=== PATIENT | male | born 1940 | race Hispanic/Latino ===

== ENCOUNTER 2017-09-07 18:03 | Emergency (ER) | payer OTHER ==
[2017-09-07 18:59] LABS: Urine Blood NEGATIVE (NEG); Urine Glucose 1+ (NEG); Urine Protein TRACE (NEG)
[2017-09-07 19:50] LABS: Absolute Lymphocytes (CBC) 0.1 K/uL (0.7-4.9); Absolute Monocytes 0.4 K/uL (0.1-1.3); Absolute Neutrophil 6.6 K/uL (1.8-8.0); Basophils % 0.3 % (0-1.3); Hematocrit 41.7 % (39.6-49.0); Lymphocytes % 1.8 % (15.3-44.8); MCH 30.8 pg (27.0-35.0); MCV 90.5 fL (80-100); MPV 7.1 fL (7.6-11.3); Monocytes % 5.4 % (3.3-12.3); RBC Red Blood Cell Count 4.61 M/uL (4.33-5.43)
[2017-09-07 20:01] LABS: Bicarbonate 26 mEq/L (21-31); Glucose Level 189 mg/dL (65-120); Potassium 3.9 mEq/L (3.6-5.0); Sodium Level 136 mEq/L (135-145)
[2017-09-07 20:04] LABS: ALT/SGPT 14 IU/L (10-60); AST/SGOT 22 IU/L (10-42); Albumin 3.4 g/dL (3.2-5.5); Alkaline Phosphatase 55 IU/L (42-121); BUN Blood Urea Nitrogen 13 mg/dL (6-20); Bilirubin Total 0.6 mg/dL (0.3-1.2); Protein, Total 5.8 g/dL (6.0-8.3)
[2017-09-07 20:09] LABS: Blood Morphology Comment NOT SEEN (NOT SEEN); Platelet Estimate ADEQ; Platelets, Giant PRESENT; Urine White Blood Cell Casts OK
--- NOTE | 2017-09-07 20:36 | RAD REPORT ---
EXAM DESCRIPTION: CTAbdomen Pelvis W Contrast - 09/07/2017 8:20 pm CLINICAL HISTORY: Abdominal pain. COMPARISON: None. TECHNIQUE: Biphasic CT imaging of the abdomen and pelvis was performed with 100 ml non-ionic IV cont rast. All CT scans are performed using dose optimization technique as appropriate and may include automated exposure control or mA/KV adjustment according to patient size. FINDINGS: The lung bases are clear. The liver, spleen, pancreas, adrenal glands and kidneys are within normal limits. Small benign hepati c cysts noted. No bowel obstruction, free air, free fluid or abscess. Small fat containing umbilical hernia. The candida endix is normal. No evidence of significant lymphadenopathy. Advanced lumbar degenerative changes with degenerative levoscoliosis. Moderate prostatomegaly seen. IMPRESSION: No acute intra-abdominal or pelvic finding. 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
--- NOTE | 2017-09-07 20:58 | ER ---
Nurse's Notes [facility] Name: Tj Harrington Age: 76 yrs Sex: Male : 1940 Arrival Date: 09/07/2017 Time: 18:06 Bed 18 Private MD: Prabhakar Mcneal Diagnosis: Low back pain Presentation: 09/07 18:21 Presenting complaint: Child states: lower back pain in the muscles by the belt loop, ch just in the back, worse with movement and lifting his legs. no urinary symptoms. Transition of care: patient was not received from another setting of care. 18:21 Method Of Arrival: Wheelchair 18:22 Onset of symptoms was September 05, 2017. Initial Sepsis Screen: Does the patient meet any 2 criteria? No. Patient's initial sepsis screen is negative. Does the patient have a suspected source of infection? No. Patient's initial sepsis screen is negative. Care prior to arrival: None. 18:22 Acuity: ABBEY 3 ch Triage Assessment: 18:25 General: Appears in no apparent distress. comfortable, Behavior is calm, cooperative, ch appropriate for age. Pain: Complains of pain in low back area and mid back area Pain currently is 5 out of 10 on a pain scale. at worst was 10 out of 10 on a pain scale. Historical: - Allergies: 18:25 No Known Allergies; ch - Home Meds: 18:25 azathioprine 50 mg Oral tab 1 tab 2 times per day [Active]; prednisone 20 mg Oral tab ch [Active]; pyridostigmine bromide 60 mg Oral tab [Active]; - PMHx: 18:25 Myasthenia Gravis; fall and tbi in 1982, has been on disability since; pt normal is aaox4; - PSHx: 18:25 Hernia repair; ch - Immunization history:: Adult Immunizations not up to date. - Social history:: Smoking status: Patient/guardian denies using tobacco. Screenin:12 Abuse screen: Denies threats or abuse. Denies injuries from another. Nutritional ao screening: No deficits noted. Tuberculosis screening: No symptoms or risk factors identified. Fall Risk None identified. Assessment: 19:10 General: Appears in no apparent distress. comfortable, Behavior is calm, cooperative, ao appropriate for age. Pain: Complains of pain in back Pain currently is 8 out of 10 on a pain scale. Neuro: Level of Consciousness is awake, alert, obeys commands, Oriented to person, place, time, situation, Appropriate for age Moves all extremities. Cardiovascular: Capillary refill < 3 seconds Patient's skin is warm and dry. Respiratory: Airway is patent Respiratory effort is even, unlabored, Respiratory pattern is regular, symmetrical. GI: Abdomen is non-distended. : No signs and/or symptoms were reported regarding the genitourinary system. EENT: No signs and/or symptoms were reported regarding the EENT system. Derm: Skin is pink, warm \T\ dry. Musculoskeletal: Range of motion: intact in all extremities. 20:45 Reassessment: Patient appears in no apparent distress at this time. No changes from ao previously documented assessment. Patient and/or family updated on plan of care and expected duration. Pain level reassessed. 21:31 Reassessment: Received a verbal order to medicate patient with norco 5. ao Vital Signs: 18:25 BP 113 / 63; Pulse 64; Resp 18; Temp 98.3; Pulse Ox 99% on R/A; Weight 74.84 kg; Height ch 5 ft. 9 in. (175.26 cm); Pain 5/10; 21:20 BP 105 / 68; Pulse 62; Resp 18; Pulse Ox 100% ; Pain 2/10; ao 18:25 Body Mass Index 24.37 (74.84 kg, 175.26 cm) ED Course: 18:06 Patient arrived in ED. mr 18:06 Prabhakar Mcneal MD is Private Physician. mr 18:23 Triage completed. ch 18:25 Arm band placed on left wrist. Patient placed in an exam room. ch 18:34 Mark Mcneal, ALEISHA is Primary Nurse. jl7 18:48 Patient has correct armband on for positive identification. Placed in gown. Bed in low mh5 position. Call light in reach. Side rails up X 1. Adult w/ patient. Pulse ox on. NIBP on. 18:48 Urine collected: clean catch specimen, cloudy. mh5 18:55 Nathan Hardy MD is Attending Physician. ps1 19:00 No provider procedures requiring assistance completed. Patient did not have IV access ao during this emergency room visit. 19:10 Mauricio Felix, ALEISHA is Primary Nurse. ao 19:29 Radiology exam delayed due to lab results not completed at this time. (BUN/Creatinine). vm2 19:51 Radiology exam delayed due to lab results not completed at this time. (BUN/Creatinine). jg1 20:[address] via wheelchair. nj 20:20 CT Abd/Pelvis - W/Contrast In Process Unspecified. EDMS 20:21 CT completed. Patient tolerated procedure well. Patient moved back from CT. nj 20:56 Prabhakar Mcneal MD is Referral Physician. ps1 Administered Medications: 21:45 Drug: [place] 5 mg-325 mg 1 tabs Route: PO; ao 21:45 Follow up: Response: No adverse reaction ao Outcome: 20:57 Discharge ordered by MD. ps1 21:46 Patient left the ED. ao 22:00 Discharge instructions given to patient, Instructed on discharge instructions, follow ao up and referral plans. Demonstrated understanding of instructions, follow-up care, medications. 0502 00:45 Discharged to home ambulatory. ao Condition: stable Signatures: Dispatcher [employer] EDMS Parisa Huff, RN RN Becky Medeiros, Harriett j Mauricio Felix, RN RN Chucho [facility] Mark Mcneal, ALEISHA RN [facility] Nathan Hardy MD MD ps1
--- NOTE | 2017-09-07 20:58 | EDPHYS ---
Physician Documentation [facility] Name: Tj Harrington Age: 76 yrs Sex: Male : 1940 Arrival Date: 09/07/2017 Time: 18:06 Bed 18 Private MD: Prabhakar Mcneal ED Physician Nathan Hardy HPI: 09/07 19:27 This 76 yrs old Male presents to ER via Wheelchair with complaints of Low Back ps1 Pain, Trouble Walking. 19:27 The patient presents with pain that is acute, with no known mechanism of injury. The ps1 symptoms are located in the low back. The pain does not radiate. The problem was sustained from unknown cause, family member states that he has been exerting himself lately despite their recommendations to take it easy. . Onset: The symptoms/episode began/occurred 2 day(s) ago. Modifying factors: The patient symptoms are alleviated by remaining still, the patient symptoms are aggravated by movement, standing. Associated signs and symptoms: Pertinent negatives: abdominal pain, incontinence, nausea, numbness, tingling, urinary retention, weakness. hx of myasthenia gravis. Does not have trouble breathing or other complaints of muscle fatigue. . Historical: - Allergies: 18:25 No Known Allergies; ch - Home Meds: 18:25 azathioprine 50 mg Oral tab 1 tab 2 times per day [Active]; prednisone 20 mg Oral tab ch [Active]; pyridostigmine bromide 60 mg Oral tab [Active]; - PMHx: 18:25 Myasthenia Gravis; fall and tbi in 1982, has been on disability since; pt normal is ch aaox4; - PSHx: 18:25 Hernia repair; ch - Immunization history:: Adult Immunizations not up to date. - Social history:: Smoking status: Patient/guardian denies using tobacco. ROS: 19:27 Constitutional: Negative for fever, chills, and weight loss, Eyes: Negative for injury, ps1 pain, redness, and discharge, Neck: Negative for injury, pain, and swelling, Cardiovascular: Negative for chest pain, palpitations, and edema, Respiratory: Negative for shortness of breath, cough, wheezing, and pleuritic chest pain, Abdomen/GI: Negative for abdominal pain, nausea, vomiting, diarrhea, and constipation. 19:27 MS/Extremity: Negative for injury and deformity, Skin: Negative for injury, rash, and discoloration, Neuro: Negative for headache, weakness, numbness, tingling, and seizure. 19:27 Back: Positive for decreased range of motion, pain with movement, Negative for injury or acute deformity, radiated pain. Exam: 19:27 Constitutional: This is a well developed, well nourished patient who is awake, alert, ps1 and in no acute distress. Head/Face: Normocephalic, atraumatic. Eyes: Pupils equal round and reactive to light, extra-ocular motions intact. Lids and lashes normal. Conjunctiva and sclera are non-icteric and not injected. Chest/axilla: Normal chest wall appearance and motion. Nontender with no deformity. No lesions are appreciated. Cardiovascular: Regular rate and rhythm. No gallops, murmurs, or rubs. Normal PMI, no JVD. No pulse deficits. Respiratory: Lungs have equal breath sounds bilaterally, clear to auscultation and percussion. No rales, rhonchi or wheezes noted. No increased work of breathing, no retractions or nasal flaring. Abdomen/GI: Soft, non-tender, with normal bowel sounds. No distension or tympany. No guarding or rebound. No evidence of tenderness throughout. 19:27 Back: pain, that is very mild, only going from supine to high fowlers., normal spinal alignment noted, vertebral tenderness, is not appreciated, muscle spasm, is appreciated in the left low back, left mid back, right mid back and right low back. Vital Signs: 18:25 BP 113 / 63; Pulse 64; Resp 18; Temp 98.3; Pulse Ox 99% on R/A; Weight 74.84 kg; Height ch 5 ft. 9 in. (175.26 cm); Pain 5/10; 21:20 BP 105 / 68; Pulse 62; Resp 18; Pulse Ox 100% ; Pain 2/10; ao 18:25 Body Mass Index 24.37 (74.84 kg, 175.26 cm) ch MDM: 19:31 Patient medically screened. ps1 09/07 18:50 Order name: Urine Dipstick--Ancillary (enter results); Complete Time: 19:31 ag 09/07 19:16 Order name: CBC with Diff; Complete Time: 20:32 ps1 09/07 19:16 Order name: CMP; Complete Time: 20:09 ps1 09/07 19:16 Order name: CT Abd/Pelvis - W/Contrast; Complete Time: 20:55 ps1 09/07 19:51 Order name: CBC Smear Scan; Complete Time: 20:32 EDMS Administered Medications: 21:45 Drug: [place] 5 mg-325 mg 1 tabs Route: PO; ao 21:45 Follow up: Response: No adverse reaction ao Disposition: 09/07/17 20:57 Discharged to Home. Impression: Low back pain. - Condition is Stable. - Discharge Instructions: Back Pain, Adult. - Prescriptions for Anaprox DS 550 mg Oral Tablet - take 1 tablet by ORAL route every 12 hours As needed; 20 tablet. Robaxin 500 mg Oral Tablet - take 2 tablet by ORAL route every 6 hours As needed; 40 tablet. Medrol (Stevie) 4 mg Oral Tablets, Dose Pack - take 1 tablet by ORAL route as directed - follow package instructions; 1 packet. - Medication Reconciliation Form, Thank You Letter, Antibiotic Education, Prescription Opioid Use form. - Follow up: Prabhakar Mcneal MD; When: As needed; Reason: Recheck today's complaints, Continuance of care, Re-evaluation by your physician. Follow up: Emergency Department; When: As needed; Reason: Worsening of condition. - Problem is new. - Symptoms are unchanged. Signatures: Dispatcher [employer] Parisa Arcos, Mauricio Brooks RN, ch, RN RN ao Singer, Phillip, MD MD ps1
[2017-09-07] MEDS ORDERED: HYDROCODONE/APAP 5/325 MG TAB ONE (21:36)
[2017-09-07 21:50] VITALS: TEMP 98.3
[2017-09-07 21:51] VITALS: BP 105/68; O2SAT 100
== END 2017-09-07 21:46 | disposition home or self-care (01) ==
LOC: ER 18:03
DX: M54.5 Low back pain (principal); G70.00 Myasthenia gravis without (acute) exacerbation
CPT/HCPCS: 36415; 74177; 80053; 81003; 85025; Q9967; 99284

== ENCOUNTER 2018-02-03 19:58 | Observation (INO) | payer OTHER ==
--- OUTSIDE RECORDS SUMMARY | 2018-02-03 20:02 | XMS REPORT | Continuity of Care Document ---
:1940 Author Organization Interface Problems Problem Status Onset Classification Date Comments Source Date Reported MYASTHENIA CRISIS Active 06/12/[address] DYSPHAGIA DYSPNEA Active 06/02/[address] STROKE Active 06/02/[address] Back pain Resolved Problem 06/23/2014 [facility] HTN (<span Active Problem 06/23/2014 [facility] ID="[id number]"> Medical Confirmed</span>) Center Hyperlipidemia Active Problem 06/23/2014 [facility] Lumbar back pain Active Problem 06/23/2014 [facility] Vertigo Resolved Problem 06/23/2014 [facility] DYSPHAGIA NOS Active [facility] MYASTHENIA IN OTH Active [facility] Medications Medication Details Route Status Patient Ordering Order Source Instructions Provider Date pyridostigmine 60 mg=1 tab, Active 06/21[facility] 60 mg oral DHT, 5X Day, # 2015 Medical tablet 150 tab, 0 Center Refill(s) predniSONE 5 mg 15 mg=3 tab, PO, Active 06/21[facility] oral tablet Daily, # 90 tab, 2014 Medical 0 Refill(s) Center azaTHIOprine 50 50 mg=1 tab, PO, Active 06/21[facility] mg oral tablet Daily, # 60 tab, 2014 Medical 0 Refill(s) Center Azathioprine 50 mg, 1 tab, Inactive 06/21[facility] Route: PO, Drug 2014 Medical form: TAB, Center Daily, Dosing Weight 84.3, kg, Start date: 06/21/14 14:00:00, Duration: 30 day, Stop date: 07/21/14 9:00:00Notes: (Same As: Imuran) Prednisone 15 mg, 3 tab, Inactive 06/21[facility] Route: PO, Drug 2014 Medical form: TAB, Center Daily, Dosing Weight 84.3, kg, Start date: 06/21/14 9:00:00, Duration: 30 day, Stop date: 07/20/14 9:00:00Notes: Take with food. Immunoglobulins, 35,000 mg, 350 Inactive [place] Intravenous 100 mL, Route: IV, 2015 Medical MG/ML Injectable Drug form: SOLN, Center Solution ONCE, Dosing Weight 84.3, kg, Start date: 06/21/14 6:00:00, Stop date: 06/21/14 6:00:00 Tylenol 650 mg, 2 tab, No Longer [place] Route: PO, Drug Active 2014 Medical form: TAB, Q4H, Center Dosing Weight 84.3, kg, PRN Pain, Start date: 06/20/14 17:48:00, Duration: 30 day, Stop date: 07/20/14 17:47:00Notes: Do not exceed 4 gm/day. (Same as: Tylenol) Pyridostigmine 60 mg, 1 tab, Inactive [place] Route: PEG, Drug 2014 Medical form: TAB, ONCE, Center Dosing Weight 84.3, kg, Priority: NOW, Start date: 06/20/14 11:57:00, Stop date: 06/20/14 11:57:00Notes: (Same as: Mestinon) Ondansetron 4 mg, 2 mL, Inactive [facility] Route: IVP, Drug 2014 Medical form: INJ, ONCE, Center Dosing Weight 84.3, kg, PRN Nausea & Vomiting, Start date: 06/20/14 11:57:00Notes: (Same as: Zofran) Naloxone 0.04 mg, 0.1 mL, Inactive [facility] Route: IVP, Drug 2014 Medical form: INJ, Center Q2MIN, Dosing Weight 84.3, kg, PRN Narcotic Reversal, Start date: 06/20/14 11:57:00, Duration: 8 doses or times, Stop date: 06/21/14 0:00:00Notes: (Same as: Narcan) Meperidine 12.5 mg, 0.5 mL, Inactive [facility] Route: IVP, Drug 2014 Medical form: INJ, Center Q30Min, Dosing Weight 84.3, kg, PRN Other -See Comment, For shivering, Start date: 06/20/14 11:57:00, Duration: 2 doses or times, Stop date: 06/21/14 0:00:00Notes: (Same as: Demerol) "Use Precaution in Elderly, Seizure disorders, and Renal impairment" Flumazenil 0.2 mg, 2 mL, Inactive [facility] Route: IVP, Drug 2014 Medical form: INJ, PRN, Center Dosing Weight 84.3, kg, PRN Benzodiazepine Reversal, Initial dose, Start date: 06/20/14 11:57:00, Duration: 5 doses or times, Stop date: 06/21/14 0:00:00Notes: (Same as: Romazicon) Oxycodone 5 mg, 5 mL, Inactive [facility] Hydrochloride 1 Route: NG, Drug 2014 Medical MG/ML Oral form: LIQ, Q4H, Center Solution Dosing Weight 84.3, kg, PRN Pain Score 4-6, Start date: 06/20/14 11:57:00, Duration: 30 day, Stop date: 07/20/14 11:56:00Notes: (Same as: 'Roxicodone) Labetalol 10 mg, 2 mL, Inactive [facility] Route: IVP, Drug 2014 Medical form: INJ, Center Q5Min, Dosing Weight 84.3, kg, PRN Elevated BP, Start date: 06/20/14 11:57:00, Duration: 5 doses or times, Stop date: 06/21/14 0:00:00 Hydralazine 10 mg, 0.5 mL, Inactive [facility] Route: IVP, Drug 2014 Medical form: INJ, Center Q20Min, Dosing Weight 84.3, kg, PRN Elevated BP, Start date: 06/20/14 11:57:00, Duration: 2 doses or times, Stop date: 06/21/14 0:00:00Notes: (Same as: Apresoline) Push over 5 minutes Sodium Chloride 1,000 mL, Rate: No Longer [facility] 0.154 MEQ/ML 50 ml/hr, Infuse Active 2014 Medical Injectable over: 20 hr, Center Solution Route: IV, Dosing Weight 84.3 kg, Total Volume: 1,000, Start date: 06/19/14 22:27:00, Duration: 30 day, Stop date: 07/19/14 22:26:00 Calcium 2,000 mg, 20 mL, Inactive [facility] Gluconate Route: IVPB, 2014 Medical ONCE, Dosing Center Weight 84.3, kg, Start date: 06/19/14 5:14:00, Stop date: 06/19/14 5:14:00 Magnesium 2 gm, 50 mL, Inactive [facility] Sulfate Route: IVPB, 2014 Medical Drug form: INJ, Center ONCE, Dosing Weight 84.3, kg, Total dose=2 gm, Start date: 06/19/14 5:13:00, Duration: 1 doses or times, Stop date: 06/19/14 5:13:00 D5NS 1,000 mL 1,000 mL, Rate: No Longer [place] 75 ml/hr, Infuse Active 2014 Medical over: 13.3 hr, Center Route: IV, Dosing Weight 84.3 kg, Total Volume: 1,000, Start date: 06/17/14 9:52:31, Stop date: 07/17/14 7:30:00 Prednisone 10 mg, 1 tab, No Longer [facility] Route: PO, Drug Active 2014 Medical form: TAB, Center Daily, Dosing Weight 83.636, kg, Start date: 06/17/14 9:00:00, Duration: 30 day, Stop date: 07/16/14 9:00:00Notes: (Same as: PredniSONE) Take with food. D5NS 1,000 mL 1,000 mL, Rate: Inactive [facility] 75 ml/hr, Infuse 2014 Medical over: 13.3 hr, Center Route: IV, Dosing Weight 84.3 kg, Total Volume: 1,000, Start date: 06/17/14 7:31:00, Duration: 30 day, Stop date: 07/17/14 7:30:00 Mestinon 30 mg, Route: Inactive [facility] PO, BID, Dosing 2014 Medical Weight 84.3, kg, Center Start date: 06/15/14 18:30:00, Stop date: 07/15/14 17:00:00 Mestinon 60 mg, 1 tab, Inactive [facility] Route: PO, Drug 2014 Medical form: TAB, Q6H, Center Start date: 06/15/14 18:00:00, Duration: 30 day, Stop date: 07/15/14 12:00:00Notes: (Same as: Mestinon) Mestinon 60 mg, 1 tab, No Longer [facility] Route: DHT, Drug Active 2014 Medical form: TAB, 5X Center Day, Dosing Weight 84.3, kg, Priority: NOW, Start date: 06/15/14 15:52:00, Stop date: 07/15/14 12:00:00Notes: (Same as: Mestinon) Mestinon 60 mg, Route: Inactive [facility] PO, BID, Dosing 2014 Medical Weight 84.3, kg, Center Start date: 06/15/14 12:30:00, Duration: 30 day, Stop date: 07/15/14 9:00:00 acetylcysteine 300 mg, 3 mL, No Longer [place] Route: NEB, Drug Active 2014 Medical Form: SOLN, Q4H, Center PRN Respiratory Protocol, Start date: 06/15/14 12:06:00, Duration: 30 day, Stop date: 07/15/14 12:05:00 Acetylcysteine 300 mg, Route: Inactive [facility] 200 MG/ML NEB, Q4H, Dosing 2014 Medical Inhalant Weight 84.3, kg, Center Solution PRN Respiratory Protocol, Start date: 06/15/14 11:58:00, Duration: 30 day, Stop date: 07/15/14 11:57:00 Mestinon 60 mg, 1 tab, Inactive [facility] Route: PO, Drug 2014 Medical form: TAB, ONCE, Center Dosing Weight 84.3, kg, Priority: STAT, Start date: 06/15/14 11:54:00, Stop date: 06/15/14 11:54:00Notes: (Same as: Mestinon) acetylcysteine 400 mg, 4 mL, No Longer [facility] Route: Active 2014 Medical INHALATION, Drug Center Form: SOLN, ONCE, Start date: 06/15/14 9:58:00, Stop date: 06/15/14 9:58:00 Acetylcysteine 4 mL, Route: Inactive [place] 200 MG/ML NEB, Drug form: 2014 Medical Inhalant SOLN, ONCE, Center Solution Dosing Weight 84.3, kg, Start date: 06/15/14 9:36:00, Stop date: 06/15/14 9:36:00 iodixanol 75 mL, Route: Inactive [facility] IVP, Drug Form: 2014 Medical SOLN, Dosing Center Weight 84.3, kg, ONCALL, STAT, Start date: 06/15/14 8:48:00, Duration: 1 doses or times, Dose=2.2ml/kg, Max [id number] -- "To be infused by Radiology Staff ONLY"Special Instructions: Dose=2.2ml/kg, Max [id number] -- "To be infused by Radiology Staff ONLY"Notes: (Same as: Visipaque). Albuterol 0.833 3 ml, Route: No Longer [facility] MG/ML / NEB, Drug Form: Active 2014 Medical Ipratropium SOLN, Dosing Center [place] 0.167 Weight 84.3, kg, MG/ML Inhalant PRN, PRN Solution Respiratory Protocol, Start date: 06/15/14 8:26:00, Duration: 30 day, Stop date: 07/15/14 9:25:00Notes: (Same as: Duoneb) pyridostigmine 60 mg=1 tab, PO, No Longer [facility] 60 mg oral Q4H, 0 Refill(s) Active 2014 Medical tablet [place] predniSONE 20 mg 100 mg=5 tab, No Longer [facility] oral tablet PO, Daily, 0 Active 2014 Medical Refill(s) Center lisinopril 20 mg 20 mg=1 tab, PO, Active [facility] oral tablet BID, 0 Refill(s) 2014 [facility] Pyridostigmine 30 mg, 0.5 tab, Inactive [facility] Route: PO, Drug 2014 Medical form: TAB, QID, Center Dosing Weight 84.3, kg, Start date: 06/14/14 14:00:00, Stop date: 06/14/14 14:00:00Notes: (Same as: Mestinon) Immunoglobulins, 67.2 mg, Route: No Longer [facility] Intravenous 100 IV, Daily, Active 2014 Medical MG/ML Injectable Dosing Weight Center Solution 84.3, kg, Start date: 06/14/14 9:00:00, Duration: 2 day, Stop date: 06/15/14 9:00:00 Mestinon 60 mg, Route: No Longer [facility] PO, Daily, Active 2014 Medical Dosing Weight Center 84.3, kg, Start date: 06/14/14 9:00:00, Duration: 30 day, Stop date: 07/13/14 9:00:00 aspirin 81 mg, 1 tab, No Longer [facility] Route: DHT, Drug Active 2014 Medical form: CHEWTAB, Center Daily, Dosing Weight 84.3, kg, Start date: 06/14/14 9:00:00, Duration: 30 day, Stop date: 07/13/14 9:00:00, for pts >10 kg dosingSpecial Instructions: for pts >10 kg dosing Privigen 70 gm, 700 mL, No Longer [facility] Route: IVPB, Active 2014 Medical Drug form: SOLN, Center Daily, Start date: 06/14/14 9:00:00, Stop date: 06/15/14 9:00:00Notes: Lot # __Mfg: "blood product derivative" Mestinon 30 mg, 0.5 tab, Inactive [facility] Route: PO, Drug 2014 Medical form: TAB, Q12H, Center Dosing Weight 84.3, kg, Start date: 06/14/14 8:00:00, Duration: 30 day, Stop date: 07/13/14 20:00:00Notes: (Same as: Mestinon) Ativan 1 mg, 1 tab, Inactive [facility] Route: PO, Drug 2014 Medical form: TAB, TID, Center Dosing Weight 84.3, kg, PRN Anxiety, Start date: 06/14/14 0:51:00, Duration: 30 day, Stop date: 07/14/14 0:50:00Notes: (Same as: Ativan) Simvastatin 10 mg, 1 tab, No Longer [facility] Route: PO, Drug Active 2014 Medical form: TAB, Center Bedtime, Dosing Weight 84.3, kg, Start date: 06/13/14 21:00:00, Duration: 30 day, Stop date: 07/12/14 21:00:00Notes: (Same as: Zocor) Glycopyrrolate 0.2 mg, 1 mL, No Longer [facility] Route: IV, Drug Active 2014 Medical form: INJ, QID, Center Dosing Weight 84.3, kg, PRN Secretions, Start date: 06/13/14 16:50:00, Duration: 30 day, Stop date: 07/13/14 16:49:00Notes: (Same as: Robinul) Mestinon 60 mg, 1 tab, No Longer [facility] Route: PO, Drug Active 2014 Medical form: TAB, Q12H, Center Dosing Weight 84.3, kg, Start date: 06/13/14 14:00:00, Duration: 30 day, Stop date: 07/13/14 2:00:00Notes: (Same as: Mestinon) Lisinopril 20 mg, 1 tab, No Longer [facility] Route: PO, Drug Active 2014 Medical form: TAB, Center Daily, Dosing Weight 84.3, kg, Start date: 06/13/14 9:00:00, Duration: 30 day, Stop date: 07/12/14 9:00:00Notes: (Same as: Prinivil, Zestril) Aspirin 81 MG 81 mg, 1 tab, Inactive [place] [facility] Route: PO, Drug 2014 Medical Tablet form: ECTAB, Center Daily, Dosing Weight 84.3, kg, Start date: 06/13/14 9:00:00, Duration: 30 day, Stop date: 07/12/14 9:00:00Notes: Do not crush or chew. (Same As: Ecotrin) Prednisone 5 mg, 1 tab, No Longer [facility] Route: PO, Drug Active 2014 Medical form: TAB, Center Daily, Dosing Weight 83.636, kg, Start date: 06/13/14 9:00:00, Duration: 30 day, Stop date: 07/12/14 9:00:00Notes: Take with food. heparin, porcine 5,000 unit, 1 No Longer [facility] mL, Route: Active 2014 Medical SUB-Q, Drug Center form: INJ, Q8H, Dosing Weight 84.3, kg, Start date: 06/13/14 8:00:00, Duration: 30 day, Stop date: 07/13/14 0:00:00Notes: porcine heparin lansoprazole 30 mg, 10 mL, No Longer [facility] Route: PO, Drug Active 2014 Medical form: SUSP, Center BID-Before Meals, Dosing Weight 84.3, kg, Start date: 06/13/14 7:30:00, Stop date: 07/12/14 16:30:00Notes: (Same as:Prevacid) Compounded Product - formulation not commercially available Mestinon 60 mg, 1 tab, Inactive [place] Route: PO, Drug 2014 Medical form: TAB, Center Q4H-WA, Dosing Weight 83.636, kg, q4h, qid (to be given while awake), Start date: 06/13/14 0:00:00, Duration: 30 day, Stop date: 07/12/14 22:00:00Notes: (Same as: Mestinon) Immunoglobulins, 35 gm, 350 mL, No Longer [facility] Intravenous 100 Route: IV, Drug Active 2014 Medical MG/ML Injectable form: SOLN, Center Solution Q24H, Dosing Weight 83.636, kg, Start date: 06/12/14 22:00:00, Stop date: 06/16/14 22:00:00Notes: Begin at 0.5 mg/kg/min (0.03 grams/kg/hr). gradually increase as tolerated . Not to exceed 4 mg/kg/min (0.24 grams/kg/hr). Lot# [id number]: "blood product derivative" simvastatin 10 10 mg=1 tab, PO, Active [facility] mg oral tablet Bedtime, # 30 2014 Medical tab, 0 Refill(s) Center lisinopril 20 mg 20 mg=1 tab, PO, Active [facility] oral tablet Daily, # 30 tab, 2014 Medical 0 Refill(s) Center Simvastatin 10 mg, 1 tab, No Longer [facility] Route: PO, Drug Active 2014 Medical form: TAB, Center Bedtime, Dosing Weight 96.364, kg, Start date: 06/03/14 21:00:00, Duration: 30 day, Stop date: 07/02/14 21:00:00Notes: (Same as: Zocor) Enoxaparin 40 mg, 0.4 mL, No Longer [facility] Route: SUB-Q, Active 2014 Medical Drug form: INJ, Center [id number], Dosing Weight 96.364, kg, Start date: 06/03/14 16:00:00, Duration: 30 day, Stop date: 07/02/14 16:00:00Notes: (Same as: Lovenox) Lisinopril 20 mg, 1 tab, No Longer [facility] Route: PO, Drug Active 2014 Medical form: TAB, Center Daily, Dosing Weight 96.364, kg, Start date: 06/03/14 9:00:00, Duration: 30 day, Stop date: 07/02/14 9:00:00Notes: (Same as: Prinivil, Zestril) Saline Flush 10 ml, Route: No Longer [facility] 0.9% IVP, Drug Form: Active 2014 Medical INJ, Dosing Center Weight 96.364, kg, Q12H, Start date: 06/03/14 9:00:00, Duration: 30 day, Stop date: 07/02/14 21:00:00Notes: (Same as: BD Posiflush) Prednisone 10 mg, 1 tab, Inactive [facility] Route: PO, Drug 2014 Medical form: TAB, Center Daily, Dosing Weight 96.364, kg, Start date: 06/03/14 9:00:00, Duration: 30 day, Stop date: 07/02/14 9:00:00Notes: (Same as: PredniSONE) Take with food. aspirin 162 mg, 2 tab, Inactive [facility] Route: PO, Drug 2014 Medical form: ECTAB, Center Daily, Dosing Weight 96.364, kg, Start date: 06/03/14 9:00:00, Duration: 30 day, Stop date: 07/02/14 9:00:00Notes: Do not crush or chew. (Same As: Ecotrin) Fluticasone 1 puff, Route: Inactive [facility] propionate 0.1 INHALATION, Drug 2014 Medical MG/ACTUAT / Form: PWDR, [place] salmeterol 0.05 Dosing Weight MG/ACTUAT Dry 83.636, kg, BID, Powder Inhaler Start date: 06/03/14 9:00:00, Duration: 30 day, Stop date: 07/02/14 17:00:00 Celexa 10 mg, 1 tab, Inactive [facility] Route: PO, Drug 2014 Medical form: TAB, Center Daily, Dosing Weight 83.636, kg, Start date: 06/03/14 9:00:00, Duration: 30 day, Stop date: 07/02/14 9:00:00 Aspirin 81 MG 81 mg, 1 tab, No Longer [facility] Route: PO, Drug Active 2014 Medical Tablet form: ECTAB, Center Daily, Dosing Weight 83.636, kg, Start date: 06/03/14 9:00:00, Duration: 30 day, Stop date: 07/02/14 9:00:00Notes: Do not crush or chew. (Same As: Ecotrin) budesonide-formo 2 inhalation, Inactive [facility] terol 80 mcg-4.5 Route: 2014 Medical mcg/inh INHALATION, Drug [place] inhalation Form: AERO/A, aerosol with RBID, Start adapter date: 06/03/14 8:00:00, Duration: 30 day, Stop date: 07/02/14 20:00:00Notes: (Same as: Symbicort) Fluticasone 1 puff, Inactive [facility] propionate 0.1 INHALATION, BID, 2015 Medical MG/ACTUAT / # 60 puff, 0 Center salmeterol 0.05 Refill(s) MG/ACTUAT Dry Powder Inhaler predniSONE 10 mg 10 mg=1 tab, PO, Inactive [facility] oral tablet BID, 0 Refill(s) 2014 [facility] lisinopril 20 mg 20 mg=1 tab, PO, No Longer [facility] oral tablet BID, 0 Refill(s) Active 2014 [facility] Aspirin 81 MG 81 mg=1 tab, PO, Active [facility] Co[facility] Daily, # 0 tab, 2014 Medical Tablet 0 Refill(s) Center 05/11 NS 1,500 mL 1,500 mL, Rate: Inactive [facility] 75 ml/hr, Infuse 2014 Medical over: 20 hr, Center Route: IV, Dosing Weight 96.364 kg, Total Volume: 1,500, Start date: 06/03/14 1:56:00, Duration: 1 doses or times, Stop date: 06/03/14 21:55:00 Albuterol 0.83 2.49 mg, 3 mL, No Longer [place] MG/ML Inhalant Route: NEB, Drug Active 2014 Medical Solution form: SOLN, PRN, Center Dosing Weight 96.364, kg, PRN Respiratory Protocol, Start date: 06/03/14 1:49:00, Duration: 30 day, Stop date: 07/03/14 1:48:00Notes: SEE RT DOCUMENTATION (Same as: Proventil) Temazepam 7.5 mg, 1 cap, No Longer [facility] Route: PO, Drug Active 2014 Medical form: CAP, Center Bedtime, Dosing Weight 96.364, kg, PRN Sleep, Start date: 06/03/14 1:37:00, Duration: 30 day, Stop date: 07/03/14 1:36:00Notes: (Same As: Restoril) Saline Flush 10 ml, Route: No Longer [facility] 0.9% IVP, Drug Form: Active 2014 Medical INJ, Dosing Center Weight 96.364, kg, PRN, PRN Line Flush, Start date: 06/03/14 1:36:00, Duration: 30 day, Stop date: 07/03/14 1:35:00Notes: (Same as: BD Posiflush) Acetaminophen 500 mg, 1 tab, No Longer [facility] Route: PO, Drug Active 2014 Medical form: TAB, Q4H, Center Dosing Weight 96.364, kg, PRN Other -See Comment, Start date: 06/03/14 1:36:00, Stop date: 07/03/14 1:35:00, pain or T > 100.4Notes: Max acetaminophen 4000 mg/day (4 gm/day). (Same as: Tylenol Extra Strength) Iohexol 150 mL, Route: Inactive [facility] IVP, Drug Form: 2014 Medical SOLN, Dosing Center Weight 96.364, kg, ONCALL, STAT, Start date: 06/02/14 21:15:00, Duration: 1 doses or times, Dose=2.2ml/kg, Max udjd=019pi -- "To be infused by Radiology Staff ONLY"Special Instructions: Dose=2.2ml/kg, Max hutd=546mo -- "To be infused by Radiology Staff ONLY"Notes: (Same as:Omnipaque 350). cefepime 1 gm, Route: Inactive [facility] IVPB, Drug form: 2014 Medical INJ, ONCE, Center Dosing Weight 96.364, kg, Priority: STAT, Start date: 06/02/14 19:28:00, Stop date: 06/02/14 19:28:00Notes: (Same As: Maxipime) Vancomycin 1.5 gm, Route: Inactive [facility] IVPB, ONCE, 2015 Medical Dosing Weight Center 96.364, kg, Priority: STAT, Start date: 06/02/14 19:28:00, Stop date: 06/02/14 19:28:00Notes: (Same As: Vancocin) Infusion rate 2001 mg: infuse over 2.5 hours Vancomycin FOR IV SET ONLY Allergies, Adverse Reactions, Alerts Substance Category Reaction Severity Reaction Status Date Comments Source type Reported NKDA Assertion Drug Active [facility] Immunizations Immunization Date Given Site Status Last Updated Comments Source Results Order Name Results Value Reference Date Interpretation Comments Source Range HEMATOLOGY Segs 84.2 % 45.0 - 75.0 06/21 [facility] [address] [place] [address] HEMATOLOGY Basophils 0.1 % 0.0 - 1.0 06/[address] HEMATOLOGY Monocytes 7.1 % 2.0 - 12.0 06/[address] HEMATOLOGY Segs-Bands # 9.7 K/CMM 1.5 - 8.1 06/[address] HEMATOLOGY Lymphocytes 1.0 K/CMM 1.0 - 5.5 06/21 [facility] /[address] [place] [address] HEMATOLOGY Monocytes # 0.8 K/CMM 0.0 - 0.8 06/[address] HEMATOLOGY Lymphocytes 8.6 % 20.0 - 40.0 06/[address] HEMATOLOGY Hgb 12.8 g/dL 14.0 - 18.0 06/[address] HEMATOLOGY MCHC 34.4 g/dL 32.0 - 36.0 06/[address] HEMATOLOGY RDW 13.6 % 11.5 - 14.5 06/[address] HEMATOLOGY MCH 30.3 pg 27.0 - 31.0 06/[address] HEMATOLOGY Hct 37.0 % 42.0 - 54.0 06/[address] HEMATOLOGY MCV 87.9 fL 80.0 - 94.0 06/[address] HEMATOLOGY MPV 8.3 fL 7.4 - 10.4 06/[address] HEMATOLOGY Platelet 194 K/CMM 133 - 450 06/[address] HEMATOLOGY RBC 4.21 M/CMM 4.70 - 6.10 06/[address] HEMATOLOGY WBC 11.5 K/CMM 3.7 - 10.4 06/[address] CHEM PANEL Bili Total 0.3 mg/dL 0.2 - 1.3 06/[address] CHEM PANEL Bili 0.2 mg/dL 0.0 - 1.0 06/[address] CHEM PANEL Bili Direct 0.1 mg/dL 0.0 - 0.3 06/[address] CHEM PANEL Alk Phos 64 unit/L 39 - 136 06/[address] CHEM PANEL AST 51 unit/L 0 - 37 06/[address] CHEM PANEL ALT 62 unit/L 0 - 65 06/[address] CHEM PANEL A/G Ratio 0.6 0.7 - 1.6 06/[address] CHEM PANEL Globulin 4.4 g/dL 2.0 - 4.0 06/[address] CHEM PANEL Albumin Lvl 2.7 g/dL 3.5 - 5.0 06/[address] CHEM PANEL Total 7.1 g/dL 6.4 - 8.4 06/21 [facility] [address] [place] [address] CHEM PANEL Magnesium 2.0 mg/dL 1.8 - 2.4 06/21 [facility] CHEM PANEL Phosphorus 2.1 mg/dL 2.5 - 4.5 06/21 [facility]2014 [facility] ELECTROLYTE AGAP 11.2 meq/L 10.0 - 20.0 06/21 [facility]2014 [facility] ELECTROLYTE eGFR 88 06/21 1Result Comment: The eGFR is calculated using the CKD-EPI formula. In most young, healthy individuals the eGFR will be > 90 mL/min/1.73m2. The eGFR declines with age. An eGFR of 60-89 may be normal in [facility] [place] mL/min/1.7 some populations, particularly the elderly, for whom the CKD-EPI formula has not been extensively validated. Use of the eGFR is not recommended in the following populations: [address] Individuals with unstable creatinine concentrations, including patients and those with serious co-morbid conditions. Patients with extremes in muscle mass or diet. The data above are obtained from the National Kidney Disease Education Program (NKDEP) which additionally recommends that when the eGFR is used in patients with extremes of body mass index for purposes of drug dosing, the eGFR should be multiplied by the estimated BMI. ELECTROLYTE Calcium Lvl 8.8 mg/dL 8.5 - 10.5 06/21 [facility] ELECTROLYTE CO2 26 meq/L 24 - 32 06/21 [facility]2014 [facility] ELECTROLYTE Chloride Lvl 105 meq/L 95 - 109 06/21 [facility]2014 [facility] ELECTROLYTE Potassium 4.2 meq/L 3.5 - 5.1 06/21 [facility]2014 [facility] ELECTROLYTE Sodium Lvl 138 meq/L 135 - 145 06/21 [facility]2014 [facility] ELECTROLYTE Creatinine 0.8 mg/dL 0.5 - 1.4 06/21 [facility] ELECTROLYTE Glucose Lvl 115 mg/dL 70 - 99 06/21 4Interpretive Data: Adult reference range values reflect the clinical guidelines [facility] of the [place] [employer]. [facility] ELECTROLYTE BUN 13 mg/dL 7 - 22 06/21 [facility]2014 [facility] HEMATOLOGY Lymphocytes 0.8 K/CMM 1.0 - 5.5 06/21 [facility]2014 [facility] HEMATOLOGY Monocytes # 0.7 K/CMM 0.0 - 0.8 06/[address] HEMATOLOGY Segs 88.6 % 45.0 - 75.0 06/[address] HEMATOLOGY Lymphocytes 5.8 % 20.0 - 40.0 06/[address] HEMATOLOGY Basophils 0.2 % 0.0 - 1.0 06/[address] HEMATOLOGY Monocytes 5.4 % 2.0 - 12.0 06/[address] HEMATOLOGY Segs-Bands # 11.7 K/CMM 1.5 - 8.1 06/[address] HEMATOLOGY PT 15.3 s 12.0 - 14.7 06/[address] HEMATOLOGY INR 1.20 0.85 - 1.17 06/21 11Interpretive Data: RECOMMENDED RANGES FOR PROTIME INR: 2.0-3.0 for most medical and surgical thromboembolic states. Medical 2.5-3.5 for artificial heart valves and recurrent embolism. Center INR SHOULD BE USED ONLY FOR PATIENTS ON STABLE ANTICOAGULANT THERAPY. HEMATOLOGY PTT 31.9 s 22.9 - 35.8 06/21 14Interpretiv e Data: [facility] Therapeutic Range: 57 - 92 Seconds HEMATOLOGY MPV 8.6 fL 7.4 - 10.4 06/[address] HEMATOLOGY RDW 13.5 % 11.5 - 14.5 06/[address] HEMATOLOGY Platelet 196 K/CMM 133 - 450 06/[address] HEMATOLOGY MCV 88.4 fL 80.0 - 94.0 06/[address] HEMATOLOGY MCHC 34.4 g/dL 32.0 - 36.0 06/[address] HEMATOLOGY MCH 30.4 pg 27.0 - 31.0 06/[address] HEMATOLOGY WBC 13.2 K/CMM 3.7 - 10.4 06/[address] HEMATOLOGY Hct 34.1 % 42.0 - 54.0 06/[address] HEMATOLOGY Hgb 11.7 g/dL 14.0 - 18.0 06/[address] HEMATOLOGY RBC 3.85 M/CMM 4.70 - 6.10 06/[address] CHEM PANEL Phosphorus 2.4 mg/dL 2.5 - 4.5 06/20 [facility] CHEM PANEL eGFR 88 06/20 2Result Comment: The eGFR is calculated using the CKD-EPI formula. In most young, healthy individuals the eGFR will be >90 mL/ min/1.73m2. The eGFR declines with age. An eGFR of 60-89 may be normal in [facility] mL/min/1.7 some populations, particularly the elderly, for whom the CKD-EPI formula has not been extensively validated. Use of the eGFR is not recommended in the following populations: [address] Individuals with unstable creatinine concentrations, including patients and those with serious co-morbid conditions. Patients with extremes in muscle mass or diet. The data above are obtained from the National Kidney Disease Education Program (NKDEP) which additionally recommends that when the eGFR is used in patients with extremes of body mass index for purposes of drug dosing, the eGFR should be multiplied by the estimated BMI. CHEM PANEL BUN 10 mg/dL 7 - 22 06/20 [facility]2014 [facility] CHEM PANEL Potassium 3.5 meq/L 3.5 - 5.1 06/20 [facility] CHEM PANEL Calcium Lvl 8.5 mg/dL 8.5 - 10.5 06/20 [facility]2014 [facility] CHEM PANEL Chloride Lvl 108 meq/L 95 - 109 06/[address] CHEM PANEL Sodium Lvl 141 meq/L 135 - 145 06/[address] CHEM PANEL Creatinine 0.8 mg/dL 0.5 - 1.4 06/[address] CHEM PANEL Glucose Lvl 88 mg/dL 70 - 99 06/20 5Interpretive Data: Adult reference range values reflect the clinical guidelines of the [place] [employer]. [facility] CHEM PANEL CO2 27 meq/L 24 - 32 06/20 [facility]2014 [facility] CHEM PANEL AGAP 9.5 meq/L 10.0 - 20.0 06/20 [facility]2014 [facility] CHEM PANEL Magnesium 2.0 mg/dL 1.8 - 2.4 06/[address] HEMATOLOGY INR 1.15 0.85 - 1.17 06/20 12Interpretive Data: RECOMMENDED RANGES FOR PROTIME INR: [facility] 2.0-3.0 for most medical and surgical thromboembolic states. Medical 2.5-3.5 for artificial heart valves and recurrent embolism. Center INR SHOULD BE USED ONLY FOR PATIENTS ON STABLE ANTICOAGULANT THERAPY. HEMATOLOGY PT 14.8 s 12.0 - 14.7 06/[address] HEMATOLOGY PTT 56.4 s 22.9 - 35.8 06/20 15Interpretiv [facility] e Data: [facility] Therapeutic Range: 57 - 92 Seconds HEMATOLOGY Platelet 214 K/CMM 133 - 450 06/[address] HEMATOLOGY MPV 8.0 fL 7.4 - 10.4 06/[address] HEMATOLOGY MCHC 34.0 g/dL 32.0 - 36.0 06/[address] HEMATOLOGY MCV 88.9 fL 80.0 - 94.0 06/[address] HEMATOLOGY MCH 30.2 pg 27.0 - 31.0 06/[address] HEMATOLOGY RDW 13.9 % 11.5 - 14.5 06/[address] HEMATOLOGY Hct 36.8 % 42.0 - 54.0 06/[address] HEMATOLOGY RBC 4.14 M/CMM 4.70 - 6.10 06/[address] HEMATOLOGY WBC 5.5 K/CMM 3.7 - 10.4 06/[address] HEMATOLOGY Hgb 12.5 g/dL 14.0 - 18.0 06/[address] HEMATOLOGY Basophils 0.6 % 0.0 - 1.0 06/[address] HEMATOLOGY Lymphocytes 1.3 K/CMM 1.0 - 5.5 06/20 [facility] HEMATOLOGY Segs-Bands # 3.6 K/CMM 1.5 - 8.1 06/[address] HEMATOLOGY Segs 65.5 % 45.0 - 75.0 06/[address] HEMATOLOGY Lymphocytes 23.0 % 20.0 - 40.0 06/[address] HEMATOLOGY Monocytes 10.4 % 2.0 - 12.0 06/[address] HEMATOLOGY Monocytes # 0.6 K/CMM 0.0 - 0.8 06/[address] HEMATOLOGY Eosinophils 0.5 % 0.0 - 4.0 06/[address] CHEM PANEL Phosphorus 1.9 mg/dL 2.5 - 4.5 06/19 [facility]2014 [facility] CHEM PANEL Magnesium 1.7 mg/dL 1.8 - 2.4 06/19 [facility] ELECTROLYTE AGAP 7.5 meq/L 10.0 - 20.0 06/19 [facility]2014 [facility] ELECTROLYTE CO2 27 meq/L 24 - 32 06/19 [facility]2014 [facility] ELECTROLYTE Calcium Lvl 8.2 mg/dL 8.5 - 10.5 06/[address] ELECTROLYTE eGFR 99 06/19 3Result Comment: The eGFR is calculated using the CKD-EPI formula. In most young, healthy individuals the eGFR will be > 90 mL/min/1.73m2. The eGFR declines with age. An eGFR of 60-89 may be normal in [facility] [place] mL/min/1.7 some populations, particularly the elderly, for whom the CKD-EPI formula has not been extensively validated. Use of the eGFR is not recommended in the following populations: [address] Individuals with unstable creatinine concentrations, including patients and those with serious co-morbid conditions. Patients with extremes in muscle mass or diet. The data above are obtained from the National Kidney Disease Education Program (NKDEP) which additionally recommends that when the eGFR is used in patients with extremes of body mass index for purposes of drug dosing, the eGFR should be multiplied by the estimated BMI. ELECTROLYTE Glucose Lvl 110 mg/dL 70 - 99 06/19 6Interpretive Data: Adult reference range values reflect the clinical guidelines [facility] of the [place] [employer]. [facility] ELECTROLYTE Sodium Lvl 141 meq/L 135 - 145 06/19 [facility] ELECTROLYTE Chloride Lvl 110 meq/L 95 - 109 06/19 [facility]2014 [facility] ELECTROLYTE Creatinine 0.6 mg/dL 0.5 - 1.4 06/19 [facility] ELECTROLYTE Potassium 3.5 meq/L 3.5 - 5.1 06/[address] ELECTROLYTE BUN 12 mg/dL 7 - 22 06/[address] HEMATOLOGY INR 1.21 0.85 - 1.17 06/19 13Interpretive Data: RECOMMENDED RANGES FOR PROTIME INR: 2.0-3.0 for most medical and surgical thromboembolic states. Medical 2.5-3.5 for artificial heart valves and recurrent embolism. Center INR SHOULD BE USED ONLY FOR PATIENTS ON STABLE ANTICOAGULANT THERAPY. HEMATOLOGY PTT 50.5 s 22.9 - 35.8 06/19 16Interpretiv e Data: [facility] Therapeutic Range: 57 - 92 Seconds HEMATOLOGY PT 15.4 s 12.0 - 14.7 06/19 [facility] HEMATOLOGY Eosinophils 0.5 % 0.0 - 4.0 06/19 [facility] HEMATOLOGY Eosinophils 0.1 K/CMM 0.0 - 0.5 06/18 [facility] HEMATOLOGY Eosinophils 1.1 % 0.0 - 4.0 06/18 [facility] MOLECULAR C difficile Negative 17 Negative 06/18 17Interpretive Data: [employer] Clostridium difficile assay utilizes loop-mediated isothermal DNA amplification (LAMP) technology to detect a 204 bp region of the tcdA gene within the PaLoc gene [facility] segment present in all known toxigenic C. difficile strains. [facility] (06/17/14 8:28 PM) Center The assay utilizes FDA cleared IVD reagents. Performance characteristics have been verified by the Molecular Diagnostic Laboratory within the [facility]. The Molecular Diagnostic Laboratory is authorized under the Clinical Laboratory Improvement Amendment of 1988 (CLIA-88) to perform high complexity testing. Thyroid US Thyroid US EXAM: US THYROID 06/17 - - [facility] This report was dictated by a [employer]/Fellow. I have personally reviewed the images as Center well as the Resident's interpretation and agree with the findings. DATE: 06/15/2014. Read by: Meghann (fellow), Mick Oshea MD Resident: Meghann (fellow), Mick Oshea MD Dictated Date/time: 06/18/14 10:07 Electronically Signed by: Kali Gaffney MD 06/18/14 10:43 FINAL REPORT INDICATION: Thyroid mass. ADDITIONAL INFORMATION: None. COMPARISON: None. TECHNIQUE: Multiplanar grayscale and color Doppler ultrasound images of the neck were obtained in the area of the thyroid. FINDINGS: Right lobe is 2.5 x 1.0 x 1.0 cm. Left lobe is 2.2 x 0.9 x 1.1 cm. Isthmus is 0.27 cm. Parenchymal echotexture is normal. No definite discrete nodule is identified; however, an inhomogeneous hypoecho ic area is identified within the posterior aspect of the right right lobe ( images 15, 16). No lymphadenopathy. IMPRESSION: 1. No definite discrete thyroid nodule is identified; however, parenchymal inhomogeneity is identified within the posterior right thyroid lobe, which may correlate with the abnormality seen on prior com parison CT chest. Recommend follow up thyroid ultrasound in 6-12 months. HEMATOLOGY Eosinophils 0.1 K/CMM 0.0 - 0.5 06/17 [facility] /2014 [facility] THYROID T3 Uptake 39 % 31 - 39 06/16 [facility] /2014 [facility] THYROID TSH 0.453 0.360 - 06/16 [facility] uIU/mL 3.74 [facility] THYROID T4 9.5 ug/dl 4.7 - 13.3 06/16 [facility] /2014 [facility] THYROID FTI 3.7 06/16 [facility] /2014 [facility] THYROID TSH 0.537 0.360 - 06/16 [facility] uIU/mL 3.74 [facility] THYROID Thyroid null <140 % 06/16 7Result Comment: [facility] Stimulating Thyroid stimulating immunoglobulins ( TSI) can Medical Immunoglobul engage the TSH receptors resulting in Center ins hyperthyroidism in Graves' disease patients. TSI levels can be useful in monitoring the clinical outcome of Graves' disease as well as assessing the potential for hyperthyroidism from maternal- transfer. TSI results greater than or equal to (>=) 140% of the Reference Control are considered positive. NOTE: A serum TSH level greater than 350 micro-International Units/mL can interfere with the TSI bioassay and potentially give false positive results. Patients who are and are suspected of having hyperthyroidism should have both a TSI and human Chorionic Gonadotropin (hCG) tests measured. A serum hCG level greater than 40,625 mIU/mL can interfere with the TSI bioassay and may give false negative results. In these patients it is recommended that a second TSI is obtained when the hCG concentration falls below 40,625 mIU/mL (usually after approximately 20-weeks gestation). Test Performed at: [facility] [address] [id number] Ran Nice MD, PhD THYROID TPO Ab 474 <=60 IU/mL 06/16 [facility] [place] PANEL [iU]/mL /2014 [facility] THYROID TPO Ab 464 <=60 IU/mL 06/16 [facility] PANEL [iU]/mL /2014 [facility] Chest w Chest w CT CHEST WITH CONTRAST 2014-06-15 18:21:00 06/15 - [facility] contrast CT contrast CT /2014 - [facility] COMPARISON: 06/02/2014 Read by: Angel Pedersen MD Dictated Date/time: 06/16/14 06:35 Electronically Signed by: Angel Pedersen 06/16/14 06:52 FINAL REPORT CLINICAL INDICATION: Respiratory distress TECHNIQUE: Following intravenous administration of 75 ml of contrast, the chest was scanned from apices to the bases. Multiplanar reformatted images in the sagittal and coronal planes as well as maximal intensity projection (MIP) images were reviewed. FINDINGS: MEDIASTINUM/JULIUS/VESSELS: There is a 6 mm right thyroid lobe nodule on axial image 17. Thoracic aortic calcifications are present. The heart is borderline enlarged and there is no pericardial effusion. Mild aortic root and coronary atherosclerotic calcifications (distal LAD). There is mild prominence of the mediastinal fat pad. Few subcentimeter mediastinal lymph nodes are present, however not pathologically enlarged. LUNGS/PLEURA: Abundant lingular and bilateral left greater than right lower lobe subsegmental atelectasis with mild left lower lobe distal peribronchial wall thickening. There is no pleural effusion or pneumothorax. BONES/SOFT TISSUES: Focal sclerosis within the right scapula for example on axial image 35, could represent a bone island. Multilevel degenerative changes of the thoracic spine. No aggressive lytic or blastic lesions are present. UPPER ABDOMEN: Feeding tube is seen coursing into the stomach and terminating outside the [id number] Stable subcentimeter hypodensity in the left hepatic lobe on axial image 155, which is too small t o further carotid right common may represent a cyst. Tiny granuloma in the right hepatic lobe. CONCLUSION: 1. Abundant lingular and bilateral left greater than right lower lobe subsegmental atelectasis. There is mild left lower lobe distal peribronchial wall thickening which could be sequela of prior aspiration or infection. 2. There is no pleural effusion. 3. Borderline cardiomegaly with mild distal LAD coronary atherosclerotic calcifications. 4. There is a 6 mm right thyroid lobe nodule, which should be further evaluated with nonemergent ultrasound if have not been performed recently. CHEM PANEL Lactic Acid 0.5 mMol/L 0.5 - 2.2 06/15 [facility] Lvl /2014 [facility] HEMATOLOGY Eosinophils 0.1 K/CMM 0.0 - 0.5 06/15 [facility] # /2015 [facility] Ext Lower Ext Lower EXAM: US BILATERAL LOWER EXTREMITY VENOUS DOPPLER - [facility] Venous Venous /2014 - Medical Doppler Doppler This report was dictated by a [employer]/ Fellow. I have personally reviewed the images as Center Bilat US Bilat US well as the Resident's interpretation and agree with the findings. DATE: 06/15/2014 at 1103 hours. Read by: Shaheed Salvador MD Resident: Shaheed Salvador MD Dictated Date/time: 06/15/14 13:53 Electronically Signed by: Елена Helms MD 06/15/14 16:29 FINAL REPORT INDICATION: Pain and swelling the lower extremities bilaterally. COMPARISON: None. TECHNIQUE: Grayscale, color Doppler and spectral Doppler ultrasound images of the bilateral lower extremity veins were obtained. DISCUSSION: RIGHT LOWER EXTREMITY: Deep veins- Femoral vein: Patent and compressible, normal respiratory phasicity and response to augmentation. Popliteal vein: Patent and compressible, normal respiratory phasicity and response to augmentation. Superficial veins- Greater saphenous: Patent at insertion into common femoral vein; not otherwise assessed. LEFT LOWER EXTREMITY: Deep veins- Femoral vein: Patent and compressible, normal respiratory phasicity and response to augmentation. Popliteal vein: Patent and compressible, normal respiratory phasicity and response to augmentation. Superficial veins- Greater saphenous: Patent at insertion into common femoral vein; not otherwise assessed. IMPRESSION: No DVT in the deep venous system of the lower extremities on either side. PARATHYROID Ca Ion WB 1.15 1.05 - 1.25 06/15 [facility] PROFILE mMol/L /2014 [facility] PARATHYROID Ca Norm WB 1.11 1.05 - 1.25 06/15 [facility] PROFILE mMol/L /2014 [facility] Chest 1view Chest 1view PORTABLE CHEST 2014-06-15 09:03:00 06/15 - [facility] /2014 - [facility] COMPARISON: 06/13/2014 Read by: Angel Pedersen MD Dictated Date/time: 06/15/14 09:56 Electronically Signed by: Angel Pedersen 06/15/14 09:57 FINAL REPORT CLINICAL INDICATION: Shortness of Breath DISCUSSION: Feeding tube is again seen. There is a left pleural effusion with bilateral basilar and retrocardiac atelectasis vs consolidation. Stable cardiac silhouette with calcified arch. Stable skeletal structures. CONCLUSION: There has been no significant interval change in the radiographic appearance of the chest when compared to prior radiograph. Abdomen AP Abdomen AP EXAM: XR ABDOMEN 1 VIEW 06/14 - [facility] view view /2014 - [facility] Center DATE: 06/14/2014 at 2022 hours. Read by: Oscar Celaya MD Dictated Date/time: 06/15/14 10:29 Electronically Signed by: Oscar Celaya MD 06/15/14 10:31 FINAL REPORT INDICATION: Tube placement/removal/reposition. ADDITIONAL INFORMATION: None. COMPARISON: 06/13/2014 at 1620 hours. TECHNIQUE: Limited radiography of the abdomen performed. One frontal radiograph provided for interpretation. FINDINGS: Transesophageal feeding tube has its tip in the third portion of the duodenum. The bowel gas pattern is nonobstructive. Left-sided pleural effusion is as characterized on followup chest radiograph of 06/15/2014 at 0839 hours. No other significant changes. IMPRESSION: 1. Tube positions as above. 2. Left-sided pleural effusion. Interpreted by Oscar Celaya MD. IMMUNOLOGY ACHr Mod Ab 86 % 06/13 10Result Comment: Reference Range: < 32% Medical BINDING INHIBITION Center This test was developed and its performance characteristics have been determined by [facility]. Performance characteristics refer to the analytical performance of the test. Test Performed at: [facility] [address] [id number] Ran Nice MD, PhD IMMUNOLOGY ACHr Block 43 % of <15 % of 06/13 9Result Comment: Test Performed at: [facility] Ab inhibition inhibition /[address] [address] Ran Nice MD, PhD IMMUNOLOGY ACHr Binding 288.71 06/13 8Result Comment: [place] Ab nMol/L /2014 Reference Ranges for Acetylcholine Receptor Medical Binding Antibody: Center Negative: < or=0.30 nmol/L Equivocal: 0.31-0.49 nmol/L Positive: > or=0.50 nmol/L Test Performed at: [facility] [address] [place] [address] Ran Nice MD, PhD Chest 2 Chest 2 EXAM: XR CHEST 2 VIEWS 06/13 - [place] views views /2014 - [facility] INDICATION: Coughing Read by: Darshan Herron MD Dictated Date/time: 06/14/14 09:16 Electronically Signed by: Darshan Herron MD 06/14/14 09:20 FINAL REPORT COMPARISON: 06/13/2014 at 0400 TECHNIQUE: PA and lateral views of the chest DISCUSSION: There is blunting of the left posterior costophrenic angle, which may represent left-sided pleural effusion as well as atelectasis in the left lung base. Right lung is clear. Left lung upper lung is clear. Heart size is within normal limits. Vascular calcifications are seen in the aortic arch. Dobbhoff feeding tube is seen with tip projecting over the region of the distal stomach/proximal duodenum. No evidence for pneumothorax or effusion. IMPRESSION: Airspace opacities in the left lung base and possible left-sided pleural effusion. Abdomen AP Abdomen AP INDICATION: Tube placement. 06/13 - [place] view view /2014 - [facility] PROCEDURE: Abdomen, one view. Read by: Ruy Vanessa MD Dictated Date/time: 06/14/14 14:42 Electronically Signed by: Ruy Vanessa MD 06/14/14 14:44 FINAL REPORT FINDINGS: A feeding tube is present. The tube follows the course the greater curvature the stomach with tip directed inferiorly in the right upper quadrant. The tip is likely in the second portion of the duodenum. There are extensive degenerative changes in the lower lumbar spine with mild levoscoliosis related to displaced loss along the right side of spine. The bowel gas pattern is unremarkable with no dilated loops of large or small bowel. There are scattered densities in in the right side of the abdomen in the left lower quadrant possibly related to prior barium study with a small amount of retained barium in GI tract. IMPRESSION: 1. Been tube tip is likely in the second portion the duodenum. Recommend advancing the tube 5 to 10 cm. This will allow for definite localization of the tube tip. URINE AND UA Hyal Cast 1 /LPF 0 - 2 06/13 [facility] URINE AND UA WBC 1 /HPF 0 - 5 06/13 [facility] URINE AND UA RBC null 0 - 2 06/13 [facility] URINE AND UA Sq Epi Occasional Few /LPF 06/13 [facility] /LPF [facility] URINE AND UA Mucus Few /LPF None Seen 06/13 [facility] STOOL /LPF [facility] URINE AND UA Turbidity Clear Clear 06/13 [facility] (06/13/14 1:51 AM) [place] URINE AND UA Spec Grav 1.025 <=1.030 06/13 [facility] URINE AND UA Color Yellow Yellow 06/13 [facility] *NA* [place] (06/13/14 1:51 AM) URINE AND UA Blood Negative Negative 06/13 [facility] (06/13/14 1:51 AM) [place] URINE AND UA 2.0 mg/dL 0.1 - 1.0 06/13 [facility] Urobilinogen /2014 [facility] URINE AND UA Bili Negative Negative 06/13 [facility] *NA* [place] (06/13/14 1:51 AM) URINE AND UA Nitrite Negative Negative 06/13 [facility] (06/13/14 1:51 AM) [place] URINE AND UA Leuk Est Negative Negative 06/13 [facility] (06/13/14 1:51 AM) [place] URINE AND UA pH 6.0 5.0 - 8.0 06/13 [facility] URINE AND UA Protein 10 mg/dL Negative 06/13 [facility] STOOL mg/dL /2014 [facility] URINE AND UA Ketones Negative Negative 06/13 [facility] mg/dL mg/dL [facility] URINE AND UA Glucose Negative Negative 06/13 [facility] mg/dL mg/dL [facility] BLOOD BANK Antibody Negative 06/13 [facility] RESULTS Scrn [facility] (06/13/14 12:01 AM) [place] BLOOD BANK ABO/Rh O POS 06/13 [facility] RESULTS [facility] CHEM PANEL Bili Total 0.6 mg/dL 0.2 - 1.3 06/[address] CHEM PANEL A/G Ratio 1.3 0.7 - 1.6 06/[address] CHEM PANEL Globulin 2.7 g/dL 2.0 - 4.0 06/[address] CHEM PANEL B/C Ratio 19 6 - 25 06/[address] CHEM PANEL Alk Phos 79 unit/L 39 - 136 06/[address] CHEM PANEL Bili Total 0.6 mg/dL 0.2 - 1.3 06/[address] CHEM PANEL AST 20 unit/L 0 - 37 06/[address] CHEM PANEL ALT 61 unit/L 0 - 65 06/[address] CHEM PANEL Albumin Lvl 3.4 g/dL 3.5 - 5.0 06/[address] CHEM PANEL Total 6.1 g/dL 6.4 - 8.4 06/13 [facility] Protein [address] IMMUNOLOGY IgA Lvl 161.0 68.0 - 06/13 [facility] mg/dL 378.[address] [place] [address] PARATHYROID Ca Norm WB 1.12 1.05 - 1.25 06/13 [facility] PROFILE mMol/L /[address] [place] [address] PARATHYROID Ca Ion WB 1.13 1.05 - 1.25 06/13 [facility] PROFILE mMol/L /[address] [place] [address] Chest 1view Chest 1view Chest one view, June 13, 2014 at 4:00 a.m. - [address] HISTORY: 73-year-old man with shortness of breath. Read by: Silvana Cross MD Dictated Date/time: 06/13/14 09:48 Electronically Signed by: Silvana Cross MD 06/13/14 10:27 FINAL REPORT FINDINGS: Comparison is made to an outside radiograph from June 12. The cardiomediastinal silhouette is stable. There is platelike atelectasis in the left lung base. Blunting of the left lateral costophrenic sulcus may represent a small left pleural effusion. Left upper lobe and right lung are clear. IMPRESSION: No significant change since yesterday. Barium Barium EXAM: FLUOROSCOPY MODIFIED BARIUM SWALLOW 06/04 - [facility] swallow DX swallow [facility] This report was dictated by a [employer]/Fellow. I have personally reviewed the images as Center well as the Resident's interpretation and agree with the findings. DATE: 2014-06-04 10:26:00. Read by: [id number] Man RES [id number] Resident: [id number] Man RES [id number] Dictated Date/time: 06/04/14 14:16 Electronically Signed by: Ruy Vanessa MD 06/04/14 16:30 FINAL REPORT INDICATION: Suspected CVA. Incidental meningioma. Failed bedside swallow study. ADDITIONAL INFORMATION: None COMPARISON: None. TECHNIQUE: Oral barium contrast of differing consistencies was given to the patient to assess swallowing mechanism. The study was performed in conjunction with speech pathology. FLUOROSCOPY TIME: 2 minutes 16 seconds. FINDINGS: The patient was given barium contrast of different consistencies. Oral motor function is normal with adequate bolus size. Swallow reflex is triggered promptly with effective bolus propulsion. Thin barium: Aspiration was observed with administration of thin barium consistency. There is minimal pooling in the vallecula. [place] and pudding barium: Flash penetration was observed within the ministration of nectar and pudding barium consistencies. There is moderate to severe pooling there in the vallecula. Barium coated cracker: No penetration or aspiration seen. However, pooling of barium in the vallecula is again observed. Vallecular pooling is observed with nectar, pudding, and barium coated cracker consistencies. Esophageal motility and emptying appeared normal.. IMPRESSION: 1. Aspiration with thin barium consistency. 2. Flash penetration with nectar and pudding barium consistencies. 3. Pooling in the vallecula is observed with nectar, pudding, and barium coated cracker. CARDIAC Troponin-I 0.08 ng/mL 0.00 - 0.40 06/03 [facility] ENZYMES /2014 [facility] CARDIAC Troponin-T 0.044 0.000 - 06/03 [facility] ENZYMES ng/mL 0.100 /2014 [facility] Brain w Brain w EXAM: MRI BRAIN WITHOUT AND WITH CONTRAST 06/03 - [facility] contrast contrast MRI /[address] [facility] This report was dictated by a [employer]/ Fellow. I have personally reviewed the images as Center well as the Resident's interpretation and agree with the findings. EXAM: MRI BRAIN WITH CONTRAST, [facility] PR[facility] Read by: Becky Aldrich MD Resident: Becky Aldrich MD Dictated Date/time: 06/04/14 08:57 Electronically Signed by: Osvaldo Ley MD 06/04/14 13:39 FINAL REPORT DATE: 06/03/2014 at 1730 hours INDICATION: Mass COMPARISON: MRI brain without contrast 06/02/1919 and CTA head 06/02/2014 TECHNIQUE: Multiplanar, multisequence MRI of the brain was performed prior to and following intravenous administration of 20 cc Multihance. High resolution three-dimensional gradient echo acquisition im ages of the brain are acquired for the purposes of treatment planning DISCUSSION: There is a lobulated, well circumscribed extra-axial avidly enhancing mass along the left sphenoid wing. A dural tail is seen. Minimal remodeling of the adjacent sphenoid wing is seen. No significant si gnal change or mass effect on the adjacent temporal lobe is seen. The mass measures 1.3 x 1.4 x 1.4 cm ( AP x CC x TV). Bifrontal encephalomalacia and gliosis represent sequelae OF traumatic insults. There is parenchymal volume loss with prominence of extra axial places and ventricles. Punctate foci of T2 in the periven tricular subcortical white matter is nonspecific. No restricted diffusion to suggest acute or subacute infarction. The larger intracranial vascular flow voids are preserved. No abnormality of the skull base or calvarium is present. The visualized paranasal sinuses, mastoid air cells, and orbits are within normal limits. IMPRESSION: 1. A 1.4 cm avidly enhancing, extra-axial mass along the left sphenoid wing , compatible with a meningioma 2. 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 I have personally reviewed the images as Center well as the Resident's interpretation and agree with the findings. EXAM: MRI BRAIN WITH CONTRAST, [facility] Read by: Becky Aldrich MD Resident: Becky Aldrich MD Dictated Date/time: 06/04/14 08:57 Electronically Signed by: Osvaldo Ley MD 06/04/14 13:39 FINAL REPORT DATE: 06/03/2014 at 1730 hours INDICATION: Mass COMPARISON: MRI brain without contrast 06/02/1919 and CTA head 06/02/2014 TECHNIQUE: Multiplanar, multisequence MRI of the brain was performed prior to and following intravenous administration of 20 cc Multihance. High resolution three-dimensional gradient echo acquisition im ages of the brain are acquired for the purposes of treatment planning DISCUSSION: There is a lobulated, well circumscribed extra-axial avidly enhancing mass along the left sphenoid wing. A dural tail is seen. Minimal remodeling of the adjacent sphenoid wing is seen. No significant si gnal change or mass effect on the adjacent temporal lobe is seen. The mass measures 1.3 x 1.4 x 1.4 cm ( AP x CC x TV). Bifrontal encephalomalacia and gliosis represent sequelae OF traumatic insults. There is parenchymal volume loss with prominence of extra axial places and ventricles. Punctate foci of T2 in the periven tricular subcortical white matter is nonspecific. No restricted diffusion to suggest acute or subacute infarction. The larger intracranial vascular flow voids are preserved. No abnormality of the skull base or calvarium is present. The visualized paranasal sinuses, mastoid air cells, and orbits are within normal limits. IMPRESSION: 1. A 1.4 cm avidly enhancing, extra-axial mass along the left sphenoid wing , compatible with a meningioma 2. Sequelae of traumatic brain injury, with gliosis/encephalomalacia in the bilateral frontal poles CARDIAC BNP 38 pg/mL <=100 pg/mL 06/03 4Interpretive Data: Elevated results are in line with increasing severity of [facility] ENZYMES /2014 congestive heart failure. Minor elevations between 100 and 300 Medical may be seen with Myocardial Ischemia, Sodium retaining drugs, Center and compensated/treated heart failure. CARDIAC Troponin-I 0.07 ng/mL 0.00 - 0.40 06/03 [place] ENZYMES /2014 [facility] CHEM PANEL eGFR 84 06/03 1Result Comment: The eGFR is calculated using the CKD-EPI formula. In most young, healthy individuals the eGFR will be >90 mL/ min/1.73m2. The eGFR declines with age. An eGFR of 60-89 may be normal in mL/min/1. some populations, particularly the elderly, for whom the CKD-EPI formula has not been extensively validated. Use of the eGFR is not recommended in the following populations: Medical 3m2 Center Individuals with unstable creatinine concentrations, including patients and those with serious co-morbid conditions. Patients with extremes in muscle mass or diet. The data above are obtained from the National Kidney Disease Education Program (NKDEP) which additionally recommends that when the eGFR is used in patients with extremes of body mass index for purposes of drug dosing, the eGFR should be multiplied by the estimated BMI. CHEM PANEL Creatinine 0.9 mg/dL 0.5 - 1.4 06/03 [facility] Lvl [facility] HEMATOLOGY Platelet 292 K/CMM 133 - 450 06/03 [facility]2014 [facility] HEMATOLOGY PTT 25.0 s 22.9 - 35.8 06/03 5Interpretive [facility] Data: Heparin [facility] Range: 57 - 92 Seconds LIPIDS VLDL 24 06/03 [facility]2014 [facility] LIPIDS LDL 79 mg/dL <=99 mg/dL 06/03 [facility] ([facility]) [facility] LIPIDS Trig 118 mg/dL <=149 mg/dL 06/03 [facility]2014 [facility] LIPIDS Chol 168 mg/dL <=199 mg/dL 06/03 [facility] LIPIDS HDL 65 mg/dL >=61 mg/dL 06/03 [facility] LIPIDS CHD Risk 2.58 4.00 - 7.30 06/03 [facility] URINE AND UA Sq Epi None Seen 06/03 [facility] URINE AND UA Color Yellow Yellow 06/03 [facility] *NA* [place] (06/03/14 4:02 AM) URINE AND UA pH 6.5 5.0 - 8.0 06/03 [facility] URINE AND UA Turbidity Clear Clear 06/03 [facility] (06/03/14 4:02 AM) [place] URINE AND UA Glucose Negative Negative 06/03 [facility] mg/dL mg/dL [facility] URINE AND UA Protein 20 mg/dL Negative 06/03 [facility] mg/dL [facility] URINE AND UA Bili Negative Negative 06/03 [facility] *NA* [place] (06/03/14 4:02 AM) URINE AND UA Ketones Negative Negative 06/03 [facility] mg/dL mg/dL [facility] URINE AND UA Nitrite Negative Negative 06/03 [facility] (06/03/14 4:02 AM) [place] URINE AND UA Blood Negative Negative 06/03 [facility] (06/03/14 4:02 AM) [place] URINE AND UA Leuk Est Negative Negative 06/03 [facility] (06/03/14 4:02 AM) Center URINE AND UA WBC null 0 - 5 06/03 [facility]2014 [facility] URINE AND UA <=1.0 0.1 - 1.0 06/03 [facility] Urobilinogen mg/dL [facility] URINE AND UA Spec Grav >=1.050 <=1.030 06/03 [facility] *ABN* [place] (06/03/14 4:02 AM) URINE AND UA pH 6.5 5.0 - 8.0 06/03 [facility]2014 [facility] URINE AND UA Glucose Negative Negative 06/03 [facility] mg/dL mg/dL [facility] URINE AND UA Protein Negative Negative 06/03 [facility] mg/dL mg/dL /[address] [place] [address] URINE AND UA Ketones Negative Negative 06/03 [facility] mg/dL mg/dL [facility] URINE AND UA Color Yellow Yellow 06/03 [facility] *NA* [place] (06/03/14 12:50 AM) URINE AND UA Spec Grav 1.010 <=1.030 06/03 [facility] [address] [place] [address] URINE AND UA Turbidity Clear Clear 06/03 [facility] (06/03/14 12:50 AM) [place] URINE AND UA Leuk Est Negative Negative 06/03 [facility] (06/03/14 12:50 AM) [place] URINE AND UA Blood Negative Negative 06/03 [facility] (06/03/14 12:50 AM) [place] URINE AND UA Bili Negative Negative 06/03 [facility] *NA* [place] (06/03/14 12:50 AM) URINE AND UA Nitrite Negative Negative 06/03 [facility] (06/03/14 12:50 AM) [place] URINE AND UA 0.2 EU/dL 0.1 - 1.0 06/03 [facility] Urobilinogen [facility] URINE AND UA RBC 0-1 06/03 [facility]2014 [facility] URINE AND UA WBC 0-1 06/03 [facility] URINE AND UA Sq Epi None Seen Few 06/03 [facility] (06/03/14 12:50 AM) [place] URINE AND UA Bacteria None Seen None Seen 06/03 [facility] STOOL [facility] (06/03/14 12:50 AM) [place] URINE AND UA Mucus None Seen None Seen 06/03 [facility] (06/03/14 12:50 AM) [place] URINE AND Micro? Performed 06/03 [facility] (06/03/14 12:50 AM) [place] CARDIAC Total CK 152 unit/L 12 - 191 06/03 [facility] ENZYMES [facility] CARDIAC Troponin-I 0.08 ng/mL 0.00 - 0.40 06/03 [facility] ENZYMES /2014 [facility] CARDIAC CK MB 1.9 ng/mL 0.5 - 3.6 06/03 [facility] ENZYMES [facility] CARDIAC CK MB Index 1.2 0.0 - 2.5 06/03 [facility] ENZYMES [facility] ELECTROLYTE AGAP 13.0 meq/L 10.0 - 20.0 06/03 [facility] S [facility] ELECTROLYTE eGFR 74 06/03 2Result Comment: The eGFR is calculated using the CKD-EPI formula. In most young, healthy individuals the eGFR will be > 90 mL/min/1.73m2. The eGFR declines with age. An eGFR of 60-89 may be normal in [facility] [place] mL/min/1.7 some populations, particularly the elderly, for whom the CKD-EPI formula has not been extensively validated. Use of the eGFR is not recommended in the following populations: [place] [address] Center Individuals with unstable creatinine concentrations, including patients and those with serious co-morbid conditions. Patients with extremes in muscle mass or diet. The data above are obtained from the National Kidney Disease Education Program (NKDEP) which additionally recommends that when the eGFR is used in patients with extremes of body mass index for purposes of drug dosing, the eGFR should be multiplied by the estimated BMI. ELECTROLYTE Glucose Lvl 114 mg/dL 70 - 99 06/03 3Interpretive Data: Adult reference range values reflect the clinical guidelines [facility] of the [place] [employer]. [facility] ELECTROLYTE BUN 23 mg/dL 7 - 22 06/03 [facility] S [facility] ELECTROLYTE Creatinine 1.0 mg/dL 0.5 - 1.4 06/03 [facility] [place] Lvl /[address] [place] [address] ELECTROLYTE Calcium Lvl 8.9 mg/dL 8.5 - 10.5 06/[address] ELECTROLYTE Potassium 4.0 meq/L 3.5 - 5.1 06/03 [facility] ELECTROLYTE Chloride Lvl 104 meq/L 95 - 109 06/[address] ELECTROLYTE Sodium Lvl 139 meq/L 135 - 145 06/[address] ELECTROLYTE CO2 26 meq/L 24 - 32 06/[address] HEMATOLOGY Platelet 297 K/CMM 133 - 450 06/[address] HEMATOLOGY MCH 29.1 pg 27.0 - 31.0 06/[address] HEMATOLOGY MCHC 32.2 g/dL 32.0 - 36.0 06/[address] HEMATOLOGY MPV 7.9 fL 7.4 - 10.4 06/[address] HEMATOLOGY RDW 12.8 % 11.5 - 14.5 06/[address] HEMATOLOGY RBC 4.57 M/CMM 4.70 - 6.10 06/[address] HEMATOLOGY Hgb 13.3 g/dL 14.0 - 18.0 06/[address] HEMATOLOGY WBC 9.9 K/CMM 3.7 - 10.4 06/[address] HEMATOLOGY Hct 41.3 % 42.0 - 54.0 06/[address] HEMATOLOGY MCV 90.4 fL 80.0 - 94.0 06/[address] HEMATOLOGY Segs-Bands # 7.4 K/CMM 1.5 - 8.1 06/[address] HEMATOLOGY RBC Morph Normal 06/[address] [place] [address] (06/02/14 8:46 PM) [place] HEMATOLOGY Large Plt slight 06/[address] HEMATOLOGY Bands 0.0 % 0.0 - 11.0 06/[address] HEMATOLOGY Lymphocytes 17.0 % 20.0 - 40.0 06/[address] HEMATOLOGY Atypical 0.0 % <=0.0 % 06/03 [facility] HEMATOLOGY Monocytes 8.0 % 2.0 - 12.0 06/[address] HEMATOLOGY Lymphocytes 1.7 K/CMM 1.0 - 5.5 06/03 [facility] # 2014 [facility] HEMATOLOGY Monocytes # 0.8 K/CMM 0.0 - 0.8 06/03 [facility]2014 [facility] HEMATOLOGY Segs 75.0 % 45.0 - 75.0 06/[address] Brain/Neck Brain/Neck EXAM: CT ANGIOGRAM NECK 06/02 - [facility] CTA - Medical EXAM: CT ANGIOGRAM BRAIN This report was dictated by a [employer]/Fellow. I have personally reviewed the images as Center well as the Resident's interpretation and agree with the findings. Read by: Becky Aldrich MD Resident: Becky Aldrich MD Dictated Date/time: 06/03/14 09:39 DATE: Jun 02, 2014 11:10:00 PM Electronically Signed by: Omi Johns 06/03/14 14:00 FINAL REPORT INDICATION: Weakness TECHNIQUE: Contiguous thin section images of the neck and brain were obtained utilizing a multidetector scanner after uneventful administration of nonionic iodinated contrast medium. Computer reformatte d maximal intensity projection (MIP) sagittal and coronal images are provided. 150 ml of Omnipaque 350 FINDINGS: NECK CTA: Aortic arch: The great vessels originate from the aortic arch in the standard configuration. No origin stenosis is identified. Densely calcified atherosclerotic plaque narrows the origin of the left vertebral artery resulting in severe stenosis. Carotid arteries: Medialized, retropharyngeal course of the left internal carotid artery is noted. There are areas of calcified and noncalcified atheromatous plaque at the carotid bifurcations. ]No hemo dynamically significant, (less than 10%) stenosis of the carotid bifurcations or internal carotid arteries is present by NASCET criteria. Vertebral arteries: The vertebral arteries are relatively codominant. They have a normal course, caliber and contour. BRAIN CTA: Atherosclerotic calcification of the carotid siphons is seen without hemodynamic significant stenosis. No branch occlusion, arteritis, vascular malformation or aneurysm is identified. Venous opacification in the head and neck is normal. Anterior to the left temporal lobe there is a lobulated, likely extra- axial enhancing lesion measuring 1.4 x 1.7 x 1.3 cm. This could represents a meningioma. Advanced spondylosis and spondyloarthropathy with bony narrowing of the neural foramina are seen in the cervical spine IMPRESSION: 1. Calcified and noncalcified plaque of the carotid bulbs without hemodynamically significant stenosis. 2. Dense atherosclerotic calcified plaque results in stenosis at the origin of left vertebral artery. 3. No evidence of branch vessel occlusion 4. Lobulated, likely extra-axial enhancing lesion along the left sphenoid, anterior to the temporal lobe may represent a meningioma. (All qualitative and quantitative assessments of carotid bifurcation and proximal internal carotid artery stenosis are made referencing the distal internal carotid artery.) Chest CTA Chest CTA ADDENDUM: 06/[address] The thymus is not clearly identified in this study. Read by: Licha Martínez MD Dictated Date/time: 06/13/14 13:57 EXAM: CTA CHEST WITH CONTRAST Electronically Signed by: Licha Martínez MD 06/13/14 14:00 FINAL REPORT - - DATE: June 02, 2014 Read by: Licha Martínez MD Dictated Date/time: 06/03/14 14:40 INDICATION: Dyspnea ion exertion Electronically Signed by: Licha Martínez MD 06/03/14 14:56 FINAL REPORT COMPARISON: No prior studies are available for comparison. TECHNIQUE: Following intravenous administration of contrast, without adverse reaction, the chest was scanned from bases to the apices in the arterial and venous phases. Multiplanar reformatted images (M WA) in the sagittal, coronal and oblique images, as well as MIP images, are created at the scanner workstation. FINDINGS: Subcentimeter hypodensity is noted in the left lobe of the thyroid gland. Atherosclerotic calcifications affect the aorta and its branches. The ascending aorta at the level of the right pulmonary artery measures 2.8 cm. The main pulmonary artery measures 2.6 cm. No evidence of pericardial effusion. A subcentimeter subcarinal lymph node is noted. No evidence of mediastinal or hilar lymphadenopathy. No evidence of axillary lymphadenopathy. The midesophagus is mildly tortuous. Mild atelectasis is noted in both lung bases. Groundglass opacities in the posterior right upper lobe and left upper lobe may represent edema or atelectasis. A calcified adenoma is noted in the right lung base. A subcentimeter hypodensity in the left lobe of the liver is too small to accurately characterize. A calcified granuloma is noted in the right lobe of the liver. The gallbladder shows no evidence of gallbladder wall thickening or pericholecystic fluid. Mild fatty replacement of the pancreas is seen. Both adrenal glands are unremarkable. The partially visualized kidneys are unremarkable. The visualized bowel loops are unremarkable. A 8 mm sclerotic lesion is seen in the right glenoid. Moderate degenerative changes affect the spine. IMPRESSION: 1. No evidence of aortic aneurysm or dissection. 2. Mild atelectasis is noted in both lung bases. Groundglass opacities in both upper lobes may represent edema or atelectasis. 3. Subcentimeter hypodensity left lobe liver is too small to accurately. 4. Sclerotic lesion in the right glenoid is nonspecific. A bone scan is recommended if clinically indicated. Brain wo Brain wo ADDENDUM: A focal area of T2 hyperintensity at the anterior aspect of the left cranial fossa, measures 11 mm transverse x12 millimeters AP which appears cortical on the MRI, however correlates with a lo 06/02 [facility] contrast contrast MRI bular extra-axial enhancing lesion on the subsequently obtained CTA. /2014 - [facility] Center EXAM: MRI BRAIN WITHOUT CONTRAST Read by: Marcin Trinidad MD Dictated Date/time: 06/03/14 11:19 Electronically Signed by: Marcin Trinidad MD 06/03/14 11:26 DATE: 06/02/2014 FINAL REPORT - - INDICATION: Dysarthria Read by: Marcin Trinidad MD Dictated Date/time: 06/02/14 23:21 Electronically Signed by: Marcin Trinidad MD 06/02/14 23:30 TECHNIQUE: Limited sequences were obtained including DWI, axial T2 FLAIR, and GRE. FINAL REPORT COMPARISON: OSH CT brain from 06/02/2013. FINDINGS: No restricted diffusion or hemorrhage. Bifrontal encephalomalacia and left greater than right anterior temporal encephalomalacia. Mild chronic microangiopathic changes. No hydrocephalus, midline shift, or extra-axial collection. IMPRESSION: No recent infarction. Frontotemporal encephalomalacia which may reflect sequela of traumatic brain injury. Chest 2 Chest 2 EXAM : CHEST 2 VIEWS 06/02 [facility] views views /2014 [facility] DATE:Jun 02, 2014 08:20:00 PM Read by: Dora Farrell MD Dictated Date/time: 06/03/14 15:16 Electronically Signed by: Dora Farrell MD 06/03/14 15:17 FINAL REPORT INDICATION: Chest pain . TECHNIQUE: PA and lateral chest radiographs . COMPARISON: Same day 1840 hours. FINDINGS: After consolidation seen in both bases. Atelectatic changes are also seen bilaterally part small bilateral pleural effusions are present.. The cardiomediastinal silhouette, remaining soft tissues and osseous structures are normal. . IMPRESSION: Patchy consolidative changes in both bases with bibasal atelectatic changes and small bilateral pleural effusions.. . Chest 1view Chest 1view EXAM: CHEST 1 VIEW 06/02 - [facility] /2014 - [facility] This report was dictated by a [employer]/Fellow. I have personally reviewed the images as Center well as the Resident's interpretation and agree with the findings. DATE: Jun 02, 2014 06:41:00 PM Read by: Miriam Ann MD Resident: Miriam Ann MD Dictated Date/time: 06/02/14 18:50 Electronically Signed by: Naheed Bear MD 06/02/14 23:24 FINAL REPORT INDICATION: Dyspnea COMPARISON: None. TECHNIQUE: A single portable view of the chest FINDINGS: The trachea is displaced to the right and bowed anteriorly at the level of the aortic arch. Mediastinal contours are otherwise normal. There are low lung volumes with vascular crowding. Heart is normal in size. Linear opacities are seen in the left midlung. Hazy left basilar opacity seen adjacent to the costophrenic recess, which is blunted. Right costophrenic recess is sharp. Right lung is clear. No acute bony abnormality. A sclerotic focus along the inferior margin of the glenoid. IMPRESSION: 1. Hazy left basilar opacity in the left costophrenic recess may represent a small pleural effusion with adjacent atelectasis or early pneumonia. 2. Trachea displaced to the right and bowed anteriorly at the level of the aortic arch may represent a tortuous, ectatic great vessel, less likely lymph node or mediastinal mass. Two view of the chest is recommended when clinically feasible to better evaluate the superior mediastinum. Further evaluation may be needed with a CT chest pending chest 2 view results. 3. Left midlung linear subsegmental atelectasis. 4. Low lung volumes with vascular crowding. 5. Sclerotic focus along the inferior margin of the glenoid likely a bone island. Vital Signs Vital Sign Value Date Comments Source Respitory Rate 20 06/21/2014 [facility] Diastolic (mm Hg) 67 06/21/2014 [facility] Systolic (mm Hg) 114 06/21/2014 [facility] Diastolic (mm Hg) 64 06/21/2014 [facility] Systolic (mm Hg) 116 06/21/2014 [facility] Respitory Rate 32 06/21/2014 [facility] Diastolic (mm Hg) 61 06/21/2014 [facility] Systolic (mm Hg) 123 06/21/2014 [facility] Respitory Rate 20 06/21/2014 [facility] Temperature Oral (F) 98.5 F 06/21/2014 [facility] Temperature Oral (F) 96.3 F 06/21/2014 [facility] Temperature Oral (F) 96.4 F 06/21/2014 [facility] Weight 84.3 06/13/2014 [facility] Height 182.88 cm 06/13/2014 [facility] Weight 84.3 06/13/2014 [facility] BMI Calculated 25.21 06/13/2014 [facility] Heart Rate 77 06/04/2014 [facility] Temperature Oral (F) 98.2 F 06/04/2014 [facility] Respitory Rate 18 06/04/2014 [facility] Systolic (mm Hg) 137 06/04/2014 [facility] Diastolic (mm Hg) 86 06/04/2014 [facility] Systolic (mm Hg) 124 06/04/2014 [facility] Temperature Oral (F) 97.5 F 06/04/2014 [facility] Heart Rate 60 06/04/2014 [facility] Respitory Rate 18 06/04/2014 [facility] Diastolic (mm Hg) 72 06/04/2014 [facility] Systolic (mm Hg) 143 06/04/2014 [facility] Temperature Oral (F) 97.4 F 06/04/2014 [facility] Heart Rate 65 06/04/2014 [facility] Diastolic (mm Hg) 74 06/04/2014 [facility] Respitory Rate 20 06/04/2014 [facility] Height 177.8 cm 06/03/2014 [facility] BMI Calculated 26.46 06/03/2014 [facility] Weight 83.636 06/03/2014 [facility] Height 180.34 cm 06/02/2014 [facility] BMI Calculated 29.63 06/02/2014 [facility] Weight 96.364 06/02/2014 [facility] Encounters Location Location Encounter Encounter Reason Attending ADM DC Status Source Details Type Number For Provider Date Date [facility] [id number] [facility]02 [facility] [id number] Suur 06/13 06/21 [facility] Lopez /2014 [facility] Procedures Procedure Code Date Perfomer Comments Source Cataract surgery [id number] [facility] Hernia repair [id number] [facility]
[2018-02-03] MEDS ORDERED: ONDANSETRON 4 MG/2 ML VIAL ONE ×2 (20:37→22:54)
[2018-02-03] MEDS ORDERED: FAMOTIDINE 20 MG/2 ML VIAL IV ONE (21:21)
[2018-02-03] MEDS ORDERED: NA CHLORIDE 0.9% 1,000 ML ONE (21:21)
[2018-02-03 21:29] LABS: Protime INR 1.07
[2018-02-03 21:34] LABS: Absolute Lymphocytes (CBC) 0.2 K/uL (0.7-4.9); Absolute Monocytes 0.2 K/uL (0.1-1.3); Absolute Neutrophil 6.9 K/uL (1.8-8.0); Basophils % 0.5 % (0-1.3); Eosinophils % 0.1 % (0-4.4); Hematocrit 45.8 % (39.6-49.0); Lymphocytes % 3.1 % (15.3-44.8); MCH 32.1 pg (27.0-35.0); MCV 93.3 fL (80-100); MPV 7.7 fL (7.6-11.3); Monocytes % 2.4 % (3.3-12.3); RBC Red Blood Cell Count 4.91 M/uL (4.33-5.43)
[2018-02-03 21:44] LABS: ALT/SGPT 20 U/L (12-78); AST/SGOT 22 U/L (15-37); Albumin 3.5 g/dL (3.4-5.0); Alkaline Phosphatase 110 U/L (45-117); BUN Blood Urea Nitrogen 16 mg/dL (7-18); Bicarbonate 30 mmol/L (21-32); Bilirubin Direct 0.1 mg/dL (0-0.2); Bilirubin Total 0.4 mg/dL (0.2-1.0); Glucose Level 142 mg/dL (74-106); Lipase 130 U/L (73-393); Magnesium 2.4 mg/dL (1.8-2.4); NT PRO-BNP 262 pg/mL (<450); Potassium 4.1 mmol/L (3.5-5.1); Protein, Total 6.9 g/dL (6.4-8.2); Sodium Level 142 mmol/L (136-145); Troponin (Emerg Dept Use Only) 0.03 ng/mL (0.0-0.045)
[2018-02-03 22:40] LABS: Blood Morphology Comment NOT SEEN (NOT SEEN); Platelet Estimate ADEQ; Urine White Blood Cell Casts OK
--- NOTE | 2018-02-03 23:20 | ER ---
Nurse's Notes [facility] Name: Tj Harrington Age: 77 yrs Sex: Male : 1940 Arrival Date: 02/03/2018 Time: 20:03 Bed 16 Private MD: Prabhakar Mcneal Diagnosis: Abdominal tenderness;Vomiting;Myasthenia gravis Presentation: 02/03 20:08 Presenting complaint: Child states: Diffuse abdominal pain and vomiting that started aj1 about an hour ago. Denies fever. Transition of care: patient was not received from another setting of care. Onset of symptoms was February 03, 2018 at 19:00. Risk Assessment: Do you want to hurt yourself or someone else? Patient reports no desire to harm self or others. Initial Sepsis Screen: Does the patient meet any 2 criteria? No. Patient's initial sepsis screen is negative. Does the patient have a suspected source of infection? Yes: Acute abdominal pain. Care prior to arrival: None. 20:08 Method Of Arrival: Wheelchair aj1 20:08 Acuity: ABBEY 3 aj1 Triage Assessment: 20:11 General: Appears in no apparent distress. comfortable, Behavior is calm, cooperative, aj1 appropriate for age. Pain: Complains of pain in abdomen diffusely. Neuro: Level of Consciousness is awake, alert, obeys commands. Cardiovascular: Patient's skin is warm and dry. Respiratory: Airway is patent Respiratory effort is even, unlabored, Respiratory pattern is regular, symmetrical. GI: Reports nausea, vomiting. Historical: - Allergies: 20:11 No Known Allergies; aj1 - Home Meds: 20:11 azathioprine 50 mg Oral tab 1 tab 2 times per day [Active]; prednisone 20 mg Oral tab aj1 [Active]; pyridostigmine bromide 60 mg Oral tab for Myasthenia Gravis [Active]; - PMHx: 20:11 fall and tbi in 1982, has been on disability since; pt normal is aaox4; Hypertension; aj1 Myasthenia Gravis; - Immunization history:: Flu vaccine is not up to date. - Social history:: Smoking status: Patient/guardian denies using tobacco. - Ebola Screening: : Patient denies travel to an Ebola-affected area in the 21 days before illness onset. - Family history:: not pertinent. Screenin:30 Abuse screen: Denies threats or abuse. Denies injuries from another. Nutritional kr2 screening: No deficits noted. Tuberculosis screening: No symptoms or risk factors identified. Fall Risk Ambulatory Aid- Crutches/Cane/Walker (15 pts). Assessment: 20:13 General: Appears in no apparent distress. uncomfortable, slender, well groomed, kr2 Behavior is calm, cooperative. Pain: Denies pain. Neuro: Level of Consciousness is awake, alert, obeys commands, Oriented to person, place, time, situation, Appropriate for age. Cardiovascular: Patient's skin is warm and dry. Rhythm is regular. Cardiovascular: Reports fatigue, lightheadedness. Respiratory: Airway is patent. Respiratory: Breath sounds are clear bilaterally. GI: Bowel sounds present X 4 quads. Abd is soft and non tender X 4 quads. Reports nausea, vomiting, since 1 hour ago. : Denies pain. EENT: Oral mucosa is moist. Derm: Skin is intact, with poor turgor Skin is pink, warm \T\ dry. Musculoskeletal: Circulation, motion, and sensation intact. 20:40 Reassessment: Patient vomited small amount, food substance. Provider notified. kr2 Medicated as ordered, see MAR. 21:40 Reassessment: Patient appears in no apparent distress at this time. Patient and/or kr2 family updated on plan of care and expected duration. Pain level reassessed. Patient is alert, oriented x 3, equal unlabored respirations, skin warm/dry/pink. Patient denies pain at this time. 22:54 Reassessment: Patient appears in no apparent distress at this time. Patient and/or kr2 family updated on plan of care and expected duration. Pain level reassessed. Patient is alert, oriented x 3, equal unlabored respirations, skin warm/dry/pink. Patient vomited while in CT dept. Provider notified, given Mariefrzhou, see MAR. 23:30 Reassessment: Patient appears in no apparent distress at this time. Patient and/or kr2 family updated on plan of care and expected duration. Pain level reassessed. Patient is alert, oriented x 3, equal unlabored respirations, skin warm/dry/pink. No further vomiting Patient denies pain at this time. 02/04 00:30 Reassessment: Patient appears in no apparent distress at this time. Patient and/or kr2 family updated on plan of care and expected duration. Pain level reassessed. Patient is alert, oriented x 3, equal unlabored respirations, skin warm/dry/pink. No vomiting Patient denies pain at this time. Vital Signs: 02/03 20:11 BP 129 / 74; Pulse 50; Resp 20; Temp 98.8; Pulse Ox 96% on R/A; Weight 63.5 kg (R); aj1 Height 5 ft. 8 in. (172.72 cm) (R); Pain 2/10; 21:21 BP 134 / 62; Pulse 49; Resp 19; Pulse Ox 100% on R/A; kr2 22:00 BP 151 / 72; Pulse 50; Resp 14; Pulse Ox 99% on R/A; kr2 23:01 BP 142 / 77; Pulse 52; Resp 12; Pulse Ox 99% ; kr2 02/04 01:03 BP 116 / 71; Pulse 50; Resp 18; Pulse Ox 97% on R/A; kr2 02/03 20:11 Body Mass Index 21.29 (63.50 kg, 172.72 cm) aj ED Course: 02/03 20:03 Patient arrived in ED. es 20:03 Prabhakar Mcneal MD is Private Physician. es 20:11 Triage completed. aj1 20:11 Arm band placed on Patient placed in an exam room. aj1 20:24 Cristine Masterson, RN is Primary Nurse. kr2 20:25 Inserted saline lock: 20 gauge in left antecubital area, using aseptic technique. Blood tl2 collected. 20:30 Patient has correct armband on for positive identification. Bed in low position. Call kr2 light in reach. Side rails up X 1. Adult w/ patient. cardiac monitor technician on. Pulse ox on. NIBP on. Door closed. Warm blanket given. Head of bed elevated. 20:33 Bismark Dominguez MD is Attending Physician. rosemarie 21:01 EKG done, by ED staff, reviewed by Bismark Dominguez MD. jp3 21:37 XRAY Chest (1 view) In Process Unspecified. EDMS 22:35 CT completed. Patient tolerated procedure well. Patient moved to CT. Patient moved back nj from CT. 22:35 CT Abd/Pelvis - W/Contrast: iv only In Process Unspecified. EDMS 22:57 Urine collected: clean catch specimen, clear. kr2 23:19 Cristina Sherman MD is Hospitalizing Provider. [facility] 02/04 01:02 No provider procedures requiring assistance completed. Patient admitted, IV remains in kr2 place. Administered Medications: 02/03 20:40 Drug: Zofran 4 mg Route: IVP; Site: left antecubital; kr2 21:21 Follow up: Response: No adverse reaction; Nausea is decreased; Vomiting decreased kr2 21:21 Drug: NS 0.9% 1000 ml Route: IV; Rate: 1 bolus; Site: left antecubital; kr2 22:30 Follow up: Response: No adverse reaction; IV Status: Completed infusion kr2 21:21 Drug: Pepcid 20 mg Route: IVP; Site: left antecubital; kr2 22:00 Follow up: Response: No adverse reaction; Nausea is decreased kr2 22:53 Drug: Zofran 4 mg Route: IVP; Site: left antecubital; kr2 23:30 Follow up: Response: No adverse reaction; Nausea is decreased kr2 Outcome: 23:20 Decision to Hospitalize by Provider. [facility] 02/04 01:02 Admitted to Med/surg accompanied by tech, family with patient, via wheelchair, room kr2 232, with chart, Report called to ALEISHA Campos Condition: stable Instructed on the need for admit, Demonstrated understanding of instructions. 01:05 Patient left the ED. kr2 Signatures: Dispatcher [employer] Chikis Cruz RN RN aj1 Bismark Dominguez MD MD cha Salyer, Edna es Knox, Taylor, RN RN gail2 Chucho Bolden Karey, RN RN kr2 Jesus Yi jp3 Corrections: (The following items were deleted from the chart) 02/03 23:01 22:58 Reassessment: Patient appears in no apparent distress at this time. Patient kr2 and/or family updated on plan of care and expected duration. Pain level reassessed. Patient is alert, oriented x 3, equal unlabored respirations, skin warm/dry/pink. Patient vomited while in CT dept. Provider notified, given Zofran, see MAR kr2
--- NOTE | 2018-02-03 23:20 | EDPHYS ---
Physician Documentation [facility] Name: Tj Harrington Age: 77 yrs Sex: Male : 1940 Arrival Date: 02/03/2018 Time: 20:03 Bed 16 Private MD: Prabhakar Mcneal ED Physician Bismark Dominguez HPI: 02/03 21:08 This 77 yrs old Male presents to ER via Wheelchair with complaints of rosemarie Abdominal Pain, Dizziness, Nausea/Vomiting. 21:08 The patient presents with dizziness, generalized weakness. Onset: The symptoms/episode rosemarie began/occurred just prior to arrival. Context: occurred at home. Modifying factors: The symptoms are alleviated by nothing. Associated signs and symptoms: The patient has no apparent associated signs or symptoms. Severity of symptoms: At their worst the symptoms were mild in the emergency department the symptoms have improved moderately. Patient's baseline: Neuro: alert and fully oriented. The patient has not experienced similar symptoms in the past. Historical: - Allergies: 20:11 No Known Allergies; aj1 - Home Meds: 20:11 azathioprine 50 mg Oral tab 1 tab 2 times per day [Active]; prednisone 20 mg Oral tab aj1 [Active]; pyridostigmine bromide 60 mg Oral tab for Myasthenia Gravis [Active]; - PMHx: 20:11 fall and tbi in 1982, has been on disability since; pt normal is aaox4; Hypertension; aj1 Myasthenia Gravis; - Immunization history:: Flu vaccine is not up to date. - Social history:: Smoking status: Patient/guardian denies using tobacco. - Ebola Screening: : Patient denies travel to an Ebola-affected area in the 21 days before illness onset. - Family history:: not pertinent. ROS: 21:08 Constitutional: Negative for fever, chills, and weight loss, Eyes: Negative for injury, rosemarie pain, redness, and discharge, ENT: Negative for injury, pain, and discharge, Neck: Negative for injury, pain, and swelling, Cardiovascular: Negative for chest pain, palpitations, and edema, Respiratory: Negative for shortness of breath, cough, wheezing, and pleuritic chest pain, Back: Negative for injury and pain, : Negative for injury, bleeding, discharge, and swelling, MS/Extremity: Negative for injury and deformity, Skin: Negative for injury, rash, and discoloration, Neuro: Negative for headache, weakness, numbness, tingling, and seizure, Psych: Negative for depression, anxiety, suicide ideation, homicidal ideation, and hallucinations, Allergy/Immunology: Negative for hives, rash, and allergies, Endocrine: Negative for neck swelling, polydipsia, polyuria, polyphagia, and marked weight changes, Hematologic/Lymphatic: Negative for swollen nodes, abnormal bleeding, and unusual bruising. 21:08 Abdomen/GI: Positive for nausea and vomiting. 21:08 Neuro: Positive for dizziness. Exam: 21:08 Constitutional: This is a well developed, well nourished patient who is awake, alert, rosemarie and in no acute distress. Head/Face: Normocephalic, atraumatic. Eyes: Pupils equal round and reactive to light, extra-ocular motions intact. Lids and lashes normal. Conjunctiva and sclera are non-icteric and not injected. Cornea within normal limits. Periorbital areas with no swelling, redness, or edema. ENT: Nares patent. No nasal discharge, no septal abnormalities noted. Tympanic membranes are normal and external auditory canals are clear. Oropharynx with no redness, swelling, or masses, exudates, or evidence of obstruction, uvula midline. Mucous membranes moist. Neck: Trachea midline, no thyromegaly or masses palpated, and no cervical lymphadenopathy. Supple, full range of motion without nuchal rigidity, or vertebral point tenderness. No Meningismus. Chest/axilla: Normal chest wall appearance and motion. Nontender with no deformity. No lesions are appreciated. Cardiovascular: Regular rate and rhythm with a normal S1 and S2. No gallops, murmurs, or rubs. Normal PMI, no JVD. No pulse deficits. Respiratory: Lungs have equal breath sounds bilaterally, clear to auscultation and percussion. No rales, rhonchi or wheezes noted. No increased work of breathing, no retractions or nasal flaring. Abdomen/GI: Soft, non-tender, with normal bowel sounds. No distension or tympany. No guarding or rebound. No evidence of tenderness throughout. Back: No spinal tenderness. No costovertebral tenderness. Full range of motion. Male : Normal genitalia with no discharge or lesions. Skin: Warm, dry with normal turgor. Normal color with no rashes, no lesions, and no evidence of cellulitis. MS/ Extremity: Pulses equal, no cyanosis. Neurovascular intact. Full, normal range of motion. Neuro: Awake and alert, GCS 15, oriented to person, place, time, and situation. Cranial nerves II-XII grossly intact. Motor strength 5/5 in all extremities. Sensory grossly intact. Cerebellar exam normal. Normal gait. Psych: Awake, alert, with orientation to person, place and time. Behavior, mood, and affect are within normal limits. Vital Signs: 20:11 BP 129 / 74; Pulse 50; Resp 20; Temp 98.8; Pulse Ox 96% on R/A; Weight 63.5 kg (R); aj1 Height 5 ft. 8 in. (172.72 cm) (R); Pain 2/10; 21:21 BP 134 / 62; Pulse 49; Resp 19; Pulse Ox 100% on R/A; kr2 22:00 BP 151 / 72; Pulse 50; Resp 14; Pulse Ox 99% on R/A; kr2 23:01 BP 142 / 77; Pulse 52; Resp 12; Pulse Ox 99% ; kr2 02/04 01:03 BP 116 / 71; Pulse 50; Resp 18; Pulse Ox 97% on R/A; kr2 02/03 20:11 Body Mass Index 21.29 (63.50 kg, 172.72 cm) [facility] MDM: 02/03 20:33 Patient medically screened. [facility] 21:10 Data reviewed: vital signs, nurses notes, lab test result(s), EKG, radiologic studies. [facility] 02/03 21:08 Order name: Basic Metabolic Panel; Complete Time: 22:09 [facility] 02/03 21:08 Order name: CBC with Diff; Complete Time: 23:18 [facility] 02/03 21:08 Order name: LFT's; Complete Time: 22:09 [facility] 02/03 21:08 Order name: Magnesium; Complete Time: 22:09 [facility] 02/03 21:08 Order name: NT PRO-BNP; Complete Time: 22:09 [facility] 02/03 21:08 Order name: PT-INR; Complete Time: 22:09 [facility] 02/03 21:08 Order name: Troponin (emerg Dept Use Only); Complete Time: 22:09 [facility] 02/03 21:08 Order name: XRAY Chest (1 view) [facility] 02/03 21:08 Order name: Lipase; Complete Time: 22:09 [facility] 02/03 21:08 Order name: Urine Culture [facility] 02/03 21:38 Order name: CBC Smear Scan; Complete Time: 23:18 EDMO 02/03 22:11 Order name: CT Abd/Pelvis - W/Contrast: iv only [facility] 02/03 21:08 Order name: EKG; Complete Time: 21:08 [facility] 02/03 21:08 Order name: Cardiac monitoring; Complete Time: 21:09 [facility] 02/03 21:08 Order name: EKG - Nurse/Tech; Complete Time: 21:09 [facility] 02/03 21:08 Order name: IV Saline Lock; Complete Time: 21:09 [facility] 02/03 21:08 Order name: Labs collected and sent; Complete Time: 21:08 [facility] 02/03 21:08 Order name: O2 Per Protocol; Complete Time: 21:08 [facility] 02/03 21:08 Order name: O2 Sat Monitoring; Complete Time: 21:08 [facility] 02/03 21:08 Order name: Urine Dipstick-Ancillary (obtain specimen); Complete Time: 23:11 [facility] Administered Medications: 20:40 Drug: Zofran 4 mg Route: IVP; Site: left antecubital; kr2 21:21 Follow up: Response: No adverse reaction; Nausea is decreased; Vomiting decreased kr2 21:21 Drug: NS 0.9% 1000 ml Route: IV; Rate: 1 bolus; Site: left antecubital; kr2 22:30 Follow up: Response: No adverse reaction; IV Status: Completed infusion kr2 21:21 Drug: Pepcid 20 mg Route: IVP; Site: left antecubital; kr2 22:00 Follow up: Response: No adverse reaction; Nausea is decreased kr2 22:53 Drug: Zofran 4 mg Route: IVP; Site: left antecubital; kr2 23:30 Follow up: Response: No adverse reaction; Nausea is decreased kr2 Disposition: 02/03/18 23:20 Hospitalization ordered by Cristina Sherman for Observation. Preliminary diagnosis are Abdominal tenderness, Vomiting, Myasthenia gravis. - Bed requested for Telemetry/MedSurg (observation). - Status is Observation. kr2 - Condition is Fair. - Problem is new. - Symptoms have improved. UTI on Admission? No Signatures: Dispatcher [employer] EDChikis Caban RN RN aj1 Linette Smith RN Bismark Teague MD MD cha Reaves, Karey RN RN kr2 Corrections: (The following items were deleted from the chart) 23:32 23:20 Hospitalization Ordered by Cristina Sherman MD for Observation. Preliminary mw diagnosis is Abdominal tenderness; Vomiting; Myasthenia gravis. Bed requested for Telemetry/MedSurg (observation). Status is Observation. Condition is Fair. Problem is new. Symptoms have improved. UTI on Admission? No. [facility] 02/04 01:05 02/03 23:32 02/03/2018 23:20 Hospitalization Ordered by Cristina Sherman MD for kr2 Observation. Preliminary diagnosis is Abdominal tenderness; Vomiting; Myasthenia gravis. Bed requested for Telemetry/MedSurg (observation). Status is Observation. Condition is Fair. Problem is new. Symptoms have improved. UTI on Admission? No. mw
[2018-02-03] MEDS ORDERED: ALPRAZOLAM 0.25 MG TABLET PO PRN (23:52)
[2018-02-03] MEDS ORDERED: ACETAMINOPHEN 500 MG TAB PO PRN (23:52)
[2018-02-03] MEDS ORDERED: ONDANSETRON 4 MG/2 ML VIAL IV PRN (23:52)
[2018-02-03] MEDS ORDERED: MAGNESIUM HYDROXIDE 8% 30 ML PO PRN (23:52)
[2018-02-04 01:22] VITALS: BMI 21.3
[2018-02-04 01:27] LABS: Urine Appearance CLEAR; Urine Bilirubin NEGATIVE (NEG); Urine Blood NEGATIVE (NEG); Urine Color YELLOW; Urine Glucose NEGATIVE (NEG); Urine Protein NEGATIVE (NEG); Urine Specific Gravity >=1.030 (1.005-1.030); Urine pH 7.5 (5.0-7.0)
[2018-02-04 01:34] LABS: Urine Microscopic Reflex NO UMIC
[2018-02-04] MEDS: NA CHLORIDE 0.9% 1,000 ML IV SCH ×4 (01:38→19:45)
[2018-02-04] MEDS: METHYLPREDNISOLONE 125 MG INJ IV SCH ×2 (01:39→06:11)
[2018-02-04 05:50] LABS: Absolute Lymphocytes (CBC) 0.2 K/uL (0.7-4.9); Absolute Monocytes 0.1 K/uL (0.1-1.3); Absolute Neutrophil 6.7 K/uL (1.8-8.0); Basophils % 0.3 % (0-1.3); Hematocrit 42.7 % (39.6-49.0); Lymphocytes % 2.8 % (15.3-44.8); MPV 7.5 fL (7.6-11.3); Monocytes % 1.5 % (3.3-12.3); RBC Red Blood Cell Count 4.54 M/uL (4.33-5.43)
[2018-02-04 05:54] LABS: ALT/SGPT 16 U/L (12-78); AST/SGOT 15 U/L (15-37); Albumin 2.9 g/dL (3.4-5.0); Alkaline Phosphatase 96 U/L (45-117); BUN Blood Urea Nitrogen 11 mg/dL (7-18); Bicarbonate 28 mmol/L (21-32); Bilirubin Total 0.6 mg/dL (0.2-1.0); Glucose Level 133 mg/dL (74-106); Magnesium 2.2 mg/dL (1.8-2.4); Potassium 4.1 mmol/L (3.5-5.1); Sodium Level 139 mmol/L (136-145)
--- NOTE | 2018-02-04 06:00 | P.HP ---
Certification for Inpatient Patient admitted to: Observation With expected LOS: <2 Midnights Patient will require the following post-hospital care: None Practitioner: I am a practitioner with admitting privileges, knowledge of patient current condition, hospital course, and medical plan of care. Services: Services provided to patient in accordance with Admission requirements found in Title 42 Section 412.3 of the Code of Federal Regulations Patient History Date of Service: 02/03/18 Reason for admission: Abdominal pain along with intractable nausea and vomiting History of Present Illness: Patient is a 77-year-old gentleman who came into the hospital with abdominal discomfort. Pain was mainly in the epigastric region and patient had intractable nausea and vomiting. Patient has a history of myasthenia gravis and he has been on immunosuppressants to keep this stable. He came out of the hospital with a flareup of his myasthenia gravis. Patient was started on pyrostigmine and patient was started on treatment. Patient denies any source of fever. Patient denies coughing congestion. Patient be admitted for further evaluation. Allergies No Known Allergies Allergy (Uncoded 02/04/18 01:04) Unknown Home Medications: Pyridostigmine [place] [Mestinon] 60 mg PO BID 02/04/18 azaTHIOprine [Azathioprine] 50 mg PO BID 02/04/18 predniSONE [Deltasone] 20 mg PO DAILY 02/04/18 - Past Medical/Surgical History Has patient received pneumonia vaccine in the past: No Diabetic: No -: hypertension -: vertigo -: back pain -: disc problems in back -: Myasthenia Gravis Past Surgical History: Reviewed- Non-Contributory - Social History Smoking Status: Never smoker Alcohol use: No CD- Drugs: No Caffeine use: No Place of Residence: Home Review of Systems 10-point ROS is otherwise unremarkable Physical Examination - Vital Signs Temperature: 97 F Blood Pressure: 142/68 Pulse: 52 Respirations: 16 Pulse Ox (%): 98 - Physical Exam General: Alert, In no apparent distress, Oriented x3, Oriented x2 HEENT: Atraumatic, PERRLA, Mucous membr. moist/pink, EOMI, Sclerae nonicteric Neck: Supple, 2+ carotid pulse no bruit, No LAD, Without JVD or thyroid abnormality Respiratory: Clear to auscultation bilaterally, Normal air movement Cardiovascular: Regular rate/rhythm, Normal S1 S2, No murmurs Gastrointestinal: Normal bowel sounds, Soft and benign, Non-distended, No tenderness Musculoskeletal: No clubbing, No swelling, No tenderness Integumentary: No rashes Neurological: Normal gait, Normal speech, Normal strength at 5/5 x4 extr, Normal tone, Sensation intact, Cranial nerves 3-12 intact, Normal affect Lymphatics: No axilla or inguinal lymphadenopathy - Studies Laboratory Data (last 24 hrs) 02/03/18 20:24: PT 12.6 H, INR 1.07 02/03/18 20:24: WBC 7.3, Hgb 15.7, Hct 45.8, Plt Count 274 02/03/18 20:24: Sodium 142, Potassium 4.1, BUN 16, Creatinine 0.70, Glucose 142 H, Magnesium 2.4, Total Bilirubin 0.4, AST 22, ALT 20, Alkaline Phosphatase 110 , Lipase 130 Assessment & Plan - Problems (Diagnosis) (1) Dyspnea Current Visit: Yes Status: Acute (2) Abdominal pain Current Visit: Yes Status: Acute (3) Dyspnea Onset Date: 05/31/14 Current Visit: No Status: Acute (4) Hyperventilation Onset Date: 05/31/14 Current Visit: No Status: Acute (5) Shortness of breath Current Visit: No Status: Acute - Plan Plan: 1. Continue with IV hydration 2. Continue with IV antibiotics 3. Monitor electrolytes 4. Continue with treatment for her cirrhosis. Check an acute hepatitis panel along with Tylenol level. Monitor for further abnormalities. 5. GI and DVT prophylaxis Discharge Plan: Home Plan to discharge in: Greater than 2 days - Advance Directives Does patient have a Living Will: No Does patient have a Durable POA for Healthcare: No - Code Status/Comfort Care Code Status Assessed: Yes Code Status: Full Code Critical Care: No
--- NOTE | 2018-02-04 07:44 | RAD REPORT ---
EXAM DESCRIPTION: CT - Abdomen Pelvis W Contrast - 02/04/2018 1:58 am CLINICAL HISTORY: Diffuse abdominal pain, vomiting A preliminary report was provided at the time of the study and reviewed prior to final report. COMPARISON: CT study September 07, 2017, MRI lumbar spine September 23, 2017 TECHNIQUE: Biphasic, helical CT imaging of the abdomen and pelvis was performed following 100 ml non -ionic IV contrast. Oral contrast was given. All CT scans are performed using dose optimization technique as appropriate and may include automated exposure control or mA/KV adjustment according to patient size. FINDINGS: No suspicious findings in the lung bases. No pericardial thickening or effusion. The liver, spleen, and pancreas show no suspicious findings. Gallbladder and biliary tree are also wi thout suspicious finding. Gallstones can be occult. Active gallbladder process is unlikely. Symmetric renal function is seen with no hydronephrosis or suspicious renal mass. No pyelonephritis o r acute renal parenchymal process. No acute urinary bladder finding. Prostate gland is enlarged witho ut evidence for invasion of adjacent structures. There is heterogeneous attenuation of the prostate g land. Correlation can be made with PSA values. Distended fluid-filled stomach is identified. No gastric wall thickening or mass. No dilated large or small bowel. Appendix is normal. Patient has prominent diverticulosis throughout much of the colon. No acute diverticulitis, mass or other acute colon process. No abnormal mesenteric lymph node pattern . No free air, free fluid or inflammatory stranding. No omental thickening, mass or bulky lymphadeno kian. Fatty changes around each inguinal canal noted. Indirect inguinal hernia on the left suspected . This is a stable finding. No adrenal abnormality. Patient has dense calcification of the arterial tree. Osteopenic and degenerative changes are present throughout the spine. Since the September 23 MRI study the patient has undergone vertebroplasty of L1. The re is no 40% wedge compression fracture deformity of the T12 body. This has occurred since September 23. Ag e is otherwise unknown. Advanced degenerative disc disease present from L2-3 through the L5-S1 level. Degenerative gas in the disc spaces of the lower thoracic spine as well. No pathologic bone process suspected. IMPRESSION: Gastroenteritis pattern is evident with no obstruction, free air or surgically emergent finding. Approximately 40% wedge compression fracture deformity of the T12 body new from September 23. Patient has u ndergone L1 vertebroplasty since September 23. If patient has pain to the thoracolumbar junction, MR imagi ng could be performed to assess for any active T12 marrow edema. Heterogeneous enlarged prostate gland without invasion of local structures. Correlation can be made w ith PSA value as warranted.
--- NOTE | 2018-02-04 08:24 | RAD REPORT ---
EXAM DESCRIPTION: RAD - Chest Single View - 02/03/2018 9:37 pm CLINICAL HISTORY: Cough, abdominal pain, abdominal distention COMPARISON: September 2016 TECHNIQUE: AP portable chest image was obtained 2132 hours . FINDINGS: Chronic interstitial lung disease is evident without superimposed failure, infiltrate or m ass. No significant failure or volume overload finding. Heart and vasculature are normal. No measurable pleural effusion and no pneumothorax. No gross bony abnormality seen. No acute aortic findings suspected. IMPRESSION: No acute cardiopulmonary process. Chronic interstitial lung disease is present similar to comparison.
--- NOTE | 2018-02-04 09:08 | EKG ---
Test Date: 2018-02-03 Test Time: 20:55:50 Office Analyst: CHRIS MEASUREMENT RESULTS: Intervals: Rate: 44 AR: 188 QRSD: 162 QT: 502 QTc: 429 [place]: P: 25 AR: 188 QRS: -54 T: -16 INTERPRETIVE STATEMENTS: Marked sinus bradycardia Right bundle branch block Left axis Abnormal ECG Compared to ECG 07/12/2014 12:46:00 Right bundle-branch block now present Sinus rhythm no longer present Electronically Signed On 02-04-18 09:07:53 CDT by Cachorro Dalton
[2018-02-04] MEDS: AZATHIOPRINE 50 MG TABLET PO SCH ×2 (09:11→21:56)
[2018-02-04] MEDS: PYRIDOSTIGMINE 60 MG TABLET PO SCH ×4 (09:12→21:57)
--- NOTE | 2018-02-04 17:36 | RAD REPORT ---
EXAM DESCRIPTION: MRI - Thoracic Spine Wo Contr - 02/04/2018 5:03 pm CLINICAL HISTORY: T12 compression fracture, thoracic pain COMPARISON: CT imaging February 03 TECHNIQUE: Sagittal T1 weighted, T2 weighted and T2 STIR weighted sequences were obtained. Axial T2 weighted images were obtained through each disc level. FINDINGS: The T1-T11 bodies are normal in height. No suspicious marrow edema or marrow replacing pro cess. Fatty marrow degenerative changes are present in the superior aspect T8 and T10 bodies. T12 bod y shows 40% wedge compression deformity. Posterior wall height is preserved. Marrow pattern indicates a stable fracture. No active T12 process seen. No perispinal mass. No cord compression or cord signal abnormality seen in the thoracic spine. Refueler image shows significant cervical spondylosis spanning C3-C7. Canal is stenotic. Exam is limited in assessment. IMPRESSION: T12 compression fracture is old. No significant encroachment into the central canal or e xit foramina. No other thoracic spine acute or active process seen. Sagittal localizing image shows significant cervical spine spondylosis with probable multi site centr al spinal stenosis. This can be followed as clinical findings warrant.
[2018-02-05 00:17] VITALS: O2SAT 96
[2018-02-05] MEDS: NA CHLORIDE 0.9% 1,000 ML IV SCH (05:20)
--- NOTE | 2018-02-05 06:03 | DS ---
Date of Discharge: 02/04/2018 Discharge Diagnoses: 1.Dyspnea, resolved. 2.Generalized abdominal pain, resolved. 3.History of essential hypertension, stable. 4.Compression fracture of T-spine, T12. 5.Myasthenia gravis, on steroids and immunosuppressants. Hospital Course: The patient is a 77-year-old male who comes in to the hospital with abdominal disco mfort in the epigastric region. The patient's workup was essentially negative. White count was norm al. Did not have any bandemia. The electrolytes were stable. Troponin was -0.04. The CT scan of t he abdomen and pelvis was done to further elucidate etiology of his pain. It showed gastroenteritis pattern but no obstruction, free air, or surgically emergent finding. 40% wedge compression fracture deformity of the T12 body. New from September 23, 2017. The patient has undergone L1 vertebroplasty sin e September 23. Heterogeneous enlarged prostate gland without invasion of local structures. The patient is doing well otherwise. He was able to tolerate his diet. His abdominal pain had resolved. He wa s not complaining of any back pain. It should be noted that there is a possibility his lesion may be coming from his prostate. The patient will need further workup by his primary care physician to hav e his PSA level checked and the patient will also need to follow up with his neurosurgeon for repeat vertebroplasty given this finding of compression fracture in the T12. There is no bowel or bladder i ncontinence. The patient does not have any decrease in sensation. Family was contacted, Es dunn who is the daughter; however, was unable to be reached. [facility] He was able to ambulate, tolerating his diet. No further complaints. Medications: As per medication reconciliation list. Followup: Follow up with primary care physician, Dr. Prabhakar Mcneal in 2-3 days to have PSA level obta ined and further workup of his compression fracture of T12 by Neurosurgery. Return to ER for worseni ng condition. Diet: Heart healthy. Activity: As tolerated. Physical Examination: General: Awake, alert, oriented, no acute distress. CV: S1, S2. No murmurs. Respiratory: Moving air well bilaterally. Abdomen: Soft, nontender, nondistended. Positive bowel sounds. Extremities: No clubbing, cyanosis, or edema. Neuro: Nonfocal. Sensation intact to light touch. SA/MODL Voice ID: [id number] Report ID: [id number]
[2018-02-05] MEDS ORDERED: predniSONE 20 MG TAB PO SCH (09:00)
[2018-02-05] MEDS: AZATHIOPRINE 50 MG TABLET PO SCH (09:54)
[2018-02-05] MEDS: PYRIDOSTIGMINE 60 MG TABLET PO SCH (09:55)
[2018-02-05 14:07] VITALS: BP 156/73; TEMP 97.6
--- NOTE | 2018-02-05 15:48 | P.DS ---
Admission Date: 02/03/18 Discharge Date: 02/05/18 Disposition: ROUTINE DISCHARGE Discharge Condition: GOOD Reason for Admission: Abdominal pain along with intractable nausea and vomiting Hospital Course: The patient is a 77-year-old male who comes in to the hospital with abdominal discomfort in the epigastric region. The patient's workup was essentially negative. White count was normal. Did not have any bandemia. The electrolytes were stable. Troponin was -0.04. The CT scan of the abdomen and pelvis was done to further elucidate etiology of his pain. It showed gastroenteritis pattern but no obstruction, free air, or surgically emergent finding. 40% wedge compression fracture deformity of the T12 body. New from September 23, 2017. The patient has undergone L1 vertebroplasty since September 23. Heterogeneous enlarged prostate gland without invasion of local structures. The patient is doing well otherwise. He was able to tolerate his diet. His abdominal pain had resolved. He was not complaining of any back pain. It should be noted that there is a possibility his lesion may be coming from his prostate. The patient will need further workup by his primary care physician to have his PSA level checked and the patient will also need to follow up with his neurosurgeon for repeat vertebroplasty given this finding of compression fracture in the T12. There is no bowel or bladder incontinence. The patient does not have any decrease in sensation. Family was contacted, Es Velasquez who is the daughter; however, was unable to be reached. The patient was then stable for discharge. He was able to ambulate, tolerating his diet. No further complaints. Vital Signs/Physical Exam: Temp Pulse Resp BP Pulse Ox 97.6 F 60 16 156/73 H 99 02/05/18 12:00 02/05/18 12:00 02/05/18 12:00 02/05/18 12:00 02/05/18 12:00 Laboratory Data at Discharge: WBC 7.0 K/uL (4.3-10.9) 02/04/18 04:59 Hgb 14.6 g/dL (13.6-17.9) 02/04/18 04:59 Hct 42.7 % (39.6-49.0) 02/04/18 04:59 Plt Count 246 K/uL (152-406) 02/04/18 04:59 PT 12.6 SECONDS (9.5-12.5) H 02/03/18 20:24 INR 1.07 02/03/18 20:24 Sodium 139 mmol/L (136-145) 02/04/18 04:59 Potassium 4.1 mmol/L (3.5-5.1) 02/04/18 04:59 BUN 11 mg/dL (7-18) 02/04/18 04:59 Creatinine 0.60 mg/dL (0.55-1.3) 02/04/18 04:59 Glucose 133 mg/dL (74-106) H 02/04/18 04:59 Phosphorus 3.0 mg/dL (2.5-4.9) 02/04/18 04:59 Magnesium 2.2 mg/dL (1.8-2.4) 02/04/18 04:59 Total Bilirubin 0.6 mg/dL (0.2-1.0) 02/04/18 04:59 AST 15 U/L (15-37) 02/04/18 04:59 ALT 16 U/L (12-78) 02/04/18 04:59 Alkaline Phosphatase 96 U/L (45-117) 02/04/18 04:59 Troponin I 0.04 ng/mL (0.0-0.045) 02/05/18 06:06 Lipase 130 U/L (73-393) 02/03/18 20:24 Home Medications: Pyridostigmine [place] [Mestinon*] 60 mg PO BID 02/04/18 azaTHIOprine [Azathioprine] 50 mg PO BID 02/04/18 predniSONE [Prednisone*] 20 mg PO DAILY 02/04/18 Patient Discharge Instructions: f/up w PCP in 2-3 days. f/up w neurosurgeon in 2 weeks. Return to ER for worsening condition Diet: AHA Activity: Ad florencio
--- NOTE | 2018-02-05 15:51 | P.DS ---
Admission Date: 02/03/18 Discharge Date: 02/05/18 Disposition: ROUTINE DISCHARGE Discharge Condition: GOOD Reason for Admission: Abdominal pain along with intractable nausea and vomiting - Problems (1) Abdominal pain Onset Date: 02/04/18 Status: Acute (2) Dyspnea Onset Date: 02/04/18 Status: Acute Brief History of Present Illness: Patient is a 77-year-old gentleman who came into the hospital with abdominal discomfort. Pain was mainly in the epigastric region and patient had intractable nausea and vomiting. Patient has a history of myasthenia gravis and he has been on immunosuppressants to keep this stable. He came out of the hospital with a flareup of his myasthenia gravis. Patient was started on pyrostigmine and patient was started on treatment. Patient denies any source of fever. Patient denies coughing congestion. Patient be admitted for further evaluation. Hospital Course: The patient is a 77-year-old male who comes in to the hospital with abdominal discomfort in the epigastric region. The patient's workup was essentially negative. White count was normal. Did not have any bandemia. The electrolytes were stable. Troponin was -0.04. The CT scan of the abdomen and pelvis was done to further elucidate etiology of his pain. It showed gastroenteritis pattern but no obstruction, free air, or surgically emergent finding. 40% wedge compression fracture deformity of the T12 body. New from September 23, 2017. The patient has undergone L1 vertebroplasty since September 23. Heterogeneous enlarged prostate gland without invasion of local structures. The patient is doing well otherwise. He was able to tolerate his diet. His abdominal pain had resolved. He was not complaining of any back pain. It should be noted that there is a possibility his lesion may be coming from his prostate. The patient will need further workup by his primary care physician to have his PSA level checked and the patient will also need to follow up with his neurosurgeon for repeat vertebroplasty given this finding of compression fracture in the T12. There is no bowel or bladder incontinence. The patient does not have any decrease in sensation. Family was contacted, Es Velasquez who is the daughter; however, was unable to be reached. The patient was then stable for discharge. He was able to ambulate, tolerating his diet. No further complaints. Vital Signs/Physical Exam: Temp Pulse Resp BP Pulse Ox 97.6 F 60 16 156/73 H 99 02/05/18 12:00 02/05/18 12:00 02/05/18 12:00 02/05/18 12:00 02/05/18 12:00 General: Alert, In no apparent distress HEENT: Atraumatic, PERRLA, EOMI Neck: Supple, JVD not distended Respiratory: Clear to auscultation bilaterally, Normal air movement Cardiovascular: Regular rate/rhythm, Normal S1 S2 Gastrointestinal: Normal bowel sounds, No tenderness Musculoskeletal: No tenderness Integumentary: No rashes Neurological: Normal speech, Normal tone, Normal affect Lymphatics: No axilla or inguinal lymphadenopathy Laboratory Data at Discharge: WBC 7.0 K/uL (4.3-10.9) 02/04/18 04:59 Hgb 14.6 g/dL (13.6-17.9) 02/04/18 04:59 Hct 42.7 % (39.6-49.0) 02/04/18 04:59 Plt Count 246 K/uL (152-406) 02/04/18 04:59 PT 12.6 SECONDS (9.5-12.5) H 02/03/18 20:24 INR 1.07 02/03/18 20:24 Sodium 139 mmol/L (136-145) 02/04/18 04:59 Potassium 4.1 mmol/L (3.5-5.1) 02/04/18 04:59 BUN 11 mg/dL (7-18) 02/04/18 04:59 Creatinine 0.60 mg/dL (0.55-1.3) 02/04/18 04:59 Glucose 133 mg/dL (74-106) H 02/04/18 04:59 Phosphorus 3.0 mg/dL (2.5-4.9) 02/04/18 04:59 Magnesium 2.2 mg/dL (1.8-2.4) 02/04/18 04:59 Total Bilirubin 0.6 mg/dL (0.2-1.0) 02/04/18 04:59 AST 15 U/L (15-37) 02/04/18 04:59 ALT 16 U/L (12-78) 02/04/18 04:59 Alkaline Phosphatase 96 U/L (45-117) 02/04/18 04:59 Troponin I 0.04 ng/mL (0.0-0.045) 02/05/18 06:06 Lipase 130 U/L (73-393) 02/03/18 20:24 Home Medications: Pyridostigmine [place] [Mestinon*] 60 mg PO BID 02/04/18 azaTHIOprine [Azathioprine] 50 mg PO BID 02/04/18 predniSONE [Prednisone*] 20 mg PO DAILY 02/04/18 Patient Discharge Instructions: f/up w PCP in 2-3 days. f/up w neurosurgeon in 2 weeks. Return to ER for worsening condition Diet: AHA Activity: Ad florencio Time spent managing pt's care (in minutes): 35
== END 2018-02-05 12:32 | disposition home or self-care (01) ==
LOC: ER 19:58 → ERHOLD 23:21 → 2ND 02-04 00:27
PROVIDERS: ADMIT Hospitalist; ATTEND Hospitalist
DX: G70.01 Myasthenia gravis with (acute) exacerbation (principal); R06.00 Dyspnea, unspecified; R10.13 Epigastric pain; R11.2 Nausea with vomiting, unspecified; M48.54XA Collapsed vertebra, not elsewhere classified, thoracic region, initial encounter for fracture; N40.0 Benign prostatic hyperplasia without lower urinary tract symptoms
CPT/HCPCS: 36415 ×2; 71045; 72146; 74177; 80048; 80053; 80076; 81003; 83690; 83735 ×2; 83880; 84100; 84484 ×3; 85025 ×2; 85610; 87086; 87088; 93005; 96361; 96374; 96375; 99285; G0103; G0378 ×2; J2405 ×2; J2930 ×2; J7030 ×3; Q9967; J7500; J7512

== ENCOUNTER 2020-12-02 10:57 | Day surgery (SDC) | payer OTHER ==
--- NOTE | 2020-11-28 16:01 | RAD REPORT ---
EXAM DESCRIPTION: Clari Good (2 Views)11/28/2020 3:55 pm CLINICAL HISTORY: Preop for cardiac catheterization. COMPARISON: 2018 FINDINGS: The lungs appear clear of acute infiltrate. The heart is normal size IMPRESSION: No acute abnormalities displayed
[2020-11-28 16:02] LABS: Absolute Lymphocytes (CBC) 0.3 K/uL (0.7-4.9); Basophils % 0.4 % (0-1.3); Hematocrit 46.4 % (39.6-49.0); Lymphocytes % 4.1 % (15.3-44.8); MPV 6.5 fL (7.6-11.3); RBC Red Blood Cell Count 5.21 M/uL (4.33-5.43)
[2020-11-28 16:04] LABS: Protime INR 1.03
[2020-11-28 16:22] LABS: Platelet Estimate ADEQ; White Blood Cell Scan OK (OK)
[2020-11-28 16:23] LABS: Blood Morphology Comment NOT SEEN (NOT SEEN)
[2020-11-28 19:19] LABS: Potassium 3.9 mmol/L (3.5-5.1)
[2020-12-02] MEDS ORDERED: NA CHLORIDE 0.9% 500 ML ONE (11:26)
[2020-12-02] MEDS ORDERED: HEPA 1000U/500MLS 2,000 UNIT/1,000 ML BAG IV ONE (11:40)
[2020-12-02] MEDS ORDERED: LIDOCAINE 1% 20 ML MDV ONE (11:40)
[2020-12-02] MEDS ORDERED: HEPARIN 5000 UNIT/ML 1 ML VIAL ONE (12:13)
[2020-12-02] MEDS ORDERED: VERAPAMIL HCL 10 MG/4 ML VIAL IV ONE (12:14)
[2020-12-02] MEDS ORDERED: MIDAZOLAM HCL 2 MG/2 ML INJ ONE (12:14)
[2020-12-02] MEDS ORDERED: FENTANYL CITR 100 MCG/2 ML ONE (12:14)
[2020-12-02] MEDS ORDERED: ATROPINE SULF 1 MG/10 ML SYR IV ONE (12:15)
[2020-12-02] MEDS ORDERED: NITROGLYCERIN/D5W 25 MG/250 ML BTL IV ONE (12:15)
[2020-12-02] MEDS ORDERED: NITROGLYCERIN 100 MCG/ML SYR (for cath lab use only) IV ONE (12:15)
--- NOTE | 2020-12-02 13:18 | OP ---
Date of Procedure: 12/02/2020 Surgeon: SEVERO SIDDIQUI Procedure Performed: Selective coronary angiogram. Indication: Chest pain with abnormal stress test. Access: Right radial artery 6-Indonesian closed with TR band. Complications: None. Bleeding: Less than 10 mL. Description Of Procedure: After risks, benefits, and alternatives were explained, the patient agreed to the procedure and signed informed consent. The patient was brought in the cardiac catheterizatio n laboratory, prepped and draped in usual sterile fashion. Then, I accessed right radial artery usin g pediatric micropuncture kit and placed a 6-Indonesian Slender sheath and then took a 5-Indonesian Benezett 4.0 catheter in the aortic root, engaged the left main and right coronary artery, took standard views an d then removed the catheter and sheath, placed TR band with good hemostasis. Findings: 1.Left main; large, short, and normal. 2.LAD; large vessel with mid 30% stenosis at the takeoff of diagonal 1 branch. Diagonal 1 branch santana s 70% ostial stenosis with LEIGH-3 flow. The rest of the LAD is normal. 3.Left circumflex; aavmzbwx-da-zbnii size in its normal. There is a high OM branch, very small vess el with a 70% ostial stenosis. Rest of the left circumflex is normal. 4.RCA; large, dominant and is normal. Conclusion: Moderate coronary artery disease of the diagonal 1 branch and OM1 branch; however, the O M1 branch is small and the diagonal branch comes off on the LAD and its ostial lesion. Has LEIGH-3 fl ow. Plan for medically treating this lesion as putting a stent could jeopardize the LAD flow. Unles s the patient's symptoms becomes refractory, then a PCI will be indicated. Plan: Aggressive medical management with aspirin, high-dose statin. SR/MODL Voice ID: [id number] Report ID: [id number]
[2020-12-02 14:11] VITALS: TEMP 96.8
[2020-12-02 15:54] VITALS: BP 123/58; O2SAT 97
== END 2020-12-02 14:55 | disposition home or self-care (01) ==
LOC: CCL 10:57
PROVIDERS: ATTEND Internal Medicine
DX: I25.10 Atherosclerotic heart disease of native coronary artery without angina pectoris (principal); I34.0 Nonrheumatic mitral (valve) insufficiency; I35.1 Nonrheumatic aortic (valve) insufficiency; I10 Essential (primary) hypertension; E78.2 Mixed hyperlipidemia
CPT/HCPCS: 93005; 85025; 80048; 36415; 85610; 85730; 71046; 93454; C1893; J1644 ×2; J7040; J2250; J3010

== ENCOUNTER 2021-04-10 10:05 | Observation (INO) | payer OTHER ==
[2021-04-10 11:17] LABS: Absolute Lymphocytes (CBC) 0.7 K/uL (0.7-4.9); Basophils % 0.6 % (0-1.3); Hematocrit 41.8 % (39.6-49.0); Lymphocytes % 6.5 % (15.3-44.8); MPV 6.5 fL (7.6-11.3); RBC Red Blood Cell Count 4.63 M/uL (4.33-5.43)
[2021-04-10 11:30] LABS: Protime INR 1.04
[2021-04-10 11:48] LABS: Albumin 2.9 g/dL (3.4-5.0); Bilirubin Direct 0.2 mg/dL (0-0.2); Bilirubin Total 0.8 mg/dL (0.2-1.0); Magnesium 2.3 mg/dL (1.8-2.4); Protein, Total 6.5 g/dL (6.4-8.2); Troponin (Emerg Dept Use Only) 0.04 ng/mL (0.0-0.045)
[2021-04-10 12:17] LABS: Blood Morphology Comment NOT SEEN (NOT SEEN); Platelet Estimate ADEQ
--- NOTE | 2021-04-10 12:43 | RAD REPORT ---
EXAM DESCRIPTION: RAD - Chest Single View - 04/10/2021 12:27 pm CLINICAL HISTORY: SWELLING COMPARISON: Chest Pa And Lat (2 Views) dated 11/28/2020; Chest Single View dated 02/03/2018; Chest Pa And Lat (2 Views) dated 09/16/2016; Chest Single View dated 08/15/2015; Extrem Venous W Compress Connor kaci ed 04/10/2021 FINDINGS: Lines: None. Lungs: There are a few ill-defined new right mid lung and right basilar opacities. Pleural: No significant pleural effusions or pneumothorax. Cardiac: The heart size is within normal limits. Bones: No acute fractures. Other: Atherosclerosis. IMPRESSION: A few focal opacities are present in the right lung base that are new from prior and cou ld reflect a mild infectious or inflammatory process.
--- NOTE | 2021-04-10 12:46 | RAD REPORT ---
EXAM DESCRIPTION: US - Extrem Venous W Compress Connor - 04/10/2021 12:23 pm CLINICAL HISTORY: Pain COMPARISON: None. TECHNIQUE: Real-time sonographic evaluation of the bilateral lower extremity deep venous systems was performed. FINDINGS: Noncompressible and/or partially compressible left common femoral vein, left greater saphe nous vein, proximal left femoral vein, posterior tibial vein, and portions of the popliteal vein. The right lower extremity vessels are compressible, demonstrate normal waveforms, and color Doppler f low. IMPRESSION: Positive for deep venous thrombosis in the left lower extremity.
--- NOTE | 2021-04-10 13:46 | RAD REPORT ---
EXAM DESCRIPTION: CT - Chest For Pe Angio - 04/10/2021 1:20 pm CLINICAL HISTORY: dvt COMPARISON: Thorax Wo Con dated 08/14/2015; CTANGIO CHEST FOR PE dated 05/31/2014; CTANGIO CHEST FOR PE dated 04/16/2012 FINDINGS: Chest Wall: No suspicious thyroid nodules or pathologic lymphadenopathy. Lungs: No acute abnormality. Pleura: No significant effusions or pneumothorax. Mediastinum/karthik: No pathologic lymphadenopathy. Pulmonary arteries/Aorta: Segmental right lower lobe pulmonary embolus. No aortic aneurysm. Heart: No significant pericardial effusion. Normal heart size. Coronary artery calcifications Upper abdomen: No acute abnormality. Cirrhotic liver morphology. Low density liver lesion in the left hepatic lobe is likely benign. Bones: No acute abnormality. All CT scans are performed using dose optimization technique as appropriate and may include automated exposure control or mA/KV adjustment according to patient size. IMPRESSION: Positive for pulmonary embolism. Segmental right lower lobe pulmonary embolus consisten t with a small clot burden.
[2021-04-10 13:54] LABS: Urine Blood Negative (Negative); Urine Glucose Negative (Negative); Urine Protein Negative (Negative); Urine Specific Gravity 1.025 (1.005-1.030); Urine pH 6.5 (5.0-7.0)
--- NOTE | 2021-04-10 15:59 | ER ---
Nurse's Notes [facility] Name: Tj Harrington Age: 80 yrs Sex: Male : 1940 Arrival Date: 04/10/2021 Time: 10:09 Bed 20 Private MD: Prabhakar Mcneal Diagnosis: Pulmonary embolism without acute cor pulmonale;Acute embolism and thrombosis of deep veins of lower extremity Presentation: 04/10 10:24 Chief complaint: Caregiver: His legs are swelling x 10 days, denies shortness of jl7 breath, reports right foot pain. Coronavirus screen: At this time, the client does not indicate any symptoms associated with coronavirus-19. Ebola Screen: No symptoms or risks identified at this time. Initial Sepsis Screen: Does the patient meet any 2 criteria? No. Patient's initial sepsis screen is negative. Does the patient have a suspected source of infection? No. Patient's initial sepsis screen is negative. Risk Assessment: Do you want to hurt yourself or someone else? Patient reports no desire to harm self or others. Onset of symptoms is unknown. 10:24 Method Of Arrival: Wheelchair jl7 10:24 Acuity: ABBEY 3 jl7 Triage Assessment: 10:32 General: Appears in no apparent distress. uncomfortable, Behavior is calm, cooperative, jl7 appropriate for age. Pain: Complains of pain in right foot. Historical: - Allergies: 10:28 No Known Allergies; jl7 - Home Meds: 10:28 pyridostigmine bromide 60 mg Oral tab 3 times per day for Myasthenia Gravis [Active]; jl7 prednisone 20 mg Oral tab once daily [Active]; atorvastatin 10 mg oral tab 1 tab once daily [Active]; quetiapine 25 mg oral tab 1 tab [Active]; donepezil 10 mg oral tab 1 tab once daily [Active]; furosemide 20 mg Oral tab 1 tab once daily [Active]; memantine 10 mg oral tab 1 tab 2 times per day [Active]; amlodipine 5 mg tab 1 tab once daily [Active]; aspirin 81 mg Oral TbEC [Active]; - PMHx: 10:28 fall and tbi in 1982, has been on disability since; pt normal is aaox4; Hypertension; jl7 Myasthenia Gravis; Alzheimer's disease; CHF; Hypercholesterolemia; 10:32 melanoma; jl7 - Immunization history:: Client reports receiving the 2nd dose of the Covid vaccine, Moderna. - Social history:: Smoking status: Patient denies any tobacco usage or history of. Screenin:22 Abuse screen: Denies threats or abuse. Denies injuries from another. sl2 10:22 Nutritional screening: No deficits noted. Tuberculosis screening: No symptoms or risk sl2 factors identified. Fall Risk None identified. No secondary diagnosis (0 pts). No IV (0 pts). Ambulatory Aid- None/Bed Rest/Nurse Assist (0 pts). Gait- Weak (10 pts.). Mental Status- Oriented to own ability (0 pts). 10:22 Fall Risk Total Goins Fall Scale indicates Low Risk Score (25-44 pts). Fall prevention sl2 measures have been instituted. Side Rails Up X 2 Placed close to Nursing Station Frequent Obs/Assesments occuring Family Present and informed to notify staff if they need to leave bedside As available Patient and Family Educated on Fall Prevention Program and strategies. Assessment: 14:42 Reassessment: Dr Artis present at bedside for patient interview and assessment. sl2 16:36 Reassessment: Nursing report given to Aura for inpatient admission to room 231. sl2 Vital Signs: 10:24 BP 120 / 63; Pulse 67; Resp 15; Temp 97.9; Pulse Ox 100% ; Weight 65.77 kg; jl7 11:00 BP 123 / 69; Pulse 68; Resp 16; Pulse Ox 100% on R/A; kj1 12:00 BP 123 / 65; Pulse 61; Resp 18; Temp 98; Pulse Ox 96% on R/A; sl2 13:00 BP 122 / 64; Pulse 62; Resp 18; Pulse Ox 97% 2 lpm ; sl2 14:30 BP 156 / 69; Pulse 62; Resp 18; Temp 97.9; Pulse Ox 99% ; sl2 15:00 BP 124 / 111; Pulse 66; Resp 18; Pulse Ox 95% on R/A; sl2 15:30 BP 116 / 65; Pulse 58; Resp 18; Pulse Ox 97% ; sl2 16:00 BP 118 / 76; Pulse 62; Resp 18; Temp 97.8; Pulse Ox 96% on R/A; sl2 ED Course: 10:09 Patient arrived in ED. as 10:09 Prabhakar Mcneal MD is Private Physician. as 10:22 Patient has correct armband on for positive identification. Placed in gown. Bed in low sl2 position. Call light in reach. Side rails up X2. 10:22 No provider procedures requiring assistance completed. sl2 10:27 Triage completed. jl7 10:32 Arm band placed on right wrist. jl7 10:37 James Shea [facility] 10:37 Kwadwo Arellano MD is Attending Physician. [facility] 11:10 EKG done, by ED staff, reviewed by James AVERY. Inserted saline lock: 22 gauge in kj1 left antecubital area, using aseptic technique. Blood collected. 11:12 Initial lab(s) drawn, by mi, sent to lab. [facility] 11:13 SARS-COV-2 RT PCR (Document "Date of Onset" if Symptomatic) Sent. [facility] 11:56 Renee Munroe, ALEISHA is Primary Nurse. sl2 12:22 US Extremity Venous W Compression Connor In Process Unspecified. EDMS 12:27 XRAY Chest (1 view) In Process Unspecified. EDMS 13:19 CT Chest For PE Angio In Process Unspecified. EDMS 15:58 Ziyad Artis is Hospitalizing Provider. m 16:46 Patient admitted, IV remains in place. sl2 Administered Medications: No medications were administered Outcome: 15:59 Decision to Hospitalize by Provider. [facility] 16:45 Admitted to Tele accompanied by tech, room 231, Report called to Aura 2 16:45 Condition: stable 16:45 Discharge instructions given to patient, family, Instructed on the need for admit, Demonstrated understanding of instructions. 16:47 Patient left the ED. sl2 Signatures: Dispatcher [employer] EDMS James Shea PA PA Kristie Chao as Mark Mcneal RN RN jl7 Martita Greer [facility] Renee Munroe, ALEISHA RN sl2 Corrections: (The following items were deleted from the chart) 14:12 13:00 BP 123 / 65; Pulse 61bpm; Resp 18bpm; Pulse Ox 96% RA; Temp 98F; sl2 sl2 14:30 14:19 Patient admitted, IV remains in place. sl2 sl2 14:30 14:18 Admitted to Tele accompanied by tech, via stretcher, room 225, 2 2 14:18 Condition: stable [place] [id number] 14:18 Discharge instructions given to patient, Instructed on the need for admit, 2 Demonstrated understanding of instructions, [facility] 14:12 Reassessment: Nursing report given to ALEISHA Gutierres for inpatient admission to room 2 225 [facility]
--- NOTE | 2021-04-10 15:59 | EDPHYS ---
Physician Documentation [facility] Name: Tj Harrington Age: 80 yrs Sex: Male : 1940 Arrival Date: 04/10/2021 Time: 10:09 Bed 20 Private MD: Prabhakar Mcneal ED Physician Kwadwo Arellano HPI: 04/10 10:58 This 80 yrs old Male presents to ER via Wheelchair with complaints of Feet jmm Swelling. 10:58 The patient presents with pain, swelling. Onset: The symptoms/episode began/occurred jmm gradually, 2 week(s) ago. Modifying factors: The symptoms are alleviated by nothing. the symptoms are aggravated by weight bearing. Associated signs and symptoms: Pertinent positives: calf tenderness, Pertinent negatives fever. This is a 80-year-old male with history of TBI in 1982, hypertension, coronary artery disease, the presents ED with complaints of progressively worsening lower extremity swelling and pain. He got to the point where the patient was having too much difficulty walking due to the pain, in particular in his left leg. Patient denies chest pain or shortness of breath. Denies fever or chills.. Historical: - Allergies: 10:28 No Known Allergies; jl7 - Home Meds: 10:28 pyridostigmine bromide 60 mg Oral tab 3 times per day for Myasthenia Gravis [Active]; jl7 prednisone 20 mg Oral tab once daily [Active]; atorvastatin 10 mg oral tab 1 tab once daily [Active]; quetiapine 25 mg oral tab 1 tab [Active]; donepezil 10 mg oral tab 1 tab once daily [Active]; furosemide 20 mg Oral tab 1 tab once daily [Active]; memantine 10 mg oral tab 1 tab 2 times per day [Active]; amlodipine 5 mg tab 1 tab once daily [Active]; aspirin 81 mg Oral TbEC [Active]; - PMHx: 10:28 fall and tbi in 1982, has been on disability since; pt normal is aaox4; Hypertension; jl7 Myasthenia Gravis; Alzheimer's disease; CHF; Hypercholesterolemia; 10:32 melanoma; jl7 - Immunization history:: Client reports receiving the 2nd dose of the Covid vaccine, Moderna. - Social history:: Smoking status: Patient denies any tobacco usage or history of. ROS: 10:58 Constitutional: Negative for fever, chills, and weight loss, Cardiovascular: Negative [facility] for chest pain, palpitations, and edema, Respiratory: Negative for shortness of breath, cough, wheezing, and pleuritic chest pain. 10:58 MS/extremity: Positive for pain, swelling. 10:58 All other systems are negative. Exam: 10:58 Constitutional: This is a well developed, well nourished patient who is awake, alert, jmm and in no acute distress. Head/Face: atraumatic. Eyes: EOMI, no conjunctival erythema appreciated ENT: Moist Mucus Membranes Neck: Trachea midline, Supple Chest/axilla: Normal chest wall appearance and motion. Cardiovascular: Regular rate and rhythm. No edema appreciated Respiratory: Normal respirations, no respiratory distress appreciated Abdomen/GI: Non distended, soft Back: Normal ROM 10:58 Musculoskeletal/extremity: Swelling noted to both the left and right lower extremity, compartments are soft, there is mild tenderness to palpation bilaterally, full dorsalis pulse, neurovascular intact. 10:58 Skin: Mild erythema noted to the left lower extremity. 10:58 Neuro: Orientation: is normal, Mentation: is normal, Memory: is normal. 10:58 Psych: Behavior/mood is pleasant, cooperative. Vital Signs: 10:24 BP 120 / 63; Pulse 67; Resp 15; Temp 97.9; Pulse Ox 100% ; Weight 65.77 kg; jl7 11:00 BP 123 / 69; Pulse 68; Resp 16; Pulse Ox 100% on R/A; kj1 12:00 BP 123 / 65; Pulse 61; Resp 18; Temp 98; Pulse Ox 96% on R/A; sl2 13:00 BP 122 / 64; Pulse 62; Resp 18; Pulse Ox 97% 2 lpm ; sl2 14:30 BP 156 / 69; Pulse 62; Resp 18; Temp 97.9; Pulse Ox 99% ; sl2 15:00 BP 124 / 111; Pulse 66; Resp 18; Pulse Ox 95% on R/A; sl2 15:30 BP 116 / 65; Pulse 58; Resp 18; Pulse Ox 97% ; sl2 16:00 BP 118 / 76; Pulse 62; Resp 18; Temp 97.8; Pulse Ox 96% on R/A; sl2 MDM: 10:59 Patient medically screened. [facility] 15:57 Data reviewed: vital signs, nurses notes. Counseling: I had a detailed discussion with [facility] the patient and/or guardian regarding: the historical points, exam findings, and any diagnostic results supporting the discharge/admit diagnosis, lab results, radiology results, the need for further work-up and treatment in the hospital. ED course: I discussed the patient with Dr. Artis whom accepted the patient for admission. CT revealed pulmonary embolism, ultrasound did reveal a large DVT. 04/10 10:58 Order name: Basic Metabolic Panel; Complete Time: 11:51 iw 04/10 10:58 Order name: CBC with Diff; Complete Time: 12:20 04/10 10:58 Order name: LFT's; Complete Time: 11:51 iw 04/10 10:58 Order name: Magnesium; Complete Time: 11:51 04/10 10:58 Order name: NT PRO-BNP; Complete Time: 11:51 04/10 10:58 Order name: PT-INR; Complete Time: 11:30 04/10 10:58 Order name: Troponin (emerg Dept Use Only); Complete Time: 11:51 04/10 10:58 Order name: XRAY Chest (1 view); Complete Time: 12:51 04/10 10:58 Order name: EKG; Complete Time: 10:59 04/10 11:00 Order name: SARS-COV-2 RT PCR (Document "Date of Onset" if Symptomatic); Complete Time: [facility] 12:35 04/10 11:16 Order name: US Extremity Venous W Compression Connor; Complete Time: 12:51 [facility] 04/10 12:17 Order name: Manual Differential; Complete Time: 12:20 EDAZ 04/10 12:55 Order name: CT Chest For PE Angio; Complete Time: 13:47 [facility] 04/10 13:54 Order name: Urine Dipstick-Ancillary; Complete Time: 13:55 EDAZ 04/10 10:58 Order name: Cardiac monitoring; Complete Time: 11:11 04/10 10:58 Order name: EKG - Nurse/Tech; Complete Time: 11:12 04/10 10:58 Order name: IV Saline Lock; Complete Time: 11:12 04/10 10:58 Order name: Labs collected and sent; Complete Time: 11:12 04/10 10:58 Order name: O2 Per Protocol; Complete Time: 11:56 iw 04/10 10:58 Order name: O2 Sat Monitoring; Complete Time: 11:56 iw 04/10 15:09 Order name: Misc. Order; Complete Time: 15:51 jmm Administered Medications: No medications were administered Disposition: 17:33 Co-signature as Attending Physician, Kwadwo Arellano MD I agree with the assessment and kdr plan of care. Disposition Summary: 04/10/21 15:59 Hospitalization Ordered Hospitalization Status: Observation [facility] Provider: Ziyad Artis Location: Telemetry/MedSurg (observation) jm Condition: Stable jm Problem: new jmm Symptoms: are unchanged [facility] Bed/Room Type: Standard [facility] Room Assignment: 231(04/10/21 16:07) em1 Diagnosis - Pulmonary embolism without acute cor pulmonale jmm - Acute embolism and thrombosis of deep veins of lower extremity jmm Forms: - Medication Reconciliation Form jmm - SBAR form [facility] Signatures: Dispatcher [employer] EDMS Kwadwo Arellano MD MD kdr James Shea PA PA [facility] Tamia Washington, RN ALEISHA iw Keenan [place] em1 Mark Mcneal RN RN jl7 Corrections: (The following items were deleted from the chart) 16:07 15:59 [facility] em1
[2021-04-10] MEDS ORDERED: ALBUTEROL 2.5 MG/3 ML NEB SOL NEB PRN (16:06)
[2021-04-10] MEDS ORDERED: ONDANSETRON 4 MG/2 ML VIAL IV PRN (16:06)
[2021-04-10] MEDS ORDERED: ACETAMINOPHEN 500 MG TAB PO PRN (16:06)
[2021-04-10 17:14] VITALS: BMI 20.2
[2021-04-10] MEDS: levoFLOXacin 750 MG TAB PO SCH (18:08)
[2021-04-10] MEDS ORDERED: ENOXAPARIN 60 MG/0.6 ML SQ SCH (18:12)
--- NOTE | 2021-04-10 18:20 | P.HP ---
Certification for Inpatient Patient admitted to: Observation With expected LOS: <2 Midnights Practitioner: I am a practitioner with admitting privileges, knowledge of patient current condition, hospital course, and medical plan of care. Services: Services provided to patient in accordance with Admission requirements found in Title 42 Section 412.3 of the Code of Federal Regulations Patient History Date of Service: 04/10/21 Reason for admission: Leg swelling History of Present Illness: 80-year-old gentleman with a history of myasthenia gravis, and hypertension was brought to the emergency department due to left lower extremity swelling which has been present for about 10 days. Venous Doppler done in the emergency department revealed left lower extremity DVT. CTA thorax also demonstrated pulmonary embolism with low clot burden. ED provider wishes to hospitalize patient for further management. Patient denies any shortness of breath or chest pain. Family report history of dementia with aberrant behavior. Allergies No Known Allergies Allergy (Uncoded 11/28/20 15:12) Unknown Home Medications: Pyridostigmine [place] [Mestinon*] 60 mg PO TID 02/04/18 predniSONE [Prednisone*] 10 mg PO DAILY 02/04/18 Aspirin 81 mg PO DAILY 04/10/21 Atorvastatin Calcium [Lipitor] 10 mg PO BEDTIME 04/10/21 Cholecalciferol (Vitamin D3) [Vitamin D3] 125 mcg PO BEDTIME 04/10/21 Donepezil HCl 10 mg PO BEDTIME 04/10/21 Furosemide [Lasix] 20 mg PO DAILY 04/10/21 Memantine HCl [Namenda] 10 mg PO BID 04/10/21 - Past Medical/Surgical History Diabetic: No -: hypertension -: vertigo -: back pain -: disc problems in back -: Myasthenia Gravis -: back surgery - Social History Smoking Status: Never smoker Alcohol use: No CD- Drugs: No Caffeine use: No Place of Residence: Home Review of Systems Other: Except as documented, all other systems reviewed and negative. Physical Examination - Vital Signs Temperature: 97.9 F Blood Pressure: 134/63 Pulse: 62 Respirations: 18 Pulse Ox (%): 93 - Physical Exam General: Alert, In no apparent distress, Oriented x2 HEENT: Atraumatic, Mucous membr. moist/pink, Sclerae nonicteric Neck: Supple, JVD not distended Respiratory: Clear to auscultation bilaterally, Normal air movement Cardiovascular: Regular rate/rhythm, Normal S1 S2, Edema Gastrointestinal: Normal bowel sounds, Soft and benign, Non-distended, No tenderness Musculoskeletal: No tenderness, Swelling (Left leg) Integumentary: Erythema (Left leg) Neurological: Normal speech, Normal strength at 5/5 x4 extr, Cranial nerves 3-12 intact Lymphatics: No axilla or inguinal lymphadenopathy - Studies Laboratory Data (last 24 hrs) 04/10/21 11:10: PT 12.0, INR 1.04 04/10/21 11:10: WBC 10.40, Hgb 13.9, Hct 41.8, Plt Count 195 04/10/21 11:10: Sodium 144, Potassium 4.0, BUN 18, Creatinine 0.99, Glucose 90, Magnesium 2.3, Total Bilirubin 0.8, AST 13 L, ALT 13, Alkaline Phosphatase 90 Assessment and Plan - Problems (Diagnosis) (1) Lower extremity deep venous thrombosis Current Visit: Yes Status: Acute (2) Pulmonary embolus Current Visit: Yes Status: Acute (3) Myasthenia gravis Current Visit: Yes Status: Acute (4) Dementia with behavioral disturbance Current Visit: Yes Status: Acute - Plan Place patient under observation. Start full dose Lovenox. We will transition to DOAC if he tolerated the Lovenox. Monitor CBC on Lovenox. Oxygen as needed. Continue Seroquel for dementia behavioral disturbance. Reconcile and continue other home medications. - Advance Directives Does patient have a Living Will: No Does patient have a Durable POA for Healthcare: No
[2021-04-10] MEDS: PYRIDOSTIGMINE 60 MG TABLET PO SCH (20:35)
[2021-04-10] MEDS: MEMANTINE HCL 10 MG TABLET PO SCH (20:36)
[2021-04-10] MEDS: ENOXAPARIN 80 MG/0.8 ML SQ SCH (20:37)
[2021-04-10] MEDS ORDERED: VITAMIN D 5,000 UNIT CAP PO SCH (21:00)
[2021-04-10] MEDS ORDERED: QUETIAPINE 25 MG TAB PO SCH (21:00)
[2021-04-10] MEDS ORDERED: DONEPEZIL HCL 5 MG TAB PO SCH (21:00)
[2021-04-10] MEDS ORDERED: ATORVASTATIN 10 MG TAB PO SCH (21:00)
[2021-04-10] MEDS ORDERED: TRAMADOL 37.5mg/APAP 325mg PER TAB PO ONE (21:11)
[2021-04-10 22:52] VITALS: O2SAT 97
[2021-04-11 06:31] LABS: Absolute Lymphocytes (CBC) 0.7 K/uL (0.7-4.9); Basophils % 0.6 % (0-1.3); Hematocrit 38.7 % (39.6-49.0); Lymphocytes % 8.6 % (15.3-44.8); MPV 6.9 fL (7.6-11.3); RBC Red Blood Cell Count 4.31 M/uL (4.33-5.43)
[2021-04-11 06:43] LABS: Magnesium 2.1 mg/dL (1.8-2.4); Phosphorus 2.7 mg/dL (2.5-4.9); Potassium 3.8 mmol/L (3.5-5.1)
[2021-04-11] MEDS: PYRIDOSTIGMINE 60 MG TABLET PO SCH ×2 (08:06→14:29)
[2021-04-11] MEDS: MEMANTINE HCL 10 MG TABLET PO SCH (08:07)
[2021-04-11] MEDS: levoFLOXacin 750 MG TAB PO SCH (08:07)
[2021-04-11] MEDS: ENOXAPARIN 80 MG/0.8 ML SQ SCH (08:08)
[2021-04-11] MEDS ORDERED: predniSONE 20 MG TAB PO SCH (09:00)
[2021-04-11] MEDS ORDERED: ASPIRIN 81 MG CHEWABLE TABLET PO SCH (09:00)
[2021-04-11] MEDS ORDERED: POTASSIUM 25 MEQ EFFERV TAB PO ONE (09:00)
[2021-04-11] MEDS ORDERED: FUROSEMIDE 20 MG TABLET PO SCH (09:00)
[2021-04-11] MEDS ORDERED: predniSONE 10 MG TAB PO SCH (09:00)
[2021-04-11] MEDS ORDERED: TRAMADOL HCL 50 MG TAB PO PRN (12:09)
[2021-04-11 14:11] VITALS: BP 143/65; TEMP 98.6
--- NOTE | 2021-04-12 12:41 | EKG ---
Test Date: 2021-04-10 Test Time: 11:03:53 General Helper: ROSA MEASUREMENT RESULTS: Intervals: Rate: 59 OR: 174 QRSD: 146 QT: 444 QTc: 439 [place]: P: 56 OR: 174 QRS: -55 T: 11 INTERPRETIVE STATEMENTS: Sinus bradycardia Right bundle branch block Left anterior fascicular block Bifascicular block Voltage criteria for left ventricular hypertrophy Abnormal ECG Compared to ECG 11/28/2020 14:29:58 Sinus rhythm no longer present Bifascicular block still present Electronically Signed On 04-12-21 12:36:04 [employer]PERATIONS RESEARCH SCIENTIST by Arden Montes
== END 2021-04-11 15:47 | disposition home or self-care (01) ==
LOC: ER 10:05 → ERHOLD 14:52 → 2ND 16:38
PROVIDERS: ADMIT Internal Medicine; ATTEND Internal Medicine
DX: I82.402 Acute embolism and thrombosis of unspecified deep veins of left lower extremity (principal); I26.99 Other pulmonary embolism without acute cor pulmonale; F03.91 Unspecified dementia, unspecified severity, with behavioral disturbance; I10 Essential (primary) hypertension; G70.00 Myasthenia gravis without (acute) exacerbation; Z20.822 Contact with and (suspected) exposure to COVID-19
CPT/HCPCS: 93005; 85025 ×2; 80048 ×2; 36415; 83735 ×2; 84100; 85610; 80076; 81003; 84484; 83880; 71275; 71045; 93970; 97116; 97161; 94760 ×3; 99285; U0003; Q9967; J2405; G0378 ×3; J7512

== ENCOUNTER 2021-04-21 18:46 | Observation (INO) | payer OTHER ==
[2021-04-21 21:02] LABS: Absolute Lymphocytes (CBC) 0.4 K/uL (0.7-4.9); Basophils % 0.4 % (0-1.3); Lymphocytes % 4.6 % (15.3-44.8); MPV 6.8 fL (7.6-11.3); Protime INR 1.96; RBC Red Blood Cell Count 4.31 M/uL (4.33-5.43)
--- NOTE | 2021-04-21 21:10 | RAD REPORT ---
EXAM DESCRIPTION: RAD - Chest Single View - 04/21/2021 8:42 pm CLINICAL HISTORY: COUGH Chest pain. COMPARISON: Chest Single View dated 04/10/2021; Chest Pa And Lat (2 Views) dated 11/28/2020; Chest Sin gle View dated 02/03/2018; Chest Pa And Lat (2 Views) dated 09/16/2016 FINDINGS: Portable technique limits examination quality. The lungs are emphysematous but grossly clear. The heart is normal in size. No displaced fractures. IMPRESSION: No acute intrathoracic process suspected.
--- NOTE | 2021-04-21 21:11 | RAD REPORT ---
EXAM DESCRIPTION: RAD - Ankle Right 3 View - 04/21/2021 8:42 pm CLINICAL HISTORY: Pain;Swelling COMPARISON: No comparisons FINDINGS: Small plantar calcaneal spur. Heavy atherosclerosis is noted. Significant soft tissue swel ling is seen along the dorsum of the foot. No acute fracture or subluxation.
[2021-04-21 21:18] LABS: Albumin 2.9 g/dL (3.4-5.0); Bilirubin Direct 0.3 mg/dL (0-0.2); Bilirubin Total 0.7 mg/dL (0.2-1.0); Magnesium 2.3 mg/dL (1.8-2.4); Potassium 4.4 mmol/L (3.5-5.1); Protein, Total 6.3 g/dL (6.4-8.2); Troponin (Emerg Dept Use Only) 0.04 ng/mL (0.0-0.045)
--- NOTE | 2021-04-21 21:24 | RAD REPORT ---
EXAM DESCRIPTION: US - Extrem Venous W Compress Connor - 04/21/2021 9:12 pm CLINICAL HISTORY: Pain;Swelling Bilateral leg edema and swelling. COMPARISON: Extrem Venous W Compress Connor dated 04/10/2021 TECHNIQUE: Real-time sonographic interrogation of the left and right lower extremity deep venous sys tems was performed. FINDINGS: No evidence of right-sided DVT. Extensive left-sided left lower extremity deep venous thro mbosis is present. This appears similar comparative exam from 04/10/2021. IMPRESSION: Extensive left lower extremity DVT again noted without real change.
[2021-04-21] MEDS ORDERED: ACETAMINOPHEN 500 MG TAB ONE (21:45)
[2021-04-21 21:54] LABS: Urine Blood Negative (Negative); Urine Glucose Negative (Negative); Urine Protein Negative (Negative); Urine Specific Gravity 1.025 (1.005-1.030); Urine pH 5.5 (5.0-7.0)
[2021-04-21 22:11] LABS: Blood Morphology Comment NOT SEEN (NOT SEEN); Platelet Estimate ADEQ
--- NOTE | 2021-04-21 22:48 | EDPHYS ---
Physician Documentation [facility] Name: Tj Harrington Age: 80 yrs Sex: Male : 1940 Arrival Date: 04/21/2021 Time: 18:48 Bed 4 Private MD: ED Physician Bismark Dominguez HPI: 04/21 20:05 This 80 yrs old Male presents to ER via Ambulatory with complaints of Feet rosemarie Swelling. 20:05 The patient presents with decreased range of motion, pain, swelling, tenderness. The rosemarie complaints affect the right leg and left leg. Context: The problem was sustained at an unknown site, resulted from an unknown cause, the patient can partially bear weight. Onset: The symptoms/episode began/occurred 3 day(s) ago. Modifying factors: The symptoms are alleviated by nothing. elevating leg, remaining still, the symptoms are aggravated by movement, weight bearing. Associated signs and symptoms: The patient has no apparent associated signs or symptoms. Severity of symptoms: At their worst the symptoms were moderate, in the emergency department the symptoms are unchanged. The patient has experienced similar episodes in the past, several times. Historical: - Allergies: 23:36 No Known Allergies; lp1 - Home Meds: 23:51 donepezil 10 mg Oral tab 1 tab once daily [Active]; pyridostigmine bromide 60 mg Oral lp1 tab 3 times per day for Myasthenia Gravis [Active]; furosemide 20 mg Oral tab 1 tab once daily [Active]; Norvasc 5 mg Oral tab 1 tab once daily [Active]; prednisone 10 mg oral tab [Active]; amlodipine 5 mg tab 1 tab once daily [Active]; memantine 10 mg Oral tab 1 tab 2 times per day [Active]; Eliquis 5 mg oral tab [Active]; quetiapine 25 mg oral tab [Active]; - PMHx: 19:26 pulmonary embolis; da3 - Immunization history:: Client reports receiving the 2nd dose of the Covid vaccine. - Social history:: Smoking status: Patient denies any tobacco usage or history of. - Family history:: not pertinent. ROS: 20:05 Constitutional: Negative for fever, chills, and weight loss, Eyes: Negative for injury, rosemarie pain, redness, and discharge, ENT: Negative for injury, pain, and discharge, Neck: Negative for injury, pain, and swelling, Cardiovascular: Negative for chest pain, palpitations, and edema, Respiratory: Negative for shortness of breath, cough, wheezing, and pleuritic chest pain, Abdomen/GI: Negative for abdominal pain, nausea, vomiting, diarrhea, and constipation, Back: Negative for injury and pain, : Negative for injury, bleeding, discharge, and swelling, Neuro: Negative for headache, weakness, numbness, tingling, and seizure, Psych: Negative for depression, anxiety, suicide ideation, homicidal ideation, and hallucinations, Allergy/Immunology: Negative for hives, rash, and allergies, Endocrine: Negative for neck swelling, polydipsia, polyuria, polyphagia, and marked weight changes, Hematologic/Lymphatic: Negative for swollen nodes, abnormal bleeding, and unusual bruising. 20:05 MS/extremity: Positive for pain, swelling, tenderness, of the right leg and left leg. Exam: 20:05 Constitutional: This is a well developed, well nourished patient who is awake, alert, rosemarie and in no acute distress. Head/Face: Normocephalic, atraumatic. Eyes: Pupils equal round and reactive to light, extra-ocular motions intact. Lids and lashes normal. Conjunctiva and sclera are non-icteric and not injected. Cornea within normal limits. Periorbital areas with no swelling, redness, or edema. ENT: Nares patent. No nasal discharge, no septal abnormalities noted. Tympanic membranes are normal and external auditory canals are clear. Oropharynx with no redness, swelling, or masses, exudates, or evidence of obstruction, uvula midline. Mucous membranes moist. Neck: Trachea midline, no thyromegaly or masses palpated, and no cervical lymphadenopathy. Supple, full range of motion without nuchal rigidity, or vertebral point tenderness. No Meningismus. Chest/axilla: Normal chest wall appearance and motion. Nontender with no deformity. No lesions are appreciated. Cardiovascular: Regular rate and rhythm with a normal S1 and S2. No gallops, murmurs, or rubs. Normal PMI, no JVD. No pulse deficits. Respiratory: Lungs have equal breath sounds bilaterally, clear to auscultation and percussion. No rales, rhonchi or wheezes noted. No increased work of breathing, no retractions or nasal flaring. Abdomen/GI: Soft, non-tender, with normal bowel sounds. No distension or tympany. No guarding or rebound. No evidence of tenderness throughout. Back: No spinal tenderness. No costovertebral tenderness. Full range of motion. Male : Normal genitalia with no discharge or lesions. Neuro: Awake and alert, GCS 15, oriented to person, place, time, and situation. Cranial nerves II-XII grossly intact. Motor strength 5/5 in all extremities. Sensory grossly intact. Cerebellar exam normal. Normal gait. Psych: Awake, alert, with orientation to person, place and time. Behavior, mood, and affect are within normal limits. 20:05 Musculoskeletal/extremity: ROM: limited active range of motion due to pain, limited passive range of motion due to pain, Circulation is intact in all extremities. Sensation intact. Compartment Syndrome exam of affected extremity: is normal. DVT Exam: no appreciated bluish discoloration, no erythema, no increased warmth, pain, swelling, tenderness. 20:19 ECG was reviewed by the Attending Physician. [facility] Vital Signs: 19:23 BP 132 / 65; Pulse 60; Resp 18; Temp 98.9; Pulse Ox 98% on R/A; Height 5 ft. 8 in. da3 (172.72 cm); 20:34 BP 121 / 63; Pulse 67; Resp 18; Pulse Ox 100% on R/A; tw5 21:55 BP 108 / 84; Pulse 64; Resp 19; Pulse Ox 100% on R/A; Pain 4/10; tw5 23:00 BP 147 / 66; Pulse 52; Resp 18; Pulse Ox 100% on R/A; lp1 04/22 00:30 BP 136 / 67; Pulse 57; Resp 22; Pulse Ox 98% on R/A; lp1 MDM: 04/21 19:57 Patient medically screened. [facility] 20:08 Differential diagnosis: closed fracture, contusion. Data reviewed: vital signs, nurses [facility] notes, lab test result(s), EKG, radiologic studies, doppler, plain films. Data interpreted: cook manager: rate is 60 beats/min, rhythm is regular, Pulse oximetry: on room air is 98 %. Test interpretation: by ED physician or midlevel provider: ECG, plain radiologic studies. Counseling: I had a detailed discussion with the patient and/or guardian regarding: the historical points, exam findings, and any diagnostic results supporting the discharge/admit diagnosis, lab results, radiology results. 04/21 20:03 Order name: Basic Metabolic Panel; Complete Time: 22:08 [facility] 04/21 20:03 Order name: CBC with Diff; Complete Time: 22:43 [facility] 04/21 20:03 Order name: LFT's; Complete Time: 22:08 [facility] 04/21 20:03 Order name: Magnesium; Complete Time: 22:08 [facility] 04/21 20:03 Order name: NT PRO-BNP; Complete Time: 22:08 [facility] 04/21 20:03 Order name: PT-INR; Complete Time: 22:08 [facility] 04/21 20:03 Order name: Troponin (emerg Dept Use Only); Complete Time: 22:08 [facility] 04/21 20:03 Order name: XRAY Chest (1 view); Complete Time: 22:08 [facility] 04/21 20:03 Order name: SARS-COV-2 RT PCR (Document "Date of Onset" if Symptomatic); Complete Time: [facility] 22:08 04/21 20:03 Order name: Lipase; Complete Time: 22:08 [facility] 04/21 21:04 Order name: Manual Differential; Complete Time: 22:43 EDMS 04/21 21:54 Order name: Urine Dipstick-Ancillary EDSD 04/21 22:44 Order name: Blood Culture Adult (2) [facility] 04/21 22:44 Order name: Lactate [facility] 04/21 20:03 Order name: EKG; Complete Time: 20:04 [facility] 04/21 20:03 Order name: Cardiac monitoring; Complete Time: 20:54 [facility] 04/21 20:03 Order name: EKG - Nurse/Tech; Complete Time: 21:34 [facility] 04/21 20:03 Order name: IV Saline Lock; Complete Time: 20:54 [facility] 04/21 20:03 Order name: Labs collected and sent; Complete Time: 20:54 [facility] 04/21 20:03 Order name: O2 Per Protocol; Complete Time: 20:30 [facility] 04/21 20:03 Order name: O2 Sat Monitoring; Complete Time: 20:31 [facility] 04/21 20:03 Order name: US Extremity Venous W Compression Connor; Complete Time: 22:08 [facility] 04/21 20:03 Order name: Urine Dipstick-Ancillary (obtain specimen); Complete Time: 21:56 [facility] 12/13 20:09 Order name: Ankle Right 3 View XRAY; Complete Time: 22:08 rosemarie 04/21 22:10 Order name: CT Chest For PE Angio rosemarie 04/21 22:10 Order name: CT Abd/Pelvis - IV Contrast Only rosemarie EC:19 Rate is 58 beats/min. Rhythm is regular. QRS [place] is Normal. VA interval is normal. QRS rosemarie interval is normal. QT interval is normal. No Q waves. T waves are Normal. No ST changes noted. Clinical impression: Sinus bradycardia and No evidence of ischemia. Interpreted by me. Reviewed by me. Administered Medications: 21:55 Drug: Tylenol 1000 mg Route: PO; tw5 04/22 00:32 Follow up: Response: No adverse reaction lp1 04/21 23:48 Drug: Zosyn (piperacillin-tazobactam) 3.375 grams Route: IVPB; Infused Over: 60 mins; lp1 Site: left antecubital; 04/22 00:31 Follow up: IV Status: Completed infusion; IV Intake: 100ml lp1 Disposition Summary: 04/21/21 22:47 Hospitalization Ordered Hospitalization Status: Inpatient Admission rosemarie Provider: Cristina Sherman cha Location: Telemetry/MedSurg (Inpatient) rosemarie Condition: Stable rosemarie Problem: new rosemarie Symptoms: have improved rosemarie Bed/Room Type: Standard [facility] Room Assignment: 204(04/22/21 00:17) Diagnosis - Venous insufficiency (chronic) (peripheral) rosemarie - Acute embolism and thrombosis of unspecified deep veins of left lower extremity rosemarie - Edema, unspecified rosemarie - Pulmonary embolism without acute cor pulmonale rosemarie - Myasthenia gravis rosemarie - Weakness - non ambulatory rosemarie Forms: - Medication Reconciliation Form rosemarie - SBAR form rosemarie Signatures: Dispatcher [employer] EDBismark James MD MD cha Pena, Laura RN RN lp1 Georgie Velasquez RN RN Сергей Graf RN RN da3 Chacha Boudreaux tw5 Corrections: (The following items were deleted from the chart) 04/21 23:53 23:51 Home Meds: quetiapine 50 mg oral tab; lp1 lp1 23:53 23:51 PMHx: Myasthenia Gravis; lp1 lp1 23:53 23:51 PMHx: Hypertension; lp1 lp1 23:53 23:51 PMHx: fall and tbi in 1982, has been on disability since; pt normal is aaox4; lp1 lp1 23:53 23:51 PMHx: Alzheimer's disease; lp1 lp1 :53 23:51 PMHx: CHF; lp1 lp1 :53 23:51 PMHx: Hypercholesterolemia; lp1 lp1 :53 23:51 PMHx: melanoma; lp1 lp1 04/22 00:17 04/21 22:47 rosemarie cg
--- NOTE | 2021-04-21 22:48 | ER ---
Nurse's Notes [facility] Name: Tj Harrington Age: 80 yrs Sex: Male : 1940 Arrival Date: 04/21/2021 Time: 18:48 Bed 4 Private MD: Diagnosis: Venous insufficiency (chronic) (peripheral);Acute embolism and thrombosis of unspecified deep veins of left lower extremity;Edema, unspecified;Pulmonary embolism without acute cor pulmonale;Myasthenia gravis;Weakness-non ambulatory Presentation: 04/21 19:23 Chief complaint: Patient's son or daughter states: Both feet swollen x 2 days. da3 Coronavirus screen: Vaccine status: Patient reports receiving the 2nd dose of the covid vaccine. Ebola Screen: No symptoms or risks identified at this time. Initial Sepsis Screen: Does the patient meet any 2 criteria? No. Patient's initial sepsis screen is negative. Does the patient have a suspected source of infection? No. Patient's initial sepsis screen is negative. Risk Assessment: Do you want to hurt yourself or someone else? Patient reports no desire to harm self or others. Onset of symptoms was April 18, 2021. 19:23 Method Of Arrival: Ambulatory da3 19:23 Acuity: ABBEY 3 da3 Triage Assessment: 19:26 General: Appears in no apparent distress. comfortable, Behavior is calm, cooperative. da3 Historical: - Allergies: 23:36 No Known Allergies; lp1 - Home Meds: 23:51 donepezil 10 mg Oral tab 1 tab once daily [Active]; pyridostigmine bromide 60 mg Oral lp1 tab 3 times per day for Myasthenia Gravis [Active]; furosemide 20 mg Oral tab 1 tab once daily [Active]; Norvasc 5 mg Oral tab 1 tab once daily [Active]; prednisone 10 mg oral tab [Active]; amlodipine 5 mg tab 1 tab once daily [Active]; memantine 10 mg Oral tab 1 tab 2 times per day [Active]; Eliquis 5 mg oral tab [Active]; quetiapine 25 mg oral tab [Active]; - PMHx: 19:26 pulmonary embolis; da3 - Immunization history:: Client reports receiving the 2nd dose of the Covid vaccine. - Social history:: Smoking status: Patient denies any tobacco usage or history of. - Family history:: not pertinent. Screenin:34 Abuse screen: Denies threats or abuse. Denies injuries from another. Nutritional tw5 screening: No deficits noted. Tuberculosis screening: No symptoms or risk factors identified. Fall Risk Secondary diagnosis (15 points) IV access (20 points). Ambulatory Aid- None/Bed Rest/Nurse Assist (0 pts). Gait- Weak (10 pts.). Assessment: 20:34 General: Reports Daughter reports that his the swelling in his legs have gotten worse tw5 over the last couple of day, the bruising on the right leg is new. Pain: Complains of pain in right leg and left leg Pain currently is 3 out of 10 on a pain scale. Neuro: Level of Consciousness is awake, alert, obeys commands, Oriented to person, place, time, situation. Cardiovascular: Edema is 3+ to left ankle, left foot, left toes, right ankle, right foot and right toes pitting to left ankle, left foot, left toes and right ankle. Derm: Bruising that is dark purple, on medial aspect of right calf and right ankle. 21:43 Pain: Complains of pain in right leg and left leg Pain currently is 3 out of 10 on a tw5 pain scale. 21:58 General: Daughter reports that Tj just sits in his recliner all day and refuses tw5 to get up and walk. Education was given to patient and family about the importance of movement.. 23:50 Reassessment: Patient appears in no apparent distress at this time. GENA Castano at lp1 bedside to discuss plan of care with patient and son-in-law at bedside. Vital Signs: 19:23 BP 132 / 65; Pulse 60; Resp 18; Temp 98.9; Pulse Ox 98% on R/A; Height 5 ft. 8 in. da3 (172.72 cm); 20:34 BP 121 / 63; Pulse 67; Resp 18; Pulse Ox 100% on R/A; tw5 21:55 BP 108 / 84; Pulse 64; Resp 19; Pulse Ox 100% on R/A; Pain 4/10; tw5 23:00 BP 147 / 66; Pulse 52; Resp 18; Pulse Ox 100% on R/A; lp1 04/22 00:30 BP 136 / 67; Pulse 57; Resp 22; Pulse Ox 98% on R/A; lp1 ED Course: 04/21 18:48 Patient arrived in ED. ds1 19:26 Triage completed. da3 19:26 Arm band placed on left wrist. da3 19:57 Bismark Dominguez MD is Attending Physician. rosemarie 19:59 Ellen Gomez, RN is Primary Nurse. lp1 20:11 Patient has correct armband on for positive identification. Placed in gown. Bed in low lp1 position. Call light in reach. shelter monitor on. Pulse ox on. NIBP on. 20:34 Door closed. Noise minimized. Moved to private room. Warm blanket given. Verbal tw5 reassurance given. 20:34 EKG done, by ED staff, reviewed by Bismark Dominguez MD. tw5 20:42 XRAY Chest (1 view) In Process Unspecified. EDMS 20:42 Ankle Right 3 View XRAY In Process Unspecified. EDMS 20:54 COVID swab sent to lab. Inserted saline lock: 22 gauge in left antecubital area, using ds4 aseptic technique. Blood collected. 21:12 US Extremity Venous W Compression Connor In Process Unspecified. EDMS 21:37 SARS-COV-2 RT PCR (Document "Date of Onset" if Symptomatic) Sent. tw5 22:44 Cristina Sherman MD is Hospitalizing Provider. rosemarie 23:08 CT Chest For PE Angio In Process Unspecified. EDMS 23:08 CT Abd/Pelvis - IV Contrast Only In Process Unspecified. EDMS 12 00:30 No provider procedures requiring assistance completed. Patient admitted, IV remains in lp1 place. Administered Medications: 04/21 21:55 Drug: Tylenol 1000 mg Route: PO; tw5 04/22 00:32 Follow up: Response: No adverse reaction lp1 04/21 23:48 Drug: Zosyn (piperacillin-tazobactam) 3.375 grams Route: IVPB; Infused Over: 60 mins; lp1 Site: left antecubital; 04/22 00:31 Follow up: IV Status: Completed infusion; IV Intake: 100ml lp1 Intake: 00:31 IV: 100ml; Total: 100ml. lp1 Outcome: 04/21 22:47 Decision to Hospitalize by Provider. [facility] 04/22 00:30 Condition: stable lp1 Instructed on the need for admit. 00:35 Admitted to [facility]/surg room 204, with chart, Report called to ALEISHA King lp1 01:01 Patient left the ED. lp1 Signatures: Dispatcher [employer] EDBismark James MD MD cha Sanford, Demi ds1 Ellen Gomez, RN RN lp1 Tom Sal ds4 Сергей Graf RN RN da3 Chacha Boudreaux tw5 Corrections: (The following items were deleted from the chart) 04/21 23:53 23:51 Home Meds: quetiapine 50 mg oral tab; lp1 lp1 :53 23:51 PMHx: Myasthenia Gravis; lp1 lp1 23:53 23:51 PMHx: Hypertension; lp1 lp1 :53 23:51 PMHx: fall and tbi in 1982, has been on disability since; pt normal is aaox4; lp1 lp1 :53 23:51 PMHx: Alzheimer's disease; lp1 lp1 :53 23:51 PMHx: CHF; lp1 lp1 53 23:51 PMHx: Hypercholesterolemia; lp1 lp1 :53 23:51 PMHx: melanoma; lp1 lp1
[2021-04-21] MEDS ORDERED: NA CHLORIDE 0.9% 100 ML ONE (23:38)
[2021-04-21] MEDS ORDERED: PIPERACIL/TAZO 3.375 GM VIAL IV ONE (23:38)
--- NOTE | 2021-04-22 00:17 | P.HP ---
Certification for Inpatient Patient admitted to: Observation With expected LOS: <2 Midnights Patient will require the following post-hospital care: None Practitioner: I am a practitioner with admitting privileges, knowledge of patient current condition, hospital course, and medical plan of care. Services: Services provided to patient in accordance with Admission requirements found in Title 42 Section 412.3 of the Code of Federal Regulations Patient History Date of Service: 04/22/21 Primary Care Provider: Fredis Reason for admission: DVT History of Present Illness: Mr. Vahid Harrington is an 80 yo M with chronic venous insufficiency, myasthenia gravis, Alzheimer's disease, and HTN who presents with worsening leg pain and swelling. On 04/10, he was diagnosed with a PE and a DVT and started on Eliquis. Over the past few days, he has had increased edema, ecchymosis and pain in both legs, worse in his right leg. His son reports he has not been walking and will lie in bed and watch TV all day. He reports increased weakness in his legs. R Ankle XRAY FINDINGS: Small plantar calcaneal spur. Heavy atherosclerosis is noted. Significant soft tissue swelling is seen along the dorsum of the foot. No acute fracture or subluxation. Venous Doppler IMPRESSION: Extensive left lower extremity DVT again noted without real change. Allergies No Known Allergies Allergy (Uncoded 11/28/20 15:12) Unknown Home Medications: Pyridostigmine [place] [Mestinon*] 60 mg PO TID 02/04/18 predniSONE [Prednisone*] 10 mg PO DAILY 02/04/18 Aspirin 81 mg PO DAILY 04/10/21 Atorvastatin Calcium [Lipitor*] 10 mg PO BEDTIME 04/10/21 Cholecalciferol (Vitamin D3) [Vitamin D3] 125 mcg PO BEDTIME 04/10/21 Donepezil HCl 10 mg PO BEDTIME 04/10/21 Furosemide [Lasix*] 20 mg PO DAILY 04/10/21 Memantine HCl [Namenda*] 10 mg PO BID 04/10/21 Apixaban [Eliquis] 5 mg PO BID #74 tab.ds.pk 04/11/21 Quetiapine [Seroquel*] 25 mg PO BEDTIME tab 04/11/21 levoFLOXacin [Levaquin*] 750 mg PO DAILY #5 tab 04/11/21 traMADol HCL [Ultram*] 50 mg PO Q6H PRN #30 tab 04/11/21 - Past Medical/Surgical History Diabetic: No -: hypertension -: myasthenia gravis -: chronic venous insufficiency -: Alzheimer's disease -: Myasthenia Gravis -: back surgery - Family History Family History: Reviewed- Non-Contributory - Social History Smoking Status: Never smoker Alcohol use: No CD- Drugs: No Caffeine use: No Place of Residence: Home Review of Systems 10-point ROS is otherwise unremarkable General: Unremarkable Eyes: Unremarkable ENT: Unremarkable Respiratory: Unremarkable Cardiovascular: Unremarkable Gastrointestinal: Unremarkable Genitourinary: Unremarkable Musculoskeletal: Leg Pain, Pedal edema, As per HPI Integumentary: Bruising, As per HPI Neurological: Weakness, As per HPI Lymphatics: Unremarkable Physical Examination - Physical Exam General: Alert, In no apparent distress HEENT: Atraumatic, PERRLA, Mucous membr. moist/pink, EOMI, Sclerae nonicteric Neck: Supple, 2+ carotid pulse no bruit, No LAD, Without JVD or thyroid abnormality Respiratory: Clear to auscultation bilaterally, Normal air movement Cardiovascular: Regular rate/rhythm, Normal S1 S2, Edema Gastrointestinal: Normal bowel sounds, No tenderness Musculoskeletal: No clubbing, No swelling, No contractures, No erythema, No tenderness, No warmth Integumentary: Skin breakdown, Tenderness/swelling, Other (ecchymosis) Neurological: Normal speech, Normal strength at 5/5 x4 extr, Normal tone, Normal affect Lymphatics: No axilla or inguinal lymphadenopathy - Studies Laboratory Data (last 24 hrs) 04/21/21 20:44: PT 22.7 H, INR 1.96 04/21/21 20:44: WBC 8.80, Hgb 13.0 L, Hct 39.0 L, Plt Count 310 D 04/21/21 20:44: Sodium 141, Potassium 4.4, BUN 20 H, Creatinine 1.03, Glucose 105, Magnesium 2.3, Total Bilirubin 0.7, AST 18, ALT 18, Alkaline Phosphatase 87, Lipase 123 Assessment and Plan - Problems (Diagnosis) (1) Dementia with behavioral disturbance Current Visit: No Status: Chronic Qualifiers: Dementia type: Alzheimer's Alzheimer's disease onset: unspecified onset Qualified Code(s): G30.9 - Alzheimer's disease, unspecified; F02.81 - Dementia in other diseases classified elsewhere with behavioral disturbance (2) Lower extremity deep venous thrombosis Current Visit: No Status: Chronic Qualifiers: Affected thrombotic vein of extremity: unspecified vein of extremity Chronicity: chronic Laterality: left Qualified Code(s): I82.502 - Chronic embolism and thrombosis of unspecified deep veins of left lower extremity (3) Myasthenia gravis Current Visit: No Status: Chronic (4) Pulmonary embolus Current Visit: No Status: Chronic Qualifiers: Pulmonary embolism type: unspecified Chronicity: chronic Acute cor pulmonale presence: without acute cor pulmonale Qualified Code(s): I27.82 - Chronic pulmonary embolism - Plan CT Chest/Abdomen/Pelvis pending continue eliquis PT consulted Wound care consulted reconcile and continue home medications pain management as needed Discharge Plan: Home Plan to discharge in: 24 Hours - Advance Directives Does patient have a Living Will: No Does patient have a Durable POA for Healthcare: No - Code Status/Comfort Care Code Status Assessed: Yes (full code ) Critical Care: No Time Spent Managing Pts Care (In Minutes): 70
[2021-04-22] MEDS ORDERED: TRAMADOL HCL 50 MG TAB PO PRN (00:42)
[2021-04-22] MEDS ORDERED: ONDANSETRON 4 MG/2 ML VIAL IV PRN (00:42)
[2021-04-22] MEDS ORDERED: ACETAMINOPHEN 500 MG TAB PO PRN (00:42)
[2021-04-22] MEDS ORDERED: HYDRALAZINE HCL 20 MG/ML VIAL IV PRN (00:42)
[2021-04-22 01:16] VITALS: O2SAT 98
[2021-04-22 01:19] VITALS: BMI 20.8
[2021-04-22] MEDS: PYRIDOSTIGMINE 60 MG TABLET PO SCH ×2 (08:48→13:38)
[2021-04-22] MEDS ORDERED: FUROSEMIDE 20 MG TABLET PO SCH (09:00)
[2021-04-22] MEDS ORDERED: APIXABAN 5 MG TABLET PO SCH (09:00)
[2021-04-22] MEDS ORDERED: MEMANTINE HCL 10 MG TABLET PO SCH (09:00)
[2021-04-22] MEDS ORDERED: predniSONE 20 MG TAB PO SCH (09:00)
[2021-04-22] MEDS ORDERED: ASPIRIN 81 MG CHEWABLE TABLET PO SCH (09:00)
--- NOTE | 2021-04-22 12:28 | EKG ---
Test Date: 2021-04-21 Test Time: 20:19:46 [employer]: TW MEASUREMENT RESULTS: Intervals: Rate: 58 SD: 180 QRSD: 140 QT: 466 QTc: 457 [place]: P: 90 SD: 180 QRS: -67 T: 21 INTERPRETIVE STATEMENTS: Sinus bradycardia Right bundle branch block Left anterior fascicular block Bifascicular block Moderate voltage criteria for LVH, may be normal variant Cannot rule out Septal infarct, age undetermined Abnormal ECG Compared to ECG 04/10/2021 11:03:53 Myocardial infarct finding now present Bifascicular block still present Electronically Signed On 04-22-21 12:25:48 TWISTER IN by Arden Montes
--- NOTE | 2021-04-22 12:47 | P.DS ---
Admission Date: 04/22/21 Discharge Date: 04/22/21 Primary Care Provider: Fredis Disposition: DC HOME/HOME HEALTH CARE Discharge Condition: FAIR Reason for Admission: DVT - Problems (1) Pulmonary embolus Current Visit: No Status: Chronic Qualifiers: Pulmonary embolism type: unspecified Chronicity: chronic Acute cor pulmonale presence: without acute cor pulmonale Qualified Code(s): I27.82 - Chronic pulmonary embolism (2) Lower extremity deep venous thrombosis Current Visit: No Status: Chronic Qualifiers: Affected thrombotic vein of extremity: unspecified vein of extremity Chronicity: chronic Laterality: left Qualified Code(s): I82.502 - Chronic embolism and thrombosis of unspecified deep veins of left lower extremity (3) Peripheral edema Current Visit: Yes Status: Acute (4) Dementia with behavioral disturbance Current Visit: No Status: Chronic Qualifiers: Dementia type: Alzheimer's Alzheimer's disease onset: unspecified onset Qualified Code(s): G30.9 - Alzheimer's disease, unspecified; F02.81 - Dementia in other diseases classified elsewhere with behavioral disturbance Brief History of Present Illness: Mr. Vahid Harrington is an 80 yo M with chronic venous insufficiency, myasthenia gravis, Alzheimer's disease, and HTN who presents with worsening leg pain and swelling. On 04/10, he was diagnosed with a PE and a DVT and started on Eliquis. Family report increasing lower extremity swelling and increasing redness in both legs, worse in his right leg. His son reports he has not been walking and will lie in bed and watch TV all day. He reports increased weakness in his legs. R Ankle XRAY FINDINGS: Small plantar calcaneal spur. Heavy atherosclerosis is noted. Significant soft tissue swelling is seen along the dorsum of the foot. No acute fracture or subluxation. Venous Doppler IMPRESSION: Extensive left lower extremity DVT again noted without real change. Patient hospitalized for further management. Hospital Course: Patient placed in observation on the medical floor, placed on his home dose Lasix and blood lower extremities elevated to improve venous return. Both lower extremity swelling improved significantly with just leg elevation. Venous Doppler lower extremity does not suggest new DVT. Family report patient has been compliant with the Eliquis, has completed the first phase of treatment (10 mg twice a day) and have now started taking the 5 mg twice a day. No leukocytosis. Hemoglobin is stable. Patient is discharged to home with and advised to keep his legs elevated in the seated and lying position. His Lasix dose increased from 20 mg to 40 mg daily. Also increased her Seroquel dose to 50 mg at bedtime for dementia with uncontrolled behavioral issues. Vital Signs/Physical Exam: Temp Pulse Resp BP Pulse Ox 98.7 F 52 16 140/70 96 04/22/21 08:00 04/22/21 08:49 04/22/21 08:00 04/22/21 08:49 04/22/21 08:00 General: Alert, In no apparent distress HEENT: Mucous membr. moist/pink Neck: JVD not distended Respiratory: Clear to auscultation bilaterally, Normal air movement Cardiovascular: Regular rate/rhythm, Normal S1 S2 Gastrointestinal: Soft and benign, Non-distended Musculoskeletal: Swelling (Bilateral lower extremities. Swelling significantly improved.) Integumentary: Erythema (Lower extremities) Neurological: Other (No focal motor deficit.) Laboratory Data at Discharge: WBC 8.80 K/uL (4.3-10.9) 04/21/21 20:44 Hgb 13.0 g/dL (13.6-17.9) L 04/21/21 20:44 Hct 39.0 % (39.6-49.0) L 04/21/21 20:44 Plt Count 310 K/uL (152-406) D 04/21/21 20:44 PT 22.7 SECONDS (9.5-12.5) H 04/21/21 20:44 INR 1.96 04/21/21 20:44 Sodium 141 mmol/L (136-145) 04/21/21 20:44 Potassium 4.4 mmol/L (3.5-5.1) 04/21/21 20:44 BUN 20 mg/dL (7-18) H 04/21/21 20:44 Creatinine 1.03 mg/dL (0.55-1.3) 04/21/21 20:44 Glucose 105 mg/dL (74-106) 04/21/21 20:44 Magnesium 2.3 mg/dL (1.8-2.4) 04/21/21 20:44 Total Bilirubin 0.7 mg/dL (0.2-1.0) 04/21/21 20:44 AST 18 U/L (15-37) 04/21/21 20:44 ALT 18 U/L (12-78) 04/21/21 20:44 Alkaline Phosphatase 87 U/L (45-117) 04/21/21 20:44 Lipase 123 U/L (73-393) 04/21/21 20:44 Home Medications: Pyridostigmine [place] [Mestinon*] 60 mg PO TID 02/04/18 predniSONE [Prednisone*] 10 mg PO DAILY 02/04/18 Aspirin 81 mg PO DAILY 04/10/21 Cholecalciferol (Vitamin D3) [Vitamin D3] 125 mcg PO BEDTIME 04/10/21 Donepezil HCl 10 mg PO BEDTIME 04/10/21 Memantine HCl [Namenda*] 10 mg PO BID 04/10/21 Apixaban [Eliquis] 5 mg PO BID #74 tab.ds.pk 04/11/21 Amlodipine [Norvasc*] 5 mg PO DAILY 04/22/21 Furosemide [Lasix] 40 mg PO DAILY #60 tablet 04/22/21 Quetiapine [Seroquel*] 50 mg PO BEDTIME #60 tab 04/22/21 Sertraline [Zoloft*] 50 mg PO DAILY 04/22/21 New Medications: Furosemide [Lasix] 40 mg PO DAILY #60 tablet Quetiapine [Seroquel*] 50 mg PO BEDTIME #60 tab Physician Discharge Instructions: Keep Legs elevated above hip level in sitting or lying position Diet: AHA Activity: Fall precautions Followup: Prabhakar Mcneal MD [Primary Care Provider] - 1-2 Weeks
--- NOTE | 2021-04-22 12:49 | RAD REPORT ---
EXAM DESCRIPTION: CT - Chest For Pe Angio - 04/22/2021 4:34 am CLINICAL HISTORY: DYSPNEA. Abdominal pain. COMPARISON: None. TECHNIQUE: CTA of the chest, and CT of the abdomen and pelvis was performed following intravenous ad ministration of iodinated contrast. Axial soft tissue and lung window, and coronal and sagittal soft tissue window reconstructions were created and sent to PACS. 3D postprocessing was performed on an independent workstation, with images sent to PACS for subsequen t review. This exam was performed according to our departmental dose-optimization program, which includes autom ated exposure control, adjustment of the mA and/or kV according to patient size and/or use of iterati ve reconstruction technique. FINDINGS: Vascular: The pulmonary arteries are well-opacified to the segmental level. No CT evidence of acute pulmonary thromboembolism. No evidence of aortic aneurysm or dissection. Mild calcific athe rosclerosis. Lungs and pleura: No pulmonary consolidation. No pleural effusion. No pneumothorax. Mild bronchial wa ll thickening. Mediastinum and neck: No mediastinal lymphadenopathy by CT size criteria. Unremarkable appearance of the thyroid gland. Cardiac: No cardiomegaly or pericardial effusion. Hepatobiliary: No concerning hepatic lesion identified. Tiny left hepatic lobe hypodensity, possibly a cyst. The portal veins are patent. The gallbladder is unremarkable. No biliary ductal dilatation. Pancreas: Unremarkable. Spleen: Unremarkable. Gastrointestinal: No evidence of bowel obstruction or perienteric inflammation. The appendix is carlos l. Moderate sigmoid colonic diverticulosis. Adrenals: No abnormality identified in either adrenal gland. Renal: No concerning parenchymal abnormality in either kidney. No hydronephrosis or urolithiasis. Bladder/Reproductive: Unremarkable appearance of the urinary bladder by CT technique. Moderate prosta tomegaly. Vascular/Lymphatics: No lymphadenopathy identified by CT size criteria. Abdominal aorta is normal in caliber. Moderate mixed atherosclerosis. Musculoskeletal: No concerning osseous lesion identified. Osteopenia. Mild spinal scoliosis. Prominen t spinal degenerative changes. Chronic mild anterior wedge compression fracture at T12. Prominent wed ge compression fracture at L1 status post vertebroplasty cement. Fluid / peritoneum: No significant free fluid. No free intraperitoneal air identified. IMPRESSION: 1. No acute pulmonary thromboembolism. 2. No acute abnormality identified in the chest, abdomen, or pelvis. 3. Mild bronchial wall thickening. 4. Moderate sigmoid colonic diverticulosis. 5. Moderate prostatomegaly. Electronically signed by: Sammie Ludwig MD 04/21/2021 11:31 PM [employer] TICKET SELLING Due to temporary technical issues with the PACS/Fluency reporting system, reports are being signed by the in house radiologist without review as a courtesy to ensure prompt reporting. The interpreting r adiologist is fully responsible for the content of the report.
--- NOTE | 2021-04-22 12:50 | RAD REPORT ---
EXAM DESCRIPTION: CT - Abdomen Pelvis W Contrast - 04/22/2021 4:33 am CLINICAL HISTORY: DYSPNEA. Abdominal pain. COMPARISON: None. TECHNIQUE: CTA of the chest, and CT of the abdomen and pelvis was performed following intravenous ad ministration of iodinated contrast. Axial soft tissue and lung window, and coronal and sagittal soft tissue window reconstructions were created and sent to PACS. 3D postprocessing was performed on an independent workstation, with images sent to PACS for subsequen t review. This exam was performed according to our departmental dose-optimization program, which includes autom ated exposure control, adjustment of the mA and/or kV according to patient size and/or use of iterati ve reconstruction technique. FINDINGS: Vascular: The pulmonary arteries are well-opacified to the segmental level. No CT evidence of acute pulmonary thromboembolism. No evidence of aortic aneurysm or dissection. Mild calcific athe rosclerosis. Lungs and pleura: No pulmonary consolidation. No pleural effusion. No pneumothorax. Mild bronchial wa ll thickening. Mediastinum and neck: No mediastinal lymphadenopathy by CT size criteria. Unremarkable appearance of the thyroid gland. Cardiac: No cardiomegaly or pericardial effusion. Hepatobiliary: No concerning hepatic lesion identified. Tiny left hepatic lobe hypodensity, possibly a cyst. The portal veins are patent. The gallbladder is unremarkable. No biliary ductal dilatation. Pancreas: Unremarkable. Spleen: Unremarkable. Gastrointestinal: No evidence of bowel obstruction or perienteric inflammation. The appendix is carlos l. Moderate sigmoid colonic diverticulosis. Adrenals: No abnormality identified in either adrenal gland. Renal: No concerning parenchymal abnormality in either kidney. No hydronephrosis or urolithiasis. Bladder/Reproductive: Unremarkable appearance of the urinary bladder by CT technique. Moderate prosta tomegaly. Vascular/Lymphatics: No lymphadenopathy identified by CT size criteria. Abdominal aorta is normal in caliber. Moderate mixed atherosclerosis. Musculoskeletal: No concerning osseous lesion identified. Osteopenia. Mild spinal scoliosis. Prominen t spinal degenerative changes. Chronic mild anterior wedge compression fracture at T12. Prominent wed ge compression fracture at L1 status post vertebroplasty cement. Fluid / peritoneum: No significant free fluid. No free intraperitoneal air identified. IMPRESSION: 1. No acute pulmonary thromboembolism. 2. No acute abnormality identified in the chest, abdomen, or pelvis. 3. Mild bronchial wall thickening. 4. Moderate sigmoid colonic diverticulosis. 5. Moderate prostatomegaly. Electronically signed by: Sammie Ludwig MD 04/21/2021 11:31 PM BICYCLE MESSENGER Due to temporary technical issues with the PACS/Fluency reporting system, reports are being signed by the in house radiologist without review as a courtesy to ensure prompt reporting. The interpreting r adiologist is fully responsible for the content of the report.
[2021-04-22 13:05] VITALS: BP 159/74; TEMP 98
[2021-04-22] MEDS ORDERED: ATORVASTATIN 10 MG TAB PO SCH (21:00)
[2021-04-22] MEDS ORDERED: DONEPEZIL HCL 5 MG TAB PO SCH (21:00)
[2021-04-22] MEDS ORDERED: QUETIAPINE 25 MG TAB PO SCH (21:00)
[2021-04-22] MEDS ORDERED: VITAMIN D 5,000 UNIT CAP PO SCH (21:00)
== END 2021-04-22 14:15 | disposition home or self-care (01) ==
LOC: ER 18:46 → 2ND 04-22 00:07
PROVIDERS: ADMIT Internal Medicine; ATTEND Internal Medicine
DX: I82.502 Chronic embolism and thrombosis of unspecified deep veins of left lower extremity (principal); I27.82 Chronic pulmonary embolism; R60.9 Edema, unspecified; G30.9 Alzheimer's disease, unspecified; F02.81 Dementia in other diseases classified elsewhere, unspecified severity, with behavioral disturbance; I10 Essential (primary) hypertension; G70.00 Myasthenia gravis without (acute) exacerbation; Z79.01 Long term (current) use of anticoagulants; Z20.822 Contact with and (suspected) exposure to COVID-19
CPT/HCPCS: 93005; 87040 ×2; 85025; 80048; 36415; 83735; 85610; 80076; 83605; 81003; 84484; 83690; 83880; 71275; 74177; 71045; 73610; 93970; 97161; U0003; Q9967; J2543; G0378 ×2; 96365; 99285; J7512

== ENCOUNTER 2021-06-18 13:20 | Inpatient (IN) | payer OTHER ==
[2021-06-18] MEDS ORDERED: ONDANSETRON 4 MG/2 ML VIAL ONE (15:00)
[2021-06-18] MEDS ORDERED: VANCOMYCIN 1 GM/VIAL ONE (15:00)
[2021-06-18] MEDS ORDERED: MORPHINE 2 MG/ML SYR ONE (15:00)
[2021-06-18] MEDS ORDERED: NA CHLORIDE 0.9% 100 ML IV ONE (15:01)
[2021-06-18] MEDS ORDERED: NA CHLORIDE 0.9% 500 ML ONE (15:01)
[2021-06-18] MEDS ORDERED: PIPERACIL/TAZO 3.375 GM VIAL IV ONE (15:01)
[2021-06-18] MEDS ORDERED: NA CHLORIDE 0.9% 1,000 ML ONE (15:02)
[2021-06-18] MEDS ORDERED: ACETAMINOPHEN 325 MG TABLET ONE (15:02)
--- NOTE | 2021-06-18 15:04 | EDPHYS ---
Physician Documentation [facility] Name: Tj Harrington Age: 80 yrs Sex: Male : 1940 Arrival Date: 06/18/2021 Time: 13:22 Bed Ultrasound Private MD: RYAN Physician Bismark Dominguez HPI: 06/18 14:50 This 80 yrs old Male presents to ER via Wheelchair with complaints of Feet rosemarie Swelling - infection. 14:50 The patient presents with decreased range of motion, pain, swelling, tenderness. The rosemarie complaints affect the lateral aspect of right foot and dorsum of right foot. Context: The problem was sustained at an unknown site. Onset: The symptoms/episode began/occurred 1 week(s) ago. Modifying factors: The symptoms are alleviated by nothing. elevating leg, the symptoms are aggravated by nothing. Associated signs and symptoms: The patient has no apparent associated signs or symptoms. The patient presents with decreased range of motion, pain, swelling, tenderness, cold , mid foot. The complaints affect the right foot. Onset: The symptoms/episode began/occurred 1 week(s) ago. Historical: - Allergies: 13:49 No Known Allergies; vg1 - Home Meds: 13:49 amlodipine 5 mg tab 1 tab once daily [Active]; Aspirin Oral [Active]; atorvastatin oral vg1 [Active]; donepezil 10 mg Oral tab 1 tab once daily [Active]; Eliquis 5 mg Oral tab [Active]; furosemide 20 mg Oral tab 1 tab once daily [Active]; memantine 10 mg Oral tab 1 tab 2 times per day [Active]; prednisone 10 mg Oral tab [Active]; Seroquel Oral [Active]; - PMHx: 13:49 pulmonary embolis; DVT; Hypertensive disorder; vg1 - Immunization history:: Client reports receiving the 2nd dose of the Covid vaccine. - Social history:: Smoking status: Patient denies any tobacco usage or history of. - Family history:: not pertinent. ROS: 14:50 Constitutional: Negative for fever, chills, and weight loss, Eyes: Negative for injury, rosemarie pain, redness, and discharge, ENT: Negative for injury, pain, and discharge, Neck: Negative for injury, pain, and swelling, Cardiovascular: Negative for chest pain, palpitations, and edema, Respiratory: Negative for shortness of breath, cough, wheezing, and pleuritic chest pain, Abdomen/GI: Negative for abdominal pain, nausea, vomiting, diarrhea, and constipation, Back: Negative for injury and pain, : Negative for injury, bleeding, discharge, and swelling, Neuro: Negative for headache, weakness, numbness, tingling, and seizure, Psych: Negative for depression, anxiety, suicide ideation, homicidal ideation, and hallucinations, Allergy/Immunology: Negative for hives, rash, and allergies, Endocrine: Negative for neck swelling, polydipsia, polyuria, polyphagia, and marked weight changes, Hematologic/Lymphatic: Negative for swollen nodes, abnormal bleeding, and unusual bruising. 14:50 MS/extremity: Positive for decreased range of motion, pain, swelling, tenderness, of the right first toe, right second toe, Right fifth toenail, Right third toenail and Right fourth toenail. Exam: 14:50 Constitutional: This is a well developed, well nourished patient who is awake, alert, rosemarie and in no acute distress. Head/Face: Normocephalic, atraumatic. Eyes: Pupils equal round and reactive to light, extra-ocular motions intact. Lids and lashes normal. Conjunctiva and sclera are non-icteric and not injected. Cornea within normal limits. Periorbital areas with no swelling, redness, or edema. ENT: Nares patent. No nasal discharge, no septal abnormalities noted. Tympanic membranes are normal and external auditory canals are clear. Oropharynx with no redness, swelling, or masses, exudates, or evidence of obstruction, uvula midline. Mucous membranes moist. Neck: Trachea midline, no thyromegaly or masses palpated, and no cervical lymphadenopathy. Supple, full range of motion without nuchal rigidity, or vertebral point tenderness. No Meningismus. Chest/axilla: Normal chest wall appearance and motion. Nontender with no deformity. No lesions are appreciated. Cardiovascular: Regular rate and rhythm with a normal S1 and S2. No gallops, murmurs, or rubs. Normal PMI, no JVD. No pulse deficits. Respiratory: Lungs have equal breath sounds bilaterally, clear to auscultation and percussion. No rales, rhonchi or wheezes noted. No increased work of breathing, no retractions or nasal flaring. Abdomen/GI: Soft, non-tender, with normal bowel sounds. No distension or tympany. No guarding or rebound. No evidence of tenderness throughout. Back: No spinal tenderness. No costovertebral tenderness. Full range of motion. Male : Normal genitalia with no discharge or lesions. Skin: Warm, dry with normal turgor. Normal color with no rashes, no lesions, and no evidence of cellulitis. Neuro: Awake and alert, GCS 15, oriented to person, place, time, and situation. Cranial nerves II-XII grossly intact. Motor strength 5/5 in all extremities. Sensory grossly intact. Cerebellar exam normal. Normal gait. Psych: Awake, alert, with orientation to person, place and time. Behavior, mood, and affect are within normal limits. 14:50 Musculoskeletal/extremity: Extremities: grossly normal except: noted in the lateral aspect of right toes, medial aspect of right toes, right first toe, right second toe, right third toe, right fourth toe and Right fifth toenail: decreased ROM, pain, ROM: limited active range of motion due to pain, limited passive range of motion due to pain, Pulses: are absent in the right posterior tibial artery and right dorsalis pedis artery, Sensation intact. Severe pain noted. Compartment Syndrome exam of affected extremity: is normal. DVT Exam: pain, swelling, tenderness, that is moderate, of the right leg. 14:50 Skin: cellulitis, that is mild, that is moderate, on the medial aspect of right toes, plantar aspect of right first toe, plantar aspect of right second toe, plantar aspect of right third toe, plantar aspect of right fourth toe, plantar aspect of right fifth toe, right first toe, right second toe, Right first toenail and Right second toenail. 15:04 ECG was reviewed by the Attending Physician. rosemarie Vital Signs: 13:47 BP 146 / 81; Pulse 85; Resp 17; Temp 100.2(TE); Pulse Ox 100% ; Weight 67.13 kg; Height vg1 5 ft. 11 in. (180.34 cm); Pain 5/10; 14:30 BP 137 / 72; Pulse 71; Resp 18; Pulse Ox 100% on R/A; jg9 14:45 BP 141 / 65; Pulse 69; Resp 18 S; Pulse Ox 100% on R/A; jg9 16:00 BP 133 / 88; Pulse 64; Resp 18; Pulse Ox 95% on R/A; jg9 16:30 BP 140 / 69; Pulse 73; Resp 18 S; Pulse Ox 100% on R/A; jg9 16:45 BP 146 / 70; Pulse 68; Resp 20 S; Pulse Ox 100% on R/A; jg9 18:00 BP 129 / 66; Pulse 78; Resp 20; Pulse Ox 98% on R/A; jg9 21:26 BP 128 / 63; Pulse 64; Resp 16; Temp 98.4; Pulse Ox 98% on R/A; st1 13:47 Body Mass Index 20.64 (67.13 kg, 180.34 cm) vg1 MDM: 13:58 Patient medically screened. [facility] 14:53 Differential diagnosis: contusion, arthritis, cellulitis. Data reviewed: vital signs, [facility] nurses notes, lab test result(s), EKG, radiologic studies, doppler, plain films. Data interpreted: air sampling and monitoring: rate is 85 beats/min, rhythm is regular, Pulse oximetry: is not applicable for this patient encounter. Test interpretation: by ED physician or midlevel provider: ECG, plain radiologic studies. Counseling: I had a detailed discussion with the patient and/or guardian regarding: the historical points, exam findings, and any diagnostic results supporting the discharge/admit diagnosis, lab results, radiology results, the need for further work-up and treatment in the hospital. Medical screen evaluation completed. [facility] emergency medical condition absent. 06/18 14:49 Order name: Basic Metabolic Panel [facility] 06/18 14:49 Order name: CBC with Diff [facility] 06/18 14:49 Order name: LFT's rosemarie 06/18 14:49 Order name: Magnesium [facility] 06/18 14:49 Order name: NT PRO-BNP [facility] 06/18 14:49 Order name: PT-INR; Complete Time: 17:04 [facility] 06/18 14:49 Order name: Troponin HS [facility] 06/18 14:49 Order name: Blood Culture Adult (2) [facility] 06/18 14:49 Order name: Lactate; Complete Time: 17:04 [facility] 06/18 14:49 Order name: SARS-COV-2 RT PCR (Document "Date of Onset" if Symptomatic) [facility] 06/18 16:33 Order name: Comprehensive Metabolic Panel EDCT 06/18 16:33 Order name: Comprehensive Metabolic Panel EDCT 06/18 16:33 Order name: Blood Culture EDCT 06/18 16:33 Order name: CBC with Automated Diff EDMS 06/18 14:49 Order name: XRAY Chest (1 view); Complete Time: 16:30 [facility] 06/18 14:49 Order name: US Extremity Venous W Compression Connor; Complete Time: 16:30 rosemarie 06/18 14:49 Order name: US LE Arterial Bilateral; Complete Time: 17:04 [facility] 06/18 16:33 Order name: CBC with Automated Diff EDMS 06/18 16:33 Order name: CBC with Automated Diff EDMS 06/18 16:33 Order name: CBC with Automated Diff EDMS 06/18 16:34 Order name: Comprehensive Metabolic Panel EDCT 06/18 16:34 Order name: Comprehensive Metabolic Panel EDCT 06/18 16:34 Order name: Comprehensive Metabolic Panel EDCT 06/18 20:31 Order name: CBC Smear Scan EDCT 06/18 14:49 Order name: EKG; Complete Time: 14:50 [facility] 06/18 14:49 Order name: Cardiac monitoring; Complete Time: 14:56 [facility] 06/18 14:49 Order name: EKG - Nurse/Tech; Complete Time: 14:56 [facility] 06/18 14:49 Order name: IV Saline Lock; Complete Time: 16:54 [facility] 06/18 14:49 Order name: Labs collected and sent; Complete Time: 16:54 [facility] 06/18 14:49 Order name: O2 Sat Monitoring; Complete Time: 14:56 [facility] 06/18 16:33 Order name: CONS Physician Consult EDCT 06/18 16:33 Order name: Physical Therapy Consult EDCT 06/18 16:33 Order name: Heart Healthy EDCT 06/18 16:35 Order name: Occupational Therapy Consult EDCT 06/18 16:36 Order name: CONS Physician Consult EDCT 06/18 16:36 Order name: CONS [facility] EDCT EC:04 Rate is 69 beats/min. Rhythm is regular. QRS [place] is Normal. GA interval is normal. QRS rosemarie interval is normal. QT interval is normal. No Q waves. T waves are Normal. No ST changes noted. Clinical impression: NSR w/ Non-specific ST/T Changes and No evidence of ischemia. Interpreted by me. Reviewed by me. Administered Medications: 16:20 Drug: NS 0.9% 500 ml Route: IV; Rate: bolus; Site: right antecubital; jg9 17:00 Follow up: IV Status: Completed infusion; IV Intake: 500ml jg9 16:20 Drug: morphine 2 mg {Note: RASS-0.} Route: IVP; Site: right antecubital; jg9 16:45 Follow up: Response: No adverse reaction; Pain is decreased jg9 18:34 Follow up: Response: RASS: Alert and Calm (0) jg9 16:22 Drug: Zofran (Ondansetron) 4 mg Route: IVP; Site: right antecubital; jg9 17:00 Follow up: Response: No adverse reaction; Nausea is decreased jg9 16:25 Drug: Zosyn (piperacillin-tazobactam) 3.375 grams Route: IVPB; Infused Over: 60 mins; jg9 Site: right antecubital; 18:33 Follow up: IV Status: Completed infusion; IV Intake: 100ml jg9 16:35 Drug: Tylenol 650 mg Route: PO; jg9 17:00 Follow up: Response: No adverse reaction; Pain is decreased jg9 17:45 Drug: NS 0.9% 1000 ml Route: IV; Rate: 125 ml/hr; Site: right antecubital; jg9 18:00 Drug: vancoMYCIN 1 grams Route: IVPB; Infused Over: 2 hrs; Site: right antecubital; jg9 Disposition Summary: 06/18/21 15:03 Hospitalization Ordered Hospitalization Status: Inpatient Admission rosemarie Provider: Chata Gamino cha [facility] rosemarie Condition: Fair rosemarie Problem: new rosemarie Symptoms: are unchanged rosemarie Bed/Room Type: Standard rosemarie Room Assignment: 212(06/18/21 21:08) cg Diagnosis - Cellulitis of other parts of limb - right mid foot and toes rosemarie - Essential (primary) hypertension rosemarie - Peripheral vascular disease, unspecified - right foot ischemic, toes rosemraie - Abnormal levels of other serum enzymes - High Sensitivity Troponin rosemarie - Anemia, unspecified rosemarie - Elevated white blood cell count rosemarie - Unspecified kidney failure - renal insufficency rosemarie Forms: - Medication Reconciliation Form rosemarie - SBAR form rosemarie Signatures: Dispatcher [employer] EDBismark James MD MD cha Garcia, Cindy, RN RN cg Ron, Ghada, RN RN vg1 Jennifer Fortune RN RN jg9 Corrections: (The following items were deleted from the chart) 15:00 14:50 Foot Right 3 View+RAD.RAD.BRZ ordered. EDMS EDMS 21:08 15:03 rosemarie wolf
--- NOTE | 2021-06-18 15:04 | ER ---
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 Coronavirus screen: Vaccine status: Patient reports receiving the 2nd dose of the covid vaccine. Client denies travel out of the [place] in the last 14 days. Ebola Screen: Patient negative for fever greater than or equal to 101.5 degrees Fahrenheit, and additional compatible Ebola Virus Disease symptoms. Initial Sepsis Screen: Does the patient meet any 2 criteria? No. Patient's initial sepsis screen is negative. Does the patient have a suspected source of infection? No. Patient's initial sepsis screen is negative. Risk Assessment: Do you want to hurt yourself or someone else? Patient reports no desire to harm self or others. Onset of symptoms was June 11, 2021. 13:47 Method Of Arrival: Wheelchair vg1 13:47 Acuity: ABBEY 3 vg1 Triage Assessment: 13:49 General: Appears uncomfortable, Behavior is agitated. Pain: Complains of pain in right vg1 foot. Derm: Skin is red, Skin temperature is warm Right Foot. Historical: - Allergies: 13:49 No Known Allergies; vg1 - Home Meds: 13:49 amlodipine 5 mg tab 1 tab once daily [Active]; Aspirin Oral [Active]; atorvastatin oral vg1 [Active]; donepezil 10 mg Oral tab 1 tab once daily [Active]; Eliquis 5 mg Oral tab [Active]; furosemide 20 mg Oral tab 1 tab once daily [Active]; memantine 10 mg Oral tab 1 tab 2 times per day [Active]; prednisone 10 mg Oral tab [Active]; Seroquel Oral [Active]; - PMHx: 13:49 pulmonary embolis; DVT; Hypertensive disorder; vg1 - Immunization history:: Client reports receiving the 2nd dose of the Covid vaccine. - Social history:: Smoking status: Patient denies any tobacco usage or history of. - Family history:: not pertinent. Screenin:51 Abuse screen: Denies threats or abuse. Denies injuries from another. Nutritional jg9 screening: No deficits noted. Tuberculosis screening: No symptoms or risk factors identified. Fall Risk None identified. Secondary diagnosis (15 points) dementia, IV access (20 points). Gait- Impaired (20 pts.). Assessment: 16:47 General: Appears in no apparent distress. well groomed, Behavior is calm. Pain: jg9 Complains of pain in right foot. Neuro: Oriented to person, place. Cardiovascular: No deficits noted. Respiratory: No deficits noted. GI: No deficits noted. : No deficits noted. EENT: No deficits noted. Derm: Skin is dark red and purpura great toe-3 rd toe on r foot. Musculoskeletal: No deficits noted. Vital Signs: 13:47 BP 146 / 81; Pulse 85; Resp 17; Temp 100.2(TE); Pulse Ox 100% ; Weight 67.13 kg; Height vg1 5 ft. 11 in. (180.34 cm); Pain 5/10; 14:30 BP 137 / 72; Pulse 71; Resp 18; Pulse Ox 100% on R/A; jg9 14:45 BP 141 / 65; Pulse 69; Resp 18 S; Pulse Ox 100% on R/A; jg9 16:00 BP 133 / 88; Pulse 64; Resp 18; Pulse Ox 95% on R/A; jg9 16:30 BP 140 / 69; Pulse 73; Resp 18 S; Pulse Ox 100% on R/A; jg9 16:45 BP 146 / 70; Pulse 68; Resp 20 S; Pulse Ox 100% on R/A; jg9 18:00 BP 129 / 66; Pulse 78; Resp 20; Pulse Ox 98% on R/A; jg9 21:26 BP 128 / 63; Pulse 64; Resp 16; Temp 98.4; Pulse Ox 98% on R/A; st1 13:47 Body Mass Index 20.64 (67.13 kg, 180.34 cm) vg1 ED Course: 13:22 Patient arrived in ED. as 13:49 Triage completed. vg1 13:49 Arm band placed on. vg1 13:57 Bismark Dominguez MD is Attending Physician. [facility] 14:09 Jennifer Fortune, RN is Primary Nurse. jg9 14:30 Appears agitated. Appears angry. Pt visited by personal lines sales executive. jg9 14:58 Chata Gamino MD is Hospitalizing Provider. rosemarie 15:04 XRAY Chest (1 view) In Process Unspecified. EDMS 16:04 US Extremity Venous W Compression Connor In Process Unspecified. EDMS 16:04 US LE Arterial Bilateral In Process Unspecified. EDMS 16:20 Inserted saline lock: 20 gauge in right antecubital area, using aseptic technique. jg9 Blood collected. 16:57 Patient has correct armband on for positive identification. Bed in low position. Call jg9 light in reach. Side rails up X2. 16:58 Pt visited by son. jg9 16:59 No provider procedures requiring assistance completed. jg9 16:59 Wound care: to cellulitis located on right foot was dressed with cling, gauze. jg9 17:00 Patient admitted, IV remains in place. jg9 18:35 No apparent distress. Resting quietly. Pt visited by son. jg9 19:03 Primary Nurse role handed off by Jennifer Fortune, RN mw2 Administered Medications: 16:20 Drug: NS 0.9% 500 ml Route: IV; Rate: bolus; Site: right antecubital; jg9 17:00 Follow up: IV Status: Completed infusion; IV Intake: 500ml jg9 16:20 Drug: morphine 2 mg {Note: RASS-0.} Route: IVP; Site: right antecubital; jg9 16:45 Follow up: Response: No adverse reaction; Pain is decreased jg9 18:34 Follow up: Response: RASS: Alert and Calm (0) jg9 16:22 Drug: Zofran (Ondansetron) 4 mg Route: IVP; Site: right antecubital; jg9 17:00 Follow up: Response: No adverse reaction; Nausea is decreased jg9 16:25 Drug: Zosyn (piperacillin-tazobactam) 3.375 grams Route: IVPB; Infused Over: 60 mins; jg9 Site: right antecubital; 18:33 Follow up: IV Status: Completed infusion; IV Intake: 100ml jg9 16:35 Drug: Tylenol 650 mg Route: PO; jg9 17:00 Follow up: Response: No adverse reaction; Pain is decreased jg9 17:45 Drug: NS 0.9% 1000 ml Route: IV; Rate: 125 ml/hr; Site: right antecubital; jg9 18:00 Drug: vancoMYCIN 1 grams Route: IVPB; Infused Over: 2 hrs; Site: right antecubital; jg9 Intake: 17:00 IV: 500ml; Total: 500ml. jg9 18:33 IV: 100ml; Total: 600ml. jg9 Outcome: 15:03 Decision to Hospitalize by Provider. rosemarie 16:59 Admitted to ER Hold. Please see [facility] for further documentation. j9 16:59 Condition: stable 21:37 Patient left the ED. st1 Signatures: Dispatcher [employer] EDMO iBsmark Dominguez MD MD cha Martinez, Amelia as [place], MyKena mw2 Ghada Velasquez RN RN vg1 Jennifer Fortune RN RN jg9 Chari Briggs RN RN st1 Corrections: (The following items were deleted from the chart) 13:53 13:49 Derm: Skin is red, Skin temperature is warm Left foot vg1 vg1
--- NOTE | 2021-06-18 15:10 | RAD REPORT ---
EXAM DESCRIPTION: RAD - Chest Single View - 06/18/2021 3:04 pm CLINICAL HISTORY: COUGH COMPARISON: Chest Single View dated 04/21/2021; Chest Single View dated 04/10/2021; Chest Pa And Lat (2 Views) dated 11/28/2020; Chest Single View dated 02/03/2018 FINDINGS: Lines: None. Lungs: No evidence of edema or pneumonia. Pleural: No significant pleural effusions or pneumothorax. Cardiac: Mild cardiomegaly. Bones: No acute fractures. Other: IMPRESSION: No acute cardiopulmonary disease.
--- NOTE | 2021-06-18 16:18 | RAD REPORT ---
EXAM DESCRIPTION: US - Extrem Venous W Compress Connor - 06/18/2021 4:04 pm CLINICAL HISTORY: PAIN COMPARISON: Extrem Venous W Compress Connor dated 04/21/2021 TECHNIQUE: Real-time sonographic evaluation of the lower extremity deep venous systems was performed using color Doppler, grayscale, and compression. FINDINGS: Bilateral lower extremities. Normal compressibility, flow augmentation, phasic flow and spontaneous flow is identified in both the left and right lower extremity deep venous systems. No intraluminal filling defects seen. IMPRESSION: No DVT in either lower extremity. Thrombus in the left lower extremity is no longer iden tified.
--- NOTE | 2021-06-18 16:27 | P.HP ---
Certification for Inpatient With expected LOS: >2 Midnights Patient will require the following post-hospital care: Home Health Services Practitioner: I am a practitioner with admitting privileges, knowledge of patient current condition, hospital course, and medical plan of care. Services: Services provided to patient in accordance with Admission requirements found in Title 42 Section 412.3 of the Code of Federal Regulations Patient History Date of Service: 06/18/21 Reason for admission: Right foot pain History of Present Illness: 80-year-old male with past medical history of hypertension, myasthenia gravis, Alzheimer's dementia with a live-in caregiver currently residing with his son after a recent hospital stay where patient was diagnosed with right lower extremity DVT/PE and started on Eliquis 2 months ago. He has been compliant with his medication. But noted to have worsening pain and new ulcers over the right foods since hospitalization. He was seen by his primary care physician today and sent to the emergency room. Caregiver reports pain has been worsening and limiting patient ambulation to mainly bedrest. New ulcers appears to be increasing in size and number as well as noticed redness over the foot. Patient is a poor historian unable to give more history. Ultrasound of the lower extremity shows no evidence of DVT(resolved previous thrombus noted during hospitalization 2 months ago). He has been admitted for worsening right lower extremity cellulitis Allergies No Known Allergies Allergy (Uncoded 11/28/20 15:12) Unknown Home Medications: Pyridostigmine [place] [Mestinon*] 60 mg PO TID 02/04/18 predniSONE [Prednisone*] 10 mg PO DAILY 02/04/18 Aspirin 81 mg PO DAILY 04/10/21 Cholecalciferol (Vitamin D3) [Vitamin D3] 125 mcg PO BEDTIME 04/10/21 Donepezil HCl 10 mg PO BEDTIME 04/10/21 Memantine HCl [Namenda*] 10 mg PO BID 04/10/21 Apixaban [Eliquis] 5 mg PO BID #74 tab.ds.pk 04/11/21 Amlodipine [Norvasc*] 5 mg PO DAILY 04/22/21 Furosemide [Lasix] 40 mg PO DAILY #60 tablet 04/22/21 Quetiapine [Seroquel*] 50 mg PO BEDTIME #60 tab 04/22/21 Sertraline [Zoloft*] 50 mg PO DAILY 04/22/21 - Past Medical/Surgical History Diabetic: No -: hypertension -: myasthenia gravis -: chronic venous insufficiency -: Alzheimer's disease -: Myasthenia Gravis -: back surgery - Social History Smoking Status: Former smoker Counseled patient to stop smoking for: less than 10 minutes Smoking therapy provided: No Patient receptive to therapy: No Alcohol use: No CD- Drugs: No Caffeine use: Yes Place of Residence: Home Review of Systems is unable to be obtained (Poor historian and confused at baseline but denies all history) Physical Examination - Physical Exam General: In no apparent distress, Oriented x2, Cooperative, Other (Elderly male, not in any distress,) HEENT: Atraumatic, Normocephalic Neck: Supple, 2+ carotid pulse no bruit, JVD not distended Respiratory: Clear to auscultation bilaterally, Normal air movement Cardiovascular: Regular rate/rhythm, Normal S1 S2 Gastrointestinal: Normal bowel sounds, Soft and benign, Non-distended, No ascite s, No tenderness Musculoskeletal: Swelling (right foot erythema with open ulcers of medial 1-3 digits ), Erythema, Tenderness Integumentary: Rash(es) Neurological: Normal speech, Sensation intact, Cranial nerves 3-12 intact Assessment and Plan - Problems (Diagnosis) (1) Cellulitis of right foot Current Visit: Yes Status: Acute (2) Dementia with behavioral disturbance Current Visit: No Status: Chronic Qualifiers: (3) Myasthenia gravis Current Visit: No Status: Chronic - Advance Directives Does patient have a Living Will: No Does patient have a Durable POA for Healthcare: No Physician Review Additional Text: Right lower extremity cellulitismainly affecting the foods with erythema and open ulcers We will obtain arterial flow Doppler to assess flow to the right foot and digits Start empiric antibiotics with vancomycin Wound care for consult Elevate lower extremity to minimize edema As needed pain regimen Hypertensioncontrolled, resume home regimen Recent DVT/PEcontinue anticoagulation with Eliquis History of CADprior cardiac cath with TIMI3 flow, monitor for recurrence chest pain History of myasthenia graviscontinue pyridostigmine as well as prednisone, stable at this time Advance directivediscussed with patient daughter over the phone who is healthcare proxy, will leave as full code Dispositionpossible hospital stay for 1 to 2 days History of dementiacontinue patient regimen, as needed Geodon if agitation Time Spent Managing Pts Care (In Minutes): 70
[2021-06-18] MEDS ORDERED: HYDRALAZINE HCL 20 MG/ML VIAL IV PRN (16:28)
--- NOTE | 2021-06-18 16:39 | RAD REPORT ---
EXAM DESCRIPTION: US - Lower Extremity Arterial Bilat - 06/18/2021 4:04 pm CLINICAL HISTORY: Leg pain COMPARISON: None FINDINGS: The common femoral, superficial femoral arteries bilaterally demonstrate triphasic waveforms. The rig ht popliteal artery is triphasic. The left popliteal artery is biphasic. The posterior tibial and dorsalis pedis arteries demonstrate monophasic waveforms bilaterally. IMPRESSION: Monophasic posterior tibial and dorsalis pedis arteries consistent with the presence of moderate stenoses of the runoff vessels.
[2021-06-18 16:52] LABS: Absolute Lymphocytes (CBC) 0.2 K/uL (0.7-4.9); Hematocrit 36.6 % (39.6-49.0); Lymphocytes % 1.9 % (15.3-44.8); MPV 6.7 fL (7.6-11.3); RBC Red Blood Cell Count 4.14 M/uL (4.33-5.43)
[2021-06-18 16:53] LABS: Protime INR 1.58
[2021-06-18] MEDS ORDERED: Levofloxacin500mg IV 500 MG/100 ML BAG IV SCH (17:00)
[2021-06-18 17:01] LABS: Albumin 3.1 g/dL (3.4-5.0); Bilirubin Direct 0.1 mg/dL (0-0.2); Bilirubin Total 0.4 mg/dL (0.2-1.0); Potassium 3.7 mmol/L (3.5-5.1); Protein, Total 7.2 g/dL (6.4-8.2)
[2021-06-18 17:04] LABS: Troponin High Sensitivity 116.3 pg/mL (<58.9)
[2021-06-18] MEDS ORDERED: VANCOMYCIN 1.25 GM in NA CHLORIDE 0.9% 250 ML IVPB SCH (18:00)
[2021-06-18] MEDS ORDERED: Levofloxacin500mg IV 500 MG/100 ML BAG IV ONE (18:00)
[2021-06-18 20:31] LABS: Blood Morphology Comment NOT SEEN (NOT SEEN); Platelet Estimate ADEQ; White Blood Cell Scan OK (OK)
[2021-06-18] MEDS ORDERED: HOME MED 1 EA UNK (Donepezil Hcl [Donepezil Hcl] 10 MG Tablet) PO SCH (21:00)
[2021-06-18] MEDS ORDERED: HOME MED 1 EA UNK (Apixaban [Eliquis] 5 MG Tab.Ds.Pk) PO SCH (21:00)
[2021-06-18 22:12] VITALS: BMI 21.7
[2021-06-18] MEDS: FUROSEMIDE 40 MG TABLET PO SCH (22:55)
[2021-06-18] MEDS: MEMANTINE HCL 10 MG TABLET PO SCH (22:55)
[2021-06-18] MEDS: PYRIDOSTIGMINE 60 MG TABLET PO SCH (22:55)
[2021-06-18] MEDS: QUETIAPINE 25 MG TAB PO SCH (22:55)
[2021-06-18] MEDS: APIXABAN 5 MG TABLET PO SCH (22:55)
[2021-06-18] MEDS: DONEPEZIL HCL 5 MG TAB PO SCH (22:55)
[2021-06-18] MEDS: FAMOTIDINE 20 MG TAB PO SCH (22:56)
[2021-06-19 06:08] LABS: Absolute Lymphocytes (CBC) 0.6 K/uL (0.7-4.9); Hematocrit 30.2 % (39.6-49.0); Lymphocytes % 6.9 % (15.3-44.8); MPV 6.4 fL (7.6-11.3); RBC Red Blood Cell Count 3.46 M/uL (4.33-5.43)
[2021-06-19 06:25] LABS: Albumin 2.4 g/dL (3.4-5.0); Bilirubin Total 0.4 mg/dL (0.2-1.0); Potassium 3.6 mmol/L (3.5-5.1); Protein, Total 5.8 g/dL (6.4-8.2)
[2021-06-19] MEDS: FAMOTIDINE 20 MG TAB PO SCH (09:00)
[2021-06-19] MEDS: APIXABAN 5 MG TABLET PO SCH ×2 (09:22→22:49)
[2021-06-19] MEDS: FUROSEMIDE 40 MG TABLET PO SCH (09:22)
[2021-06-19] MEDS: PYRIDOSTIGMINE 60 MG TABLET PO SCH ×3 (09:22→22:48)
[2021-06-19] MEDS: MEMANTINE HCL 10 MG TABLET PO SCH ×2 (09:23→22:49)
[2021-06-19] MEDS: ASPIRIN 81 MG CHEWABLE TABLET PO SCH (09:23)
[2021-06-19] MEDS: predniSONE 10 MG TAB PO SCH (09:24)
[2021-06-19] MEDS: SERTRALINE HCL 50 MG TAB PO SCH (09:24)
[2021-06-19] MEDS: AMLODIPINE 5 MG TAB PO SCH (09:24)
[2021-06-19 10:42] LABS: Magnesium 2.1
--- NOTE | 2021-06-19 11:07 | P.CNS ---
Date of Consult: 06/19/21 Chief Complaint: Right foot pain History of Present Illness: The patient is a 80 year old male with a PMH Alzheimer's, hypertension, and myasthenia gravis who presented to the emergency department secondary to right lower extremity pain, swelling, and edema. Patient was recently hospitalized 2 months ago deep venous thrombus formation. Patient has a caregiver who states that yesterday she noticed increased redness and swelling to his right foot and lower extremity. Of note patient has wounds to his right great hallux and second phalanx. Unknown how the wounds arise, caregiver states that patient wears shoes that are too tight. Wounds possibly arterial in nature. Patient empirically placed on vancomycin and Levaquin. Levaquin has been discontinued, continue monotherapy with vancomycin. Patient currently denies nausea/vomiting/diarrhea/shortness of breath/chest pain. Patient reports right lower extremity tenderness to palpation. Allergies No Known Allergies Allergy (Uncoded 11/28/20 15:12) Unknown Home Medications: Pyridostigmine [place] [Mestinon*] 60 mg PO TID 02/04/18 predniSONE [Prednisone*] 10 mg PO DAILY 02/04/18 Aspirin 81 mg PO DAILY 04/10/21 Cholecalciferol (Vitamin D3) [Vitamin D3] 125 mcg PO BEDTIME 04/10/21 Donepezil HCl 10 mg PO BEDTIME 04/10/21 Memantine HCl [Namenda*] 10 mg PO BID 04/10/21 Apixaban [Eliquis] 5 mg PO BID #74 tab.ds.pk 04/11/21 Amlodipine [Norvasc*] 5 mg PO DAILY 04/22/21 Furosemide [Lasix] 40 mg PO DAILY #60 tablet 04/22/21 Quetiapine [Seroquel*] 50 mg PO BEDTIME #60 tab 04/22/21 Sertraline [Zoloft*] 50 mg PO DAILY 04/22/21 - Past Medical/Surgical History Diabetic: No -: hypertension -: myasthenia gravis -: chronic venous insufficiency -: Alzheimer's disease -: Myasthenia Gravis -: back surgery - Social History Smoking Status: Never smoker Alcohol use: No CD- Drugs: No Caffeine use: No Place of Residence: Home Review of Systems 10-point ROS is otherwise unremarkable Physical Examination Temp Pulse Resp BP Pulse Ox 98.9 F 74 19 154/74 H 97 06/19/21 08:00 06/19/21 09:24 06/19/21 08:00 06/19/21 09:24 06/19/21 08:00 General: Confused HEENT: Atraumatic, Normocephalic Neck: Supple, 2+ carotid pulse no bruit Respiratory: Clear to auscultation bilaterally, Normal air movement Cardiovascular: Normal pulses, Regular rate/rhythm Capillary refill: <2 Seconds Gastrointestinal: Normal bowel sounds, Soft and benign Musculoskeletal: No clubbing, No swelling Integumentary: Other (Right lower extremity swelling/erythema. Dry scaling skin noted to right anterior bhakta. Wounds to right great hallux and right second phalanx: Base of wound shows dried blood.'s are clean dry with no clinical signs of infection.) Laboratory Data (last 24 hrs) 06/18/21 16:20: PT 18.2 H, INR 1.58 06/18/21 16:20: WBC 12.50 H, Hgb 11.8 L, Hct 36.6 L, Plt Count 366 06/18/21 16:20: Sodium 135 L, Potassium 3.7, BUN 16, Creatinine 1.33 H, Glucose 113 H, Magnesium 2.1, Total Bilirubin 0.4, AST 23, ALT 21, Alkaline Phosphatase 83 Conclusions/Impression: Antibiotics Vancomycin: 06/19current Levaquin: Assessment/plan Right lower extremity cellulitis IV vancomycin. Can de-escalate to cephalexin based on clinical progression. Vancomycin trough goal of 10-15. Arterial Doppler showed mild to moderate stenosis. Venous Doppler with no evidence of DVT Continue current wound care to right great hallux and right second phalanx: Xeroform and wrapped with Kerlix. Continue to keep leg elevated. -Medical management per primary team Plan of care discussed with Dr. Rosario Thank you for consultation
[2021-06-19 12:32] LABS: Urine Appearance CLEAR (Clear); Urine Bilirubin NEGATIVE (Negative); Urine Blood NEGATIVE (Negative); Urine Color YELLOW (Yellow); Urine Glucose NEGATIVE (Negative); Urine Protein NEGATIVE (Negative); Urine pH 6.5 (5.0-7.0)
[2021-06-19 12:47] LABS: Urine Microscopic Reflex NO UMIC
--- NOTE | 2021-06-19 13:11 | P.PN ---
Subjective Date of Service: 06/19/21 Chief Complaint: Right foot pain Family reports patient's right lower extremity swelling has significantly improved. Patient wants to go home. Physical Examination - Vital Signs Temperature: 98.9 F Blood Pressure: 154/74 Pulse: 74 Respirations: 19 Pulse Ox (%): 97 - Physical Exam General: In no apparent distress, Oriented x2, Other (Awake) HEENT: Mucous membr. moist/pink Neck: JVD not distended Respiratory: Clear to auscultation bilaterally, Normal air movement Cardiovascular: Regular rate/rhythm, Normal S1 S2, Edema (Bilateral lower extremities, worse on the right) Gastrointestinal: Soft and benign, Non-distended, No tenderness Musculoskeletal: Swelling (Right lower extremity swelling significantly improved), Erythema (Right leg-improved.) Integumentary: No cyanosis Neurological: Other (No focal motor deficit.) - Studies Laboratory Data (last 24 hrs) 06/18/21 16:20: PT 18.2 H, INR 1.58 06/18/21 16:20: WBC 12.50 H, Hgb 11.8 L, Hct 36.6 L, Plt Count 366 06/18/21 16:20: Sodium 135 L, Potassium 3.7, BUN 16, Creatinine 1.33 H, Glucose 113 H, Magnesium 2.1, Total Bilirubin 0.4, AST 23, ALT 21, Alkaline Phosphatase 83 Assessment And Plan - Plan Right lower extremity cellulitis Venous stasis dermatitis. Bilateral lower extremity venous Doppler negative for DVT in both legs. Continue vancomycin Wound care input appreciated. Local wound care. General surgery-Dr. Bautista consulted to evaluate Elevate right lower extremity Pain management as needed. Hypertension Continue home regimen Recent DVT/PE Venous Doppler shows no DVT. DVT in the left lower extremity no longer identified. continue anticoagulation with Eliquis History of CAD prior cardiac cath with TIMI3 flow. Stable. History of myasthenia gravis Stable continue pyridostigmine and prednisone. Advance directivefull code.
--- NOTE | 2021-06-19 16:52 | CON ---
Date of Consultation: 06/19/2021 Reason For Consultation: Peripheral vascular disease and preoperative evaluation. History Of Present Illness: An 80-year-old male, very well known to me. He has history of hypertens ion, myasthenia gravis, coronary artery disease that is mild, history of dementia, [facility] extremity swelling, pain, and redness, found to have cellulitis and was star nelly on antibiotics; however, his toes appear to be ischemic and the patient seen by zone supervisor firearms and [facility] was a possible amputation and hence I was asked for preop assessment. I saw the patient at [facility]. He does not have any chest pain. I did heart cath on him in the past 6 months and his major cor onary arteries are normal. He has a diagonal branch that has 70% stenosis, stable to the small vesse l and elected treated medically. No other significant disease. Past Medical History: As outlined above in the HPI. Medications: Refer to reconciliation sheet for detailed list. Allergies: NO KNOWN DRUG ALLERGIES. Family History: No premature coronary artery disease or cancer. Social History: Does not smoke or drink. Does not use any drugs. Review of Systems: All systems reviewed and they were negative except for what mentioned in HPI. Physical Examination: Vital Signs: Reviewed. Head and Neck: Pupils are equal, reactive to light. Intact eye movements. No JVD. No lymphadenopa thy. Neck is supple. Thyroid is not enlarged. Lungs: Clear to auscultation bilaterally. No rhonchi, rales, or crackles. No accessory muscle use. Heart: Regular rate and rhythm. No extra sounds. Abdomen: Soft, nontender. Bowel sounds positive. No organomegaly. No masses or hernia. No rigidi ty or rebound. Extremities: No clubbing or cyanosis. Has cellulitis to the right leg with signs of ischemia of the big toe on the right leg. Neuro: Alert, awake. No acute focal deficits appreciated. Investigations: His hemoglobin is 10, white blood cell count is 9.4. His troponin is 106, highly se nsitive. Creatinine is 1.1. Assessment And Recommendations: 1.Cardiac risk assessment preoperatively for toe amputation. The patient had a coronary angiogram a nd at that time, it was decided to go with medical management. He does not have major coronary arter y disease in the major arteries. I think his cardiac risk is moderate and is safe to proceed, but be fore we do that, please check another troponin, which is slightly elevated, likely due to demand. 2.Peripheral vascular disease with active infection now. Once the infection is under control, we wi ll plan to do a peripheral angiogram. Thank for the consult. /ARMINDA Voice ID: [id number] Report ID: [id number]
[2021-06-19] MEDS: VANCOMYCIN 1.25 GM in NA CHLORIDE 0.9% 250 ML IVPB SCH (17:01)
[2021-06-19] MEDS ORDERED: Levofloxacin 250mg IV 250 MG/50 ML BAG IV SCH (18:00)
[2021-06-19] MEDS: DONEPEZIL HCL 5 MG TAB PO SCH (22:49)
[2021-06-19] MEDS: QUETIAPINE 25 MG TAB PO SCH (22:49)
[2021-06-19] MEDS ORDERED: WATER FOR INJ,STERILE 10 ML IM PRN (23:48)
[2021-06-19] MEDS ORDERED: ZIPRASIDONE MESYLA 20 MG/VIAL IM ONE (23:48)
[2021-06-19] MEDS ORDERED: WATER FOR INJ,STERILE 10 ML ONE (23:53)
[2021-06-20 06:25] LABS: Absolute Lymphocytes (CBC) 0.8 K/uL (0.7-4.9); Hematocrit 29.5 % (39.6-49.0); Lymphocytes % 9.4 % (15.3-44.8); MPV 6.6 fL (7.6-11.3); RBC Red Blood Cell Count 3.35 M/uL (4.33-5.43)
[2021-06-20 06:47] LABS: Albumin 2.4 g/dL (3.4-5.0); Bilirubin Total 0.5 mg/dL (0.2-1.0); Potassium 3.6 mmol/L (3.5-5.1); Protein, Total 5.9 g/dL (6.4-8.2)
[2021-06-20] MEDS: predniSONE 10 MG TAB PO SCH (08:28)
[2021-06-20] MEDS: ASPIRIN 81 MG CHEWABLE TABLET PO SCH (08:28)
[2021-06-20] MEDS: APIXABAN 5 MG TABLET PO SCH ×2 (08:28→20:25)
[2021-06-20] MEDS: MEMANTINE HCL 10 MG TABLET PO SCH ×2 (08:29→20:24)
[2021-06-20] MEDS: AMLODIPINE 5 MG TAB PO SCH (08:29)
[2021-06-20] MEDS: SERTRALINE HCL 50 MG TAB PO SCH (08:29)
[2021-06-20] MEDS: FAMOTIDINE 20 MG TAB PO SCH (08:29)
[2021-06-20] MEDS: FUROSEMIDE 40 MG TABLET PO SCH (08:29)
[2021-06-20] MEDS: PYRIDOSTIGMINE 60 MG TABLET PO SCH ×4 (08:29→20:23)
[2021-06-20] MEDS: MORPHINE 2 MG/ML SYR IV PRN ×2 (10:40→14:39)
[2021-06-20] MEDS ORDERED: Ringers Lactate 1,000 ML IV ONE (11:26)
[2021-06-20] MEDS ORDERED: ONDANSETRON 4 MG/2 ML VIAL ONE (11:56)
[2021-06-20] MEDS ORDERED: propofoL 200 MG/20 ML VIAL IV ONE ×2 (11:56→12:50)
[2021-06-20] MEDS ORDERED: FENTANYL CITR 100 MCG/2 ML ONE (11:56)
[2021-06-20] MEDS ORDERED: LIDOCAINE 1% MPF 30 ML VIAL ONE (11:56)
--- NOTE | 2021-06-20 12:12 | P.PN ---
Subjective Date of Service: 06/20/21 Chief Complaint: Right foot pain Patient seen and examined at bedside, having pain to right great hallux and second toe wounds Physical Examination - Vital Signs Temperature: 98.1 F Blood Pressure: 146/66 Pulse: 57 Respirations: 16 Pulse Ox (%): 96 Assessment And Plan - Plan Physical Exam: General: no acute distress HEENT: Atraumatic, Normocephalic Neck: Supple, 2+ carotid pulse no bruit Respiratory: Clear to auscultation bilaterally, Normal air movement Cardiovascular: Normal pulses, Regular rate/rhythm Capillary refill: <2 Seconds Gastrointestinal: Normal bowel sounds, Soft and benign Musculoskeletal: No clubbing, No swelling Integumentary: Other (Right lower extremity swelling/erythema. Dry scaling skin noted to right anterior bhakta. Wounds to right great hallux and right second phalanx: traumatic vs arterial. Conclusions/Impression: Antibiotics Vancomycin: 06/19current Levaquin: Assessment/plan Right lower extremity cellulitis Continue IV vancomycin. Can de-escalate to cephalexin based on clinical progression. Vancomycin trough goal of 10-15. Arterial Doppler showed mild to moderate stenosis. Venous Doppler with no evidence of DVT Continue current wound care to right great hallux and right second phalanx: Xeroform and wrapped with Kerlix. Continue to keep leg elevated. -Medical management per primary team Plan of care discussed with Dr. Gardner Thank you for consultation Physician Review Additional Text: Right lower extremity cellulitismainly affecting the foods with erythema and open ulcers We will obtain arterial flow Doppler to assess flow to the right foot and digits Start empiric antibiotics with vancomycin Wound care for consult Elevate lower extremity to minimize edema As needed pain regimen Hypertensioncontrolled, resume home regimen Recent DVT/PEcontinue anticoagulation with Eliquis History of CADprior cardiac cath with TIMI3 flow, monitor for recurrence chest pain History of myasthenia graviscontinue pyridostigmine as well as prednisone, stable at this time Advance directivediscussed with patient daughter over the phone who is healthcare proxy, will leave as full code Dispositionpossible hospital stay for 1 to 2 days History of dementiacontinue patient regimen, as needed Geodon if agitation
[2021-06-20] MEDS ORDERED: LIDOCAINE 1% W/EPI 1:100,000 MDV 50 ML VIAL ONE (12:33)
--- NOTE | 2021-06-20 13:56 | P.OP ---
Preoperative diagnosis: RIGHT foot severe peripheral arterial disease / Ischemia Postoperative diagnosis: RIGHT foot severe peripheral arterial disease / Ischemia Primary procedure: amputation of RIGHT Hallux, 2nd Toe Anesthesia: MAC + Local Estimated blood loss: <5cc Specimen: Great toe, 2nd toe of RIGHT foot, cultures Findings: Ischemia with minimal bleeding from amputation site Complications: None Transferred to: Recovery Room Condition: Good
--- NOTE | 2021-06-20 15:29 | P.PN ---
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 Physical Examination - Vital Signs Temperature: 98 F Blood Pressure: 133/54 Pulse: 55 Respirations: 16 Pulse Ox (%): 96 - Physical Exam General: Alert, In no apparent distress, Confused HEENT: Mucous membr. moist/pink Neck: JVD not distended Respiratory: Clear to auscultation bilaterally, Normal air movement Cardiovascular: Regular rate/rhythm, Normal S1 S2, Edema (Bilateral leg) Gastrointestinal: Soft and benign, Non-distended Musculoskeletal: Other (Right foot in dressing.) Integumentary: No rashes, No cyanosis Neurological: Other (No focal motor deficit) Assessment And Plan - Plan Right lower extremity cellulitis Venous stasis dermatitis. Bilateral lower extremity venous Doppler negative for DVT in both legs. Continue vancomycin Wound care input appreciated. Local wound care. 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 General surgery-Dr. Bautista to follow. Hypertension Continue home regimen Recent DVT/PE Venous Doppler shows no DVT. DVT in the left lower extremity no longer identified. continue anticoagulation with Eliquis History of CAD prior cardiac cath with TIMI3 flow. Stable. History of myasthenia gravis Stable continue pyridostigmine and prednisone. Advance directivefull code.
[2021-06-20] MEDS: MORPHINE 4 MG/ML SYR IV PRN ×2 (16:52→22:14)
[2021-06-20] MEDS: VANCOMYCIN 1.25 GM in NA CHLORIDE 0.9% 250 ML IVPB SCH (17:00)
[2021-06-20] MEDS: VANCOMYCIN 1.5 GM in NA CHLORIDE 0.9% 500 ML IVPB SCH (17:31)
[2021-06-20] MEDS ORDERED: FENTANYL CITR 100 MCG/2 ML IV ONE (19:31)
--- NOTE | 2021-06-20 19:57 | CON ---
Date of Consultation: 06/19/2021 Brief Hpi: The patient is an 80-year-old male with past medical history of hypertension, my asthenia gravis, Alzheimer's dementia, who was brought to the hospital with right lower extremity DVT /PE, started on Eliquis 2 months ago, who had been compliant with medication, but noticed worsening p ain particularly over the right lower extremity. He notes the pain got significantly worse and was g etting rapidly more painful, particularly located on the right dorsal foot, all the way down to the r ight great toe, second toe, as well and they appeared to change in color and were pale in color. He had some ulceration to the medial aspect of the great toe and the lateral aspect of the second toe as well. Past Medical History: Significant for hypertension, myasthenia gravis, chronic venous insufficiency, Alzheimer's disease, myasthenia gravis. Past Surgical History: Includes only back surgery. Social History: Smoking History: He has a positive smoking history. Denies alcohol, recreational dr ug. Review of Systems: 10 point review of systems unable to obtain because the patient is confused. Information obtained fr om family members present at the bedside. Allergies: NO KNOWN DRUG ALLERGIES. Home Medications: Include pyridostigmine, prednisone, aspirin, vitamin D, donepezil, Namenda, Eliqui s, Norvasc, Lasix, Seroquel, Zoloft. Physical Examination: Vital Signs: BMI was 21.7. His heart rate was 67, respiratory rate 19, temperature 98.8, blood press ure 127/65, SpO2 92% on room air. General: He is awake and alert, but confused. HEENT: Otherwise, normocephalic. Sclerae were anicteric. Mucous membranes moist. Oropharynx clear. Neck: Supple without JVD. Chest: Normal expansion and excursion. Cardiovascular: Regular rate and rhythm. Pulmonary: Clear to auscultation bilaterally. Abdomen: Soft. Extremities: Focused examination of lower extremities, he has a right lower extremity area of discolo ration and pale ischemic changes to the right great toe, consistent with an embolic/thrombotic proces s. Additionally, his second toe is similarly pale, cold with a very well demarcated area of paleness with warmth to the foot with the exception of these 2 toes. The remainder of the exam is unremarkab le, other than some ulceration on the medial aspect of the great toe and along the lateral aspect of the second toe of the right foot. Laboratory Data: His white blood cell count was 9.4, hemoglobin 10.0, hematocrit 30.2, platelet coun t was 317. His neutrophils 82%. His sodium 139, potassium 3.6, chloride 108, carbon dioxide 26, BUN 17, creatinine 1.1, glucose is 86. His lactic acid on admission was 1.7. Troponin is 116, recheck on 06/20/2021, was 88.3. His UA showed only trace ketones. He had some imaging performed which incl uded a Doppler ultrasound performed on 06/18/2021 which was officially read as monophasic posterior t ibial and dorsalis pedis arteries consistent with the presence of moderate stenosis of the runoff ves sels, common femoral, superficial femoral arteries bilaterally demonstrated triphasic waveforms. The right popliteal artery is triphasic. Left popliteal artery is biphasic. The extremity venous study on 06/18/2021, it was officially read as no DVT in either lower extremity. Thrombus in the left low er extremity is no longer identified. Assessment And Plan: This is an 80-year-old male who comes in with signs and symptoms of ischemic ch libra, possibly embolic/thrombotic ischemia, should say, of the right great toe and second toe. 1.Continue medical management. 2.I have explained risks, benefits, and alternatives of amputation of the right great toe and second toe and affected tissues including but not limited to bleeding, infection, damage to the surrounding tissue, need for further operations and procedures. I have explained the patient will likely requir e revascularization if possible of this area to salvage the foot and ensure a good healing process af ter the surgical repair. 3.Continue antibiotics. 4.Serial exams. 5.The patient agrees to proceed as indicated with family. Thank you for this consult. TREY/ARMINDA Voice ID: [id number] Report ID: [id number]
[2021-06-20] MEDS: DONEPEZIL HCL 5 MG TAB PO SCH (20:24)
[2021-06-20] MEDS: QUETIAPINE 25 MG TAB PO SCH (20:25)
--- NOTE | 2021-06-21 00:48 | OP ---
Date of Procedure: 06/20/2021 Surgeon: Clark Bautista MD, Preoperative Diagnosis: Right foot severe peripheral arterial disease/ischemia. Postoperative Diagnosis: Right foot severe peripheral arterial disease/ischemia. Procedure Performed: Amputation of the right hallux and second toe of the right foot. Anesthesia: MAC plus local with 1% lidocaine with epinephrine. Specimen: Great toe and second toe of the right foot as well as culture sent both aerobic and anaero bic speciation. Findings: Ischemia with minimal bleeding from the amputation site. Complications: None. Disposition: The patient transferred to recovery room in good condition. Procedure In Detail: After informed consent was obtained, patient was brought to the operating room, prepped and draped in the usual sterile fashion after adequate anesthesia achieved. I felt the area of critical ischemia of the right foot and demarcated a partial plantar flap repair of the right gre at toe and second toe with a marking pen. At this point, I then anesthetized the tissues appropriate ly with 1% lidocaine with epinephrine. After this was completed, I made an incision using a 15 blade circumferentially around the great toe. I dissected circumferentially down to the metatarsophalange al joint and removed the entire right great hallux using electrocautery and periosteal elevator. Aft er the tissue was removed, I sent the toe off for pathologic examination. There was a small amount o f bleeding from the cut surfaces, but the blood supply was not great in this area. I then turned my attention to the second toe and in a similar fashion following the premarked drawings, I cut circumfe rentially around the skin and dissected down using electrocautery down to the metatarsophalangeal armando nt and amputated the second toe at the metatarsophalangeal joint in a similar fashion. Bleeding also here was present but not as robust as I would prefer. However, it appeared adequate at this time. I therefore irrigated the tissues. I used a 3-0 Vicryl suture to close the deep plane tissues over t he exposed metatarsals and after this was completed, I irrigated the area once again. Cultures were taken just prior to closure from an area that appeared slightly murky in fluid. At this point, I irr igated the area once again and closed the skin with interrupted 2-0 nylon suture in a vertical mattre ss type fashion. A sterile dressing was then placed over top. The patient tolerated the procedure w ell without evidence of complication and transferred to PACU in good condition. All counts were monserrat ect at the end of the case. TREY/ARMINDA Voice ID: [id number] Report ID: [id number]
[2021-06-21] MEDS: MORPHINE 4 MG/ML SYR IV PRN ×4 (04:23→21:32)
[2021-06-21 06:00] LABS: Absolute Lymphocytes (CBC) 0.9 K/uL (0.7-4.9); Hematocrit 31.2 % (39.6-49.0); Lymphocytes % 12.8 % (15.3-44.8); MPV 6.4 fL (7.6-11.3); RBC Red Blood Cell Count 3.54 M/uL (4.33-5.43)
[2021-06-21 06:22] LABS: Albumin 2.4 g/dL (3.4-5.0); Bilirubin Total 0.5 mg/dL (0.2-1.0); Potassium 3.8 mmol/L (3.5-5.1); Protein, Total 5.8 g/dL (6.4-8.2)
[2021-06-21] MEDS: SERTRALINE HCL 50 MG TAB PO SCH (09:14)
[2021-06-21] MEDS: FAMOTIDINE 20 MG TAB PO SCH (09:14)
[2021-06-21] MEDS: APIXABAN 5 MG TABLET PO SCH ×2 (09:14→21:32)
[2021-06-21] MEDS: FUROSEMIDE 40 MG TABLET PO SCH (09:14)
[2021-06-21] MEDS: ASPIRIN 81 MG CHEWABLE TABLET PO SCH (09:14)
[2021-06-21] MEDS: AMLODIPINE 5 MG TAB PO SCH (09:14)
[2021-06-21] MEDS: PYRIDOSTIGMINE 60 MG TABLET PO SCH ×3 (09:14→21:32)
[2021-06-21] MEDS: predniSONE 10 MG TAB PO SCH (09:15)
[2021-06-21] MEDS: MEMANTINE HCL 10 MG TABLET PO SCH ×2 (09:15→21:32)
--- NOTE | 2021-06-21 11:24 | P.PN ---
Subjective Date of Service: 06/21/21 Chief Complaint: Right foot pain Status post right first and second toe amputation for dry gangrene-day 2. Patient denies any complaint. He states his pain is better. Physical Examination - Vital Signs Temperature: 97 F Blood Pressure: 146/65 Pulse: 75 Respirations: 18 Pulse Ox (%): 97 - Physical Exam General: In no apparent distress, Oriented x2 Neck: JVD not distended Respiratory: Clear to auscultation bilaterally, Normal air movement Cardiovascular: Regular rate/rhythm, Normal S1 S2, Edema (Bilateral feet) Gastrointestinal: Soft and benign, Non-distended, No tenderness Musculoskeletal: No swelling Integumentary: Other (Bilateral venous stasis dermatitis) Neurological: Normal strength at 5/5 x4 extr Assessment And Plan - Plan Right lower extremity cellulitis Venous stasis dermatitis. Bilateral lower extremity venous Doppler negative for DVT in both legs. Continue vancomycin Wound care input appreciated. Local wound care. 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 General surgery-Dr. Bautista to follow. Cardiology input appreciated. Patient will need an angiogram and peripheral vascular intervention is needed. Hypertension Continue home regimen Recent DVT/PE Venous Doppler shows no DVT. DVT in the left lower extremity no longer identified. continue anticoagulation with Eliquis History of CAD prior cardiac cath with TIMI3 flow. Stable. History of myasthenia gravis Stable continue pyridostigmine and prednisone. Advance directivefull code.
--- NOTE | 2021-06-21 14:56 | P.PN ---
Subjective Date of Service: 06/21/21 Chief Complaint: Right foot pain Subjective: Improving Physical Examination - Vital Signs Temperature: 98.4 F Blood Pressure: 152/72 Pulse: 74 Respirations: 18 Pulse Ox (%): 93 - Physical Exam General: Alert, In no apparent distress, Cooperative Respiratory: Clear to auscultation bilaterally Cardiovascular: Regular rate/rhythm Integumentary: Other (soft, wound is closed, no ischemia) Assessment And Plan - Current Problems (Diagnosis) (1) Peripheral arterial disease Current Visit: Yes Status: Acute (2) Peripheral arterial occlusive disease Current Visit: Yes Status: Acute Plan: - await angiogram to see if patient can have improvement of arterial inflow to foot - continue current medical management Physician Review Additional Text: Right lower extremity cellulitismainly affecting the foods with erythema and open ulcers We will obtain arterial flow Doppler to assess flow to the right foot and digits Start empiric antibiotics with vancomycin Wound care for consult Elevate lower extremity to minimize edema As needed pain regimen Hypertensioncontrolled, resume home regimen Recent DVT/PEcontinue anticoagulation with Eliquis History of CADprior cardiac cath with TIMI3 flow, monitor for recurrence chest pain History of myasthenia graviscontinue pyridostigmine as well as prednisone, stable at this time Advance directivediscussed with patient daughter over the phone who is healthcare proxy, will leave as full code Dispositionpossible hospital stay for 1 to 2 days History of dementiacontinue patient regimen, as needed Geodon if agitation
[2021-06-21] MEDS ORDERED: HALOPERIDOL LACT 5 MG/ML INJ IV PRN (15:56)
[2021-06-21] MEDS: VANCOMYCIN 1.5 GM in NA CHLORIDE 0.9% 500 ML IVPB SCH (17:09)
[2021-06-21] MEDS: DONEPEZIL HCL 5 MG TAB PO SCH (21:32)
[2021-06-21] MEDS: QUETIAPINE 25 MG TAB PO SCH (21:32)
[2021-06-22 06:50] LABS: Albumin 2.3 g/dL (3.4-5.0); Bilirubin Total 0.5 mg/dL (0.2-1.0); Potassium 3.7 mmol/L (3.5-5.1); Protein, Total 5.7 g/dL (6.4-8.2)
[2021-06-22] MEDS: PYRIDOSTIGMINE 60 MG TABLET PO SCH ×3 (09:37→20:48)
[2021-06-22] MEDS: FAMOTIDINE 20 MG TAB PO SCH (09:37)
[2021-06-22] MEDS: MEMANTINE HCL 10 MG TABLET PO SCH ×2 (09:38→20:47)
[2021-06-22] MEDS: APIXABAN 5 MG TABLET PO SCH ×2 (09:38→20:48)
[2021-06-22] MEDS: predniSONE 10 MG TAB PO SCH (09:38)
[2021-06-22] MEDS: FUROSEMIDE 40 MG TABLET PO SCH (09:39)
[2021-06-22] MEDS: MORPHINE 4 MG/ML SYR IV PRN ×2 (09:39→20:48)
[2021-06-22] MEDS: ASPIRIN 81 MG CHEWABLE TABLET PO SCH (09:39)
[2021-06-22] MEDS: SERTRALINE HCL 50 MG TAB PO SCH (09:39)
[2021-06-22] MEDS: AMLODIPINE 5 MG TAB PO SCH (09:41)
--- NOTE | 2021-06-22 12:55 | P.PN ---
Subjective Date of Service: 06/22/21 Chief Complaint: Right foot pain Subjective: Improving (patient pain much improved. no new issues) Physical Examination - Vital Signs Temperature: 99.1 F Blood Pressure: 160/74 Pulse: 81 Respirations: 19 Pulse Ox (%): 92 - Physical Exam General: Alert, In no apparent distress, Cooperative Integumentary: Other (RIGHT foot wound is stable, YANCY negative pressure dressing in place, was non-functional due to leak) Assessment And Plan - Current Problems (Diagnosis) (1) Peripheral arterial disease Current Visit: Yes Status: Acute (2) Peripheral arterial occlusive disease Current Visit: Yes Status: Acute Plan: - await angiogram to see if patient can have improvement of arterial inflow to foot - continue current medical management - re-apply YANCY, leave in place for 6 more days Physician Review Additional Text: Right lower extremity cellulitismainly affecting the foods with erythema and open ulcers We will obtain arterial flow Doppler to assess flow to the right foot and digits Start empiric antibiotics with vancomycin Wound care for consult Elevate lower extremity to minimize edema As needed pain regimen Hypertensioncontrolled, resume home regimen Recent DVT/PEcontinue anticoagulation with Eliquis History of CADprior cardiac cath with TIMI3 flow, monitor for recurrence chest pain History of myasthenia graviscontinue pyridostigmine as well as prednisone, stable at this time Advance directivediscussed with patient daughter over the phone who is healthcare proxy, will leave as full code Dispositionpossible hospital stay for 1 to 2 days History of dementiacontinue patient regimen, as needed Geodon if agitation
--- NOTE | 2021-06-22 13:16 | P.PN ---
Subjective Date of Service: 06/22/21 Chief Complaint: Right foot pain Status post right first and second toe amputation for dry gangrene-day 3. Patient denies any complaint. He denies pain. Physical Examination - Vital Signs Temperature: 99.1 F Blood Pressure: 160/74 Pulse: 81 Respirations: 19 Pulse Ox (%): 92 - Physical Exam General: Alert, In no apparent distress Neck: JVD not distended Respiratory: Clear to auscultation bilaterally, Normal air movement Cardiovascular: No edema, Regular rate/rhythm, Normal S1 S2 Gastrointestinal: Soft and benign, Non-distended, No tenderness Musculoskeletal: Other (Right first and second toe amputation with wound VAC applied) Neurological: Other (No focal motor deficit) Assessment And Plan - Plan Right lower extremity cellulitis/right toes gangrene Venous stasis dermatitis. Bilateral lower extremity venous Doppler negative for DVT in both legs. Continue vancomycin Wound care input appreciated. Local wound care. 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 Wound VAC applied Pain management as needed. General surgery-Dr. Bautista to follow. Cardiology input appreciated. Patient will need an angiogram and peripheral vascular intervention is needed. Hypertension Continue home regimen Recent DVT/PE Venous Doppler shows no DVT. DVT in the left lower extremity no longer identified. continue anticoagulation with Eliquis History of CAD prior cardiac cath with TIMI3 flow. Stable. History of myasthenia gravis Stable continue pyridostigmine and prednisone. Dementia with behavioral disturbance Continue Seroquel at bed. Haldol as needed for agitation.
[2021-06-22] MEDS: VANCOMYCIN 1.5 GM in NA CHLORIDE 0.9% 500 ML IVPB SCH (19:27)
[2021-06-22] MEDS: DONEPEZIL HCL 5 MG TAB PO SCH (20:50)
[2021-06-22] MEDS: QUETIAPINE 25 MG TAB PO SCH (20:53)
[2021-06-23] MEDS: MORPHINE 4 MG/ML SYR IV PRN ×2 (00:58→05:44)
[2021-06-23 06:05] LABS: Absolute Lymphocytes (CBC) 0.8 K/uL (0.7-4.9); Hematocrit 32.1 % (39.6-49.0); Lymphocytes % 10.2 % (15.3-44.8); MPV 6.4 fL (7.6-11.3); RBC Red Blood Cell Count 3.67 M/uL (4.33-5.43)
[2021-06-23 06:23] LABS: BUN Blood Urea Nitrogen 18 mg/dL (7-18); Bicarbonate 27 mmol/L (21-32); Glucose Level 79 mg/dL (74-106); Potassium 3.5 mmol/L (3.5-5.1); Sodium Level 141 mmol/L (136-145)
--- NOTE | 2021-06-23 08:13 | P.PN ---
Subjective Date of Service: 06/23/21 Chief Complaint: Right foot pain Subjective: No new changes Physical Examination - Vital Signs Temperature: 97.8 F Blood Pressure: 145/72 Pulse: 72 Respirations: 18 Pulse Ox (%): 94 - Physical Exam General: Alert, In no apparent distress, Cooperative Integumentary: Other (no changes to RIGHT foot, YANCY in place, functional) Assessment And Plan - Current Problems (Diagnosis) (1) Peripheral arterial disease Current Visit: Yes Status: Acute (2) Peripheral arterial occlusive disease Current Visit: Yes Status: Acute Plan: - await angiogram to see if patient can have improvement of arterial inflow to foot - continue current medical management - YANCY in place leave in place for 5 more days Physician Review Additional Text: Right lower extremity cellulitismainly affecting the foods with erythema and open ulcers We will obtain arterial flow Doppler to assess flow to the right foot and digits Start empiric antibiotics with vancomycin Wound care for consult Elevate lower extremity to minimize edema As needed pain regimen Hypertensioncontrolled, resume home regimen Recent DVT/PEcontinue anticoagulation with Eliquis History of CADprior cardiac cath with TIMI3 flow, monitor for recurrence chest pain History of myasthenia graviscontinue pyridostigmine as well as prednisone, stable at this time Advance directivediscussed with patient daughter over the phone who is [employer] re proxy, will leave as full code Dispositionpossible hospital stay for 1 to 2 days History of dementiacontinue patient regimen, as needed Geodon if agitation
[2021-06-23] MEDS: ASPIRIN 81 MG CHEWABLE TABLET PO SCH ×2 (08:44→13:08)
[2021-06-23] MEDS: APIXABAN 5 MG TABLET PO SCH ×2 (08:48→13:08)
[2021-06-23] MEDS: predniSONE 10 MG TAB PO SCH ×2 (08:48→13:08)
[2021-06-23] MEDS: FAMOTIDINE 20 MG TAB PO SCH ×2 (08:48→13:08)
[2021-06-23] MEDS: MEMANTINE HCL 10 MG TABLET PO SCH ×3 (08:48→20:25)
[2021-06-23] MEDS: PYRIDOSTIGMINE 60 MG TABLET PO SCH ×3 (08:48→20:25)
[2021-06-23] MEDS: SERTRALINE HCL 50 MG TAB PO SCH ×2 (08:48→13:09)
[2021-06-23] MEDS: AMLODIPINE 5 MG TAB PO SCH ×2 (08:48→13:09)
[2021-06-23] MEDS: FUROSEMIDE 40 MG TABLET PO SCH ×2 (08:48→13:09)
--- NOTE | 2021-06-23 12:03 | P.PN ---
Subjective Date of Service: 06/23/21 Chief Complaint: Right foot pain Patient seen and examined at bedside, per nursing staff patient did not eat well over the weekend. Caregiver who was at bedside stated that the nursing staff gave her the same report however the patient was eating fine for her this morning. Review of Systems 10-point ROS is otherwise unremarkable Physical Examination - Vital Signs Temperature: 97.8 F Blood Pressure: 145/72 Pulse: 72 Respirations: 18 Pulse Ox (%): 94 - Studies Laboratory Last Values WBC 12.50 K/uL (4.3-10.9) H 06/18/21 16:20 RBC 4.14 M/uL (4.33-5.43) L 06/18/21 16:20 Hgb 11.8 g/dL (13.6-17.9) L 06/18/21 16:20 Hct 36.6 % (39.6-49.0) L 06/18/21 16:20 MCV 88.3 fL (80-100) 06/18/21 16:20 MCH 28.5 pg (27.0-35.0) 06/18/21 16:20 MCHC 32.3 g/dL (32.0-36.0) 06/18/21 16:20 RDW 15.2 % (12.1-15.2) 06/18/21 16:20 Plt Count 366 K/uL (152-406) 06/18/21 16:20 MPV 6.7 fL (7.6-11.3) L 06/18/21 16:20 Neutrophils % 94.4 % (41.7-73.7) H 06/18/21 16:20 Lymphocytes % 1.9 % (15.3-44.8) L 06/18/21 16:20 Monocytes % 3.5 % (3.3-12.3) 06/18/21 16:20 Eosinophils % 0.0 % (0-4.4) 06/18/21 16:20 Basophils % 0.2 % (0-1.3) 06/18/21 16:20 Absolute Neutrophils 11.8 K/uL (1.8-8.0) H 06/18/21 16:20 Absolute Lymphocytes 0.2 K/uL (0.7-4.9) L 06/18/21 16:20 Absolute Monocytes 0.4 K/uL (0.1-1.3) 06/18/21 16:20 Absolute Eosinophils 0.0 K/uL (0-0.5) 06/18/21 16:20 Absolute Basophils 0.0 K/uL (0-0.5) 06/18/21 16:20 Platelet Estimate Adeq 06/18/21 16:20 Morphology Comment Not seen (NOT SEEN) 06/18/21 16:20 PT 18.2 SECONDS (9.5-12.5) H 06/18/21 16:20 INR 1.58 06/18/21 16:20 Sodium 135 mmol/L (136-145) L 06/18/21 16:20 Potassium 3.7 mmol/L (3.5-5.1) 06/18/21 16:20 Chloride 103 mmol/L (98-107) 06/18/21 16:20 Carbon Dioxide 26 mmol/L (21-32) 06/18/21 16:20 BUN 16 mg/dL (7-18) 06/18/21 16:20 Creatinine 1.33 mg/dL (0.55-1.3) H 06/18/21 16:20 Estimated GFR 52 mL/min (=/>90) L 06/18/21 16:20 Glucose 113 mg/dL (74-106) H 06/18/21 16:20 Lactic Acid 1.7 mmol/L (0.4-2.0) 06/18/21 16:20 Calcium 8.8 mg/dL (8.5-10.1) 06/18/21 16:20 Magnesium 2.1 06/18/21 16:20 Total Bilirubin 0.4 mg/dL (0.2-1.0) 06/18/21 16:20 Direct Bilirubin 0.1 mg/dL (0-0.2) 06/18/21 16:20 AST 23 U/L (15-37) 06/18/21 16:20 ALT 21 U/L (12-78) 06/18/21 16:20 Alkaline Phosphatase 83 U/L (45-117) 06/18/21 16:20 Troponin I High Sens 116.30 pg/mL (<58.9) H* 06/18/21 16:20 NT-Pro-B Natriuret Pep 811 pg/mL (<450) H 06/18/21 16:20 Serum Total Protein 7.2 g/dL (6.4-8.2) 06/18/21 16:20 Albumin 3.1 g/dL (3.4-5.0) L 06/18/21 16:20 Globulin 4.1 g/dL (2.3-3.5) H 06/18/21 16:20 Albumin/Globulin Ratio 0.8 (1.1-1.8) L 06/18/21 16:20 SARS-CoV-2 Rap RNA(RT-PCR) Negative (NEGATIVE) 06/18/21 16:30 Smear Scan Ok (OK) 06/18/21 16:20 Assessment And Plan - Plan Physical Exam: General: no acute distress HEENT: Atraumatic, Normocephalic Neck: Supple, 2+ carotid pulse no bruit Respiratory: Clear to auscultation bilaterally, Normal air movement Cardiovascular: Normal pulses, Regular rate/rhythm Capillary refill: <2 Seconds Gastrointestinal: Normal bowel sounds, Soft and benign Musculoskeletal: No clubbing, No swelling Integumentary: Other (Right lower extremity swelling/erythema. Dry scaling skin noted to right anterior bhakta. Status post amputation/. Wound VAC to incision. Conclusions/Impression: Antibiotics Vancomycin: 06/19current Levaquin: Assessment/plan Right lower extremity cellulitis with wounds to right great hallux and second toe status post amputation performed on 06/20 Status post amputation performed on 06/20. Patient tolerated surgery well, clean margins obtained with viable tissue. Wound culture wound culture obtained during surgery growing staph aureus sensitive to vancomycin. Continue wound care per surgical team, keep leg elevated. Continue IV vancomycin. Can de- escalate to cephalexin based on clinical progression. Vancomycin trough goal of 10-15. Vancomycin trough obtained on 06/22 within therapeutic range at 15.1. Arterial Doppler showed mild to moderate stenosis. Venous Doppler with no evidence of DVT -Medical management per primary team Plan of care discussed with Dr. Gardner Thank you for consultation
[2021-06-23] MEDS: ACETAMINOPHEN 500 MG TAB PO PRN ×2 (13:08→17:14)
--- NOTE | 2021-06-23 15:01 | P.PN ---
Subjective Date of Service: 06/23/21 Chief Complaint: Right foot pain Status post right first and second toe amputation for dry gangrene-day 4. Patient denies any complaint. He denies pain. No agitation last night. Physical Examination - Vital Signs Temperature: 97.8 F Blood Pressure: 145/72 Pulse: 72 Respirations: 18 Pulse Ox (%): 94 - Physical Exam General: In no apparent distress, Oriented x3 HEENT: Mucous membr. moist/pink Neck: JVD not distended Respiratory: Clear to auscultation bilaterally, Normal air movement Cardiovascular: Regular rate/rhythm, Normal S1 S2 Gastrointestinal: Soft and benign, Non-distended, No tenderness Musculoskeletal: No swelling Integumentary: Erythema (Mild erythema on dorsum of right foot.) Neurological: Normal speech, Normal strength at 5/5 x4 extr Assessment And Plan - Plan Right lower extremity cellulitis/right toes gangrene Venous stasis dermatitis. Bilateral lower extremity venous Doppler negative for DVT in both legs. 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 Wound VAC applied Continue vancomycin for the next couple of days and scaled down to oral Keflex. Local wound care. Pain management as needed. General surgery-Dr. Bautista to follow. Cardiology input appreciated. Dr. Verma is planning angiogram for tomorrow Hypertension Continue home regimen Recent DVT/PE Venous Doppler shows no DVT. DVT in the left lower extremity no longer identified. Hold Eliquis for angiogram tomorrow. History of CAD prior cardiac cath with TIMI3 flow. Stable. History of myasthenia gravis Stable continue pyridostigmine and prednisone. Dementia with behavioral disturbance Continue Seroquel at bed. Haldol as needed for agitation.
[2021-06-23] MEDS: VANCOMYCIN 1.5 GM in NA CHLORIDE 0.9% 500 ML IVPB SCH (17:14)
[2021-06-23] MEDS: QUETIAPINE 25 MG TAB PO SCH (20:25)
[2021-06-23] MEDS: DONEPEZIL HCL 5 MG TAB PO SCH (20:25)
[2021-06-24 05:45] LABS: Absolute Lymphocytes (CBC) 0.6 K/uL (0.7-4.9); Hematocrit 29.3 % (39.6-49.0); Lymphocytes % 7.2 % (15.3-44.8); MPV 6.2 fL (7.6-11.3); RBC Red Blood Cell Count 3.38 M/uL (4.33-5.43)
[2021-06-24 05:56] LABS: BUN Blood Urea Nitrogen 16 mg/dL (7-18); Bicarbonate 29 mmol/L (21-32); Glucose Level 99 mg/dL (74-106); Potassium 3.5 mmol/L (3.5-5.1); Sodium Level 140 mmol/L (136-145)
[2021-06-24 07:55] LABS: Blood Morphology Comment NOT SEEN (NOT SEEN); Platelet Estimate ADEQ
[2021-06-24] MEDS: SERTRALINE HCL 50 MG TAB PO SCH (09:00)
[2021-06-24] MEDS: ASPIRIN 81 MG CHEWABLE TABLET PO SCH (09:00)
[2021-06-24] MEDS: FAMOTIDINE 20 MG TAB PO SCH (09:00)
[2021-06-24] MEDS: PYRIDOSTIGMINE 60 MG TABLET PO SCH ×3 (09:00→20:58)
[2021-06-24] MEDS: MEMANTINE HCL 10 MG TABLET PO SCH ×2 (09:00→20:58)
[2021-06-24] MEDS: FUROSEMIDE 40 MG TABLET PO SCH (09:00)
[2021-06-24] MEDS: predniSONE 10 MG TAB PO SCH (09:00)
[2021-06-24] MEDS: AMLODIPINE 5 MG TAB PO SCH (09:00)
--- NOTE | 2021-06-24 11:28 | P.PN ---
Subjective Date of Service: 06/24/21 Chief Complaint: Right foot pain Patient seen and examined at bedside, still having significant pain to right lower extremity. Review of Systems 10-point ROS is otherwise unremarkable Physical Examination - Vital Signs Temperature: 98.7 F Blood Pressure: 133/55 Pulse: 61 Respirations: 18 Pulse Ox (%): 96 - Studies Microbiology Data (last 24 hrs): 06/18/21 16:20 Blood - Blood Aerobic Blood Culture - Final No growth in 5 days. 06/18/21 16:20 Blood - Blood Anaerobic Blood Culture - Final No growth in 5 days. Assessment And Plan - Plan Physical Exam: General: no acute distress HEENT: Atraumatic, Normocephalic Neck: Supple, 2+ carotid pulse no bruit Respiratory: Clear to auscultation bilaterally, Normal air movement Cardiovascular: Normal pulses, Regular rate/rhythm Capillary refill: <2 Seconds Gastrointestinal: Normal bowel sounds, Soft and benign Musculoskeletal: No clubbing, No swelling Integumentary: Other (Right lower extremity swelling/erythema. Dry scaling skin noted to right anterior bhakta. Status post amputation/. Wound VAC to incision. Conclusions/Impression: Antibiotics Vancomycin: 06/19current Levaquin: Assessment/plan Right lower extremity cellulitis with wounds to right great hallux and second toe status post amputation performed on 06/20 Status post amputation performed on 06/20. Patient tolerated surgery well, clean margins obtained with viable tissue. Wound culture wound culture obtained during surgery growing staph aureus sensitive to vancomycin. Continue wound care per surgical team, keep leg elevated. Continue IV vancomycin. Can de- escalate to cephalexin based on clinical progression. Vancomycin trough goal of 10-15. Vancomycin trough obtained on 06/22 within therapeutic range at 15.1. Arterial Doppler showed mild to moderate stenosis. Venous Doppler with no evidence of DVT. Patient still has some erythema/dry scaling to right anterior lower extremity-however has improved. Could be chronic venous stasis skin color changes. -Medical management per primary team Plan of care discussed with Dr. Gardner Thank you for consultation
[2021-06-24 13:16] VITALS: O2SAT 96
--- NOTE | 2021-06-24 15:01 | P.PN ---
Subjective Date of Service: 06/24/21 Chief Complaint: Right foot pain Status post right first and second toe amputation for dry gangrene-day 5. Patient denies any complaint. He denies pain. Been able to bear weight on foot with amputated toes. Wound VAC is in place. Physical Examination - Vital Signs Temperature: 98.1 F Blood Pressure: 120/56 Pulse: 61 Respirations: 18 Pulse Ox (%): 96 - Physical Exam General: In no apparent distress HEENT: Mucous membr. moist/pink Respiratory: Clear to auscultation bilaterally, Normal air movement Cardiovascular: No edema, Normal S1 S2 Gastrointestinal: Normal bowel sounds, Soft and benign, Non-distended Musculoskeletal: Other (Right first and second toe amputation.) Neurological: Other (No focal motor deficit) - Studies Microbiology Data (last 24 hrs): 06/18/21 16:20 Blood - Blood Aerobic Blood Culture - Final No growth in 5 days. 06/18/21 16:20 Blood - Blood Anaerobic Blood Culture - Final No growth in 5 days. Assessment And Plan - Plan Right lower extremity cellulitis/right toes gangrene Bilateral lower extremity venous Doppler negative for DVT in both legs. 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 Wound VAC applied Antibiotics switched to oral Bactrim. Continue local wound care. Pain management as needed. General surgery-Dr. Bautista to follow. Cardiology-Dr. Montes recommending angiogram as an outpatient Hypertension Continue home regimen Recent DVT/PE Venous Doppler shows no DVT. DVT in the left lower extremity no longer identified. Continue Eliquis. History of CAD prior cardiac cath with TIMI3 flow. Stable. History of myasthenia gravis Stable continue pyridostigmine and prednisone. Dementia with behavioral disturbance Continue Seroquel at bed. Haldol as needed for agitation. Patient unable to bear weight on the foot with amputated toes. Family agrees patient at the moment is not a good candidate for rehab. Will order wheelchair for home, home health for therapy and wound care.
[2021-06-24] MEDS: MORPHINE 4 MG/ML SYR IV PRN (18:56)
[2021-06-24] MEDS: APIXABAN 5 MG TABLET PO SCH (20:56)
[2021-06-24] MEDS: SMZ./TMP. 800/160 MG TABLET PO SCH (20:56)
[2021-06-24] MEDS: DONEPEZIL HCL 5 MG TAB PO SCH (20:56)
[2021-06-24] MEDS: QUETIAPINE 25 MG TAB PO SCH (20:58)
--- NOTE | 2021-06-25 08:03 | P.PN ---
Subjective Date of Service: 06/24/21 Chief Complaint: Right foot pain Subjective: Improving (no new issues) Physical Examination - Vital Signs Temperature: 98.7 F Blood Pressure: 154/70 Pulse: 67 Respirations: 16 Pulse Ox (%): 93 - Physical Exam General: Alert, In no apparent distress, Cooperative Respiratory: Clear to auscultation bilaterally Integumentary: Other (RIGHT foot YANCY in place) Assessment And Plan - Current Problems (Diagnosis) (1) Peripheral arterial disease Current Visit: Yes Status: Acute (2) Peripheral arterial occlusive disease Current Visit: Yes Status: Acute Plan: - await angiogram to see if patient can have improvement of arterial inflow to foot - continue current medical management - YANCY in place leave in place for 4 more days
--- NOTE | 2021-06-25 08:03 | P.PN ---
Subjective Date of Service: 06/25/21 Chief Complaint: Right foot pain Subjective: Improving Physical Examination - Vital Signs Temperature: 98.7 F Blood Pressure: 154/70 Pulse: 67 Respirations: 16 Pulse Ox (%): 93 - Physical Exam General: Alert, In no apparent distress, Cooperative Integumentary: Other (YANCY in place on RIGHT foot) Assessment And Plan - Current Problems (Diagnosis) (1) Peripheral arterial disease Current Visit: Yes Status: Acute (2) Peripheral arterial occlusive disease Current Visit: Yes Status: Acute Plan: - await angiogram to see if patient can have improvement of arterial inflow to foot - continue current medical management - YANCY in place leave in place for 3 more days
[2021-06-25] MEDS: predniSONE 10 MG TAB PO SCH (09:00)
[2021-06-25] MEDS: ASPIRIN 81 MG CHEWABLE TABLET PO SCH ×2 (09:00→09:17)
[2021-06-25] MEDS: APIXABAN 5 MG TABLET PO SCH ×2 (09:00→09:18)
[2021-06-25] MEDS: PYRIDOSTIGMINE 60 MG TABLET PO SCH (09:16)
[2021-06-25] MEDS: AMLODIPINE 5 MG TAB PO SCH (09:17)
[2021-06-25] MEDS: FAMOTIDINE 20 MG TAB PO SCH (09:17)
[2021-06-25] MEDS: FUROSEMIDE 40 MG TABLET PO SCH (09:18)
[2021-06-25] MEDS: SMZ./TMP. 800/160 MG TABLET PO SCH (09:18)
[2021-06-25] MEDS: SERTRALINE HCL 50 MG TAB PO SCH (09:18)
[2021-06-25] MEDS: MORPHINE 4 MG/ML SYR IV PRN (09:19)
[2021-06-25] MEDS: MEMANTINE HCL 10 MG TABLET PO SCH (09:25)
--- NOTE | 2021-06-25 10:54 | P.DS ---
Admission Date: 06/18/21 Discharge Date: 06/25/21 Disposition: ROUTINE DISCHARGE Discharge Condition: FAIR Reason for Admission: Right foot pain - Problems (1) Cellulitis of right foot Current Visit: Yes Status: Acute (2) Dementia with behavioral disturbance Current Visit: No Status: Chronic Qualifiers: (3) Myasthenia gravis Current Visit: No Status: Chronic Brief History of Present Illness: 80-year-old male with past medical history of hypertension, myasthenia gravis, Alzheimer's dementia with a live-in caregiver currently residing with his son after a recent hospital stay where patient was diagnosed with right lower extremity DVT/PE and started on Eliquis 2 months ago. He has been compliant with his medication. But noted to have worsening pain and new ulcers over the right foods since hospitalization. He was seen by his primary care physician today and sent to the emergency room. Caregiver reports pain has been worsening and limiting patient ambulation to mainly bedrest. New ulcers appears to be increasing in size and number as well as noticed redness over the foot. Patient is a poor historian unable to give more history. Ultrasound of the lower extremity shows no evidence of DVT(resolved previous thrombus noted during hospitalization 2 months ago). He has been admitted for worsening right lower extremity cellulitis Hospital Course: Brief Hospital course Patient was admitted for foot cellulitis with gangrene of the right first and second toe. He was evaluated by cardiology as well as general surgery. Patient was initially scheduled for angiogram for later decided to follow-up as outpatient. Patient has been started on wound care with wound VAC. Case management help with obtaining wheelchair as well as wound VAC at home has been obtained. Patient will be discharged today to follow-up with Dr. Clark Bautista as outpatient. Right lower extremity cellulitis/right toes gangrene Bilateral lower extremity venous Doppler negative for DVT in both legs. 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 Wound VAC a pplied Antibiotics switched to oral Bactrim. Continue local wound care. Pain management as needed. General surgery-Dr. Bautista to follow. Cardiology-Dr. Montes recommending angiogram as an outpatient Hypertension Continue home regimen Recent DVT/PE Venous Doppler shows no DVT. DVT in the left lower extremity no longer identified. Continue Eliquis. History of CAD prior cardiac cath with TIMI3 flow. Stable. History of myasthenia gravis Stable continue pyridostigmine and prednisone. Dementia with behavioral disturbance Continue Seroquel at bed. Will order wheelchair for home, home health for therapy and wound care. Physical exam General: In no apparent distress HEENT: Mucous membr. moist/pink Respiratory: Clear to auscultation bilaterally, Normal air movement Cardiovascular: No edema, Normal S1 S2 Gastrointestinal: Normal bowel sounds, Soft and benign, Non-distended Musculoskeletal: Other (Right first and second toe amputation.) Neurological: Other (No focal motor deficit) - Studies Microbiology Data (last 24 hrs): 06/18/21 16:20 Blood - Blood Aerobic Blood Culture - Final No growth in 5 days. 06/18/21 16:20 Blood - Blood Anaerobic Blood Culture - Final No growth in 5 days. Vital Signs/Physical Exam: Temp Pulse Resp BP Pulse Ox 98.7 F 69 16 151/65 H 93 06/25/21 08:03 06/25/21 09:18 06/25/21 09:49 06/25/21 09:18 06/25/21 09:49 Laboratory Data at Discharge: WBC 8.10 K/uL (4.3-10.9) 06/24/21 05:22 Hgb 9.8 g/dL (13.6-17.9) L 06/24/21 05:22 Hct 29.3 % (39.6-49.0) L 06/24/21 05:22 Plt Count 329 K/uL (152-406) 06/24/21 05:22 PT 18.2 SECONDS (9.5-12.5) H 06/18/21 16:20 INR 1.58 06/18/21 16:20 Sodium 140 mmol/L (136-145) 06/24/21 05:22 Potassium 3.5 mmol/L (3.5-5.1) 06/24/21 05:22 BUN 16 mg/dL (7-18) 06/24/21 05:22 Creatinine 0.67 mg/dL (0.55-1.3) 06/24/21 05:22 Glucose 99 mg/dL (74-106) 06/24/21 05:22 Magnesium 2.1 06/18/21 16:20 Total Bilirubin 0.5 mg/dL (0.2-1.0) 06/22/21 06:05 AST 19 U/L (15-37) 06/22/21 06:05 ALT 14 U/L (12-78) 06/22/21 06:05 Alkaline Phosphatase 59 U/L (45-117) 06/22/21 06:05 Home Medications: Pyridostigmine [place] [Mestinon*] 60 mg PO TID 02/04/18 predniSONE [Prednisone*] 10 mg PO DAILY 02/04/18 Aspirin 81 mg PO DAILY 04/10/21 Cholecalciferol (Vitamin D3) [Vitamin D3] 125 mcg PO BEDTIME 04/10/21 Donepezil HCl 10 mg PO BEDTIME 04/10/21 Memantine HCl [Namenda*] 10 mg PO BID 04/10/21 Apixaban [Eliquis] 5 mg PO BID #74 tab.ds.pk 04/11/21 Amlodipine [Norvasc*] 5 mg PO DAILY 04/22/21 Furosemide [Lasix] 40 mg PO DAILY #60 tablet 04/22/21 Quetiapine [Seroquel*] 50 mg PO BEDTIME #60 tab 04/22/21 Sertraline [Zoloft*] 50 mg PO DAILY 04/22/21 Followup: Prabhakar Mcneal MD [Primary Care Provider] - Clark Bautista MD [ACTIVE - CAN ADMIT] - 2-3 Days Time spent managing pt's care (in minutes): 35
--- NOTE | 2021-06-25 11:29 | P.PN ---
Subjective Date of Service: 06/25/21 Chief Complaint: Right foot pain Patient seen and examined at bedside, plan for DC today. Review of Systems 10-point ROS is otherwise unremarkable Physical Examination - Vital Signs Temperature: 98.7 F Blood Pressure: 151/65 Pulse: 69 Respirations: 16 Pulse Ox (%): 93 - Studies Laboratory Last Values WBC 12.50 K/uL (4.3-10.9) H 06/18/21 16:20 RBC 4.14 M/uL (4.33-5.43) L 06/18/21 16:20 Hgb 11.8 g/dL (13.6-17.9) L 06/18/21 16:20 Hct 36.6 % (39.6-49.0) L 06/18/21 16:20 MCV 88.3 fL (80-100) 06/18/21 16:20 MCH 28.5 pg (27.0-35.0) 06/18/21 16:20 MCHC 32.3 g/dL (32.0-36.0) 06/18/21 16:20 RDW 15.2 % (12.1-15.2) 06/18/21 16:20 Plt Count 366 K/uL (152-406) 06/18/21 16:20 MPV 6.7 fL (7.6-11.3) L 06/18/21 16:20 Neutrophils % 94.4 % (41.7-73.7) H 06/18/21 16:20 Lymphocytes % 1.9 % (15.3-44.8) L 06/18/21 16:20 Monocytes % 3.5 % (3.3-12.3) 06/18/21 16:20 Eosinophils % 0.0 % (0-4.4) 06/18/21 16:20 Basophils % 0.2 % (0-1.3) 06/18/21 16:20 Absolute Neutrophils 11.8 K/uL (1.8-8.0) H 06/18/21 16:20 Absolute Lymphocytes 0.2 K/uL (0.7-4.9) L 06/18/21 16:20 Absolute Monocytes 0.4 K/uL (0.1-1.3) 06/18/21 16:20 Absolute Eosinophils 0.0 K/uL (0-0.5) 06/18/21 16:20 Absolute Basophils 0.0 K/uL (0-0.5) 06/18/21 16:20 Platelet Estimate Adeq 06/18/21 16:20 Morphology Comment Not seen (NOT SEEN) 06/18/21 16:20 PT 18.2 SECONDS (9.5-12.5) H 06/18/21 16:20 INR 1.58 06/18/21 16:20 Sodium 135 mmol/L (136-145) L 06/18/21 16:20 Potassium 3.7 mmol/L (3.5-5.1) 06/18/21 16:20 Chloride 103 mmol/L (98-107) 06/18/21 16:20 Carbon Dioxide 26 mmol/L (21-32) 06/18/21 16:20 BUN 16 mg/dL (7-18) 06/18/21 16:20 Creatinine 1.33 mg/dL (0.55-1.3) H 06/18/21 16:20 Estimated GFR 52 mL/min (=/>90) L 06/18/21 16:20 Glucose 113 mg/dL (74-106) H 06/18/21 16:20 Lactic Acid 1.7 mmol/L (0.4-2.0) 06/18/21 16:20 Calcium 8.8 mg/dL (8.5-10.1) 06/18/21 16:20 Magnesium 2.1 06/18/21 16:20 Total Bilirubin 0.4 mg/dL (0.2-1.0) 06/18/21 16:20 Direct Bilirubin 0.1 mg/dL (0-0.2) 06/18/21 16:20 AST 23 U/L (15-37) 06/18/21 16:20 ALT 21 U/L (12-78) 06/18/21 16:20 Alkaline Phosphatase 83 U/L (45-117) 06/18/21 16:20 Troponin I High Sens 116.30 pg/mL (<58.9) H* 06/18/21 16:20 NT-Pro-B Natriuret Pep 811 pg/mL (<450) H 06/18/21 16:20 Serum Total Protein 7.2 g/dL (6.4-8.2) 06/18/21 16:20 Albumin 3.1 g/dL (3.4-5.0) L 06/18/21 16:20 Globulin 4.1 g/dL (2.3-3.5) H 06/18/21 16:20 Albumin/Globulin Ratio 0.8 (1.1-1.8) L 06/18/21 16:20 SARS-CoV-2 Rap RNA(RT-PCR) Negative (NEGATIVE) 06/18/21 16:30 Smear Scan Ok (OK) 06/18/21 16:20 Assessment And Plan - Plan Physical Exam: General: no acute distress HEENT: Atraumatic, Normocephalic Neck: Supple, 2+ carotid pulse no bruit Respiratory: Clear to auscultation bilaterally, Normal air movement Cardiovascular: Normal pulses, Regular rate/rhythm Capillary refill: <2 Seconds Gastrointestinal: Normal bowel sounds, Soft and benign Musculoskeletal: No clubbing, No swelling Integumentary: Other (Right lower extremity swelling/erythema. Dry scaling skin noted to right anterior bhakta. Status post amputation/. Wound VAC to incision. Conclusions/Impression: Antibiotics bactrim: 06/24-current Vancomycin: Levaquin: Assessment/plan Right lower extremity cellulitis with wounds to right great hallux and second toe status post amputation performed on 06/20 Status post amputation performed on 06/20. Patient tolerated surgery well, clean margins obtained with viable tissue. Wound culture wound culture obtained during surgery growing staph aureus sensitive to vancomycin. Continue wound care per surgical team, keep leg elevated. IV vancomycin discontinued and oral Bactrim started by IM team. Recommend continuing this for 5 to 7 days. Patient will follow up with surgeon in clinic. Arterial Doppler showed mild to moderate stenosis. Venous Doppler with no evidence of DVT. Patient still has some erythema/dry scaling to right anterior lower extremity-however has improved. Could be chronic venous stasis skin color changes. -Medical management per primary team Plan of care discussed with Dr. Gardner Thank you for consultation
[2021-06-25 12:42] VITALS: BP 147/70; TEMP 97.2
[2021-06-25] MEDS ORDERED: HYDROCODONE/APAP 10/325 TAB PO ONE (14:24)
[2021-06-25] MEDS ORDERED: ENSURE ENLIVE 237 ML CAN PO SCH (21:00)
== END 2021-06-25 15:11 | disposition home health service (06) | DRG 580 ==
LOC: ER 13:20 → ERHOLD 16:31 → 2ND 21:20
PROVIDERS: ADMIT Internal Medicine; ATTEND Internal Medicine
PROC: 0Y6R0Z0 Detachment at Right 2nd Toe, Complete, Open Approach (ICD-10-PCS; 2021-06-20)
PROC: 0Y6P0Z0 Detachment at Right 1st Toe, Complete, Open Approach (ICD-10-PCS; principal; 2021-06-20 12:00)
DX: L03.115 Cellulitis of right lower limb (principal); F03.91 Unspecified dementia, unspecified severity, with behavioral disturbance; I96 Gangrene, not elsewhere classified; L03.031 Cellulitis of right toe; D64.9 Anemia, unspecified; I87.8 Other specified disorders of veins; I77.9 Disorder of arteries and arterioles, unspecified; D72.829 Elevated white blood cell count, unspecified; I25.10 Atherosclerotic heart disease of native coronary artery without angina pectoris; G70.00 Myasthenia gravis without (acute) exacerbation; I10 Essential (primary) hypertension; L97.519 Non-pressure chronic ulcer of other part of right foot with unspecified severity; B95.61 Methicillin susceptible Staphylococcus aureus infection as the cause of diseases classified elsewhere; Z79.82 Long term (current) use of aspirin; Z79.01 Long term (current) use of anticoagulants; Z79.52 Long term (current) use of systemic steroids; Z79.899 Other long term (current) drug therapy; Z87.891 Personal history of nicotine dependence; Z86.718 Personal history of other venous thrombosis and embolism; Z86.711 Personal history of pulmonary embolism; Z20.822 Contact with and (suspected) exposure to COVID-19
CPT/HCPCS: 36415; 71045; 80048; 80053; 80076; 80202; 81003; 83605; 83735; 83880; 84484; 85025; 85610; 87040; 87070; 87075; 87077; 87186; 87205; 88305; 88311; 93925; 93970; 96365; 96366; 96375; 97161; 99251; 99285; J0360; J2270; J2405; J2543; J2704; J3010; J3370; J3486; J7030; J7040; J7050; J7120; J7512; U0003

== ENCOUNTER 2021-07-17 08:00 | Inpatient (IN) | payer OTHER ==
[2021-07-16 16:17] LABS: Absolute Lymphocytes (CBC) 0.2 K/uL (0.7-4.9); Hematocrit 24.5 % (39.6-49.0); Lymphocytes % 2.6 % (15.3-44.8); MPV 6.3 fL (7.6-11.3); RBC Red Blood Cell Count 3.07 M/uL (4.33-5.43)
[2021-07-16 16:23] LABS: Potassium 3.2 mmol/L (3.5-5.1)
[2021-07-16 21:36] LABS: Blood Morphology Comment NOT SEEN (NOT SEEN); Platelet Estimate INCR; White Blood Cell Scan OK (OK)
[2021-07-17] MEDS ORDERED: CEFAZOLIN SODIUM 1 GM/VIAL ONE (08:38)
[2021-07-17] MEDS ORDERED: Ringers Lactate 1,000 ML IV ONE (08:38)
[2021-07-17] MEDS ORDERED: CELECOXIB 100 MG CAPSULE ONE (08:42)
[2021-07-17] MEDS ORDERED: ACETAMINOPHEN 500 MG TAB ONE (08:43)
[2021-07-17] MEDS ORDERED: FENTANYL CITR 100 MCG/2 ML ONE ×2 (08:50→08:53)
[2021-07-17] MEDS ORDERED: ETOMIDATE 20 MG/10 ML VIAL IV ONE (08:50)
[2021-07-17] MEDS ORDERED: MIDAZOLAM HCL 2 MG/2 ML INJ ONE ×2 (08:50→08:53)
[2021-07-17] MEDS ORDERED: LIDOCAINE 1% MPF 5 ML VIAL ONE (08:53)
[2021-07-17] MEDS ORDERED: dexAMETHasone 10 MG/ML VIAL ONE (08:53)
[2021-07-17] MEDS ORDERED: BUPIVACAINE 0.5% PF 10 ML VIAL ONE (08:54)
[2021-07-17] MEDS ORDERED: PYRIDOSTIGMINE 60 MG TABLET PO ONE (09:00)
[2021-07-17] MEDS ORDERED: GLYCOPYRROLATE 0.2 MG/ML SYR ONE (11:17)
[2021-07-17] MEDS ORDERED: EPHEDRINE SULF 50 MG/ML VIAL ONE (11:18)
[2021-07-17] MEDS ORDERED: BUPIVACAINE 0.25% PF 10 ML VIAL ONE (12:04)
--- NOTE | 2021-07-17 13:34 | P.OP ---
Preoperative diagnosis: RIGHT lower extremity peripheral arterial disease with gangrene Postoperative diagnosis: RIGHT lower extremity peripheral arterial disease with gangrene Primary procedure: Open Below the knee amputation Anesthesia: Mac + Local Estimated blood loss: <50cc Specimen: RIGHT lower extremity Findings: peripheral arterial disease - severe Complications: None Transferred to: Recovery Room Condition: Good
[2021-07-17] MEDS: D5.45NS W/KCL 20MEQ 1,000 ML IV SCH (14:47)
[2021-07-17 15:04] VITALS: BMI 20.3
[2021-07-17] MEDS: INSULIN -REGULAR HUMAN 50 UNIT/0.5 ML ML SQ SCH ×2 (16:27→20:21)
[2021-07-17] MEDS: HYDROMORPHONE HCL 1 MG/ML INJ IV PRN (18:09)
[2021-07-17] MEDS: HYDROCODONE/APAP 7.5/325 MG TAB PO PRN (20:20)
[2021-07-18 03:34] LABS: Absolute Lymphocytes (CBC) 0.3 K/uL (0.7-4.9); Lymphocytes % 2.4 % (15.3-44.8); MPV 6.4 fL (7.6-11.3); RBC Red Blood Cell Count 2.35 M/uL (4.33-5.43)
[2021-07-18 03:52] LABS: Hematocrit 19.2 % (39.6-49.0)
[2021-07-18 03:57] LABS: Magnesium 1.9 mg/dL (1.8-2.4); Phosphorus 2.4 mg/dL (2.5-4.9); Potassium 3.9 mmol/L (3.5-5.1)
[2021-07-18] MEDS ORDERED: CALCIUM CARBONATE CHEW 500MG TAB PO PRN (06:11)
[2021-07-18] MEDS: D5.45NS W/KCL 20MEQ 1,000 ML IV SCH ×2 (06:25→20:23)
[2021-07-18] MEDS ORDERED: NA CHLORIDE 0.9% 250 ML ONE ×2 (06:54→16:12)
[2021-07-18] MEDS: INSULIN -REGULAR HUMAN 50 UNIT/0.5 ML ML SQ SCH ×4 (07:30→20:19)
[2021-07-18] MEDS ORDERED: POTASSIUM CL SA 10 MEQ TAB PO ONE (07:53)
[2021-07-18] MEDS ORDERED: POTASSIUM PHOS IN 0.9 % NACL 15 MMOL/250 ML BAG IV ONE (07:56)
[2021-07-18] MEDS: ENOXAPARIN 40 MG/0.4 ML SQ SCH (08:57)
[2021-07-18] MEDS: HYDROMORPHONE HCL 1 MG/ML INJ IV PRN (08:58)
--- NOTE | 2021-07-18 09:57 | P.CNS ---
Date of Consult: 07/17/21 Reason for Consult: Medical management Requesting Physician: Clark Bautista Chief Complaint: Right below-knee amputation History of Present Illness: Patient is an 80-year-old gentleman came to the hospital with right below-knee amputation. Patient has a host of medical problems. We will resume his home medications in the morning. History of Alzheimer's dementia. Patient also with myasthenia gravis. Patient will be admitted to the hospital for further treatment. We will continue with physical therapy as well as monitor patient postoperatively. Patient will benefit from nursing home facility. Allergies No Known Allergies Allergy (Unverified 07/18/21 09:59) Home Medications: Pyridostigmine [place] [Mestinon*] 60 mg PO TID 02/04/18 predniSONE [Prednisone*] 10 mg PO DAILY 02/04/18 Aspirin 81 mg PO DAILY 04/10/21 Cholecalciferol (Vitamin D3) [Vitamin D3] 125 mcg PO BEDTIME 04/10/21 Donepezil HCl 10 mg PO BEDTIME 04/10/21 Memantine HCl [Namenda*] 10 mg PO BID 04/10/21 Apixaban [Eliquis] 5 mg PO BID #74 tab.ds.pk 04/11/21 Amlodipine [Norvasc*] 5 mg PO DAILY 04/22/21 Furosemide [Lasix] 40 mg PO DAILY #60 tablet 04/22/21 Quetiapine [Seroquel*] 50 mg PO BEDTIME #60 tab 04/22/21 Codeine/APAP [Tylenol W/Codeine #3 tab] 1 tab PO Q6HP PRN #20 tab 06/25/21 Atorvastatin Calcium [Lipitor] 10 mg PO BEDTIME 07/16/21 - Past Medical/Surgical History Diabetic: No -: HTN -: Myasthenia gravis -: Dementia -: Chronic venous insufficiency -: Myasthenia Gravis -: back surgery - Family History Father Family History: Reviewed- Non-Contributory - Social History Smoking Status: Never smoker Alcohol use: No CD- Drugs: No Caffeine use: No Review of Systems 10-point ROS is otherwise unremarkable Physical Examination Temp Pulse Resp BP Pulse Ox 97.7 F 73 19 102/50 L 90 L 07/18/21 08:00 07/18/21 08:00 07/18/21 08:58 07/18/21 08:00 07/18/21 08:00 General: Alert, In no apparent distress, Oriented x3 HEENT: Atraumatic, PERRLA, Mucous membr. moist/pink, EOMI, Sclerae nonicteric Neck: Supple, 2+ carotid pulse no bruit, No LAD, Without JVD or thyroid abn ormality Respiratory: Clear to auscultation bilaterally, Normal air movement Cardiovascular: Regular rate/rhythm, Normal S1 S2, No murmurs Gastrointestinal: Normal bowel sounds, Soft and benign, Non-distended, No tenderness Musculoskeletal: No clubbing, Tenderness Neurological: Sensation intact, Cranial nerves 3-12 intact, Abnormal gait, Abnormal speech, Abnormal strength Lymphatics: No axilla or inguinal lymphadenopathy Laboratory Data (last 24 hrs) 07/18/21 03:07: Sodium 136, Potassium 3.9, BUN 17, Creatinine 1.00, Glucose 208 H, Phosphorus 2.4 L, Magnesium 1.9 07/18/21 03:07: WBC 13.60 H D, Hgb 6.2 L*, Hct 19.2 L* D, Plt Count 478 H - Problems (1) Status post below knee amputation of right lower extremity Current Visit: Yes Status: Acute (2) Lower extremity deep venous thrombosis Current Visit: No Status: Chronic Qualifiers: Affected thrombotic vein of extremity: unspecified vein of extremity Chronicity: chronic Laterality: left Qualified Code(s): I82.502 - Chronic embolism and thrombosis of unspecified deep veins of left lower extremity (3) Myasthenia gravis Current Visit: No Status: Chronic (4) Pulmonary embolus Current Visit: No Status: Chronic Qualifiers: Pulmonary embolism type: unspecified Chronicity: chronic Acute cor pulmonale presence: without acute cor pulmonale Qualified Code(s): I27.82 - Chronic pulmonary embolism Conclusions/ Impression: Plan: 1. Continue wound care 2. Postop care 3. Pain control 4. Resume medication for myasthenia 5. Tapering dose steroids 6. Resume anticoagulation 7. Physical therapy and work on placement per family wishes 8. GI and DVT prophylaxis Critical Care: No Time Spent Managing Pts care (In Minutes): 45
--- NOTE | 2021-07-18 10:03 | OP ---
Date of Procedure: 07/17/2021 Surgeon: Clark Bautista MD, Preoperative Diagnosis: Right lower extremity severe peripheral arterial disease with gangrene. Postoperative Diagnosis: Right lower extremity severe peripheral arterial disease with gangrene. Procedure Performed: Open right [id number] amputation. Anesthesia: Regional block plus local. Estimated Blood Loss: Less than 50 cc. Specimen: Right lower extremity. Findings: Severe peripheral arterial disease evident in vasculature. Complications: None. The patient was transferred to recovery room in good condition. Procedure In Detail: After informed consent was obtained, the patient was brought to the operating r oom, prepped and draped in the usual sterile fashion. After adequate anesthesia achieved with a georgina onal block, I additionally anesthetized the skin underlying a posterior gastroc flap of the right low er extremity. I demarcated the area with a marking pen based on the posterior flap. I then cut thro ugh the skin and subcutaneous tissues using a 15 blade following the previous markings. Electrocaute ry was used to dissect circumferentially around the saphenous veins. The small saphenous vein and th e greater saphenous vein and nerve were both suture ligated with 2-0 nylon suture without incident or complication. The dissection continued down through the anterior compartment, through the tibialis anterior, extensor hallucis longus, and extensor digitorum longus to expose the anterior tibial arter y and veins and the deep fibular peroneal nerve. This was circumferentially encircled. It was found to be quite thickened and consistent with a significant severe peripheral vascular disease and heavy calcification was noted. I double suture ligated this with a 0 Prolene suture and then placed a 0 s ilk tie around this as well and ligated the structures. I then went through the lateral compartment and the deep fibularis longus muscle and fibularis brevis muscles to expose the anterior fibula. I t frederick went through the interosseous membrane and dissected the tibialis posterior muscle to expose the fibular/peroneal artery and nerve, and neurovascular bundle. I circumferentially dissected this and skeletonized the structure back as well, and divided this using suture ligature also with 0 Prolene s uture and a 0 silk tie. When this was ligated, I then swept back the posterior tissues of the flexor hallucis longus muscle as well as the tibialis posterior and the flexor digitorum longus muscles to expose the posterior aspect of both the tibia and fibula. At this point, I swept back the periosteum using periosteal elevator and finding a section of the fibula approximately 1 to 2 cm superior and p roximal to the tibia. I swept this periosteum back as well. At this point, a bone saw was used to c ut down through the tibia and fibula, protecting the posterior structures with a laparotomy pad, whic h was passed posteriorly and keeping the blade cool with saline. Once these structures were divided, I then dissected circumferentially down to remove the posterior compartment muscles. I dissected to the posterior tibial artery and veins, and the tibial nerve at this point. I circumferentially diss ected this back and suture ligated this with 0 Prolene suture ligature as well as a 0 silk tie. I th en injected all of the nerves, the tibial nerves and the peroneal nerves with 0.25% Marcaine and allo wed them to retract back up into the tissue and musculature away from the bony prominences. I then b eveled the anterior surface of the tibia and slightly the fibula at this point to allow for a smoothe r, less sharp edge. I then used the Naya knife to dissect posteriorly along the tibia and to ligat e the soleus and the Achilles tendon distally following the tissue flap. At this point, the specimen was passed off and I dissected around the soleus and removed the soleus laterally, but the soleus wa s perfuse relatively well at this point and therefore, I used this to wrap around as an additional pa dding, so the gastrocnemius and the soleus muscles were used and imbricated to the anterior fascia ov erlying the tibialis anterior and fibula after copiously irrigating the area and suctioning out until completely dry. Hemostasis was achieved at this point with minimal hemostatic maneuvers required. Much of the muscle was trimmed using the LigaSure device to achieve hemostasis. When the flaps were reapproximated, I reapproximated them with a 2-0 Vicryl suture and the flaps were pink and viable. A t this point, I then irrigated the area once again and reapproximated the subdermal plane using 3-0 V icryl sutures and brought the skin together using a combination of interrupted 2-0 nylon sutures and interrupted augustus. The patient had a pink viable flap at the end of the procedure and all structur es were well perfused. At this point, I placed a sterile dressing over the top and a knee immobilize r, and elevated the patient's lower extremity. The patient tolerated procedure well without evidence of complication and transferred to PACU in good condition. All counts were correct at the end of e case. TK/MODL Voice ID: [id number] Report ID: [id number]
[2021-07-18] MEDS ORDERED: ONDANSETRON 4 MG/2 ML VIAL IV PRN (11:05)
[2021-07-18] MEDS: PYRIDOSTIGMINE 60 MG TABLET PO SCH ×3 (11:14→21:00)
[2021-07-18] MEDS ORDERED: ONDANSETRON 4 MG/2 ML VIAL ONE (11:15)
[2021-07-18] MEDS: HYDROCODONE/APAP 7.5/325 MG TAB PO PRN ×2 (13:35→20:17)
[2021-07-18] MEDS: ATORVASTATIN 10 MG TAB PO SCH (20:17)
[2021-07-18] MEDS: MEMANTINE HCL 10 MG TABLET PO SCH (20:18)
[2021-07-18] MEDS: DONEPEZIL HCL 5 MG TAB PO SCH (20:18)
[2021-07-18] MEDS: VITAMIN D 5,000 UNIT CAP PO SCH (20:19)
[2021-07-18] MEDS: QUETIAPINE 25 MG TAB PO SCH (20:19)
[2021-07-18 21:27] LABS: Hematocrit 23.6 % (39.6-49.0)
[2021-07-19] MEDS: HYDROCODONE/APAP 7.5/325 MG TAB PO PRN ×4 (02:07→21:37)
[2021-07-19 05:29] LABS: Absolute Lymphocytes (CBC) 0.6 K/uL (0.7-4.9); Hematocrit 25.7 % (39.6-49.0); Lymphocytes % 5.7 % (15.3-44.8); MPV 6.6 fL (7.6-11.3); RBC Red Blood Cell Count 3.22 M/uL (4.33-5.43)
[2021-07-19 05:46] LABS: BUN Blood Urea Nitrogen 18 mg/dL (7-18); Bicarbonate 24 mmol/L (21-32); Glucose Level 95 mg/dL (74-106); Magnesium 1.7 mg/dL (1.8-2.4); Phosphorus 1.7 mg/dL (2.5-4.9); Potassium 4.7 mmol/L (3.5-5.1); Sodium Level 137 mmol/L (136-145)
[2021-07-19] MEDS: D5.45NS W/KCL 20MEQ 1,000 ML IV SCH ×4 (06:00→21:49)
[2021-07-19] MEDS: INSULIN -REGULAR HUMAN 50 UNIT/0.5 ML ML SQ SCH ×4 (07:30→21:00)
[2021-07-19] MEDS: MEMANTINE HCL 10 MG TABLET PO SCH ×2 (09:52→21:39)
[2021-07-19] MEDS: ENOXAPARIN 40 MG/0.4 ML SQ SCH (09:52)
[2021-07-19] MEDS: PYRIDOSTIGMINE 60 MG TABLET PO SCH ×3 (09:52→21:38)
[2021-07-19] MEDS ORDERED: MORPHINE 2 MG/ML SYR IV ONE (11:15)
[2021-07-19] MEDS ORDERED: HYDROCORTISONE SUC 100 MG INJ IV ONE (12:52)
[2021-07-19] MEDS ORDERED: MORPHINE 2 MG/ML SYR IV SCH (13:00)
[2021-07-19] MEDS: VITAMIN D 5,000 UNIT CAP PO SCH (21:00)
[2021-07-19] MEDS: QUETIAPINE 25 MG TAB PO SCH (21:38)
[2021-07-19] MEDS: DONEPEZIL HCL 5 MG TAB PO SCH (21:38)
[2021-07-19] MEDS: ATORVASTATIN 10 MG TAB PO SCH (21:39)
[2021-07-19] MEDS: HYDROCORTISONE SUC 100 MG INJ IV SCH (21:48)
[2021-07-20 06:21] LABS: Absolute Lymphocytes (CBC) 0.3 K/uL (0.7-4.9); Hematocrit 24.9 % (39.6-49.0); Lymphocytes % 2.1 % (15.3-44.8); MPV 6.6 fL (7.6-11.3); RBC Red Blood Cell Count 3.13 M/uL (4.33-5.43)
[2021-07-20 06:31] LABS: BUN Blood Urea Nitrogen 14 mg/dL (7-18); Bicarbonate 23 mmol/L (21-32); Glucose Level 124 mg/dL (74-106); Magnesium 1.8 mg/dL (1.8-2.4); Phosphorus 2.5 mg/dL (2.5-4.9); Sodium Level 136 mmol/L (136-145)
[2021-07-20] MEDS: INSULIN -REGULAR HUMAN 50 UNIT/0.5 ML ML SQ SCH ×4 (07:30→21:00)
[2021-07-20] MEDS: MEMANTINE HCL 10 MG TABLET PO SCH ×2 (08:22→21:02)
[2021-07-20] MEDS: CODEINE 30MG/APAP 300MG TAB PO PRN ×3 (08:22→21:09)
[2021-07-20] MEDS: PYRIDOSTIGMINE 60 MG TABLET PO SCH ×3 (08:22→21:01)
[2021-07-20] MEDS: ENOXAPARIN 40 MG/0.4 ML SQ SCH (08:25)
[2021-07-20] MEDS: HYDROCORTISONE SUC 100 MG INJ IV SCH (08:25)
[2021-07-20] MEDS ORDERED: MAGNESIUM SULFATE 1 gm IVPB 1 GM/100 ML BAG IV ONE (09:00)
[2021-07-20] MEDS ORDERED: POTASS/SODIUM PHOSPHATE 1 PKT POWD.PACK PO ONE (09:00)
[2021-07-20] MEDS: D5.45NS W/KCL 20MEQ 1,000 ML IV SCH (09:01)
[2021-07-20 10:12] LABS: Anisocytosis 1+; Blood Morphology Comment NOTED (NOT SEEN); Platelet Estimate ADEQ; Poikilocytosis 1+; White Blood Cell Scan OK (OK)
[2021-07-20] MEDS: HYDROCODONE/APAP 7.5/325 MG TAB PO PRN ×2 (11:20→17:31)
[2021-07-20] MEDS: VITAMIN D 5,000 UNIT CAP PO SCH (21:01)
[2021-07-20] MEDS: QUETIAPINE 25 MG TAB PO SCH (21:02)
[2021-07-20] MEDS: DONEPEZIL HCL 5 MG TAB PO SCH (21:02)
[2021-07-20] MEDS: ATORVASTATIN 10 MG TAB PO SCH (21:02)
[2021-07-20] MEDS: predniSONE 20 MG TAB PO SCH (21:02)
[2021-07-21] MEDS: D5.45NS W/KCL 20MEQ 1,000 ML IV SCH ×2 (00:10→09:03)
[2021-07-21] MEDS: HYDROCODONE/APAP 7.5/325 MG TAB PO PRN ×3 (00:43→12:23)
--- NOTE | 2021-07-21 02:39 | P.PN ---
Subjective Date of Service: 07/18/21 Patient clinically doing well no new complaints. Patient still with pain in the left leg. Continue with DVT prophylaxis but will resume when okay with general surgery. Continue with monitoring wound care and pain control and recommend getting out of bed and mobilizing. Review of Systems 10-point ROS is otherwise unremarkable Physical Examination - Vital Signs Temperature: 97.2 F Blood Pressure: 145/64 Pulse: 94 Respirations: 20 Pulse Ox (%): 97 - Physical Exam General: Alert, In no apparent distress, Demented Respiratory: Clear to auscultation bilaterally, Normal air movement Cardiovascular: Regular rate/rhythm, Normal S1 S2, No murmurs Gastrointestinal: Normal bowel sounds, Soft and benign, Non-distended, No tenderness Musculoskeletal: No clubbing, Tenderness Integumentary: Tenderness/swelling Neurological: Abnormal gait, Abnormal strength, Abnormal tone, Abnormal cranial nerve function - Studies Laboratory Data (last 24 hrs) 07/20/21 05:20: Sodium 136, Potassium 4.0, BUN 14, Creatinine 0.60, Glucose 124 H, Phosphorus 2.5, Magnesium 1.8 07/20/21 05:20: WBC 15.10 H D, Hgb 8.0 L, Hct 24.9 L, Plt Count 343 Medications List Reviewed: Yes Assessment & Plan - Problems (Diagnosis) (1) Status post below knee amputation of right lower extremity Current Visit: Yes Status: Acute (2) Lower extremity deep venous thrombosis Current Visit: No Status: Chronic Qualifiers: Affected thrombotic vein of extremity: unspecified vein of extremity Chronicity: chronic Laterality: left Qualified Code(s): I82.502 - Chronic embolism and thrombosis of unspecified deep veins of left lower extremity (3) Myasthenia gravis Current Visit: No Status: Chronic (4) Pulmonary embolus Current Visit: No Status: Chronic Qualifiers: Pulmonary embolism type: unspecified Chronicity: chronic Acute cor pulmonale presence: without acute cor pulmonale Qualified Code(s): I27.82 - Chronic pulmonary embolism - Plan Plan: 1. Continue with pain control 2. Start tapering dose steroids 3. Continue with pyridostigmine for myasthenia 4. Continue working with physical therapy and wound care 5. Strict blood pressure control 6. GI/DVT prophylaxis Discharge Plan: Home Plan to discharge in: Greater than 2 days - Advance Directives Does patient have a Living Will: No Does patient have a Durable POA for Healthcare: No - Code Status/Comfort Care Code Status Assessed: Yes Code Status: Full Code Critical Care: No Time Spent Managing PTS Care (In Minutes): 30
--- NOTE | 2021-07-21 02:40 | P.PN ---
Date of Service: 07/19/21 Subjective Patient with no significant changes. Still with a lot of pain diffusely. Tapering dose steroids. Continue with pyridostigmine. Wound care and therapy. Review of Systems 10-point ROS is otherwise unremarkable Physical Examination - Vital Signs Reviewed - Physical Exam General: Alert, In no apparent distress, Demented Respiratory: Clear to auscultation bilaterally, Normal air movement Cardiovascular: Regular rate/rhythm, Normal S1 S2, No murmurs Gastrointestinal: Normal bowel sounds, Soft and benign, Non-distended, No tenderness Musculoskeletal: No clubbing, Tenderness Integumentary: Tenderness/swelling Neurological: Abnormal gait, Abnormal strength, Abnormal tone, Abnormal cranial nerve function Assessment & Plan - Problems (Diagnosis) (1) Status post below knee amputation of right lower extremity Current Visit: Yes Status: Acute (2) Lower extremity deep venous thrombosis Current Visit: No Status: Chronic Qualifiers: Affected thrombotic vein of extremity: unspecified vein of extremity Chronicity: chronic Laterality: left Qualified Code(s): I82.502 - Chronic embolism and thrombosis of unspecified deep veins of left lower extremity (3) Myasthenia gravis Current Visit: No Status: Chronic (4) Pulmonary embolus Current Visit: No Status: Chronic Qualifiers: Pulmonary embolism type: unspecified Chronicity: chronic Acute cor pulmonale presence: without acute cor pulmonale Qualified Code(s): I27.82 - Chronic pulmonary embolism - Plan Continue with plan of care as mentioned below: 1. Continue with pain control 2. Start tapering dose steroids 3. Continue with pyridostigmine for myasthenia 4. Continue working with physical therapy and wound care 5. Strict blood pressure control 6. GI/DVT prophylaxis Discharge Plan: Home Plan to discharge in: Greater than 2 days - Advance Directives Does patient have a Living Will: No Does patient have a Durable POA for Healthcare: No - Code Status/Comfort Care Code Status Assessed: Yes Code Status: Full Code Critical Care: No Time Spent Managing PTS Care (In Minutes): 30
--- NOTE | 2021-07-21 02:43 | P.PN ---
Date of Service: 07/20/21 Subjective Patient continues to do well. Patient's clinical symptoms are improving. Patient is still having a lot of pain. Otherwise, plan of care is to continue healing from his right below-knee amputation. Patient admitted by general surgery but at this time since patient is more medical issues we will take over care. Working on placement. Tapering dose steroids. Continue with pyridostigmine. Wound care and therapy. Review of Systems 10-point ROS is otherwise unremarkable Physical Examination - Vital Signs Reviewed - Physical Exam General: Alert, In no apparent distress, Demented Respiratory: Clear to auscultation bilaterally, Normal air movement Cardiovascular: Regular rate/rhythm, Normal S1 S2, No murmurs Gastrointestinal: Normal bowel sounds, Soft and benign, Non-distended, No tenderness Musculoskeletal: No clubbing, Tenderness Integumentary: Tenderness/swelling Neurological: Abnormal gait, Abnormal strength, Abnormal tone, Abnormal cranial nerve function Assessment & Plan - Problems (Diagnosis) (1) Status post below knee amputation of right lower extremity Current Visit: Yes Status: Acute (2) Lower extremity deep venous thrombosis Current Visit: No Status: Chronic Qualifiers: Affected thrombotic vein of extremity: unspecified vein of extremity Chronicity: chronic Laterality: left Qualified Code(s): I82.502 - Chronic embolism and thrombosis of unspecified deep veins of left lower extremity (3) Myasthenia gravis Current Visit: No Status: Chronic (4) Pulmonary embolus Current Visit: No Status: Chronic Qualifiers: Pulmonary embolism type: unspecified Chronicity: chronic Acute cor pulmonale presence: without acute cor pulmonale Qualified Code(s): I27.82 - Chronic pulmonary embolism - Plan Continue with plan of care as mentioned below: 1. Continue with pain control 2. Start tapering dose steroids 3. Continue with pyridostigmine for myasthenia 4. Continue working with physical therapy and wound care 5. Strict blood pressure control 6. Resume Eliquis 7. GI/DVT prophylaxis Discharge Plan: Home Plan to discharge in: Greater than 2 days - Advance Directives Does patient have a Living Will: No Does patient have a Durable POA for Healthcare: No - Code Status/Comfort Care Code Status Assessed: Yes Code Status: Full Code Critical Care: No Time Spent Managing PTS Care (In Minutes): 30
[2021-07-21 04:51] LABS: BUN Blood Urea Nitrogen 13 mg/dL (7-18); Bicarbonate 22 mmol/L (21-32); Glucose Level 141 mg/dL (74-106); Potassium 4.5 mmol/L (3.5-5.1); Sodium Level 136 mmol/L (136-145)
[2021-07-21] MEDS: INSULIN -REGULAR HUMAN 50 UNIT/0.5 ML ML SQ SCH ×2 (07:30→11:30)
[2021-07-21] MEDS ORDERED: AMLODIPINE 5 MG TAB PO SCH (09:00)
[2021-07-21] MEDS: ENOXAPARIN 40 MG/0.4 ML SQ SCH (09:02)
[2021-07-21] MEDS: MEMANTINE HCL 10 MG TABLET PO SCH (09:02)
[2021-07-21] MEDS: PYRIDOSTIGMINE 60 MG TABLET PO SCH (09:02)
[2021-07-21] MEDS: predniSONE 20 MG TAB PO SCH (09:02)
[2021-07-21 09:22] VITALS: O2SAT 94
[2021-07-21 12:14] LABS: SARS-COV-2 RT PCR NEGATIVE (NEGATIVE)
[2021-07-21 13:03] VITALS: BP 152/65; TEMP 97.9
[2021-07-22] MEDS ORDERED: APIXABAN 5 MG TABLET PO SCH (09:00)
== END 2021-07-21 14:38 | DRG 240 ==
LOC: OR 08:00 → 2ND 13:51
PROVIDERS: ADMIT Surgery; ATTEND Surgery
PROC: 0Y6H0Z1 Detachment at Right Lower Leg, High, Open Approach (ICD-10-PCS; principal; 2021-07-17 10:00)
PROC: 30233N1 Transfusion of Nonautologous Red Blood Cells into Peripheral Vein, Percutaneous Approach (ICD-10-PCS; 2021-07-18)
DX: I70.261 Atherosclerosis of native arteries of extremities with gangrene, right leg (principal); D62 Acute posthemorrhagic anemia; I82.502 Chronic embolism and thrombosis of unspecified deep veins of left lower extremity; I27.82 Chronic pulmonary embolism; G30.9 Alzheimer's disease, unspecified; F02.80 Dementia in other diseases classified elsewhere, unspecified severity, without behavioral disturbance, psychotic disturbance, mood disturbance, and anxiety; G70.00 Myasthenia gravis without (acute) exacerbation; I10 Essential (primary) hypertension; Z79.01 Long term (current) use of anticoagulants; Z20.822 Contact with and (suspected) exposure to COVID-19
CPT/HCPCS: 0240U; 36415; 36430; 80048; 82947; 83735; 84100; 85014; 85018; 85025; 86850; 86900; 86901; 88304; 88307; 88311; 94010; 97161; 97530; J0690; J1100; J1170; J1650; J1720; J2250; J2270; J2405; J3010; J3475; J7050; J7120; J7512; P9016; U0003

== ENCOUNTER 2021-07-30 15:35 | Inpatient (IN) | payer OTHER ==
--- NOTE | 2021-07-30 16:02 | ER ---
Nurse's Notes [facility] Name: Tj Harrington Age: 80 yrs Sex: Male : 1940 Arrival Date: 07/30/2021 Time: 15:49 Bed 4 Private MD: Diagnosis: Dehiscence of amputation stump Presentation: 07/30 15:54 Chief complaint: EMS states: Fell Wednesday onto R stump after recent BKA. Sutures ss ruptured and bone is reportedly exposed. Dr. Bautista sent patient for OR procedure tomorrow. Coronavirus screen: Client denies travel out of the [place] in the last 14 days. Ebola Screen: Patient denies exposure to infectious person. Patient denies travel to an Ebola-affected area in the 21 days before illness onset. Initial Sepsis Screen: Does the patient meet any 2 criteria? No. Patient's initial sepsis screen is negative. Does the patient have a suspected source of infection? No. Patient's initial sepsis screen is negative. Risk Assessment: Do you want to hurt yourself or someone else? Patient reports no desire to harm self or others. Onset of symptoms was July 26, 2021. 15:54 Method Of Arrival: EMS: [facility] 15:54 Acuity: ABBEY 3 ss Historical: - PMHx: 15:56 DVT; Hypertensive disorder; pulmonary embolis; ss - Immunization history:: Adult Immunizations unknown. - Family history:: not pertinent. - Social history:: Smoking status: unknown. - Hospitalizations: : No recent hospitalization is reported. Screenin:54 Abuse screen: Denies threats or abuse. Nutritional screening: No deficits noted. ap3 Tuberculosis screening: No symptoms or risk factors identified. Fall Risk Fall in past 12 months (25 points). Secondary diagnosis (15 points) impaired mobility, Gait- Impaired (20 pts.). Mental Status- Overestimates/Forgets Limitations (15 pts.). Total Goins Fall Scale indicates High Risk Score (45 or more points). Fall prevention measures have been instituted. Side Rails Up X 2 Placed Close to Nursing Station Frequent Obs/Assessments Occuring As available patient and family educated on Fall Prevention Program and Strategies. Assessment: 15:52 General: Appears in no apparent distress. comfortable, Behavior is calm, pt is [place] ap3 speaking. Pain: Denies pain. Neuro: Level of Consciousness is awake, alert, obeys commands, Oriented to person, place. Cardiovascular: Patient's skin is warm and dry. Respiratory: Airway is patent Respiratory effort is even, unlabored, Respiratory pattern is regular, symmetrical. Derm: Wound noted right leg Wound is post BKA sx wound. Wound is open, bone is visible with necrotic tissue present. Musculoskeletal:. Vital Signs: 15:52 BP 129 / 89; Pulse 81; Resp 17 S; Temp 97.8; Pulse Ox 98% ; Weight 66.68 kg (R); Height jg9 5 ft. 6 in. (167.64 cm); Pain 4/10; 15:54 BP 123 / 74; Pulse 86; Resp 16; Pulse Ox 99% on R/A; ss 16:18 BP 129 / 89; ap3 15:52 Body Mass Index 23.73 (66.68 kg, 167.64 cm) 9 ED Course: 15:49 Patient arrived in ED. 15:52 Jennifer Fortune RN is Primary Nurse. [facility] 15:53 Colin Echavarria MD is Attending Physician. rn 15:54 Arm band placed on left wrist. dressing removed for MD and nurses to evaluate. ap3 15:55 Patient has correct armband on for positive identification. Bed in low position. Call ap3 light in reach. Side rails up X2. Pulse ox on. NIBP on. Door closed. Noise minimized. 15:56 Triage completed. ss 16:01 Cristina Sherman MD is Hospitalizing Provider. rn 16:08 Inserted saline lock: 22 gauge in left antecubital area, using aseptic technique. Blood ap3 collected. 17:09 XRAY Tib Fib RIGHT In Process Unspecified. EDMS 18:20 No provider procedures requiring assistance completed. Patient admitted, IV remains in ap3 place. Administered Medications: No medications were administered Outcome: 16:02 Decision to Hospitalize by Provider. rn 18:20 Admitted to Med/surg accompanied by nurse, via wheelchair, with chart. ap3 18:20 Condition: good 18:20 Discharge instructions given to patient, Instructed on the need for admit, Demonstrated understanding of instructions. 18:43 Patient left the ED. ap3 Signatures: Dispatcher [employer] EDMS Colin Echavarria MD MD rn Smirch, Shelby, RN RN Naheed Hernández, RN RN ap3 Jennifer Fortune, RN RN jg9
--- NOTE | 2021-07-30 16:02 | EDPHYS ---
Physician Documentation [facility] Name: Tj Harrington Age: 80 yrs Sex: Male : 1940 Arrival Date: 07/30/2021 Time: 15:49 Bed 4 Private MD: ED Physician Colin Echavarria HPI: 07/30 15:55 This 80 yrs old Male presents to ER via Unassigned with complaints of Wound rn dehiscence. 15:55 The patient presents with an injury, pain, swelling. The complaints affect the right rn BKA stump. Onset: The symptoms/episode began/occurred 5 day(s) ago. Modifying factors: The symptoms are alleviated by nothing. the symptoms are aggravated by nothing. Associated signs and symptoms: Pertinent positives: swelling, warmth. Severity of symptoms: At their worst the symptoms were mild, in the emergency department the symptoms are actually worse. The patient has not experienced similar symptoms in the past. The patient has been recently seen by a physician:. Patient s/p BKA with Dr. Bautista, fell on Wednesday and surgical wound opened up, getting worse with swelling and warmth, plan was to bring him in for OR debridement and correction tomorrow.. Historical: - PMHx: 15:56 DVT; Hypertensive disorder; pulmonary embolis; ss - Immunization history:: Adult Immunizations unknown. - Family history:: not pertinent. - Social history:: Smoking status: unknown. - Hospitalizations: : No recent hospitalization is reported. ROS: 15:55 Constitutional: Negative for fever, chills, and weight loss, Eyes: Negative for injury, rn pain, redness, and discharge, Neck: Negative for injury, pain, and swelling, Cardiovascular: Negative for chest pain, palpitations, and edema, Respiratory: Negative for shortness of breath, cough, wheezing, and pleuritic chest pain, Abdomen/GI: Negative for abdominal pain, nausea, vomiting, diarrhea, and constipation, Back: Negative for injury and pain, MS/Extremity: + wound dehiscence and swelling to RLE stump Skin: + open wound RLE Neuro: Negative for headache, weakness, numbness, tingling, and seizure. Exam: 15:55 Constitutional: This is a well developed, well nourished patient who is awake, alert, rn and in no acute distress. Head/Face: Normocephalic, atraumatic. Eyes: Periorbital areas with no swelling, redness, or edema. Cardiovascular: Regular rate and rhythm. No pulse deficits. Respiratory: No increased work of breathing, no retractions or nasal flaring. Abdomen/GI: Soft, non-tender Skin: Warm, dry MS/ Extremity: No cyanosis. + wound dehiscence of RLE stump with bone exposed and areas on necrosis. + small amount of venous bleeding noted. Neuro: Awake and alert, GCS 15 Vital Signs: 15:52 BP 129 / 89; Pulse 81; Resp 17 S; Temp 97.8; Pulse Ox 98% ; Weight 66.68 kg (R); Height jg9 5 ft. 6 in. (167.64 cm); Pain 4/10; 15:54 BP 123 / 74; Pulse 86; Resp 16; Pulse Ox 99% on R/A; ss 16:18 BP 129 / 89; ap3 15:52 Body Mass Index 23.73 (66.68 kg, 167.64 cm) jg9 MDM: 15:53 Patient medically screened. rn 15:55 Differential diagnosis: wound dehiscence, cellulitis. Data reviewed: vital signs, rn nurses notes, and as a result, I will admit patient. Counseling: I had a detailed discussion with the patient and/or guardian regarding: the historical points, exam findings, and any diagnostic results supporting the discharge/admit diagnosis, the need for further work-up and treatment in the hospital. Special discussion:. ED course: Consulted with cinda Villar patient admitted to [facility] for OR tomorrow.. 07/30 15:55 Order name: CBC with Diff; Complete Time: 17:25 rn 07/30 15:55 Order name: Basic Metabolic Panel; Complete Time: 17: rn 07/30 15:55 Order name: Protime (+inr); Complete Time: 17: rn 07/30 15:55 Order name: Ptt, Activated; Complete Time: 17: rn 07/30 16:05 Order name: COVID-19 SARS RT PCR (Document "Date of Onset" if Symptomatic); Complete bd Time: 07/30 16:56 Order name: CBC with Automated Diff EDMS 07/30 16:56 Order name: CBC with Automated Diff EDMS 07/30 16:56 Order name: Comprehensive Metabolic Panel EDMS 07/30 16:56 Order name: Comprehensive Metabolic Panel EDMS 07/30 16:56 Order name: Magnesium EDMS 07/30 16:56 Order name: Magnesium EDMS 07/30 16:56 Order name: Protime (+INR) EDMS 07/30 16:56 Order name: Protime (+INR) EDMS 07/30 16:56 Order name: PTT, Activated Partial Thromb EDMS 07/30 15:55 Order name: IV Start; Complete Time: 16:10 rn 07/30 15:55 Order name: XRAY Tib Fib RIGHT; Complete Time: 17:25 rn 07/30 16:56 Order name: CONS Physician Consult EDMS 07/30 16:56 Order name: NPO EDMS 07/30 16:56 Order name: PTT, Activated Partial Thromb EDMS 07/30 17:07 Order name: CBC Smear Scan; Complete Time: 17:25 EDMS Administered Medications: No medications were administered Disposition Summary: 07/30/21 16:02 Hospitalization Ordered Hospitalization Status: Inpatient Admission rn Provider: Cirstina Sherman rn Location: Telemetry/MedSurg (Inpatient) rn Condition: Stable rn Problem: new rn Symptoms: are unchanged rn Bed/Room Type: Standard rn Room Assignment: 213(07/30/21 17:54) Diagnosis - Dehiscence of amputation stump rn Forms: - Medication Reconciliation Form rn - SBAR form rn Signatures: Dispatcher [employer] EDEmerald Velez RN Colin Munoz MD MD rn Smirch, Shelby, RN RN ss Prokisch, Amanda, RN RN ap3 Corrections: (The following items were deleted from the chart) 17:54 16:02 rn quin
[2021-07-30 16:16] LABS: Absolute Lymphocytes (CBC) 0.1 K/uL (0.7-4.9); Hematocrit 28.7 % (39.6-49.0); Lymphocytes % 0.7 % (15.3-44.8); MPV 6.1 fL (7.6-11.3); RBC Red Blood Cell Count 3.69 M/uL (4.33-5.43)
[2021-07-30 16:20] LABS: Protime INR 1.45
[2021-07-30 16:31] LABS: BUN Blood Urea Nitrogen 17 mg/dL (7-18); Bicarbonate 29 mmol/L (21-32); Glucose Level 149 mg/dL (74-106); Potassium 3.9 mmol/L (3.5-5.1); Sodium Level 132 mmol/L (136-145)
[2021-07-30] MEDS ORDERED: ACETAMINOPHEN 500 MG TAB PO PRN (16:50)
[2021-07-30] MEDS ORDERED: ONDANSETRON 4 MG/2 ML VIAL IV PRN (16:50)
[2021-07-30] MEDS ORDERED: Levofloxacin 750mg IV 750 MG/150 ML BAG IV SCH (16:50)
[2021-07-30 17:06] LABS: Blood Morphology Comment NOT SEEN (NOT SEEN); Platelet Estimate INCR; White Blood Cell Scan OK (OK)
--- NOTE | 2021-07-30 17:19 | RAD REPORT ---
EXAM DESCRIPTION: RAD - Tib Fib Right - 07/30/2021 5:07 pm CLINICAL HISTORY: fall, wound dehiscence COMPARISON: No comparisons FINDINGS: Below-knee amputation is present. There are no erosive or destructive changes along the os teotomy site. Patient has little identifiable soft tissue covering the osteotomy of the tibia and pro bably fibula as well. No air or foreign body seen in the soft tissues. There is dense arterial tree c alcification. Degenerative changes are present at the knee joint without large joint effusion identifiable. IMPRESSION: Little if any identifiable soft tissue covers the tibia and fibula osteotomy sites. No erosive or destructive bone process.
[2021-07-30] MEDS: VANCOMYCIN 1.25 GM in NA CHLORIDE 0.9% 250 ML IVPB SCH (19:02)
[2021-07-30] MEDS: ENOXAPARIN 40 MG/0.4 ML SQ SCH (19:02)
[2021-07-30] MEDS: NA CHLORIDE 0.9% 1,000 ML IV SCH (19:02)
[2021-07-30] MEDS: HYDROMORPHONE HCL 1 MG/ML INJ IV PRN (20:18)
[2021-07-30 20:36] VITALS: BMI 23.7
[2021-07-31] MEDS: HYDROMORPHONE HCL 1 MG/ML INJ IV PRN ×4 (00:36→20:27)
[2021-07-31 04:19] LABS: Absolute Lymphocytes (CBC) 0.6 K/uL (0.7-4.9); Hematocrit 24.2 % (39.6-49.0); Lymphocytes % 4.7 % (15.3-44.8); MPV 6.1 fL (7.6-11.3); RBC Red Blood Cell Count 3.17 M/uL (4.33-5.43)
[2021-07-31 04:23] LABS: Protime INR 1.49
[2021-07-31 04:31] LABS: ALT/SGPT 17 U/L (12-78); AST/SGOT 12 U/L (15-37); Albumin 1.9 g/dL (3.4-5.0); Alkaline Phosphatase 65 U/L (45-117); BUN Blood Urea Nitrogen 15 mg/dL (7-18); Bicarbonate 29 mmol/L (21-32); Bilirubin Total 0.5 mg/dL (0.2-1.0); Glucose Level 97 mg/dL (74-106); Magnesium 2.1 mg/dL (1.8-2.4); Potassium 3.3 mmol/L (3.5-5.1); Protein, Total 4.4 g/dL (6.4-8.2); Sodium Level 136 mmol/L (136-145)
[2021-07-31] MEDS: KCL 20 MEQ/100 mL IVPB 20 MEQ/100 ML BAG IV SCH ×2 (05:41→08:31)
[2021-07-31] MEDS: NA CHLORIDE 0.9% 1,000 ML IV SCH ×3 (05:56→19:40)
[2021-07-31] MEDS ORDERED: PNEUMOCOCCAL VACCINE 0.5 ML IMVAC ONE (08:00)
[2021-07-31] MEDS ORDERED: INFLUENZA VACCINE (for 6+ mo) 0.5 ML DOSE IMVAC ONE (08:00)
[2021-07-31] MEDS: ENOXAPARIN 40 MG/0.4 ML SQ SCH (08:33)
--- NOTE | 2021-07-31 10:08 | P.HP ---
Certification for Inpatient Patient admitted to: Inpatient With expected LOS: >2 Midnights Patient will require the following post-hospital care: None Practitioner: I am a practitioner with admitting privileges, knowledge of patient current condition, hospital course, and medical plan of care. Services: Services provided to patient in accordance with Admission requirements found in Title 42 Section 412.3 of the Code of Federal Regulations Patient History Date of Service: 07/30/21 Reason for admission: Wound dehiscence History of Present Illness: Patient is an 80-year-old gentleman who had right below-knee amputation. Patient was discharged to a nursing facility. While at the nursing facility patient recently fell. Patient had a wound dehiscence. Patient was brought into the emergency room. I spoke with general surgery and they wanted to admit her for IV antibiotic therapy and a washout of the wound. Allergies No Known Allergies Allergy (Verified 07/30/21 20:22) Home Medications: Amlodipine [Norvasc*] 5 mg PO DAILY 07/31/21 Apixaban [Eliquis *] 2.5 mg PO BID 07/31/21 Ascorbic Acid [Vitamin C] 250 mg PO DAILY 07/31/21 Aspirin [Aspirin EC 81 MG] 81 mg PO DAILY 07/31/21 Smz./Tmp. [Bactrim Ds 800 MG/160 MG*] 1 tab PO BID 07/31/21 Trazodone [Desyrel*] 25 mg PO BEDTIME 07/31/21 Zinc 50 mg PO DAILY 07/31/21 predniSONE [Deltasone*] 10 mg PO DAILY 07/31/21 - Past Medical/Surgical History Has patient received pneumonia vaccine in the past: No Diabetic: No -: HTN -: Myasthenia gravis -: Dementia -: Chronic venous insufficiency -: Myasthenia Gravis -: back surgery -: right bka - Family History Father Family History: Reviewed- Non-Contributory - Social History Smoking Status: Never smoker Alcohol use: No Place of Residence: [facility]irement Review of Systems 10-point ROS is otherwise unremarkable Physical Examination - Vital Signs Temperature: 97.8 F Blood Pressure: 120/64 Pulse: 66 Respirations: 22 Pulse Ox (%): 92 - Physical Exam General: Alert, In no apparent distress, Oriented x2 HEENT: Atraumatic, PERRLA, Mucous membr. moist/pink, EOMI, Sclerae nonicteric Neck: Supple, 2+ carotid pulse no bruit, No LAD, Without JVD or thyroid abnormality Respiratory: Clear to auscultation bilaterally, Normal air movement Cardiovascular: Regular rate/rhythm, Normal S1 S2, Systolic murmur Gastrointestinal: Normal bowel sounds, Soft and benign, Non-distended, No tenderness Musculoskeletal: Swelling, Erythema, Tenderness Integumentary: No rashes Neurological: Normal speech, Normal tone, Sensation intact, Cranial nerves 3-12 intact, Abnormal gait, Abnormal strength Lymphatics: No axilla or inguinal lymphadenopathy - Studies Laboratory Data (last 24 hrs) 07/30/21 16:07: PT 16.1 H, INR 1.45, APTT 40.4 H 07/30/21 16:07: Sodium 132 L, Potassium 3.9, BUN 17, Creatinine 0.74, Glucose 149 H 07/30/21 16:07: WBC 16.60 H D, Hgb 9.1 L, Hct 28.7 L D, Plt Count 610 H D Assessment & Plan - Problems (Diagnosis) (1) Wound dehiscence Current Visit: Yes Status: Acute (2) Status post below knee amputation of right lower extremity Current Visit: No Status: Acute (3) Peripheral arterial disease Current Visit: No Status: Acute (4) Dementia with behavioral disturbance Current Visit: No Status: Chronic Qualifiers: (5) Lower extremity deep venous thrombosis Current Visit: No Status: Chronic Qualifiers: (6) Myasthenia gravis Current Visit: No Status: Chronic (7) Pulmonary embolus Current Visit: No Status: Chronic Qualifiers: - Plan PLAN: 1. Continue with IV antibiotic 2. Continue with local wound care 3. Wound care consultation/surgical consultation 4. Gentle IV hydration 5. Monitor CBC 6. Strict blood sugar monitoring 7. Pain control 8. GI and DVT prophylaxis Discharge Plan: Home Plan to discharge in: Greater than 2 days - Advance Directives Does patient have a Living Will: No Does patient have a Durable POA for Healthcare: No - Code Status/Comfort Care Code Status Assessed: Yes Code Status: Full Code Critical Care: No Time Spent Managing PTS Care (In Minutes): 45
--- NOTE | 2021-07-31 10:12 | P.PN ---
Date of Service: 07/31/21 Subjective Patient doing well with no new complaints. Review of Systems 10-point ROS is otherwise unremarkable Physical Examination - Vital Signs reviewed - Physical Exam General: Alert, In no apparent distress, Oriented x2 Respiratory: Clear to auscultation bilaterally, Normal air movement Cardiovascular: Regular rate/rhythm, Normal S1 S2, Systolic murmur Gastrointestinal: Normal bowel sounds, Soft and benign, Non-distended, No tenderness Musculoskeletal: Swelling, Erythema, Tenderness Integumentary: No rashes Neurological: Normal speech, Normal tone, Sensation intact, Cranial nerves 3-12 intact, Abnormal gait, Abnormal strength Assessment & Plan - Problems (Diagnosis) (1) Wound dehiscence Current Visit: Yes Status: Acute (2) Status post below knee amputation of right lower extremity Current Visit: No Status: Acute (3) Peripheral arterial disease Current Visit: No Status: Acute (4) Dementia with behavioral disturbance Current Visit: No Status: Chronic Qualifiers: (5) Lower extremity deep venous thrombosis Current Visit: No Status: Chronic Qualifiers: (6) Myasthenia gravis Current Visit: No Status: Chronic (7) Pulmonary embolus Current Visit: No Status: Chronic Qualifiers: - Plan Continue with plan of care as mentioned below: 1. Continue with IV antibiotic 2. Continue with local wound care 3. Wound care consultation/surgical consultation 4. Gentle IV hydration 5. Monitor CBC 6. Strict blood sugar monitoring 7. Pain control 8. GI and DVT prophylaxis
[2021-07-31] MEDS: VANCOMYCIN 1.25 GM in NA CHLORIDE 0.9% 250 ML IVPB SCH (11:01)
[2021-07-31] MEDS ORDERED: Levofloxacin 750mg IV 750 MG/150 ML BAG IV ONE (11:51)
[2021-07-31] MEDS ORDERED: Ringers Lactate 1,000 ML IV ONE (13:21)
[2021-07-31] MEDS ORDERED: LIDOCAINE 2% MPF 5 ML VIAL ONE (13:53)
[2021-07-31] MEDS ORDERED: FENTANYL CITR 100 MCG/2 ML ONE (13:53)
[2021-07-31] MEDS ORDERED: propofoL 200 MG/20 ML VIAL IV ONE (13:53)
[2021-07-31] MEDS: BUPIVACAINE 0.25% PF 10 ML VIAL ONE ×3 (14:38→14:59)
[2021-07-31] MEDS ORDERED: SODIUM HYPOCHLORITE 0.25% 473 ML ONE (15:01)
--- NOTE | 2021-07-31 15:29 | P.OP ---
Preoperative diagnosis: Traumatic BKA dehiscence Postoperative diagnosis: Traumatic BKA dehiscence Primary procedure: Debridement of devascularized muscle, fascia, tendon Secondary procedure: pulse lavage of BKA stump, application of WVAC Other procedure(s): drainage of intramuscular hematoma Anesthesia: GETA + Local Estimated blood loss: < 5cc Specimen: Debridement Tissue Findings: Traumatic Dehicence of BKA stump, muscle devascularized, traumatized, hemat Complications: None Drain(s): Other (WVAC @ 120mm Hg continuous) Transferred to: Recovery Room Condition: Good
[2021-07-31] MEDS ORDERED: MORPHINE 4 MG/ML SYR ONE (15:54)
--- NOTE | 2021-07-31 19:14 | CON ---
Date of Consultation: 07/30/2021 History Of Present Illness: The patient is an 80-year-old gentleman known to me from previous right hlodb-rrc-dzib amputation approximately a week and a half ago. He had severe peripheral arterial dis ease. He had a workup attempts to a revascularization were unsuccessful at saving an amputation of h is toes and as such he was deemed appropriate for below-knee amputation. He underwent a olrel-dpa-hb ee amputation approximately a week and half ago. Everything went well after surgery. He was dischar ged to a senior living facility with the knee immobilizer and dressing changes. The flap was pink, vi able, and doing quite well. I saw him earlier this week, as I was informed from the patient's family that his knee immobilizer had been removed by the nursing staff in the senior living facility and he had a fall and his wound had split open consistent with a dehiscence of his BKA stump. I saw him in my clinic. At that point, there was a very small dehiscence at the tip at this point and as such I r ecommended ongoing wound care as only the skin was opened and the residual deeper tissues were remain ed in place and closed and there was no obvious infection. We started Dakin's solution damp to dry d aily at that point and return the knee immobilizer on. The patient then went back to the nursing [facility] and had an additional fall yesterday at which point his stump was split open completely an d the bone was exposed. As such, he was sent to the ER by my staff. When we were informed of this, we recommended that he be transferred to the emergency room, which the [facility] did and I saw him in the emergency room and noted that there was an exposed bone at this point, and his flap had basica lly been opened. I recommend wound care at this point to temporize this condition and opted to discu ss surgical intervention with his family, which included debridement, washout, and then likely delaye d closure. The patient remains confused and I have discussed this with multiple family members who w ere present at the bedside. Past Medical History: Significant for hypertension, myasthenia gravis, dementia, chronic venous insu fficiency, severe peripheral arterial disease. Past Surgical History: Includes back surgery, amputation of multiple toes of the right foot and a ri ght rhutd-vjc-zeru amputation recently as described above. Home Medications: Include amlodipine, Eliquis, vitamin C, aspirin, Bactrim, Desyrel, zinc, prednison e. Allergies: NO KNOWN DRUG ALLERGIES. Social History: The patient's family denies smoking, alcohol, or recreational drug use. Family History: Noncontributory. Review of Systems: 10-point review of systems unable to obtain. Physical Examination: Vital Signs: At the time of my examination, his BMI is 23.7, his blood pressure was 132/88, heart ra te was 83, respiratory rate 16, temperature 97.8, SpO2 97% on room air. General: He is awake, alert, and oriented. HEENT: Normocephalic. Sclerae are anicteric. Mucous membranes are moist. Oropharynx clear. Neck: Supple without JVD. Chest: Normal to expansion and excursion. Cardiovascular: Regular rate and rhythm. Pulmonary: Clear to auscultation bilaterally. Extremities: Focused examination of right lower extremity shows a dehiscence of his right lower extr emity yejek-eub-fevn amputation site consistent with the history of multiple falls to this area. The tibia is exposed at this point. As such, I have opted to place damp to dry dressings on this and ma ke him n.p.o. after midnight for discussion of surgical planning with a washout debridement and likel y wound care and plan delayed secondary closure going forward. The patient's family agrees to procee d as indicated with that plan. Laboratory Data: His laboratory exam revealed a white blood count of 16.6, hemoglobin is 9.9, hemato crit 28.7, platelet count was 610. His neutrophils were 96.6%. His PT 61, INR 1.45, PTT is 40.4. S odium 132, potassium 3.9, chloride 100, carbon dioxide 29, BUN 17, creatinine 0.7, glucose is 149, ca lcium 8.0. He had imaging performed, which included a tibia-fibula x-ray, which confirmed the obviou s findings of little if any identifiable soft tissue covering the tibia and fibula osteotomy sites. No erosive destructive bony process is evident. Assessment/plan: This is an 80-year-old male who had a recent tvlkv-qjz-rlmm amputation of the right lower extremity and had 2 falls leading to dehiscence of the wound with exposed tibia fibula, 1.IV fluid hydration. 2.Antibiotic coverage. 3.Wound care temporarily until we plan for surgical intervention. He is going to be n.p.o. after midnight. We will proceed with surgery in the a.m. likely be washout debridement and ongoing wound care with plan for secondary closure. Continue current medical managem ent. I explained the risks, benefits, and alternatives to the patient's family. They agreed to proc eed as indicated. TREY/ARMINDA Voice ID: [id number] Report ID: [id number]
--- NOTE | 2021-08-01 00:53 | OP ---
Date of Procedure: 07/31/2021 Surgeon: Clark Bautista MD, Preoperative Diagnosis: Traumatic fcwvs-svn-hwux amputation site dehiscence. Postoperative Diagnosis: Traumatic slbkr-crn-ezvz amputation site dehiscence. Procedures Performed: 1.Debridement of devascularized muscle, fascia, and tendon. 2.Pulse lavage of the BKA stump and all affected tissues. 3.Drainage of intramuscular hematoma. 4.Application of negative pressure wound therapy/wound VAC with white foam. Anesthesia: General endotracheal plus local with 0.25% Marcaine. Estimated Blood Loss: Less than 5 cc. Specimen: Debridement tissue. Findings: Traumatic dehiscence of the BKA stump with devascularized, traumatized, crushed muscle and tendon. Complications: None. Drains: Negative pressure wound therapy wound VAC with white foam and black granular foam overlying. Disposition: The patient was transferred to recovery room in good condition. Procedure In Detail: After informed consent was obtained, the patient was brought to the operating r oom, and prepped and draped in the usual sterile fashion. After adequate anesthesia achieved, I proc eeded to debride the devascularized muscle of the right BKA stump, which had been traumatically injur ed after multiple falls, please see my consult for full details regarding the incident leading up to this. I assessed the wound and debrided all nonviable muscle, tendon, and fascia. I drained an intr amuscular hematoma from the gastroc plane. In addition, I pulse lavaged the entire area. I got down to good bleeding vascularized tissue once again and had to oversew a small bleeding perforating vess el within the gastroc muscle using an interrupted 3-0 Vicryl suture in a xvvspy-xo-ywqjy stitch with good hemostasis at this point. The area was pulse lavaged with approximately 2 L of sterile saline. After it was completely cleansed, no additional hemostatic maneuver was required. I found that the area had significant necrosis and some devascularized tissue and as such I opted not to close this at this point. I therefore placed a white foam protecting the bone of the tibia and fibula and then pl aced a black granular foam overlying this and applied the negative pressure wound therapy/wound VAC a t 120 mm continuous protecting the bone with a white foam and all exposed tendons and muscle were all protected with the white foam covering. At this point, the patient tolerated the procedure well wit hout any complication and transferred to PACU in good condition. All counts were correct at the end of the case. TREY/ARMINDA Voice ID: [id number] Report ID: [id number]
[2021-08-01] MEDS: NA CHLORIDE 0.9% 1,000 ML IV SCH ×2 (03:03→09:00)
[2021-08-01] MEDS: VANCOMYCIN 1.25 GM in NA CHLORIDE 0.9% 250 ML IVPB SCH (05:48)
[2021-08-01] MEDS: ENOXAPARIN 40 MG/0.4 ML SQ SCH (09:20)
[2021-08-01] MEDS: HYDROMORPHONE HCL 1 MG/ML INJ IV PRN ×3 (09:20→21:07)
[2021-08-01] MEDS ORDERED: METHYLPREDNISOLONE 125 MG INJ IV ONE (16:00)
[2021-08-01] MEDS ORDERED: DIPHENHYDRAMINE 50 MG/ML VIAL IV ONE (16:00)
[2021-08-01] MEDS: ENSURE CLEAR 200 ML CAN PO SCH (19:57)
[2021-08-01] MEDS: JUVEN PACKET PO SCH (19:58)
[2021-08-01] MEDS: DONEPEZIL HCL 5 MG TAB PO SCH (20:59)
[2021-08-01] MEDS: MEMANTINE HCL 10 MG TABLET PO SCH (21:00)
[2021-08-01] MEDS ORDERED: QUETIAPINE 25 MG TAB PO SCH (21:00)
[2021-08-01] MEDS: PYRIDOSTIGMINE 60 MG TABLET PO SCH (21:00)
[2021-08-01] MEDS: ATORVASTATIN 10 MG TAB PO SCH (21:01)
[2021-08-01] MEDS: TRAZODONE 50 MG TABLET PO SCH (21:01)
[2021-08-02] MEDS: VANCOMYCIN 1.25 GM in NA CHLORIDE 0.9% 250 ML IVPB SCH (00:39)
[2021-08-02] MEDS ORDERED: LORazepam 2 MG/ML VIAL IV PRN (01:27)
[2021-08-02] MEDS ORDERED: ZIPRASIDONE MESYLA 20 MG/VIAL IM PRN (03:02)
[2021-08-02] MEDS ORDERED: WATER FOR INJ,STERILE 10 ML IM PRN (03:02)
[2021-08-02] MEDS ORDERED: VANCOMYCIN 1.5 GM in NA CHLORIDE 0.9% 500 ML IVPB SCH (08:00)
[2021-08-02] MEDS: ENSURE CLEAR 200 ML CAN PO SCH ×2 (09:00→20:14)
[2021-08-02] MEDS: ZINC SULFATE 220 MG CAP PO SCH (09:00)
[2021-08-02] MEDS: JUVEN PACKET PO SCH ×2 (09:00→20:14)
[2021-08-02] MEDS: CYANOCOBALAMIN 1,000 MCG TAB PO SCH (09:00)
[2021-08-02] MEDS: PYRIDOSTIGMINE 60 MG TABLET PO SCH ×3 (09:00→20:10)
[2021-08-02] MEDS: AMLODIPINE 5 MG TAB PO SCH (09:00)
[2021-08-02] MEDS: FUROSEMIDE 20 MG TABLET PO SCH (09:00)
[2021-08-02] MEDS: MEMANTINE HCL 10 MG TABLET PO SCH ×2 (09:00→20:09)
[2021-08-02] MEDS: ASCORBIC ACID 500 MG TABLET PO SCH (09:00)
[2021-08-02] MEDS: predniSONE 10 MG TAB PO SCH (12:00)
[2021-08-02] MEDS ORDERED: HYDROCORTISONE SUC 100 MG INJ IV ONE (12:53)
--- NOTE | 2021-08-02 12:54 | P.PN ---
Date of Service: 08/01/21 Subjective Patient improving. Patient denies any new complaints Review of Systems 10-point ROS is otherwise unremarkable Physical Examination - Vital Signs reviewed - Physical Exam General: Alert, In no apparent distress, Oriented to person Respiratory: Clear to auscultation bilaterally, Normal air movement Cardiovascular: Regular rate/rhythm, Normal S1 S2, Systolic murmur Gastrointestinal: Normal bowel sounds, Soft and benign, Non-distended, No tenderness Musculoskeletal: Swelling, Erythema, Tenderness; right below-knee amputation with wound dehisced Integumentary: Scratches Neurological: No significant abnormality Assessment & Plan - Problems (Diagnosis) (1) Wound dehiscence Current Visit: Yes Status: Acute (2) Status post below knee amputation of right lower extremity Current Visit: No Status: Acute (3) Peripheral arterial disease Current Visit: No Status: Acute (4) Dementia with behavioral disturbance Current Visit: No Status: Chronic Qualifiers: (5) Lower extremity deep venous thrombosis Current Visit: No Status: Chronic Qualifiers: (6) Myasthenia gravis Current Visit: No Status: Chronic (7) Pulmonary embolus Current Visit: No Status: Chronic Qualifiers: - Plan Continue with plan of care as mentioned below: 1. Continue with IV antibiotic 2. Continue with local wound care 3. Wound care consultation/surgical consultation 4. Gentle IV hydration 5. Monitor CBC 6. Strict blood sugar monitoring 7. Pain control 8. GI and DVT prophylaxis
--- NOTE | 2021-08-02 12:55 | P.PN ---
Date of Service: 08/02/21 Subjective Patient very lethargic. [facility] is ready to accept the patient not waking up. Status post Geodon and Ativan. Review of Systems 10-point ROS is otherwise unremarkable Physical Examination - Vital Signs reviewed - Physical Exam General: Alert, In no apparent distress, Oriented to person Respiratory: Clear to auscultation bilaterally, Normal air movement Cardiovascular: Regular rate/rhythm, Normal S1 S2, Systolic murmur Gastrointestinal: Normal bowel sounds, Soft and benign, Non-distended, No tenderness Musculoskeletal: Swelling, Erythema, Tenderness; right below-knee amputation with wound dehisced Integumentary: Scratches Neurological: No significant abnormality Assessment & Plan - Problems (Diagnosis) (1) Wound dehiscence Current Visit: Yes Status: Acute (2) Status post below knee amputation of right lower extremity Current Visit: No Status: Acute (3) Peripheral arterial disease Current Visit: No Status: Acute (4) Dementia with behavioral disturbance Current Visit: No Status: Chronic Qualifiers: (5) Lower extremity deep venous thrombosis Current Visit: No Status: Chronic Qualifiers: (6) Myasthenia gravis Current Visit: No Status: Chronic (7) Pulmonary embolus Current Visit: No Status: Chronic Qualifiers: - Plan Continue with plan of care as mentioned below: 1. Continue with IV antibiotic 2. Continue with local wound care 3. Wound care consultation/surgical consultation 4. Gentle IV hydration 5. Monitor CBC 6. Strict blood sugar monitoring 7. Pain control 8. GI and DVT prophylaxis
[2021-08-02 14:03] LABS: Absolute Lymphocytes (CBC) 0.4 K/uL (0.7-4.9); Hematocrit 24.8 % (39.6-49.0); MPV 6.2 fL (7.6-11.3); RBC Red Blood Cell Count 3.23 M/uL (4.33-5.43)
[2021-08-02 14:27] LABS: ALT/SGPT 15 U/L (12-78); AST/SGOT 15 U/L (15-37); Albumin 1.9 g/dL (3.4-5.0); Alkaline Phosphatase 67 U/L (45-117); BUN Blood Urea Nitrogen 12 mg/dL (7-18); Bicarbonate 25 mmol/L (21-32); Bilirubin Total 0.5 mg/dL (0.2-1.0); Glucose Level 106 mg/dL (74-106); Potassium 3.4 mmol/L (3.5-5.1); Protein, Total 4.5 g/dL (6.4-8.2); Sodium Level 142 mmol/L (136-145)
[2021-08-02] MEDS: HYDROMORPHONE HCL 1 MG/ML INJ IV PRN (16:41)
[2021-08-02] MEDS: ENOXAPARIN 40 MG/0.4 ML SQ SCH (18:09)
[2021-08-02] MEDS: VANCOMYCIN 1.5 GM in NA CHLORIDE 0.9% 500 ML IVPB SCH (18:09)
[2021-08-02] MEDS: QUETIAPINE 25 MG TAB PO SCH (18:27)
[2021-08-02] MEDS: DONEPEZIL HCL 5 MG TAB PO SCH (20:09)
[2021-08-02] MEDS: ATORVASTATIN 10 MG TAB PO SCH (20:09)
[2021-08-02] MEDS: TRAZODONE 50 MG TABLET PO SCH (20:11)
[2021-08-03] MEDS: CYANOCOBALAMIN 1,000 MCG TAB PO SCH (08:52)
[2021-08-03] MEDS: ASCORBIC ACID 500 MG TABLET PO SCH (08:52)
[2021-08-03] MEDS: ZINC SULFATE 220 MG CAP PO SCH (08:52)
[2021-08-03] MEDS: AMLODIPINE 5 MG TAB PO SCH (08:52)
[2021-08-03] MEDS: FUROSEMIDE 20 MG TABLET PO SCH (08:52)
[2021-08-03] MEDS: ENSURE CLEAR 200 ML CAN PO SCH ×2 (08:53→20:58)
[2021-08-03] MEDS: JUVEN PACKET PO SCH ×2 (08:53→20:59)
[2021-08-03] MEDS: MEMANTINE HCL 10 MG TABLET PO SCH ×2 (08:53→20:58)
[2021-08-03] MEDS: POTASSIUM CL SA 10 MEQ TAB PO ONE ×2 (08:53→09:00)
[2021-08-03] MEDS: PYRIDOSTIGMINE 60 MG TABLET PO SCH ×3 (08:53→20:57)
[2021-08-03] MEDS: ENOXAPARIN 40 MG/0.4 ML SQ SCH (08:53)
[2021-08-03] MEDS ORDERED: POTASSIUM 25 MEQ EFFERV TAB ONE (09:00)
[2021-08-03 09:12] VITALS: O2SAT 90
[2021-08-03] MEDS: HYDROCODONE/APAP 7.5/325 MG TAB PO PRN (10:34)
[2021-08-03] MEDS ORDERED: NA CHLORIDE 0.9% 500 ML ONE (11:58)
--- NOTE | 2021-08-03 12:07 | P.PN ---
Subjective Date of Service: 08/02/21 Chief Complaint: Wound dehiscence Subjective: Improving (patient has no complaints) Physical Examination - Vital Signs Temperature: 97.6 F Blood Pressure: 142/59 Pulse: 79 Respirations: 18 Pulse Ox (%): 90 - Physical Exam General: Alert, In no apparent distress, Confused (@ baseline, pleasant, family present in room) Musculoskeletal: Other (BKA site is well covered with WVAC, ) Assessment And Plan - Plan 80 year old man who is s/p BKA then fell 3X according to family, returned with dehiscence of BKA, taken to OR for debridement - will continue WVAC and re-assess for secondary closure on WVAC change days (every other day) - if slow to progress will consider discharge with WVAC and follow up as outpatient for ongoing wound care and planning - continue antibiotics - continue medical management
--- NOTE | 2021-08-03 12:08 | P.PN ---
Subjective Date of Service: 08/03/21 Chief Complaint: Wound dehiscence Subjective: No new changes Physical Examination - Vital Signs Temperature: 97.6 F Blood Pressure: 142/59 Pulse: 79 Respirations: 18 Pulse Ox (%): 90 - Physical Exam General: Alert, In no apparent distress, Confused (@ baseline) Integumentary: Other (WVAC functioning well, minimal clear effluent in canister) Assessment And Plan - Plan 80 year old man who is s/p BKA then fell 3X according to family, returned with dehiscence of BKA, taken to OR for debridement - will continue WVAC and re-assess for secondary closure on WVAC change days (every other day) - if slow to progress will consider discharge with WVAC and follow up as outpatient for ongoing wound care and planning - continue antibiotics - continue medical management
[2021-08-03] MEDS: predniSONE 10 MG TAB PO SCH (12:12)
[2021-08-03] MEDS: VANCOMYCIN 1.5 GM in NA CHLORIDE 0.9% 500 ML IVPB SCH (12:12)
[2021-08-03] MEDS: QUETIAPINE 25 MG TAB PO SCH (16:58)
[2021-08-03] MEDS ORDERED: POTASSIUM CL SA 10 MEQ TAB PO ONE (20:00)
[2021-08-03] MEDS: TRAZODONE 50 MG TABLET PO SCH (20:57)
[2021-08-03] MEDS: ATORVASTATIN 10 MG TAB PO SCH (20:58)
[2021-08-03] MEDS: DONEPEZIL HCL 5 MG TAB PO SCH (20:58)
--- NOTE | 2021-08-04 02:10 | P.PN ---
Date of Service: 08/03/21 Subjective Was very lethargic yesterday. Patient presented to the emergency room after his wound had dehisced. He had fallen at the shelter and had to be taken to the emergency room and from there patient went to surgery to repair the wound. Patient's blood sugars and blood pressure are stable. Patient's wound was cleansed in the operating room. Patient has a wound VAC in place. Patient has been accepted to [facility]. Review of Systems 10-point ROS is otherwise unremarkable Physical Examination - Vital Signs reviewed - Physical Exam General: Alert, In no apparent distress, Oriented to person Respiratory: Clear to auscultation bilaterally, Normal air movement Cardiovascular: Regular rate/rhythm, Normal S1 S2, Systolic murmur Gastrointestinal: Normal bowel sounds, Soft and benign, Non-distended, No tenderness Musculoskeletal: Swelling, Erythema, Tenderness; right below-knee amputation with wound dehisced Integumentary: Scratches Neurological: No significant abnormality Assessment & Plan - Problems (Diagnosis) (1) Wound dehiscence Current Visit: Yes Status: Acute (2) Status post below knee amputation of right lower extremity Current Visit: No Status: Acute (3) Peripheral arterial disease Current Visit: No Status: Acute (4) Dementia with behavioral disturbance Current Visit: No Status: Chronic Qualifiers: (5) Lower extremity deep venous thrombosis Current Visit: No Status: Chronic Qualifiers: (6) Myasthenia gravis Current Visit: No Status: Chronic (7) Pulmonary embolus Current Visit: No Status: Chronic Qualifiers: - Plan Continue with plan of care as mentioned below: 1. Continue with IV antibiotic 2. Continue with local wound care 3. Wound care consultation/surgical consultation appreciated; going to [facility] 4. Hep-Lock IV 5. Monitor labs 6. Strict blood sugar monitoring 7. Pain control 8. GI and DVT prophylaxis
[2021-08-04] MEDS: HYDROCODONE/APAP 7.5/325 MG TAB PO PRN ×2 (02:38→10:54)
[2021-08-04] MEDS ORDERED: VANCOMYCIN 1 GM/VIAL ONE (06:10)
[2021-08-04] MEDS: VANCOMYCIN 1.5 GM in NA CHLORIDE 0.9% 500 ML IVPB SCH (06:22)
[2021-08-04] MEDS: ENOXAPARIN 40 MG/0.4 ML SQ SCH (08:24)
[2021-08-04] MEDS: ASCORBIC ACID 500 MG TABLET PO SCH (08:25)
[2021-08-04] MEDS: CYANOCOBALAMIN 1,000 MCG TAB PO SCH (08:25)
[2021-08-04] MEDS: AMLODIPINE 5 MG TAB PO SCH (08:26)
[2021-08-04] MEDS: MEMANTINE HCL 10 MG TABLET PO SCH (08:26)
[2021-08-04] MEDS: ZINC SULFATE 220 MG CAP PO SCH (08:26)
[2021-08-04] MEDS: FUROSEMIDE 20 MG TABLET PO SCH (08:27)
[2021-08-04] MEDS: PYRIDOSTIGMINE 60 MG TABLET PO SCH ×2 (08:28→14:19)
[2021-08-04] MEDS: JUVEN PACKET PO SCH (08:29)
[2021-08-04] MEDS: ENSURE CLEAR 200 ML CAN PO SCH (08:29)
[2021-08-04] MEDS ORDERED: POTASSIUM CL SA 10 MEQ TAB PO ONE (09:00)
[2021-08-04] MEDS ORDERED: ASPIRIN EC 81 MG TAB PO SCH (09:00)
[2021-08-04] MEDS ORDERED: APIXABAN 2.5 MG TABLET PO SCH (09:00)
--- NOTE | 2021-08-04 10:14 | P.DS ---
Admission Date: 07/30/21 Discharge Date: 08/04/21 Disposition: TRANSFER TO SNF - REHAB Discharge Condition: FAIR Reason for Admission: Wound dehiscence Brief History of Present Illness: 80-year-old male patient was evaluated in the ER after he fell at rehab facility and had a left below-knee amputation wound dehiscence. He was asked to be evaluated by a surgeon because of 1 day since. Hospital Course: Upon admission, he had empiric antibiotic continued for management of possible sepsis and he had revision of stump from BKA by his surgeon. He had appropriate debridement of bone and reduction procedure and subsequently was put in wound VAC. After review by the surgeon there was concern for suspicion for prolonged need of wound care prior to closure of the flap so he was sent to inpatient rehab at [facility] for this purpose. He will be followed by surgeon as scheduled. Vital Signs/Physical Exam: Temp Pulse Resp BP Pulse Ox 97.7 F 70 19 132/63 98 08/04/21 08:00 08/04/21 08:26 08/04/21 08:00 08/04/21 08:08/04/21 08:00 Laboratory Data at Discharge: WBC 13.5 K/uL (4.3-10.9) H 08/02/21 13:39 Hgb 8.1 g/dL (13.6-17.9) L 08/02/21 13:39 Hct 24.8 % (39.6-49.0) L 08/02/21 13:39 Plt Count 504 K/uL (152-406) H 08/02/21 13:39 PT 16.5 SECONDS (9.5-12.5) H 07/31/21 03:54 INR 1.49 07/31/21 03:54 APTT 41.3 SECONDS (24.3-36.9) H 07/31/21 03:54 Sodium 142 mmol/L (136-145) 08/02/21 13:39 Potassium Cancelled 08/04/21 Unknown BUN 12 mg/dL (7-18) 08/02/21 13:39 Creatinine 0.49 mg/dL (0.55-1.3) L 08/02/21 13:39 Glucose 106 mg/dL (74-106) 08/02/21 13:39 Magnesium 2.1 mg/dL (1.8-2.4) 07/31/21 03:54 Total Bilirubin 0.5 mg/dL (0.2-1.0) 08/02/21 13:39 AST 15 U/L (15-37) 08/02/21 13:39 ALT 15 U/L (12-78) 08/02/21 13:39 Alkaline Phosphatase 67 U/L (45-117) 08/02/21 13:39 Home Medications: Amlodipine [Norvasc*] 5 mg PO DAILY 07/31/21 Apixaban [Eliquis *] 2.5 mg PO BID 07/31/21 Ascorbic Acid [Vitamin C] 250 mg PO DAILY 07/31/21 Aspirin [Aspirin EC 81 MG] 81 mg PO DAILY 07/31/21 Atorvastatin Calcium 10 mg PO BEDTIME 07/31/21 Cyanocobalamin (Vitamin B-12) [Vitamin B-12] 1 tab PO DAILY 07/31/21 Donepezil HCl 10 mg PO BEDTIME 07/31/21 Furosemide 20 mg PO DAILY 07/31/21 Hydrocodone Bit/Acetaminophen [[place] 7.5-325 Tablet] 1 each PO Q4H PRN 07/31/21 Memantine HCl 10 mg PO BID 07/31/21 Pyridostigmine [place] 60 mg PO TID 07/31/21 Quetiapine Fumarate [Seroquel] 50 mg PO BEDTIME 07/31/21 Trazodone [Desyrel*] 25 mg PO BEDTIME 07/31/21 Zinc 50 mg PO DAILY 07/31/21 predniSONE [Deltasone*] 10 mg PO NOON 07/31/21 Jorge Alberto [Jorge Alberto*] 1 pkt PO BID #60 powd.pack 08/04/21 New Medications: Jorge Alberto [Jorge Alberto*] 1 pkt PO BID #60 powd.pack Physician Discharge Instructions: -DC IV and DC to [facility] -Follow-up with PCP in 1 to 2 weeks -Follow-up with Surgery, Dr. Bautista, in 1 to 2 weeks -Please call Dr. Sherman at [phone] if any questions regarding hospital stay -Please call nursing station at [phone] if any nursing or medication questions -Return to the emergency room if symptoms worsen Diet: Renal Activity: Fall precautions Followup: NONE,NONE [Primary Care Provider] -
[2021-08-04 13:06] LABS: Absolute Lymphocytes (CBC) 0.9 K/uL (0.7-4.9); Hematocrit 26.7 % (39.6-49.0); Lymphocytes % 7.9 % (15.3-44.8); RBC Red Blood Cell Count 3.41 M/uL (4.33-5.43)
[2021-08-04 13:09] LABS: BUN Blood Urea Nitrogen 13 mg/dL (7-18); Bicarbonate 27 mmol/L (21-32); Glucose Level 106 mg/dL (74-106); Sodium Level 139 mmol/L (136-145)
[2021-08-04] MEDS: predniSONE 10 MG TAB PO SCH (14:19)
[2021-08-04 16:35] VITALS: BP 113/55; TEMP 98.1
--- NOTE | 2021-08-04 19:20 | P.PN ---
Subjective Date of Service: 08/04/21 Chief Complaint: Wound dehiscence Subjective: Improving (no new issues) Physical Examination - Vital Signs Temperature: 98.1 F Blood Pressure: 113/55 Pulse: 79 Respirations: 18 Pulse Ox (%): 96 - Physical Exam General: Alert, In no apparent distress, Confused Musculoskeletal: Other (BKA stump clean and dry, no further necrosis, bone remains visible, clean, no infection, WVAC with white foam placed) Assessment And Plan - Plan 80 year old man who is s/p BKA then fell 3X according to family, returned with dehiscence of BKA, taken to OR for debridement - will continue WVAC and plan exams after discharged from LTAC - if slow to progress will consider discharge with WVAC and follow up as outpatient for ongoing wound care and planning - continue antibiotics - continue medical management
== END 2021-08-04 16:50 | DRG 853 ==
LOC: ER 15:35 → ERHOLD 16:51 → 2ND 18:11
PROVIDERS: ADMIT Hospitalist; ATTEND Hospitalist
PROC: 0J9N3ZZ Drainage of Right Lower Leg Subcutaneous Tissue and Fascia, Percutaneous Approach (ICD-10-PCS; 2021-07-31)
PROC: 0LDQ0ZZ Extraction of Right Knee Tendon, Open Approach (ICD-10-PCS; principal; 2021-07-31 14:15)
DX: A41.9 Sepsis, unspecified organism (principal); L89.623 Pressure ulcer of left heel, stage 3; N17.0 Acute kidney failure with tubular necrosis; G92.9 Unspecified toxic encephalopathy; E44.1 Mild protein-calorie malnutrition; F03.91 Unspecified dementia, unspecified severity, with behavioral disturbance; R65.20 Severe sepsis without septic shock; Z68.23 Body mass index [BMI] 23.0-23.9, adult; L89.152 Pressure ulcer of sacral region, stage 2; I10 Essential (primary) hypertension; I73.9 Peripheral vascular disease, unspecified; T87.81 Dehiscence of amputation stump; G70.00 Myasthenia gravis without (acute) exacerbation; Z89.511 Acquired absence of right leg below knee; Z86.718 Personal history of other venous thrombosis and embolism; Z86.711 Personal history of pulmonary embolism; T87.89 Other complications of amputation stump; Z20.822 Contact with and (suspected) exposure to COVID-19
CPT/HCPCS: 36415; 80048; 80053; 80202; 83735; 84132; 85025; 85610; 85730; 87070; 87077; 87186; 87205; 88304; 97161; 99285; J1170; J1200; J1650; J2704; J2930; J3010; J3370; J3480; J3486; J7030; J7040; J7050; J7120; J7512; U0003

== ENCOUNTER 2021-08-28 10:35 | Emergency (ER) | payer OTHER ==
--- OUTSIDE RECORDS SUMMARY | 2021-08-28 10:38 | XMS REPORT | Continuity of Care Document ---
:1940 Author Organization [facility] t Address [address] [place] [address] Dr. Adair [address] [place] [address] Care Team Providers Name Role Phone Prachi Ramos Attending Clinician Unavailable Pietro Taylor Attending Clinician Unavailable [id number] Attending Clinician Unavailable Yary Jernigan Attending Clinician Unavailable SHENA Taylor Admitting Clinician Unavailable [id number] Admitting Clinician Unavailable Walter Jernigan Admitting Clinician Unavailable Payers Payer Name Policy Type Policy Number Effective Date Expiration Date S [facility] [id number] Problems This patient has no known problems. Allergies, Adverse Reactions, Alerts This patient has no known allergies or adverse reactions. Medications This patient has no known medications. Procedures Procedure Date / Time Performed Performing Clinician [facility] gil [id number] 2021-08-19 00:00:00 ENCPL Encounters Start End Encounter Admission Attending Care Care Encounter Source Date/Time Date/Time Type Type Clinicians Facility Department ID 2021-08-14 Outpatient CHERELLE Ramos [id number] [facility] 15:43:17 Prachi 64 [facility] 2021-08-09 Outpatient CHERELLE Taylor [id number] [facility] 13:20:57 Pietro 25 [facility] [place] 2021-08-02 Outpatient 3 [id number] ENCPL REF [id number] E[facility] 10:45:49 0326 2021-08-04 2021-08-20 Inpatient 3 [facility] ENCPL AML [id number] ENCPL 18:17:00 22:00:00 Brii ojeda8 Yary 2021-08-14 2021-08-14 Outpatient CHERELLE Ramos RADI [id number] [facility] 14:57:00 14:57:00 Prachi [id number] [facility] 2021-08-09 2021-08-09 Outpatient Taylor, HCAPM RADI [id number] [facility] 09:35:00 09:35:00 Pietro [id number] [facility] Results Test Description Test Time Test Comments Results Result [facility] e Comments - CT ABD PELVIS 2021-08-14 W/O CONT 15:39:00 [facility] : 1940 Sex: M Name: BRIANNE MEJÍA [facility] : 1940 Age/S: 80 / M [address] Unit #: [id number] Loc: [place] [address] Phys: Prachi Ramos MD Acct: [id number] Dis Date: Status: REG REF PHONE #: [phone] Exam Date: 08/14/2021 1503 FAX #: Reason: R BKA PAD, TO RULE OUT BLEEDING EXAMS: CPT: [id number] CT ABD PELVIS W/O CONT 87387 CT Abdomen and Pelvis without contrast. Location: S17 Clinical indication: 80-year-old with clinical concern for bleeding Comparison: August 09, 2021 Technique: Computed axial images were obtained from the diaphragms through the pubic symphysis without IV contrast. Suboptimal evaluation of viscera due to lack of contrast. Up to date CT equipment and radiation dose reduction technique were utilized. Findings: Abdomen: There are bilateral small pleural effusions, with adjacent patchy airspace opacification, either pneumonia or atelectasis. The liver, gallbladder, spleen, adrenal glands, pancreas, and kidneys are without acute abnormality on this unenhanced CT. Moderate stool scattered about the colon. Pelvis: Normal appendix. There is a small fat-containing periumbilical hernia. Urinary bladder is unremarkable. The prostate is 6 cm in transverse dimension, enlarged. The rectum is distended with stool. No acute osseous abnormality. There is a healed or healing left anterior rib fracture. Mild to moderate wedge-shaped compression, likely chronic. Impression: 1. No abdominopelvic hematoma identified. 2. Bilateral small pleural effusions with adjacent pneumonia or atelectasis. at 1539 Reported and signed by: Jigar Welch M.D. CC: Pietro Taylor; Prachi Ramos MD Technologist:Tariq Donato, RT(R)(CT) CTDI: DLP: Trnscb Date/Time: 08/14/2021 (1539) [email or web address] Orig Print D/T: S: 08/14/2021 (0553) PAGE 1 Signed Report - CT ABD PELVIS 2021-08-09 W/O CONT 13:17:00 [facility] : 1940 Sex: M Name: BRIANNE MEJÍA [facility] : 1940 Age/S: 80 / M [address] Unit #: [id number] Loc: [place] [address] Phys: Pietro Taylor Acct: [id number] Dis Date: Status: REG REF PHONE #: [phone] Exam Date: 08/09/2021 0950 FAX #: Reason: RULE OUT BLEEDING EXAMS: CPT: [id number] CT ABD PELVIS W/O CONT 14318 CT OF THE ABDOMEN AND PELVIS WITHOUT CONTRAST Location: B2 CLINICAL HISTORY:RULE OUT BLEEDING COMPARISON: None available. TECHNIQUE Axial images of the abdomen and pelvis were obtained without contrast. Images were reformatted to create coronal and sagittal reconstructions. One or more of the following dose reduction techniques were used: Automated exposure control, adjustment of the mA and/or kV according to patient size, and/or utilization of iterative reconstruction technique. DLP: 476 mGy-cm. FINDINGS: ABDOMEN There are small layering bilateral pleural effusions with adjacent compressive atelectasis. Heart is mildly enlarged. There is thinning of the renal cortices. There is no urolithiasis, hydronephrosis or hydroureter.. Hepatic calcifications are present. No intrahepatic lesions are seen. The unopacified spleen, pancreas, gallbladder, and adrenal glands are within normal limits. There is copious stool within the colon which may indicate mild degree of constipation. There is no colonic wall thickening. Normal caliber appendix is seen in the right lower quadrant. Small bowel loops are normal in caliber. There is no mesenteric or retroperitoneal adenopathy. There is no free intraperitoneal air or fluid. There is calcification throughout the abdominal aorta. FINDINGS: PELVIS Urinary bladder is moderately distended. There is enlargement of prostate gland measuring 4.6 x 6.3 x 5.1 cm. There is no free pelvic fluid. There is chronic compression deformity of L1 with vertebroplasty cement. There is also chronic compression deformity of T12 level. There is diffuse osteopenia. There is levoconvex curvature of lumbar PAGE 1 Signed Report (CONTINUED) Name: BRIANNE MEJÍA [facility] : 1940 Age/S: 80 / M [address] Unit #: [id number] Loc: [place] [address] Phys: Pietro Taylor [employer] Acct: [id number] Dis Date: Status: REG REF PHONE #: [phone] Exam Date: 08/09/2021 0950 FAX #: Reason: RULE OUT BLEEDING EXAMS: CPT: [id number] CT ABD PELVIS W/O CONT 78217 <Continued> spine centered at L2. Spondylosis is present throughout the lumbar region. No acute fracture or dislocation is evident. IMPRESSION: 1. Copious stool within colon which may indicate mild degree of constipation. Small large bowel loops are otherwise within normal limits. No abnormal mural thickening. 2. Small bilateral pleural effusions with adjacent compressive atelectasis. 3. Prostatomegaly. 4. Chronic compression deformities at T12 and L1. at 1317 Reported and signed by: Jayjay Soto M.D. CC: Pietro Taylor Technologist:RT Heath(R) CTDI: DLP: Trnscb Date/Time: 08/09/2021 (1317) [email or web address] Orig Print D/T: S: 08/09/2021 (3817) PAGE 2 Signed Report
--- NOTE | 2021-08-28 14:47 | EDPHYS ---
Physician Documentation [facility] Name: Tj Harrington Age: 80 yrs Sex: Male : 1940 Arrival Date: 08/28/2021 Time: 10:36 Bed 19 Private MD: ED Physician Cristina Beavers HPI: 08/28 11:30 This 80 yrs old Male presents to ER via Wheelchair with complaints of pulled ma2 picc line. 11:30 She has dementia, multiple pressure sores, right below-knee amputation with wound VAC ma2 in place, patient is here because he accidentally pulled has PICC line from left upper extremity, which he takes antibiotics through daily.. Historical: - PMHx: 10:57 DVT; Hypertensive disorder; pulmonary embolis; Dementia; ab2 - PSHx: 10:57 BKA right; ab2 - Immunization history:: Adult Immunizations up to date. - Social history:: Smoking status: Patient denies any tobacco usage or history of. - Family history:: not pertinent. ROS: 11:30 Constitutional: Negative for fever, chills, and weight loss. ma2 11:30 All other systems are negative. Exam: 11:30 Constitutional: This is a well developed, well nourished patient who is awake, alert, ma2 and in no acute distress. Head/Face: Normocephalic, atraumatic. Eyes: Pupils equal round and reactive to light, extra-ocular motions intact. Lids and lashes normal. Conjunctiva and sclera are non-icteric and not injected. Cornea within normal limits. Periorbital areas with no swelling, redness, or edema. ENT: Nares patent. No nasal discharge, no septal abnormalities noted. Tympanic membranes are normal and external auditory canals are clear. Oropharynx with no redness, swelling, or masses, exudates, or evidence of obstruction, uvula midline. Mucous membranes moist. Neck: Trachea midline, no thyromegaly or masses palpated, and no cervical lymphadenopathy. Supple, full range of motion without nuchal rigidity, or vertebral point tenderness. No Meningismus. Chest/axilla: Normal chest wall appearance and motion. Nontender with no deformity. No lesions are appreciated. Cardiovascular: Regular rate and rhythm with a normal S1 and S2. No gallops, murmurs, or rubs. Normal PMI, no JVD. No pulse deficits. Respiratory: Lungs have equal breath sounds bilaterally, clear to auscultation and percussion. No rales, rhonchi or wheezes noted. No increased work of breathing, no retractions or nasal flaring. Abdomen/GI: Soft, non-tender, with normal bowel sounds. No distension or tympany. No guarding or rebound. No evidence of tenderness throughout. Skin: Warm, dry with normal turgor. Normal color with no rashes, no lesions, and no evidence of cellulitis. MS/ Extremity: Upper extremity PICC line site in the dorsal dry, no tenderness or swelling or skin changes. Patient has right below-knee amputation with open wound VAC in place, patient has multiple left foot sores at the calcaneum and left great toe up. There is mild induration but there is no abscess or swelling, cellulitis, all vital signs are within normal limits otherwise pulses equal, no cyanosis. Neurovascular intact. Full, normal range of motion. Neuro: Awake and alert, GCS 15, oriented to person, place, time, and situation. Cranial nerves II-XII grossly intact. Motor strength 5/5 in all extremities. Sensory grossly intact. Cerebellar exam normal. Normal gait. Vital Signs: 10:55 BP 117 / 64; Pulse 76; Resp 17; Temp 98.2; Pulse Ox 99% on R/A; Weight 72.57 kg; Height ab2 5 ft. 10 in. (177.80 cm); 12:07 BP 133 / 73; Pulse 66; Resp 16; Pulse Ox 100% ; bp 13:00 BP 137 / 66; Pulse 67; Resp 16; Pulse Ox 100% ; bp 14:30 BP 121 / 77; Pulse 67; Resp 16; Pulse Ox 96% ; bp 15:18 BP 130 / 63; Pulse 67; Resp 16; Pulse Ox 100% ; bp 10:55 Body Mass Index 22.96 (72.57 kg, 177.80 cm) ab2 MDM: 11:17 Patient medically screened. ma2 11:30 Differential diagnosis: pulled PICC line accidently. will replace PICC line. Data ma2 reviewed: vital signs, nurses notes. Counseling: I had a detailed discussion with the patient and/or guardian regarding: the historical points, exam findings, and any diagnostic results supporting the discharge/admit diagnosis, the presence of at least one elevated blood pressure reading (>120/80) during this emergency department visit, the need for outpatient follow up. Response to treatment: the patient's symptoms have markedly improved after treatment. 14:47 ED course: . ma2 08/28 11:29 Order name: IV - Large Bore: picc line or midline placement; Complete Time: 14:34 ma2 Administered Medications: No medications were administered Disposition Summary: 08/28/21 14:47 Discharge Ordered Location: Home ma2 Condition: Stable ma2 Diagnosis - Encounter for follow-up examination after completed treatment for conditions other ma2 than malignant neoplasm - PICC line replacement due to accidentally pulled PICC line Followup: ma2 - With: Private Physician - When: Tomorrow - Reason: If symptoms return, Continuance of care Discharge Instructions: - Discharge Summary Sheet ma2 - PICC Home Care Guide ma2 - PICC Insertion, Care After ma2 Forms: - Medication Reconciliation Form ma2 - Thank You Letter ma2 - Antibiotic Education ma2 - Prescription Opioid Use ma2 Signatures: Cristina Beavers MD MD ma2 Shon Platt2
--- NOTE | 2021-08-28 14:47 | ER ---
Nurse's Notes [facility] Name: Tj Harrington Age: 80 yrs Sex: Male : 1940 Arrival Date: 08/28/2021 Time: 10:36 Bed 19 Private MD: Diagnosis: Encounter for follow-up examination after completed treatment for conditions other than malignant neoplasm-PICC line replacement due to accidentally pulled PICC line Presentation: 08/28 10:55 Chief complaint: Patient's son or daughter states: He pulled his PICC line out and his ab2 wound Vac off this morning and they told me if that happened to bring him here. Pt has PICC line to left upper arm and wound vac to right BKA. Daughter states patient has dementia. Coronavirus screen: Vaccine status: Patient reports receiving the 2nd dose of the covid vaccine. Client denies travel out of the [place] in the last 14 days. At this time, the client does not indicate any symptoms associated with coronavirus-19. Ebola Screen: Patient negative for fever greater than or equal to 101.5 degrees Fahrenheit, and additional compatible Ebola Virus Disease symptoms Patient denies exposure to infectious person. Patient denies travel to an Ebola-affected area in the 21 days before illness onset. No symptoms or risks identified at this time. Initial Sepsis Screen: Does the patient meet any 2 criteria? No. Patient's initial sepsis screen is negative. Does the patient have a suspected source of infection? No. Patient's initial sepsis screen is negative. Risk Assessment: Do you want to hurt yourself or someone else? Patient reports no desire to harm self or others. Onset of symptoms is unknown. 10:55 Method Of Arrival: Wheelchair ab2 10:55 Acuity: ABBEY 3 ab2 Triage Assessment: 10:58 General: Appears in no apparent distress. comfortable, Behavior is calm, cooperative. ab2 Pain: Denies pain. Neuro: Level of Consciousness is awake, alert, obeys commands, Oriented to person. Respiratory: Airway is patent Respiratory effort is even, unlabored, Respiratory pattern is regular, symmetrical. Derm: Parent/caregiver reports the patient having Pt pulled wound vac off of right BKA. Pt pulled PICC line out of left upper arm. Historical: - PMHx: 10:57 DVT; Hypertensive disorder; pulmonary embolis; Dementia; ab2 - PSHx: 10:57 BKA right; ab2 - Immunization history:: Adult Immunizations up to date. - Social history:: Smoking status: Patient denies any tobacco usage or history of. - Family history:: not pertinent. Screenin:00 Abuse screen: Denies threats or abuse. Denies injuries from another. Nutritional bp screening: No deficits noted. Tuberculosis screening: No symptoms or risk factors identified. Fall Risk None identified. Assessment: 11:00 General: SEE TRIAGE NOTE. bp 12:06 Reassessment: PICC NURSE CONTACTED. bp 13:00 Reassessment: No changes from previously documented assessment. Patient and/or family bp updated on plan of care and expected duration. Pain level reassessed. 13:30 Reassessment: PICC NURSE AT B/S. bp 14:30 Reassessment: MIDLINE PLACED BY PICC NURSE. bp 15:18 Reassessment: PT D/C HOME VIA W/C WITH FAMILY. bp Vital Signs: 10:55 BP 117 / 64; Pulse 76; Resp 17; Temp 98.2; Pulse Ox 99% on R/A; Weight 72.57 kg; Height ab2 5 ft. 10 in. (177.80 cm); 12:07 BP 133 / 73; Pulse 66; Resp 16; Pulse Ox 100% ; bp 13:00 BP 137 / 66; Pulse 67; Resp 16; Pulse Ox 100% ; bp 14:30 BP 121 / 77; Pulse 67; Resp 16; Pulse Ox 96% ; bp 15:18 BP 130 / 63; Pulse 67; Resp 16; Pulse Ox 100% ; bp 10:55 Body Mass Index 22.96 (72.57 kg, 177.80 cm) ab2 ED Course: 10:36 Patient arrived in ED. am2 10:57 Triage completed. ab2 10:58 Arm band placed on right wrist. ab2 11:00 Patient has correct armband on for positive identification. Bed in low position. Call bp light in reach. Side rails up X2. Adult w/ patient. 11:11 Fadi Glover, ALEISHA is Primary Nurse. bp 11:16 Cristina Beavers MD is Attending Physician. ma2 14:30 No provider procedures requiring assistance completed. Wound care: TEGADERM PLACED ON bp OPEN WOUND VAC. 15:19 Patient did not have IV access during this emergency room visit. bp Administered Medications: No medications were administered Outcome: 14:47 Discharge ordered by . veronica 15:19 Discharged to home via wheelchair, with family. bp 15:19 Condition: stable 15:19 Discharge instructions given to patient, family, Instructed on discharge instructions, follow up and referral plans. Demonstrated understanding of instructions, follow-up care. 15:19 Patient left the ED. bp Signatures: Naheed Rubin am2 Fadi Glover RN RN bp Cristina Beavers MD MD ma2 Shon Platt
[2021-08-28 15:27] VITALS: TEMP 98.2
[2021-08-28 15:33] VITALS: BP 130/63; O2SAT 100
== END 2021-08-28 15:19 | disposition home or self-care (01) ==
LOC: ER 10:35
DX: T82.594A Other mechanical complication of infusion catheter, initial encounter (principal); Z09 Encounter for follow-up examination after completed treatment for conditions other than malignant neoplasm; I82.409 Acute embolism and thrombosis of unspecified deep veins of unspecified lower extremity; I10 Essential (primary) hypertension; F03.90 Unspecified dementia, unspecified severity, without behavioral disturbance, psychotic disturbance, mood disturbance, and anxiety
CPT/HCPCS: 99283

== ENCOUNTER 2021-09-09 11:10 | Inpatient (IN) | payer OTHER ==
--- OUTSIDE RECORDS SUMMARY | 2021-09-09 11:15 | XMS REPORT | Continuity of Care Document ---
:1940 Author Organization [facility] t Address [address] [place] [address] Dr. Adair [address] [place] [address] Care Team Providers Name Role Phone Cristian Condon Attending Clinician Unavailable Rachel Attending Clinician Unavailable SHENA Taylor Attending Clinician Unavailable [id number] Attending Clinician Unavailable Yary Jernigan Attending Clinician Unavailable Jewels Condon Admitting Clinician Unavailable SHENA Taylor Admitting Clinician Unavailable [id number] Admitting Clinician Unavailable Walter Jernigan Admitting Clinician Unavailable Payers Payer Name Policy Type Policy Number Effective Date Expiration Date S [facility] [id number] Problems This patient has no known problems. Allergies, Adverse Reactions, Alerts This patient has no known allergies or adverse reactions. Medications This patient has no known medications. Procedures Procedure Date / Time Performed Performing Clinician [facility] gil [id number] 2021-08-19 00:00:00 ENCPL Encounters Start End Encounter Admission Attending Care Care Encounter Source Date/Time Date/Time Type Type Clinicians Facility Department ID 2021-09-15 Inpatient SANTOSH Condon CHERELLE ADITI [id number] [facility] 12:45:00 Cristian 33 [facility] 2021-08-14 Outpatient CHERELLE Ramos HCAPM [id number] [facility] 15:43:17 Prachi 64 [facility] 2021-08-09 Outpatient CHERELLE Taylor HCAPM [id number] [facility] 13:20:57 Pietro 25 [facility] 2021-08-02 Outpatient 3 [id number] ENCPL REF [id number] E[facility] 10:45:49 0326 2021-08-04 2021-08-20 Inpatient 3 AnjaliMarco ENCPL AML [id number] ENCPL 18:17:00 22:00:00 lynette, 0328 Anavella 2021-08-14 2021-08-14 Outpatient CHERELLE Ramos RADI [id number] [facility] 14:57:00 14:57:00 Prachi [id number] [facility] 2021-08-09 2021-08-09 Outpatient Brandon HCAPAM RADI [id number] [facility] 09:35:00 09:35:00 Arundestephanie [id number] [facility] Results Test Description Test Time Test Comments Results Result [facility] e Comments - CT ABD PELVIS 2021-08-14 W/O CONT 15:39:00 [facility] 1940 Sex: M Name: BRIANNE MEJÍA [facility] : 1940 Age/S: 80 / M [address] [place] Unit #: [id number] Loc: [place] [address] Phys: Prachi Ramos MD Acct: [id number] Dis Date: Status: REG REF PHONE #: [phone] Exam Date: 08/14/2021 1509 FAX #: Reason: R BKA PAD, TO RULE OUT BLEEDING EXAMS: CPT: [id number] CT ABD PELVIS W/O CONT [address]19 CT Abdomen and Pelvis without contrast. Location: [...] (1539) [email or web address] Orig Print D/T: S: 08/14/2021 (8275) PAGE 1 Signed Report - CT ABD PELVIS 2021-08-09 W/O CONT 13:17:00 [facility] 1940 Sex: M Name: BRIANNE MEJÍA [facility] : 1940 Age/S: 80 / M [address] [place] [place] Unit #: [id number] Loc: [place] [address] Phys: Pietro Taylor Acct: [id number] Dis Date: Status: REG REF PHONE #: [phone] Exam Date: 08/09/2021 0950 FAX #: Reason: RULE OUT BLEEDING EXAMS: CPT: [id number] CT ABD PELVIS W/O CONT 93094 CT OF THE ABDOMEN AND PELVIS WITHOUT [...] 1 Signed Report (CONTINUED) Name: BRIANNE MEJÍA [facility] Jason : 1940 Age/S: 80 / M [address] [place] Unit #: [id number] Loc: [place] [address] Phys: Pietro Taylor [employer]ER [employer] Acct: [id number] Dis Date: Status: REG REF PHONE #: [phone] Exam Date: 08/09/2021 0950 FAX #: Reason: RULE OUT BLEEDING EXAMS: CPT: [id number] CT ABD PELVIS W/O CONT 20645 <Continued> spine centered at L2. Spondylosis is [...] Heath(R) CTDI: DLP: Trnscb Date/Time: 08/09/2021 (1317) [email or web address] Orig Print D/T: S: 08/09/2021 (2952) PAGE 2 Signed Report
[2021-09-09] MEDS ORDERED: MORPHINE 4 MG/ML SYR ONE (13:46)
--- NOTE | 2021-09-09 16:46 | RAD REPORT ---
EXAM DESCRIPTION: RAD - Chest Single View - 09/09/2021 4:39 pm CLINICAL HISTORY: PICC LINE PLACEMENT COMPARISON: Portable 06/18/2021 TECHNIQUE: AP portable chest image was obtained 09/09/2021 4:39 pm . FINDINGS: Right upper extremity PICC line has been placed. Tip is in the distal SVC. No acute pleural or parenchymal finding. cardiomediastinal silhouette is stable prior imaging. No oscar surable pleural effusion and no pneumothorax. IMPRESSION: Right upper extremity PICC line placement with the tip in the distal SVC.
[2021-09-09] MEDS ORDERED: VANCOMYCIN 1.5 GM in NA CHLORIDE 0.9% 500 ML IVPB ONE (17:00)
[2021-09-09 17:07] LABS: Absolute Lymphocytes (CBC) 0.7 K/uL (0.7-4.9); Lymphocytes % 6.3 % (15.3-44.8); MPV 6.9 fL (7.6-11.3); RBC Red Blood Cell Count 4.02 M/uL (4.33-5.43)
[2021-09-09 17:26] LABS: ALT/SGPT 22 U/L (12-78); AST/SGOT 17 U/L (15-37); Albumin 2.7 g/dL (3.4-5.0); Alkaline Phosphatase 93 U/L (45-117); BUN Blood Urea Nitrogen 18 mg/dL (7-18); Bicarbonate 28 mmol/L (21-32); Bilirubin Total 0.5 mg/dL (0.2-1.0); Glomerular Filtration Rate > 90 mL/min (=/>90); Glucose Level 102 mg/dL (74-106); Potassium 3.3 mmol/L (3.5-5.1); Protein, Total 6.2 g/dL (6.4-8.2); Sodium Level 135 mmol/L (136-145)
[2021-09-09 18:34] LABS: Platelet Estimate ADEQ; White Blood Cell Scan OK (OK)
[2021-09-09 18:35] LABS: Anisocytosis 1+; Blood Morphology Comment NOTED (NOT SEEN)
--- NOTE | 2021-09-09 18:51 | EDPHYS ---
Physician Documentation [facility] Name: Tj Redding Age: 80 yrs Sex: Male : 1940 Arrival Date: 09/09/2021 Time: 11:15 Bed 11 Private MD: ED Physician Colin Echavarria HPI: 09/09 12:21 This 80 yrs old Male presents to ER via Wheelchair with complaints of IV Port jmm fell out. 12:21 Patient states his picc line fell out today. Did not receive daily dose of IV Abx jmm today. Complains of pain to his stump. . Onset: The symptoms/episode began/occurred acutely, this morning. The patient has not experienced similar symptoms in the past. Historical: - Allergies: 11:30 No Known Allergies; ll1 - PMHx: 11:30 Dementia; DVT; pulmonary embolis; Hypertensive disorder; ll1 - PSHx: 11:30 BKA right; ll1 - Immunization history:: Client reports receiving the 2nd dose of the Covid vaccine. - Social history:: Smoking status: Patient denies any tobacco usage or history of. ROS: 12:21 Constitutional: Negative for fever, chills, and weight loss, Cardiovascular: Negative jmm for chest pain, palpitations, and edema, Respiratory: Negative for shortness of breath, cough, wheezing, and pleuritic chest pain. 12:21 MS/extremity: Positive for pain. 12:21 All other systems are negative. Exam: 12:21 Constitutional: This is a well developed, well nourished patient who is awake, alert, jmm and in no acute distress. Head/Face: atraumatic. Eyes: EOMI, no conjunctival erythema appreciated ENT: Moist Mucus Membranes Neck: Trachea midline, Supple Chest/axilla: Normal chest wall appearance and motion. Cardiovascular: Regular rate and rhythm. No edema appreciated Respiratory: Normal respirations, no respiratory distress appreciated Abdomen/GI: Non distended, soft Back: Normal ROM 12:21 Skin: mild erythema noted to the right stump. 12:21 Neuro: Orientation: is normal, Mentation: is normal, Memory: is normal. 12:21 Psych: Behavior/mood is pleasant, cooperative. Vital Signs: 11:29 BP 136 / 66; Pulse 80; Resp 17; Temp 99.0; Pulse Ox 97% ; Pain 4/10; ll1 13:44 BP 147 / 65; Pulse 82; Resp 18; Pulse Ox 100% on R/A; ld1 15:28 BP 127 / 64; Pulse 86; Resp 18; Pulse Ox 100% on R/A; ld1 16:57 BP 143 / 64; Pulse 83; Resp 18; Pulse Ox 100% on R/A; ld1 17:57 BP 141 / 70; Pulse 79; Resp 18; Pulse Ox 100% on R/A; ld1 18:41 BP 144 / 75; Pulse 73; Resp 18; Pulse Ox 99% on R/A; ld1 MDM: 12:20 Patient medically screened. [facility] 18:44 Data reviewed: vital signs, nurses notes. Counseling: I had a detailed discussion with [facility] the patient and/or guardian regarding: the historical points, exam findings, and any diagnostic results supporting the discharge/admit diagnosis, lab results. ED course: I discussed the patient with Dr. Bautista whom will consult on admission. . 09/09 16:14 Order name: CBC with Diff; Complete Time: 18:37 [facility] 09/09 16:14 Order name: CMP; Complete Time: 17:30 [facility] 09/09 16:14 Order name: Procalcitonin; Complete Time: 18:34 [facility] 09/09 16:14 Order name: Lactate; Complete Time: 17:30 [facility] 09/09 16:14 Order name: Blood Culture Adult (2) [facility] 09/09 18:35 Order name: CBC Smear Scan; Complete Time: 18:37 [facility] 09/09 16:18 Order name: Chest Single View; Complete Time: 16:48 [facility] 09/09 18:52 Order name: SARS-COV-2 RT PCR (Document "Date of Onset" if Symptomatic); Complete Time: [facility] 20:00 Administered Medications: 13:43 Drug: morphine 4 mg Route: IM; Site: right deltoid; 1 17:04 Follow up: Response: No adverse reaction 1 17:03 Drug: vancoMYCIN 1.5 grams Route: IVPB; Rate: calculated rate; Site: PICC; ld1 Disposition: 09/10 07:13 Co-signature as Attending Physician, Colin Echavarria MD. rn Disposition Summary: 09/09/21 18:51 Hospitalization Ordered Hospitalization Status: Inpatient Admission [facility] Provider: Cristina Sherman Condition: Stable jmm Problem: new jmm Symptoms: are unchanged jmm Bed/Room Type: Standard [facility] Location: Intensive Care Unit(09/09/21 20:59) cg Room Assignment: 2-(09/09/21 20:59) Diagnosis - Cellulitis of the Right Stump - Failed Outpatient Therapy jmm Forms: - Medication Reconciliation Form jmm - SBAR form jm Signatures: Dispatcher [employer] EDJames Garber PA PA [facility] Colin Echavarria MD MD rn Garcia, Cindy, RN RN cg Lewis, Lynsay, RN RN ll1 Denisa Galvan RN RN ld1 Corrections: (The following items were deleted from the chart) 09/09 20:59 18:51 Telemetry/MedSurg (Inpatient) [facility] cg 20:59 18:51 jm cg
--- NOTE | 2021-09-09 18:51 | ER ---
Nurse's Notes [facility] Name: Tj Redding Age: 80 yrs Sex: Male : 1940 Arrival Date: 09/09/2021 Time: 11:15 Bed 11 Private MD: Diagnosis: Cellulitis of the Right Stump - Failed Outpatient Therapy Presentation: 09/09 11:29 Chief complaint: Patient states: Patient pulled PICC line out of LUE last night, No ll1 bleeding, tenderness to arm noted. Coronavirus screen: Vaccine status: Patient reports receiving the 2nd dose of the covid vaccine. Client denies travel out of the [place] in the last 14 days. At this time, the client does not indicate any symptoms associated with coronavirus-19. Ebola Screen: Patient denies travel to an Ebola-affected area in the 21 days before illness onset. Initial Sepsis Screen: Does the patient meet any 2 criteria? No. Patient's initial sepsis screen is negative. Does the patient have a suspected source of infection? Yes: Skin breakdown/wound. Risk Assessment: Do you want to hurt yourself or someone else? Patient reports no desire to harm self or others. Onset of symptoms was September 08, 2021. 11:29 Method Of Arrival: Wheelchair ll1 11:29 Acuity: ABBEY 4 ll1 Triage Assessment: 11:31 General: Appears uncomfortable, Behavior is cooperative, appropriate for age. Pain: ll1 Complains of pain in left arm. Derm: Bruising that is dark purple, Reports pain. Musculoskeletal: Circulation, motion, and sensation intact. Capillary refill < 3 seconds. Historical: - Allergies: 11:30 No Known Allergies; ll1 - PMHx: 11:30 Dementia; DVT; pulmonary embolis; Hypertensive disorder; ll1 - PSHx: 11:30 BKA right; ll1 - Immunization history:: Client reports receiving the 2nd dose of the Covid vaccine. - Social history:: Smoking status: Patient denies any tobacco usage or history of. Screenin:44 Abuse screen: Denies threats or abuse. Denies injuries from another. Nutritional ld1 screening: No deficits noted. Tuberculosis screening: No symptoms or risk factors identified. Fall Risk None identified. Assessment: 12:45 Reassessment: Spoke with roundhouse firer/fireman, Tariq, RN who states to call senior cytogenetics laboratory director and ask ss if there is a PICC line nurse available. Cotton Cleaner nurse states they will call back momentarily. 13:44 General: Appears in no apparent distress. uncomfortable, Behavior is calm, cooperative, ld1 appropriate for age. Pain: Complains of pain in left leg. Neuro: Level of Consciousness is awake, alert, obeys commands, Oriented to person, place, time, situation. Cardiovascular: Capillary refill < 3 seconds Patient's skin is warm and dry. Respiratory: Airway is patent Respiratory effort is even, unlabored. GI: Abdomen is flat, non-distended. : No signs and/or symptoms were reported regarding the genitourinary system. EENT: No signs and/or symptoms were reported regarding the EENT system. Derm: No signs and/or symptoms reported regarding the dermatologic system. Musculoskeletal: Reports pain in left leg. 13:45 Reassessment: Pt caregiver reports pt having dementia. Pt pulled out IV inserted by [address] Pt displaying pain - reporting recent amputation leg pain. Notified ERP. See MAR for orders. 15:29 Reassessment: senior cytogenetics laboratory director at bedside providing care. ld1 16:57 Reassessment: Patient appears in no apparent distress at this time. Patient and/or ld1 family updated on plan of care and expected duration. Pain level reassessed. Patient is alert, oriented x 3, equal unlabored respirations, skin warm/dry/pink. 17:57 Reassessment: Patient appears in no apparent distress at this time. Patient and/or ld1 family updated on plan of care and expected duration. Pain level reassessed. Patient is alert, oriented x 3, equal unlabored respirations, skin warm/dry/pink. 18:41 Reassessment: Patient appears in no apparent distress at this time. Patient is alert, ld1 oriented x 3, equal unlabored respirations, skin warm/dry/pink. Son and ERP at bedside discussing care. Vital Signs: 11:29 BP 136 / 66; Pulse 80; Resp 17; Temp 99.0; Pulse Ox 97% ; Pain 4/10; ll1 13:44 BP 147 / 65; Pulse 82; Resp 18; Pulse Ox 100% on R/A; ld1 15:28 BP 127 / 64; Pulse 86; Resp 18; Pulse Ox 100% on R/A; ld1 16:57 BP 143 / 64; Pulse 83; Resp 18; Pulse Ox 100% on R/A; ld1 17:57 BP 141 / 70; Pulse 79; Resp 18; Pulse Ox 100% on R/A; ld1 18:41 BP 144 / 75; Pulse 73; Resp 18; Pulse Ox 99% on R/A; ld1 ED Course: 11:15 Patient arrived in ED. ds1 11:30 Triage completed. ll1 11:31 Arm band placed on. ll1 12:04 James Shea PA is PHCP. m 12:04 Colin Echavarria MD is Attending Physician. [facility] 13:38 Denisa Galvan, RN is Primary Nurse. ld1 13:44 Patient has correct armband on for positive identification. Placed in gown. Bed in low ld1 position. Call light in reach. Side rails up X2. conveyor monitor on. Pulse ox on. NIBP on. Door closed. Noise minimized. Warm blanket given. 13:44 No provider procedures requiring assistance completed. ld1 16:40 Chest Single View In Process Unspecified. EDMS 16:57 Blood Culture Adult (2) Sent. ld1 18:50 Cristina Sherman MD is Hospitalizing Provider. [facility] Administered Medications: 13:43 Drug: morphine 4 mg Route: IM; Site: right deltoid; ld1 17:04 Follow up: Response: No adverse reaction ld1 17:03 Drug: vancoMYCIN 1.5 grams Route: IVPB; Rate: calculated rate; Site: PICC; ld1 Outcome: 18:51 Decision to Hospitalize by Provider. m 23:11 Patient left the ED. vc1 Signatures: Dispatcher [employer] EDMS James Shea PA PA jmm Sanford, Demi ds1 Samanta Dominguez RN RN ss Lewis, Lynsay, RN RN ll1 Denisa Galvan, ALEISHA RN ld1 Corazon Clement RN RN vc1 Corrections: (The following items were deleted from the chart) 13:46 13:45 Reassessment: Pt caregiver reports pt having dementia. Pt pulled out IV inserted ld1 by [facility]. Pt displaying pain - reporting recent amputation leg pain. ld1
--- NOTE | 2021-09-09 20:33 | P.HP ---
Certification for Inpatient Patient admitted to: Inpatient With expected LOS: <2 Midnights Patient will require the following post-hospital care: None Practitioner: I am a practitioner with admitting privileges, knowledge of patient current condition, hospital course, and medical plan of care. Services: Services provided to patient in accordance with Admission requirements found in Title 42 Section 412.3 of the Code of Federal Regulations <Renee Chaparro - Last Filed: 09/09/21 23:38> Patient History Date of Service: 09/09/21 Reason for admission: Dehiscence of BKA History of Present Illness: Patient is an 80-year-old male with PMH of dementia, R BKA, DVT/PE, and HTN who presented to the ED with family stating that he pulled his PICC line out last night. Patient was requiring IV vancomycin for infection of stump. Patient is also scheduled for debridement of L heel and great toe with Dr. Bautista in 2 days. Labs significant for white blood cell count 11.6, hemoglobin 10, potassium 3.3, procalcitonin 0.1. VSS. A new PICC line was inserted in the ED and patient was given morphine and vancomycin. Dr. Bautista was consulted and wishes to admit patient for washout of BKA. Will admit patient for medical management. Home medications list reviewed: Yes - Past Medical/Surgical History Diabetic: No -: HTN -: Myasthenia gravis -: Dementia -: Chronic venous insufficiency -: Myasthenia Gravis -: DVT/PE -: back surgery -: right bka Psychosocial/ Personal History: Patient lives in a [facility]. - Social History Smoking Status: Never smoker Alcohol use: No CD- Drugs: No Caffeine use: No Place of Residence: Skilled Nursing <Renee Chaparro - Last Filed: 09/09/21 23:38> Date of Service: 09/10/21 <Cristina Sherman - Last Filed: 09/10/21 09:44> Allergies No Known Allergies Allergy (Verified 07/30/21 20:22) Home Medications: Amlodipine [Norvasc*] 10 mg PO DAILY 07/31/21 Apixaban [Eliquis *] 2.5 mg PO BID 07/31/21 Ascorbic Acid [Vitamin C] 500 mg PO BID 07/31/21 Atorvastatin Calcium 10 mg PO BEDTIME 07/31/21 Cyanocobalamin (Vitamin B-12) [Vitamin B-12] 1 tab PO DAILY 07/31/21 Donepezil HCl 10 mg PO DAILY 07/31/21 Furosemide 20 mg PO DAILY 07/31/21 Memantine HCl 10 mg PO BID 07/31/21 Pyridostigmine [place] 60 mg PO TID 07/31/21 Quetiapine Fumarate [Seroquel] 50 mg PO BEDTIME 07/31/21 Trazodone [Desyrel*] 25 mg PO BEDTIME 07/31/21 predniSONE [Deltasone*] 10 mg PO NOON 07/31/21 Jorge Alberto [Jorge Alberto*] 1 pkt PO BID #60 powd.pack 08/04/21 Calcium Carbonate [Calcium] 1,250 mg PO DAILY 09/10/21 Cholecalciferol (Vitamin D3) [Vitamin D 5,000 Iu Cap] 5,000 unit PO DAILY 09/10/21 Diclofenac Sodium 1 candida TD TID 09/10/21 Docusate Sodium 100 mg PO BID 09/10/21 Ferrous Sulfate [Ferrous Sulfate*] 1 tab PO BID 09/10/21 Hydrocodone 5/APAP 325 [Story 5/325*] 1 tab PO Q8H 09/10/21 Mirtazapine [Remeron] 15 mg PO BEDTIME 09/10/21 Pantoprazole Sodium [Protonix] 40 mg PO DAILY 09/10/21 Pregabalin [Lyrica] 50 mg PO BEDTIME 09/10/21 Sennosides/Docusate Sodium [Senexon-S 50-8.6 mg Tablet] 1 each PO BID 09/10/21 Zinc Sulfate [Zinc Sulfate*] 1 cap PO DAILY 09/10/21 Review of Systems 10-point ROS is otherwise unremarkable Musculoskeletal: Foot Pain <Brown,Renee - Last Filed: 09/09/21 23:38> Physical Examination - Physical Exam General: Alert, In no apparent distress, Demented HEENT: Atraumatic, PERRLA, Mucous membr. moist/pink, EOMI, Sclerae nonicteric Neck: Supple, 2+ carotid pulse no bruit, No LAD, Without JVD or thyroid abnormality Respiratory: Clear to auscultation bilaterally, Normal air movement Cardiovascular: Regular rate/rhythm, Normal S1 S2 Gastrointestinal: Normal bowel sounds, No tenderness Musculoskeletal: No tenderness Integumentary: Skin breakdown, Tenderness/swelling, Erythema, Warmth Neurological: Normal speech, Normal tone, Sensation intact - Studies Laboratory Data (last 24 hrs) 09/09/21 16:45: Sodium 135 L, Potassium 3.3 L, BUN 18, Creatinine 0.65, Glucose 102, Total Bilirubin 0.5, AST 17, ALT 22, Alkaline Phosphatase 93 09/09/21 16:45: WBC 11.6 H, Hgb 10.1 L, Hct 32.0 L, Plt Count 346 <Agatha Chaparroia - Last Filed: 09/09/21 23:38> - Studies Laboratory Data (last 24 hrs) 09/09/21 16:45: Sodium 135 L, Potassium 3.3 L, BUN 18, Creatinine 0.65, Glucose 102, Total Bilirubin 0.5, AST 17, ALT 22, Alkaline Phosphatase 93 09/09/21 16:45: WBC 11.6 H, Hgb 10.1 L, Hct 32.0 L, Plt Count 346 <Cristina Sherman - Last Filed: 09/10/21 09:44> Assessment and Plan - Problems (Diagnosis) (1) Status post below knee amputation of right lower extremity Current Visit: Yes Status: Chronic (2) Wound dehiscence Current Visit: Yes Status: Acute (3) Dementia with behavioral disturbance Current Visit: Yes Status: Chronic Qualifiers: Dementia type: unspecified type Qualified Code(s): F03.91 - Unspecified dementia with behavioral disturbance (4) Myasthenia gravis Current Visit: No Status: Chronic (5) Cellulitis of left foot Current Visit: Yes Status: Chronic (6) Hypokalemia Current Visit: Yes Status: Chronic (7) Peripheral arterial disease Current Visit: Yes Status: Chronic - Plan -Dr. Bautista consulted and wishes for patient to be admitted to hospitalist with him consulting and will perform washout of BKA tomorrow. -NPO at midnight. Continue vancomycin -morphine PRN pain, zofran PRN nausea -wound care consult -PT consult -reconcile and cont home medications as appropriate -lovenox for VTE ppx Discharge Plan: Skilled Nursing Plan to discharge in: 48 Hours - Advance Directives Does patient have a Living Will: No Does patient have a Durable POA for Healthcare: No - Code Status/Comfort Care Code Status Assessed: Yes (Full) Critical Care: No Time Spent Managing Pts Care (In Minutes): 70 <Renee Chaparro - Last Filed: 09/09/21 23:38> Date of Service: 09/10/21 Subjective: HPI as mentioned above Physical Examination: Vitals: Afebrile vital signs are stable Physical exam: Cardiovascular: Within normal limits. Lungs: Within normal limits Abdomen: Within normal limits Neuro: Awake, alert, oriented to person place and time Assessment: 1. Wound dehiscence Plan: 1. Continue with current plan of care as mentioned above <Cristina Sherman - Last Filed: 09/10/21 09:44>
[2021-09-09] MEDS: INSULIN -REGULAR HUMAN 50 UNIT/0.5 ML ML SQ SCH (21:51)
[2021-09-09] MEDS ORDERED: ONDANSETRON 4 MG/2 ML VIAL IV PRN (21:51)
[2021-09-09] MEDS ORDERED: VANCOMYCIN 1 GM in NA CHLORIDE 0.9% 250 ML IVPB SCH (21:51)
[2021-09-10] MEDS: KCL 20 MEQ/100 mL IVPB 20 MEQ/100 ML BAG IV SCH ×2 (01:35→03:14)
[2021-09-10] MEDS: MORPHINE 2 MG/ML SYR IV PRN ×4 (03:15→19:25)
[2021-09-10] MEDS: D5 0.45 NS 1,000 ML IV SCH ×2 (05:15→20:01)
[2021-09-10 05:28] LABS: Absolute Lymphocytes (CBC) 0.6 K/uL (0.7-4.9); Hematocrit 31.6 % (39.6-49.0); Lymphocytes % 6.1 % (15.3-44.8); RBC Red Blood Cell Count 3.94 M/uL (4.33-5.43)
[2021-09-10 05:44] LABS: Urine Appearance Clear (Clear); Urine Bilirubin Negative (Negative); Urine Blood Negative (Negative); Urine Color Yellow (Yellow); Urine Glucose Negative (Negative); Urine Protein Trace (Negative); Urine Urobilinogen 0.2 mg/dL (0.2-1.0)
[2021-09-10 05:45] LABS: Urine Microscopic Reflex ORDER UMIC
[2021-09-10 05:48] LABS: Urine Bacteria <20 /HPF (NONE SEEN); Urine Mucus 1+ /HPF (NONE SEEN); Urine RBC NONE SEEN /HPF (NONE SEEN)
[2021-09-10 05:52] LABS: BUN Blood Urea Nitrogen 15 mg/dL (7-18); Bicarbonate 26 mmol/L (21-32); Glomerular Filtration Rate > 90 mL/min (=/>90); Glucose Level 77 mg/dL (74-106); Magnesium 1.9 mg/dL (1.8-2.4); Phosphorus 2.9 mg/dL (2.5-4.9); Potassium 4.5 mmol/L (3.5-5.1); Sodium Level 137 mmol/L (136-145)
[2021-09-10] MEDS: INSULIN -REGULAR HUMAN 50 UNIT/0.5 ML ML SQ SCH ×4 (07:30→16:30)
--- NOTE | 2021-09-10 09:46 | P.PN ---
Subjective Date of Service: 09/10/21 Subjective: No new changes, No C/O voiced Surgery to evaluate for possible debridement Review of Systems 10-point ROS is otherwise unremarkable Physical Examination - Vital Signs Temperature: 98.5 F Blood Pressure: 119/59 Pulse: 80 Respirations: 18 Pulse Ox (%): 97 - Physical Exam General: Alert, In no apparent distress HEENT: Atraumatic, PERRLA, EOMI Neck: Supple, JVD not distended Respiratory: Clear to auscultation bilaterally, Normal air movement Cardiovascular: Regular rate/rhythm, Normal S1 S2 Gastrointestinal: Normal bowel sounds, No tenderness Musculoskeletal: No tenderness Integumentary: Skin breakdown, Erythema Neurological: Normal speech, Normal tone, Normal affect Lymphatics: No axilla or inguinal lymphadenopathy - Studies Laboratory Data (last 24 hrs) 09/09/21 16:45: Sodium 135 L, Potassium 3.3 L, BUN 18, Creatinine 0.65, Glucose 102, Total Bilirubin 0.5, AST 17, ALT 22, Alkaline Phosphatase 93 09/09/21 16:45: WBC 11.6 H, Hgb 10.1 L, Hct 32.0 L, Plt Count 346 Medications List Reviewed: Yes Assessment & Plan - Problems (Diagnosis) (1) Wound dehiscence Current Visit: Yes Status: Acute (2) Dementia with behavioral disturbance Current Visit: Yes Status: Chronic Qualifiers: Dementia type: unspecified type Qualified Code(s): F03.91 - Unspecified dementia with behavioral disturbance (3) Peripheral arterial disease Current Visit: Yes Status: Chronic (4) Status post below knee amputation of right lower extremity Current Visit: Yes Status: Chronic (5) Myasthenia gravis Current Visit: No Status: Chronic (6) Pulmonary embolus Current Visit: No Status: Chronic Qualifiers: - Plan PLAN: 1. Continue with IV antibiotic 2. Continue with local wound care 3. Wound care consultation/surgical consultation 4. Gentle IV hydration 5. Monitor CBC 6. Strict blood sugar monitoring 7. Pain control 8. GI and DVT prophylaxis Discharge Plan: Home Plan to discharge in: Greater than 2 days - Advance Directives Does patient have a Living Will: No Does patient have a Durable POA for Healthcare: No - Code Status/Comfort Care Code Status Assessed: No Code Status: Full Code Critical Care: No Time Spent Managing PTS Care (In Minutes): 35
[2021-09-10] MEDS: SODIUM HYPOCHLORITE 0.25% 473 ML TOP SCH (10:10)
[2021-09-10] MEDS: VANCOMYCIN 1 GM in NA CHLORIDE 0.9% 250 ML IVPB SCH (11:39)
[2021-09-10] MEDS ORDERED: HALOPERIDOL LACT 5 MG/ML INJ IV ONE (14:10)
[2021-09-10] MEDS ORDERED: HYDROCORTISONE SUC 100 MG INJ IV ONE (15:23)
[2021-09-10] MEDS: FLUCONAZOLE 200mg IVPB 200 MG/100 ML BAG IV SCH (16:49)
[2021-09-10] MEDS: DONEPEZIL HCL 5 MG TAB PO SCH (19:45)
[2021-09-10] MEDS: ASCORBIC ACID 500 MG TABLET PO SCH (19:46)
[2021-09-10] MEDS: MEMANTINE HCL 10 MG TABLET PO SCH (19:46)
[2021-09-10] MEDS: TRAZODONE 50 MG TABLET PO SCH (19:46)
[2021-09-10] MEDS: QUETIAPINE 25 MG TAB PO SCH (19:46)
[2021-09-10] MEDS: DOCUSATE NA/SENNA CONC 1 TAB PO SCH (19:46)
[2021-09-10] MEDS: MIRTAZAPINE 15 MG TAB PO SCH (19:47)
[2021-09-10] MEDS: ATORVASTATIN 10 MG TAB PO SCH (19:47)
[2021-09-10] MEDS: PREGABALIN 50 MG CAP PO SCH (19:47)
[2021-09-10] MEDS: PYRIDOSTIGMINE 60 MG TABLET PO SCH (19:47)
[2021-09-10] MEDS: DOCUSATE NA 100 MG CAP PO SCH (19:48)
[2021-09-10] MEDS: JUVEN PACKET PO SCH (19:59)
[2021-09-10] MEDS ORDERED: WATER FOR INJ,STERILE 10 ML IM PRN (21:22)
[2021-09-10] MEDS ORDERED: ZIPRASIDONE MESYLA 20 MG/VIAL IM PRN (21:22)
[2021-09-10] MEDS ORDERED: WATER FOR INJ,STERILE 10 ML ONE (21:30)
[2021-09-10] MEDS ORDERED: ZIPRASIDONE MESYLA 20 MG/VIAL IM ONE (21:30)
[2021-09-11 04:53] LABS: Absolute Lymphocytes (CBC) 0.5 K/uL (0.7-4.9); Hematocrit 31.6 % (39.6-49.0); Lymphocytes % 4.8 % (15.3-44.8); MPV 7.1 fL (7.6-11.3); RBC Red Blood Cell Count 3.96 M/uL (4.33-5.43)
[2021-09-11 05:12] LABS: BUN Blood Urea Nitrogen 15 mg/dL (7-18); Bicarbonate 27 mmol/L (21-32); Glomerular Filtration Rate > 90 mL/min (=/>90); Glucose Level 138 mg/dL (74-106); Potassium 3.7 mmol/L (3.5-5.1); Sodium Level 142 mmol/L (136-145)
[2021-09-11] MEDS: VANCOMYCIN 1 GM in NA CHLORIDE 0.9% 250 ML IVPB SCH (05:40)
[2021-09-11] MEDS: INSULIN -REGULAR HUMAN 50 UNIT/0.5 ML ML SQ SCH ×4 (07:30→21:00)
[2021-09-11] MEDS ORDERED: KCL 20 MEQ/100 mL IVPB 20 MEQ/100 ML BAG IV SCH (07:30)
[2021-09-11] MEDS ORDERED: BUPIVACAINE 0.25% PF 10 ML VIAL ONE (08:31)
[2021-09-11] MEDS: D5 0.45 NS 1,000 ML IV SCH ×2 (08:40→21:07)
[2021-09-11] MEDS ORDERED: BUPIVACAINE 0.75% (PF) 2 ML SP ONE (08:54)
[2021-09-11] MEDS ORDERED: FENTANYL CITR 100 MCG/2 ML ONE (08:54)
[2021-09-11] MEDS ORDERED: LIDOCAINE 1% MPF 5 ML VIAL ONE (08:54)
[2021-09-11] MEDS: CYANOCOBALAMIN 1,000 MCG TAB PO SCH (08:59)
[2021-09-11] MEDS: DOCUSATE NA/SENNA CONC 1 TAB PO SCH ×2 (08:59→21:06)
[2021-09-11] MEDS: JUVEN PACKET PO SCH ×2 (08:59→21:03)
[2021-09-11] MEDS: MEMANTINE HCL 10 MG TABLET PO SCH ×2 (08:59→21:04)
[2021-09-11] MEDS: PYRIDOSTIGMINE 60 MG TABLET PO SCH ×3 (08:59→21:04)
[2021-09-11] MEDS: CALCIUM CARBONATE 500 MG TAB PO SCH (08:59)
[2021-09-11] MEDS: SODIUM HYPOCHLORITE 0.25% 473 ML TOP SCH (08:59)
[2021-09-11] MEDS: DOCUSATE NA 100 MG CAP PO SCH ×2 (08:59→21:07)
[2021-09-11] MEDS: VITAMIN D 5,000 UNIT CAP PO SCH (09:00)
[2021-09-11] MEDS: ZINC SULFATE 220 MG CAP PO SCH (09:00)
[2021-09-11] MEDS: ASCORBIC ACID 500 MG TABLET PO SCH ×2 (09:00→21:06)
[2021-09-11] MEDS: PANTOPRAZOLE 40MG TABLET PO SCH (09:00)
[2021-09-11] MEDS ORDERED: NA CHLORIDE 0.9% 1,000 ML ONE (09:00)
[2021-09-11] MEDS ORDERED: LIDOCAINE 1% MPF 2 ML AMPULE ONE (09:08)
[2021-09-11] MEDS ORDERED: propofoL 200 MG/20 ML VIAL IV ONE (09:08)
[2021-09-11 09:12] LABS: Protime INR 1.19
[2021-09-11] MEDS ORDERED: MORPHINE SULFATE/PF 1 MG/ML (10 ML AMP) ONE (09:35)
[2021-09-11] MEDS ORDERED: SODIUM HYPOCHLORITE 0.25% 473 ML ONE (11:00)
--- NOTE | 2021-09-11 11:37 | P.OP ---
Preoperative diagnosis: Right BKA Traumatic Dehiscence, LEFT great toe necrosis, and Heel Ulcer Postoperative diagnosis: Right BKA Traumatic Dehiscence, LEFT great toe necrosis, and Heel Ulcer Primary procedure: Revision of RIGHT BKA stump Secondary procedure: LEFT Hallux Amputation to MT Joint, Debridement of LEFT Heel Ulcer Anesthesia: GETA Estimated blood loss: <5cc Specimen: LEFT great toe, left heel tissue, RIGHT BKA Tibia + debridement tissue Findings: LEFT great toe infection / ischemia to MT joint. Complications: None Implants: Avatene, Bone Wax Transferred to: Recovery Room Condition: Good
--- NOTE | 2021-09-11 13:32 | CON ---
Date of Consultation: 09/10/2021 Brief History Of Present Illness: The patient is an 80-year-old male, known to me with a past medical history of dementia, right BKA, DVT, pulmonary embolism, hypertension, peripheral arterial disease, who I saw in my clinic recently after he had a complicated history related to his BKA. The patient has severe peripheral arterial disease, ultimately had a right swtki-kkd-wqms amputation. He fell 3 times onto this area while at a nursing facility, splitting the wound open and dehiscing the wound entirely due to traumatic fall on multiple occasions. He was brought for wound care ultimately, had some improvement of his wound with localized wound care with plans for revision likely in the future after the area was cleaned. He was debrided at one point in the operating room and continued wound care with significant improvement after that. He subsequently presented to my clinic several days ago with new finding of a left great toe necrosis as well as heel pressure ulcer necrosis. He as such was scheduled for surgery to amputate this great toe as well as the heel ulcer and ultimately will need endovascular intervention to see if the patient needs revascularization to improve the blood flow to this area. In addition, I planned to revise the stump in the future. The patient subsequently last evening pulled his PICC line out according to his poll clerk. She states that when she would see him, he would frequently have pulled all of his clothes off as he has a history of dementia with swelling of his wounds. He would have fecal material on his face and on his wounds and he would pull his dressings off and scratch at his wound with stool, covered fingers, soiling the wound frequently. The patient's poll clerk was very concerned about this and as such, she asked that if there was anything we can do to revise this area as there appeared to be getting worse as his confusion increased. Past Medical History: Significant for hypertension, myasthenia gravis, dementia, chronic venous insufficiency, peripheral arterial disease, DVT, pulmonary embolism. Past Surgical History: Includes back surgery, multiple right foot surgeries, revisions ultimately emanating a right lyozs-aep-vhso amputation, endovascular revascularization attempts. Social History: Denies smoking, alcohol, or recreational drug use. The patient is known to me from previous, contact his caretakers at the bedside during my evaluation as the patient is currently confused. He lives in a long-term. Allergies: NO KNOWN DRUG ALLERGIES. Home Medications: Include Norvasc, Eliquis, vitamin C, atorvastatin, calcium, vitamin B12, donepezil, Lasix, memantine, Seroquel, Desyrel, calcium, vitamin D3, diclofenac, docusate sodium, ferrous sulfate, [place], Remeron, Protonix, Lyrica, and zinc sulfate. Review of Systems: Unable to obtain, but the patient does complain of foot pain. Physical Examination: General: At the time of my examination; the patient is awake, alert, and disoriended / confused. Psychiatric: He answered questions, but is confused. Therefore, questions are essentially nonmeaningful answers. HEENT: Otherwise normocephalic. His sclerae were anicteric. Mucosa membranes moist. Oropharynx clear. Neck: Supple without JVD. Chest: Expansion and excursion. Cardiovascular: Regular rate and rhythm. Pulmonary: Clear to auscultation bilaterally. Vital Signs: At the time of my examination were blood pressure of 122/66, heart rate 86, respiratory rate 17, temperature 98.5, SpO2 100% on room air. Abdomen: Soft, nontender, nondistended. Extremities: Focused examination of his lower extremity; right BKA stump appeared to have a new open wound with some drainage of the right BKA site. The right BKA site appeared to have some drainage from the area consistent with a possible infection. He has exposed tibia, which also appears somewhat more prominent than before previous examinations. Focused examination left lower extremity, he continues to have necrosis consistent with severe peripheral arterial disease of the left great toe and heel has a black ulceration consistent with pressure necrosis of this lower extremity. Laboratory Data: Revealed a white blood cell count of 9.5, hemoglobin is 9.8, hematocrit 31.6, platelet count was 329. His neutrophils were 82%. Sodium 137, potassium 4.1, chloride 106, carbon dioxide 26, BUN is 15, creatinine 0.65, glucose was 77. His procalcitonin on admission was elevated. He had imaging, which included a chest x-ray on admission, officially read as right upper extremity PICC line placement with the tip in the distal SVC. Assessment And Plan: This is an 80-year-old male, who presents with signs and symptoms of infected necrosis of the left great toe, left heel, and an infection of the right ofber-pbe-ioui amputation stump. 1. IV fluid hydration. 2. Antibiotic coverage. 3. Continue medical optimization. 4. Hold anticoagulation if possible in the perioperative period. 5. I have explained the risks, benefits, alternatives with multiple members of the patient's family including son, daughter and poll clerk. The planned surgery was a revision of the right klspd-wvn-jksy amputation stump as well as amputation of the left great toe and left heel ulceration. The risks included, but not limited to bleeding, infection, damage to surrounding tissue, need for further operation and procedures, blood clots, heart, stroke, and other unforeseen complications related to anesthesia or surgical perioperative. The patient's family agrees to proceed as indicated. Thank you for this interesting consult. ZEENAT Voice ID: [id number] Report ID: [id number] JANEE
[2021-09-11] MEDS: AMLODIPINE 10 MG TAB PO SCH (13:39)
[2021-09-11] MEDS: FLUCONAZOLE 200mg IVPB 200 MG/100 ML BAG IV SCH (15:51)
[2021-09-11] MEDS: TRAZODONE 50 MG TABLET PO SCH (21:01)
[2021-09-11] MEDS: DONEPEZIL HCL 5 MG TAB PO SCH (21:01)
[2021-09-11] MEDS: ATORVASTATIN 10 MG TAB PO SCH (21:03)
[2021-09-11] MEDS: PREGABALIN 50 MG CAP PO SCH (21:03)
[2021-09-11] MEDS: QUETIAPINE 25 MG TAB PO SCH (21:06)
[2021-09-11] MEDS: MIRTAZAPINE 15 MG TAB PO SCH (21:06)
--- NOTE | 2021-09-11 23:41 | OP ---
Date of Procedure: 09/11/2021 Surgeon: Clark Bautista MD, Preoperative Diagnoses: 1.Traumatic right below-knee amputation dehiscence. 2.Left great toe necrosis. 3.Left heel pressure ulcer. Postoperative Diagnoses: 1.Traumatic right below-knee amputation dehiscence. 2.Left great toe necrosis. 3.Left heel pressure ulcer. Procedure Performed: 1.Revision of right dbllf-djl-lgif amputation stump. 2.Amputation of left great toe/hallux to metatarsophalangeal joint. 3.Debridement of left heel stage III pressure ulcer. Anesthesia: Spinal anesthesia. Estimated Blood Loss: Less than 5 cc. Specimen: Left great toe, left heel tissue, right BKA tibia plus debridement tissue. Findings: 1.Left great toe infection and ischemia to the metatarsophalangeal joint. 2.Left heel ulcer affected down to level 3 to fascia overlying bone. Complication: None. Implants: Avitene placed in the BKA tissues around the tibia resection site and bone wax placed sarmiento siently into the BKA tibial resection site and removed at the end of the case. Complications: None. Disposition: The patient was transferred to recovery room in good condition. Procedure In Detail: After informed consent was obtained from the patient's family and medical power -of-divorce attorney, the patient was prepped and draped in the usual sterile fashion after adequate anesthes ia was achieved with spinal anesthesia in addition to MAC. I proceeded to assess the right BKA area. I assessed the spinal block to be adequate at this point as the patient had no sensation and did no t move throughout the procedure. At this point, I resected nonviable tissue off the BKA stump. The periosteum was taken back approximately 2 cm up into the skin flap and some good healthy granulation tissue on the posterior aspect of the tibia was freed up. I then made a more aggressive bevel of the anterior surface of the tibia using a bone saw down through the entire bone wedging it out at this p oint. I sent this wedged segment of tibia off for pathologic examination. Good brisk bleeding was a ppreciated from the bony surfaces. This was controlled with bone wax initially and the remaining tis mirna was pushed back with periosteal elevator pushing the periosteum back circumferentially around the bone. At this point, the good granulation tissue was left intact. I removed all nonviable tissue c ircumferentially around the stump using a combination of sharp and electrocautery dissection. I then irrigated the area, achieved hemostasis predominantly with electrocautery. Avitene was required aft er the bone wax was removed near the bone marrow canal. Good hemostasis was achieved at the end of t he procedure with Avitene left in place. The area was irrigated once again and a sterile dressing wa s placed over the top. I wrapped the lower extremity BKA stump site after revision and elevated at t his point. I then turned my attention after covering and protecting the BKA surgical site to the lef t lower extremity. I demarcated a transection plane at the distal interphalangeal joint of the left great hallux as there was black necrosis at the tip of the toe at this point. I wanted to ensure goo d vascular supply to this area. As such, I elevated the flaps, removed the DIP joint at this point, and inspected for any bleeding tissue. There were no hemostatic maneuvers required through this port ion of the procedure and bleeding was very sluggish. As such, I opted to resect back to the metatars ophalangeal joint to get a more viable flap. At this point, I circumferentially dissected around the metatarsophalangeal joint and ultimately entered the joint space using sharp dissection ultimately r emoving the phalanx up to the metatarsophalangeal joint and sent this off for pathologic examination. I then demarcated new skin flaps based on viability and cut this using tenotomy scissors. Good ble eding was appreciated at this point, and as such, I opted to cleanse the area copiously at this point . The metatarsal head appeared clean and viable without obvious infection. There was no other necro sis or ischemic appearance in the remainder of the tissue. It appeared viable with not brisk bleedin g, but adequate bleeding at this point. At this point, I then opted to close the flap based on a sarah ntar flap previously demarcated using interrupted 3-0 nylon sutures in an interrupted fashion with go od approximation tissues. Xeroform and sterile dressing were placed over top. I then turned my atte ntion to the left heel. I circumferentially dissected down through the heel using a combination of s harp and electrocautery circumferentially around to the layer overlying the calcaneal bone. The rese ction was approximately 3.5 to 4 cm in size circumferentially and slightly oval 3 x 4 orientation. A ll nonviable tissue was debrided and sent off for pathologic examination. I then inspected the heel, which was covered still with good fascial tissue and consistent with a grade 3 pressure ulcer. I ir rigated the area and packed it with a sterile dressing. The patient tolerated procedure without evid ence of complication and transferred to PACU in good condition. All counts were correct at the end o f the case. TREY/ARMINDA Voice ID: [id number] Report ID: [id number]
[2021-09-12 05:20] LABS: Absolute Lymphocytes (CBC) 0.7 K/uL (0.7-4.9); Hematocrit 31.6 % (39.6-49.0); Lymphocytes % 5.6 % (15.3-44.8); RBC Red Blood Cell Count 3.93 M/uL (4.33-5.43)
[2021-09-12 05:33] LABS: BUN Blood Urea Nitrogen 12 mg/dL (7-18); Bicarbonate 26 mmol/L (21-32); Glomerular Filtration Rate > 90 mL/min (=/>90); Glucose Level 105 mg/dL (74-106); Potassium 3.8 mmol/L (3.5-5.1); Sodium Level 140 mmol/L (136-145)
[2021-09-12] MEDS: VANCOMYCIN 1 GM in NA CHLORIDE 0.9% 250 ML IVPB SCH (07:15)
[2021-09-12] MEDS: INSULIN -REGULAR HUMAN 50 UNIT/0.5 ML ML SQ SCH ×4 (07:30→21:00)
[2021-09-12] MEDS: DOCUSATE NA/SENNA CONC 1 TAB PO SCH ×2 (09:00→21:00)
[2021-09-12] MEDS: SODIUM HYPOCHLORITE 0.25% 473 ML TOP SCH ×2 (09:00→18:00)
[2021-09-12] MEDS: DOCUSATE NA 100 MG CAP PO SCH ×2 (09:00→21:00)
[2021-09-12] MEDS ORDERED: ACETAMINOPHEN 500 MG TAB PO PRN (09:22)
--- NOTE | 2021-09-12 10:04 | P.PN ---
Subjective Date of Service: 09/12/21 Chief Complaint: Dehiscence of BKA Subjective: Improving (Patient had significant improvement in pain. feels well, denies any pain currently, tolerating diet) Physical Examination - Vital Signs Temperature: 98.6 F Blood Pressure: 136/63 Pulse: 100 Respirations: 19 Pulse Ox (%): 100 - Physical Exam General: Alert, In no apparent distress, Cooperative, Demented, Confused Integumentary: Other (Surgical wounds are all doing well, minimal blood tinged drainage) - Studies Medications List Reviewed: Yes Assessment And Plan - Current Problems (Diagnosis) (1) Wound dehiscence Current Visit: Yes Status: Acute Plan: - continue medical management - patient needs endovascular evaluation of peripheral arteries - will order arterial ultrasound - continue wound care as indicated
[2021-09-12] MEDS: ENOXAPARIN 40 MG/0.4 ML SQ SCH (10:15)
[2021-09-12] MEDS: ASCORBIC ACID 500 MG TABLET PO SCH ×2 (10:16→20:19)
[2021-09-12] MEDS: AMLODIPINE 10 MG TAB PO SCH (10:16)
[2021-09-12] MEDS: PANTOPRAZOLE 40MG TABLET PO SCH (10:16)
[2021-09-12] MEDS: ZINC SULFATE 220 MG CAP PO SCH (10:22)
[2021-09-12] MEDS: VITAMIN D 5,000 UNIT CAP PO SCH (10:22)
[2021-09-12] MEDS: CALCIUM CARBONATE 500 MG TAB PO SCH (10:22)
[2021-09-12] MEDS: MEMANTINE HCL 10 MG TABLET PO SCH ×2 (10:22→20:18)
[2021-09-12] MEDS: FUROSEMIDE 20 MG TABLET PO SCH (10:24)
[2021-09-12] MEDS: CYANOCOBALAMIN 1,000 MCG TAB PO SCH (10:24)
[2021-09-12] MEDS: JUVEN PACKET PO SCH ×2 (10:26→20:18)
[2021-09-12] MEDS: PYRIDOSTIGMINE 60 MG TABLET PO SCH ×3 (10:46→20:17)
--- NOTE | 2021-09-12 11:08 | P.CNS ---
Date of Consult: 09/12/21 Chief Complaint: Dehiscence of BKA History of Present Illness: The patient is an 80-year-old male with a past medical history of dementia, severe peripheral vascular disease status post right BKA, DVT/PE, and hypertension who presented to the ED with his caregiver after he pulled his PICC line out. Patient has been on IV vancomycin for infection of right BKA. Per caregiver who was at bedside, the patient was at a prison where he experienced 5 falls which resulted in complete dehiscence of his right BKA stump and subsequent infection. Patient surgical history began on 06/20 where he had an amputation of his right great toe and second toe secondary to PVD and ulcers. On 07/17 he underwent a right BKA, on 07/31 he went underwent and debridement of the BKA. A new PICC line to the right arm was placed in the emergency department and IV vancomycin was resumed. On 09/11 the patient underwent a right BKA traumatic dehiscence wound debridement/repair, left great toe amputation, and left heel ulcer debridement. Patient tolerated surgery well, is now recovering in ICU. IV vancomycin has been resumed. Infectious disease has been consulted to manage patient's antibiotic regimen. Patient currently denies nausea/vomiting/diarrhea/shortness of breath/chest pain. Allergies No Known Allergies Allergy (Verified 07/30/21 20:22) Home Medications: Amlodipine [Norvasc*] 10 mg PO DAILY 07/31/21 Apixaban [Eliquis *] 2.5 mg PO BID 07/31/21 Ascorbic Acid [Vitamin C] 500 mg PO BID 07/31/21 Atorvastatin Calcium 10 mg PO BEDTIME 07/31/21 Cyanocobalamin (Vitamin B-12) [Vitamin B-12] 1 tab PO DAILY 07/31/21 Donepezil HCl 10 mg PO DAILY 07/31/21 Furosemide 20 mg PO DAILY 07/31/21 Memantine HCl 10 mg PO BID 07/31/21 Pyridostigmine [place] 60 mg PO TID 07/31/21 Quetiapine Fumarate [Seroquel] 50 mg PO BEDTIME 07/31/21 Trazodone [Desyrel*] 25 mg PO BEDTIME 07/31/21 predniSONE [Deltasone*] 10 mg PO NOON 07/31/21 Jorge Alberto [Jorge Alberto*] 1 pkt PO BID #60 powd.pack 08/04/21 Calcium Carbonate [Calcium] 1,250 mg PO DAILY 09/10/21 Cholecalciferol (Vitamin D3) [Vitamin D 5,000 Iu Cap] 5,000 unit PO DAILY 09/10/21 Diclofenac Sodium 1 candida TD TID 09/10/21 Docusate Sodium 100 mg PO BID 09/10/21 Ferrous Sulfate [Ferrous Sulfate*] 1 tab PO BID 09/10/21 Hydrocodone 5/APAP 325 [[place] 5/325*] 1 tab PO Q8H 09/10/21 Mirtazapine [Remeron] 15 mg PO BEDTIME 09/10/21 Pantoprazole Sodium [Protonix] 40 mg PO DAILY 09/10/21 Pregabalin [Lyrica] 50 mg PO BEDTIME 09/10/21 Sennosides/Docusate Sodium [Senexon-S 50-8.6 mg Tablet] 1 each PO BID 09/10/21 Zinc Sulfate [Zinc Sulfate*] 1 cap PO DAILY 09/10/21 - Past Medical/Surgical History Diabetic: No -: HTN -: Myasthenia gravis -: Dementia -: Chronic venous insufficiency -: Myasthenia Gravis -: DVT/PE -: back surgery -: right bka Psychosocial/ Personal History: Patient lives in a prison. - Social History Smoking Status: Unknown if ever smoked Alcohol use: No CD- Drugs: No Caffeine use: No Place of Residence: [facility]Term Review of Systems 10-point ROS is otherwise unremarkable Physical Examination Temp Pulse Resp BP Pulse Ox 100.2 F 105 H 19 151/71 H 100 09/12/21 10:24 09/12/21 10:24 09/12/21 10:04 09/12/21 10:24 09/12/21 10:04 General: Alert, In no apparent distress HEENT: Atraumatic Neck: 2+ carotid pulse no bruit Respiratory: Clear to auscultation bilaterally, Normal air movement Cardiovascular: Normal pulses, Regular rate/rhythm Gastrointestinal: Normal bowel sounds, Soft and benign Musculoskeletal: Other (Right BKA, left great toe amputation, left heel ulcer) Urinary: Guillory catheter (Placed on 09/11) Conclusions/Impression: Antibiotics: Vancomycin: urrent Assessment/plan Right BKA traumatic dehiscence with subsequent infection status post debridement Initial BKA was performed on 07/17. Complete wound dehiscence status post mechanical fall with subsequent infection. Patient has been on IV vancomycin. On 09/11 patient underwent surgical debridement and repair of right BKA. All infected bone removed. Continue empiric vancomycin at this time. Patient can be sent home on oral antibiotic regimen. Left great toe necrosis Underwent amputation on 09/11. Wound care per surgical team Left heel ulceration underwent debridement on 09/11 -Wound care per surgical team Leukocytosis Likely reactive secondary to surgery. Patient afebrile. Continue to monitor closely. Anemia Continue to monitor H&H Dementia Continue current medications Medical management per primary team Plan of care discussed with Dr. Gardner Thank you for consultation
[2021-09-12] MEDS: D5 0.45 NS 1,000 ML IV SCH (13:59)
[2021-09-12] MEDS: FLUCONAZOLE 200mg IVPB 200 MG/100 ML BAG IV SCH (15:10)
--- NOTE | 2021-09-12 18:37 | P.PN ---
Date of Service: 09/11/21 Subjective Subjective: No new changes, No C/O voiced Surgery to evaluate for possible debridement Review of Systems 10-point ROS is otherwise unremarkable Physical Examination - Vital Signs Reviewed - Physical Exam General: Alert, In no apparent distress Respiratory: Clear to auscultation bilaterally, Normal air movement Cardiovascular: Regular rate/rhythm, Normal S1 S2 Gastrointestinal: Normal bowel sounds, No tenderness Musculoskeletal: No tenderness Integumentary: Skin breakdown, Erythema Neurological: Normal speech, Normal tone, Normal affect Assessment & Plan - Problems (Diagnosis) (1) Wound dehiscence Current Visit: Yes Status: Acute (2) Dementia with behavioral disturbance Current Visit: Yes Status: Chronic Qualifiers: Dementia type: unspecified type Qualified Code(s): F03.91 - Unspecified dementia with behavioral disturbance (3) Peripheral arterial disease Current Visit: Yes Status: Chronic (4) Status post below knee amputation of right lower extremity Current Visit: Yes Status: Chronic (5) Myasthenia gravis Current Visit: No Status: Chronic (6) Pulmonary embolus Current Visit: No Status: Chronic Qualifiers: - Plan Continue plan of care as mentioned below: 1. Continue with IV antibiotic 2. Continue with local wound care 3. Wound care consultation/surgical consultation appreciated; to the OR today 4. Continue with gentle hydration 5. Monitor labs closely 6. Continue with strict blood sugar control 7. Pain control 8. Family requesting rehab placement 9. GI and DVT prophylaxis Discharge Plan: Inpatient rehab Plan to discharge in: Greater than 2 days - Advance Directives Does patient have a Living Will: No Does patient have a Durable POA for Healthcare: No - Code Status/Comfort Care Code Status Assessed: No Code Status: Full Code Critical Care: No Time Spent Managing PTS Care (In Minutes): 35
[2021-09-12] MEDS ORDERED: HYDROCODONE/APAP 10/325 TAB PO PRN (18:39)
--- NOTE | 2021-09-12 18:39 | P.PN ---
Date of Service: 09/12/21 Subjective Subjective: Patient doing well. Sitter at bedside and states patient's mentation is stable. Working on placement at [facility] for in the morning as long as patient stays with minimal pain control Review of Systems 10-point ROS is otherwise unremarkable Physical Examination - Vital Signs Reviewed - Physical Exam General: Alert, In no apparent distress Respiratory: Clear to auscultation bilaterally, Normal air movement Cardiovascular: Regular rate/rhythm, Normal S1 S2 Gastrointestinal: Normal bowel sounds, No tenderness Musculoskeletal: No tenderness Integumentary: Skin breakdown, Erythema Neurological: Normal speech, Normal tone, Normal affect Assessment & Plan - Problems (Diagnosis) (1) Wound dehiscence Current Visit: Yes Status: Acute (2) Dementia with behavioral disturbance Current Visit: Yes Status: Chronic Qualifiers: Dementia type: unspecified type Qualified Code(s): F03.91 - Unspecified dementia with behavioral disturbance (3) Peripheral arterial disease Current Visit: Yes Status: Chronic (4) Status post below knee amputation of right lower extremity Current Visit: Yes Status: Chronic (5) Myasthenia gravis Current Visit: No Status: Chronic (6) Pulmonary embolus Current Visit: No Status: Chronic Qualifiers: - Plan Continue plan of care as mentioned below: 1. Continue with IV antibiotic 2. Continue with local wound care 3. Wound care consultation/surgical consultation appreciated; postop day #1 4. Continue with gentle hydration; advance diet as tolerated 5. Monitor labs closely; labs are stable 6. Continue with strict blood sugar control 7. Pain control; hold IV pain medicines 8. Family requesting rehab placement 9. GI and DVT prophylaxis Discharge Plan: Inpatient rehab Plan to discharge in: Greater than 2 days - Advance Directives Does patient have a Living Will: No Does patient have a Durable POA for Healthcare: No - Code Status/Comfort Care Code Status Assessed: No Code Status: Full Code Critical Care: No Time Spent Managing PTS Care (In Minutes): 35
[2021-09-12] MEDS: QUETIAPINE 25 MG TAB PO SCH (20:17)
[2021-09-12] MEDS: ATORVASTATIN 10 MG TAB PO SCH (20:18)
[2021-09-12] MEDS: DONEPEZIL HCL 5 MG TAB PO SCH (20:18)
[2021-09-12] MEDS: MIRTAZAPINE 15 MG TAB PO SCH (20:18)
[2021-09-12] MEDS: TRAZODONE 50 MG TABLET PO SCH (20:19)
[2021-09-12] MEDS: PREGABALIN 50 MG CAP PO SCH (20:19)
[2021-09-12] MEDS ORDERED: ZIPRASIDONE MESYLA 20 MG/VIAL IM ONE (23:46)
[2021-09-12] MEDS ORDERED: WATER FOR INJ,STERILE 10 ML IM PRN (23:46)
[2021-09-13] MEDS: D5 0.45 NS 1,000 ML IV SCH ×3 (05:30→20:15)
[2021-09-13 05:53] LABS: BUN Blood Urea Nitrogen 20 mg/dL (7-18); Bicarbonate 28 mmol/L (21-32); Glomerular Filtration Rate > 90 mL/min (=/>90); Glucose Level 159 mg/dL (74-106); Magnesium 1.9 mg/dL (1.8-2.4); Potassium 3.7 mmol/L (3.5-5.1); Sodium Level 139 mmol/L (136-145)
[2021-09-13 06:06] LABS: Absolute Lymphocytes (CBC) 0.3 K/uL (0.7-4.9); Hematocrit 28.8 % (39.6-49.0); Lymphocytes % 2.9 % (15.3-44.8); MPV 7.2 fL (7.6-11.3); RBC Red Blood Cell Count 3.62 M/uL (4.33-5.43)
[2021-09-13] MEDS: VANCOMYCIN 1 GM in NA CHLORIDE 0.9% 250 ML IVPB SCH (06:40)
[2021-09-13] MEDS ORDERED: KCL 20 MEQ/100 mL IVPB 20 MEQ/100 ML BAG IV SCH (07:00)
[2021-09-13] MEDS: INSULIN -REGULAR HUMAN 50 UNIT/0.5 ML ML SQ SCH ×4 (07:30→20:16)
[2021-09-13 08:25] LABS: Anisocytosis 1+; Blood Morphology Comment NOTED (NOT SEEN); Ovalocytes 1+; Platelet Estimate ADEQ
[2021-09-13] MEDS: DOCUSATE NA 100 MG CAP PO SCH ×2 (09:00→20:14)
[2021-09-13] MEDS: CYANOCOBALAMIN 1,000 MCG TAB PO SCH ×2 (09:00→09:01)
[2021-09-13] MEDS: CALCIUM CARBONATE 500 MG TAB PO SCH ×2 (09:00→09:05)
[2021-09-13] MEDS: ASCORBIC ACID 500 MG TABLET PO SCH ×3 (09:00→20:14)
[2021-09-13] MEDS: VITAMIN D 5,000 UNIT CAP PO SCH (09:00)
[2021-09-13] MEDS: DOCUSATE NA/SENNA CONC 1 TAB PO SCH ×2 (09:00→20:14)
[2021-09-13] MEDS: ENOXAPARIN 40 MG/0.4 ML SQ SCH (09:01)
[2021-09-13] MEDS: PANTOPRAZOLE 40MG TABLET PO SCH (09:03)
[2021-09-13] MEDS: MEMANTINE HCL 10 MG TABLET PO SCH ×2 (09:03→20:14)
[2021-09-13] MEDS: AMLODIPINE 10 MG TAB PO SCH (09:04)
[2021-09-13] MEDS: FLUCONAZOLE 100 MG TAB PO SCH (09:04)
[2021-09-13] MEDS: FUROSEMIDE 20 MG TABLET PO SCH (09:04)
[2021-09-13] MEDS: ZINC SULFATE 220 MG CAP PO SCH (09:05)
[2021-09-13] MEDS: JUVEN PACKET PO SCH ×2 (09:08→20:24)
[2021-09-13] MEDS: PYRIDOSTIGMINE 60 MG TABLET PO SCH ×3 (09:25→20:24)
--- NOTE | 2021-09-13 11:21 | P.PN ---
Subjective Date of Service: 09/13/21 Chief Complaint: Dehiscence of BKA Subjective: Improving (no complaints, denies pain.) Physical Examination - Vital Signs Temperature: 98.7 F Blood Pressure: 142/68 Pulse: 96 Respirations: 18 Pulse Ox (%): 94 - Physical Exam General: Alert, In no apparent distress, Cooperative Respiratory: Clear to auscultation bilaterally Integumentary: Other (wounds are all stable, no infection, well dressed.) - Studies Medications List Reviewed: Yes Assessment And Plan - Current Problems (Diagnosis) (1) Wound dehiscence Current Visit: Yes Status: Acute Plan: - continue medical management - patient needs endovascular evaluation of peripheral arteries - will order arterial ultrasound - continue wound care as indicated
[2021-09-13] MEDS: SODIUM HYPOCHLORITE 0.25% 473 ML TOP SCH (14:43)
--- NOTE | 2021-09-13 16:35 | RAD REPORT ---
EXAM DESCRIPTION: US - Lower Extremity Artery [facility] - 09/13/2021 4:01 pm CLINICAL HISTORY: Leg pain COMPARISON: None FINDINGS: The common femoral, superficial femoral and popliteal arteries demonstrate triphasic wavef orms. Scattered hard plaque. The posterior tibial artery demonstrates monophasic waveforms. This is similar prior. The dorsalis pe dis artery was not evaluated has the patient had bandage at the location. IMPRESSION: Monophasic flow in the posterior tibial artery consistent with at least moderate stenosi s. The dorsalis pedis artery was not evaluated as the patient had bandages that were not able to be r emoved. The common femoral artery through the popliteal artery are widely patent.
--- NOTE | 2021-09-13 19:23 | P.PN ---
Date of Service: 09/13/21 Subjective Subjective: Awaiting transfer to [facility] in [place]; clinically doing well and stable for DC Physical Examination - Vital Signs Reviewed - Physical Exam General: Alert, In no apparent distress Respiratory: Clear to auscultation bilaterally, Normal air movement Cardiovascular: Regular rate/rhythm, Normal S1 S2 Gastrointestinal: Normal bowel sounds, No tenderness Musculoskeletal: No tenderness; Right AKA; left multiple foot wounds Integumentary: Skin breakdown, Erythema Neurological: Normal speech, Normal tone, Normal affect Assessment & Plan - Problems (Diagnosis) (1) Wound dehiscence Current Visit: Yes Status: Acute (2) Dementia with behavioral disturbance Current Visit: Yes Status: Chronic Qualifiers: Dementia type: unspecified type Qualified Code(s): F03.91 - Unspecified dementia with behavioral disturbance (3) Peripheral arterial disease Current Visit: Yes Status: Chronic (4) Status post below knee amputation of right lower extremity Current Visit: Yes Status: Chronic (5) Myasthenia gravis Current Visit: No Status: Chronic (6) Pulmonary embolus Current Visit: No Status: Chronic Qualifiers: - Plan Continue plan of care as mentioned below: 1. Change to oral 2. Continue with local wound care 3. Wound care consultation/surgical consultation appreciated; postop day #1 4. Continue with gentle hydration; advance diet as tolerated 5. Monitor labs closely; labs are stable 6. Continue with strict blood sugar control 7. Pain control; hold IV pain medicines 8. Family requesting rehab placement 9. GI and DVT prophylaxis Discharge Plan: Inpatient rehab Plan to discharge in: Greater than 2 days - Advance Directives Does patient have a Living Will: No Does patient have a Durable POA for Healthcare: No - Code Status/Comfort Care Code Status Assessed: No Code Status: Full Code Critical Care: No Time Spent Managing PTS Care (In Minutes): 35
[2021-09-13] MEDS: QUETIAPINE 25 MG TAB PO SCH (20:14)
[2021-09-13] MEDS: DONEPEZIL HCL 5 MG TAB PO SCH (20:14)
[2021-09-13] MEDS: TRAZODONE 50 MG TABLET PO SCH (20:14)
[2021-09-13] MEDS: PREGABALIN 50 MG CAP PO SCH (20:14)
[2021-09-13] MEDS: MIRTAZAPINE 15 MG TAB PO SCH (20:14)
[2021-09-13] MEDS: ATORVASTATIN 10 MG TAB PO SCH (20:14)
[2021-09-14] MEDS ORDERED: VANCOMYCIN 1 GM in NA CHLORIDE 0.9% 250 ML IVPB SCH ×2
[2021-09-14 05:32] VITALS: BMI 19.9
[2021-09-14 06:50] LABS: ALT/SGPT 15 U/L (12-78); AST/SGOT 13 U/L (15-37); Albumin 2.1 g/dL (3.4-5.0); Alkaline Phosphatase 72 U/L (45-117); BUN Blood Urea Nitrogen 12 mg/dL (7-18); Bicarbonate 27 mmol/L (21-32); Bilirubin Total 0.6 mg/dL (0.2-1.0); Glomerular Filtration Rate > 90 mL/min (=/>90); Glucose Level 108 mg/dL (74-106); Potassium 3.5 mmol/L (3.5-5.1); Protein, Total 5.4 g/dL (6.4-8.2); Sodium Level 136 mmol/L (136-145)
[2021-09-14] MEDS: INSULIN -REGULAR HUMAN 50 UNIT/0.5 ML ML SQ SCH ×2 (07:30→11:30)
[2021-09-14] MEDS: ZINC SULFATE 220 MG CAP PO SCH ×2 (09:00→09:23)
[2021-09-14] MEDS: CALCIUM CARBONATE 500 MG TAB PO SCH ×2 (09:00→09:19)
[2021-09-14] MEDS: CYANOCOBALAMIN 1,000 MCG TAB PO SCH ×2 (09:00→09:20)
[2021-09-14] MEDS: ASCORBIC ACID 500 MG TABLET PO SCH ×2 (09:00→09:20)
[2021-09-14] MEDS: AMLODIPINE 10 MG TAB PO SCH (09:19)
[2021-09-14] MEDS: FUROSEMIDE 20 MG TABLET PO SCH (09:19)
[2021-09-14] MEDS: DOCUSATE NA/SENNA CONC 1 TAB PO SCH (09:19)
[2021-09-14] MEDS: PANTOPRAZOLE 40MG TABLET PO SCH (09:19)
[2021-09-14] MEDS: ENOXAPARIN 40 MG/0.4 ML SQ SCH (09:20)
[2021-09-14] MEDS: MEMANTINE HCL 10 MG TABLET PO SCH (09:20)
[2021-09-14] MEDS: FLUCONAZOLE 100 MG TAB PO SCH (09:20)
[2021-09-14] MEDS: DOCUSATE NA 100 MG CAP PO SCH (09:20)
[2021-09-14] MEDS: JUVEN PACKET PO SCH (09:20)
[2021-09-14] MEDS: VITAMIN D 5,000 UNIT CAP PO SCH (09:23)
[2021-09-14 09:39] VITALS: O2SAT 97
[2021-09-14] MEDS: PYRIDOSTIGMINE 60 MG TABLET PO SCH ×2 (11:26→13:30)
[2021-09-14] MEDS ORDERED: POTASSIUM CL SA 10 MEQ TAB PO ONE (13:11)
[2021-09-14] MEDS: SODIUM HYPOCHLORITE 0.25% 473 ML TOP SCH (13:30)
[2021-09-14 16:46] VITALS: BP 129/61; TEMP 98.2
--- NOTE | 2021-09-14 20:32 | P.DS ---
Discharge Date: 09/14/21 Disposition: TRANSFER TO INPATIENT REHAB Discharge Condition: FAIR Reason for Admission: Dehiscence of BKA - Problems (1) Wound dehiscence Status: Acute (2) Dementia with behavioral disturbance Status: Chronic Qualifiers: Dementia type: unspecified type Qualified Code(s): F03.91 - Unspecified dementia with behavioral disturbance (3) Peripheral arterial disease Status: Chronic (4) Status post below knee amputation of right lower extremity Status: Chronic (5) Myasthenia gravis Status: Chronic (6) Pulmonary embolus Status: Chronic Qualifiers: Brief History of Present Illness: Patient is an 80-year-old male with PMH of dementia, R BKA, DVT/PE, and HTN who presented to the ED with family stating that he pulled his PICC line out last night. Patient was requiring IV vancomycin for infection of stump. Patient is also scheduled for debridement of L heel and great toe with Dr. Bautista in 2 days. Labs significant for white blood cell count 11.6, hemoglobin 10, potassium 3.3, procalcitonin 0.1. VSS. A new PICC line was inserted in the ED and patient was given morphine and vancomycin. Dr. Bautista was consulted and wishes to admit patient for washout of BKA. Will admit patient for medical management. Hospital Course: A revision of his stump. Patient did well during the postoperative period. Patient has been working with physical therapy. [facility]. At this time, patient is stable for discharge. Continue with home medications. Vital Signs/Physical Exam: Temp Pulse Resp BP Pulse Ox 98.2 F 96 H 20 129/61 95 09/14/21 16:00 09/14/21 16:00 09/14/21 16:00 09/14/21 16:00 09/14/21 04:00 General: Alert, In no apparent distress, Oriented x3 Laboratory Data at Discharge: WBC 11.6 K/uL (4.3-10.9) H 09/13/21 05:05 Hgb 9.2 g/dL (13.6-17.9) L 09/13/21 05:05 Hct 28.8 % (39.6-49.0) L 09/13/21 05:05 Plt Count 268 K/uL (152-406) 09/13/21 05:05 PT 13.1 SECONDS (9.5-12.5) H 09/11/21 08:53 INR 1.19 09/11/21 08:53 APTT 35.1 SECONDS (24.3-36.9) 09/11/21 08:53 Sodium 136 mmol/L (136-145) 09/14/21 06:08 Potassium 3.5 mmol/L (3.5-5.1) 09/14/21 06:08 BUN 12 mg/dL (7-18) 09/14/21 06:08 Creatinine 0.61 mg/dL (0.55-1.3) 09/14/21 06:08 Glucose 108 mg/dL (74-106) H 09/14/21 06:08 Phosphorus 2.9 mg/dL (2.5-4.9) 09/10/21 04:57 Magnesium 1.9 mg/dL (1.8-2.4) 09/13/21 05:05 Total Bilirubin 0.6 mg/dL (0.2-1.0) 09/14/21 06:08 AST 13 U/L (15-37) L 09/14/21 06:08 ALT 15 U/L (12-78) 09/14/21 06:08 Alkaline Phosphatase 72 U/L (45-117) 09/14/21 06:08 Home Medications: Amlodipine [Norvasc*] 10 mg PO DAILY 07/31/21 Apixaban [Eliquis *] 2.5 mg PO BID 07/31/21 Ascorbic Acid [Vitamin C] 500 mg PO BID 07/31/21 Atorvastatin Calcium 10 mg PO BEDTIME 07/31/21 Cyanocobalamin (Vitamin B-12) [Vitamin B-12] 1 tab PO DAILY 07/31/21 Donepezil HCl 10 mg PO DAILY 07/31/21 Furosemide 20 mg PO DAILY 07/31/21 Memantine HCl 10 mg PO BID 07/31/21 Pyridostigmine Gregory 60 mg PO TID 07/31/21 Quetiapine Fumarate [Seroquel] 50 mg PO BEDTIME 07/31/21 Trazodone [Desyrel*] 25 mg PO BEDTIME 07/31/21 predniSONE [Deltasone*] 10 mg PO NOON 07/31/21 Jorge Alberto [Jorge Alberto*] 1 pkt PO BID #60 powd.pack 08/04/21 Calcium Carbonate [Calcium] 1,250 mg PO DAILY 09/10/21 Cholecalciferol (Vitamin D3) [Vitamin D 5,000 IU Cap*] 5,000 unit PO DAILY 09/10/21 Diclofenac Sodium 1 candida TD TID 09/10/21 Docusate Sodium 100 mg PO BID 09/10/21 Ferrous Sulfate [Ferrous Sulfate*] 1 tab PO BID 09/10/21 Hydrocodone 5/APAP 325 [Richton 5/325*] 1 tab PO Q8H 09/10/21 Mirtazapine [Remeron*] 15 mg PO BEDTIME 09/10/21 Pantoprazole Sodium [Protonix] 40 mg PO DAILY 09/10/21 Pregabalin [Lyrica*] 50 mg PO BEDTIME 09/10/21 Sennosides/Docusate Sodium [Senexon-S 50-8.6 mg Tablet] 1 each PO BID 09/10/21 Zinc Sulfate [Zinc Sulfate*] 1 cap PO DAILY 09/10/21 Minocycline HCl 100 mg PO BID #20 capsule 09/13/21 New Medications: Minocycline HCl 100 mg PO BID #20 capsule Physician Discharge Instructions: PROBLEM: Dehiscence of Wound GOAL: Clear understanding of disease process INSTRUCTIONS: Dressing change instructions: Right BKA: Apply Santyl Bone Packed with Avitene Xeroform Fluffs and Kerlex soaked with Dakin's Syd Bandage Left Hallus Dressing: Closed with suture Xeroform Dry fluffs Kerlex Syd Bandage Left Heel Dressing: Apply Santyl Fluff soaked in Dakin's Dry Fluffs Kerlex Syd Bandage Diet: ADA Activity: Fall precautions DME DME: Date Ordered: Name of Company: [employer] Services Needed: Rehab for strengthening and movement of upper and lower extremities Name of Company: [facility] Date or Referral: 09/14/21 IMMUNIZATION Influenza Vaccine Indicated: Influenza Vaccine Given: Date Given: Pneumonia Vaccine Indicated: No Pneumonia Vaccine Given: Date Given: Diet: ADA Activity: Fall precautions Followup: Prabhakar Mcneal MD [Primary Care Provider] - Time spent managing pt's care (in minutes): 35
== END 2021-09-14 16:25 | DRG 500 ==
LOC: ER 11:10 → ERHOLD 20:26 → 3RD-ICU 21:47
PROVIDERS: ADMIT Hospitalist; ATTEND Hospitalist
PROC: 02HV33Z Insertion of Infusion Device into Superior Vena Cava, Percutaneous Approach (ICD-10-PCS; 2021-09-09)
PROC: 3E04329 Introduction of Other Anti-infective into Central Vein, Percutaneous Approach (ICD-10-PCS; 2021-09-09)
PROC: 0QDG0ZZ Extraction of Right Tibia, Open Approach (ICD-10-PCS; principal; 2021-09-11 10:45)
PROC: 0Y6Q0Z0 Detachment at Left 1st Toe, Complete, Open Approach (ICD-10-PCS; 2021-09-11 10:45)
PROC: 0JDR0ZZ Extraction of Left Foot Subcutaneous Tissue and Fascia, Open Approach (ICD-10-PCS; 2021-09-11 10:45)
DX: T87.81 Dehiscence of amputation stump (principal); L89.623 Pressure ulcer of left heel, stage 3; I70.262 Atherosclerosis of native arteries of extremities with gangrene, left leg; F03.91 Unspecified dementia, unspecified severity, with behavioral disturbance; M86.8X6 Other osteomyelitis, lower leg; M86.8X7 Other osteomyelitis, ankle and foot; T87.43 Infection of amputation stump, right lower extremity; G70.00 Myasthenia gravis without (acute) exacerbation; E87.6 Hypokalemia; B99.9 Unspecified infectious disease; Z20.822 Contact with and (suspected) exposure to COVID-19; Z86.711 Personal history of pulmonary embolism
CPT/HCPCS: 36415; 71045; 80048; 80053; 80202; 81003; 81015; 82947; 83605; 83735; 84100; 84132; 84145; 85025; 85610; 85730; 86140; 87040; 88304; 88305; 88311; 93926; 96372; 96374; 99284; J1450; J1630; J1650; J1720; J1815; J2270; J2704; J3010; J3370; J3480; J3486; J7030; J7040; J7050; J7799; U0003

== ENCOUNTER 2021-09-23 03:26 | Emergency (ER) | payer OTHER ==
--- OUTSIDE RECORDS SUMMARY | 2021-09-23 03:29 | XMS REPORT | Continuity of Care Document ---
:1940 Author Organization [facility] t Address [address] [place] [address] Dr. Adair [address] [place] [id number] Care Team Providers Name Role Phone Cristian Condon Attending Clinician Unavailable [id number] Attending Clinician Unavailable Rachel Attending Clinician Unavailable SHENA Taylor Attending Clinician Unavailable Yary Jernigan Attending Clinician Unavailable Jewels Condon Admitting Clinician Unavailable [id number] Admitting Clinician Unavailable SHENA Taylor Admitting Clinician Unavailable Walter Jernigan Admitting Clinician Unavailable Payers Payer Name Policy Type Policy Number Effective Date Expiration Date S [facility] [id number] Problems This patient has no known problems. Allergies, Adverse Reactions, Alerts This patient has no known allergies or adverse reactions. Medications This patient has no known medications. Procedures Procedure Date / Time Performed Performing Clinician [facility] e [id number] 2021-08-19 00:00:00 ENCPL Encounters Start End Encounter Admission Attending Care Care Encounter Source Date/Time Date/Time Type Type Clinicians Facility Department ID 2021-10-07 Inpatient CHERELLE Strong ADITI [id number] [facility] 19:45:00 Cristian 33 [facility] 2021-09-12 Outpatient [id number] ENC[facility] REF [id number] E[facility] 14:44:55 0506 2021-08-14 Outpatient CHERELLE RamosPM [id number] [facility] 15:43:17 Prachi 64 [facility] 2021-08-09 Outpatient CHERELLE Taylor [id number] [facility] 13:20:57 Pietro 25 [facility] 2021-08-02 Outpatient [id number] ENC[facility] REF [id number] ENC[facility] 10:45:49 0326 2021-09-14 2021-09-22 Inpatient 3 [facility] ENCPL [id number] ENCPL 17:14:00 16:10:00 Rudy ojeda 2021-08-04 2021-08-20 Inpatient 3 [facility] ENCPL AML [id number] ENCPL 18:17:00 22:00:00 lynette 0328 [place] 2021-08-14 2021-08-14 Outpatient Rachel [facility] [id number] [facility] 14:57:00 14:57:00 Prachi [id number] [facility] 2021-08-09 2021-08-09 Outpatient Brandon, [facility] [id number] [facility] 09:35:00 09:35:00 Pietro [id number] [facility] Results Test Description Test Time Test Comments Results Result [facility] e Comments - CT ABD PELVIS 2021-08-14 W/O CONT [facility]:39[facility] 1940 Sex: M Name: BRIANNE MEJÍA [facility] : 1940 Age/S: 80 / M [id number] [address] Unit #: [id number] Loc: [place] [address] Phys: Prachi Ramos MD Acct: [id number] Dis Date: Status: REG REF PHONE #: [phone] Exam Date: 08/14/2021 1506 FAX #: Reason: R BKA PAD, TO RULE OUT BLEEDING EXAMS: CPT: [id number] CT ABD PELVIS W/O CONT 68567 CT Abdomen and Pelvis without contrast. Location: [...] and signed by: Jigar Welch M.D. CC: Pierto Taylor; Prachi Ramos MD Technologist:Tariq Donato, RT(R)(CT) CTDI: DLP: Trnscb Date/Time: 08/14/2021 (1539) [email or web address] Orig Print D/T: S: 08/14/2021 (8239) PAGE 1 Signed Report - CT ABD PELVIS 2021-08-09 W/O CONT 13:17:00 [facility] : 1940 Sex: M Name: BRIANNE MEJÍA : 1940 Age/S: 80 / M [id number] [address] Unit #: [id number] Loc: [place] [address] Phys: Pietro Taylor [employer] Acct: [id number] Dis Date: Status: REG REF PHONE #: [phone] Exam Date: 08/09/2021 0993 FAX #: Reason: RULE OUT BLEEDING EXAMS: CPT: [id number] CT ABD PELVIS W/O CONT 38149 CT OF THE ABDOMEN AND PELVIS WITHOUT [...] 1 Signed Report (CONTINUED) Name: BRIANNE MEJÍA : 1940 Age/S: 80 / M [id number] [address] Unit #: [id number] Loc: [place] [address] Phys: BrandonPietro CHATTERJEE Acct: [id number] Dis Date: Status: REG REF PHONE #: [phone] Exam Date: 08/09/2021 0950 FAX #: Reason: RULE OUT BLEEDING EXAMS: CPT: [id number] CT ABD PELVIS W/O CONT 50736 <Continued> spine centered at L2. Spondylosis is [...] (1317) [email or web address] Orig Print D/T: S: 08/09/2021 (0047) PAGE 2 Signed Report
[2021-09-23 04:47] LABS: Absolute Lymphocytes (CBC) 1.1 K/uL (0.7-4.9); Hematocrit 28.3 % (39.6-49.0); Lymphocytes % 20.9 % (15.3-44.8); MPV 6.7 fL (7.6-11.3); RBC Red Blood Cell Count 3.72 M/uL (4.33-5.43)
[2021-09-23 04:51] LABS: Protime INR 1.36
[2021-09-23 05:01] LABS: Albumin 2.4 g/dL (3.4-5.0); Bilirubin Direct 0.1 mg/dL (0-0.2); Bilirubin Total 0.3 mg/dL (0.2-1.0); Potassium 3.9 mmol/L (3.5-5.1); Protein, Total 6.2 g/dL (6.4-8.2)
[2021-09-23 05:11] LABS: Anisocytosis 1+; Blood Morphology Comment NOTED (NOT SEEN); Platelet Estimate ADEQ
--- NOTE | 2021-09-23 06:13 | ER ---
Nurse's Notes [facility] Name: Tj Redding Age: 80 yrs Sex: Male : 1940 Arrival Date: 09/23/2021 Time: 03:29 Bed 8 Private MD: Diagnosis: Wound manipulation s/p left great toe amputation;Wound self manipulation s/p left great toe amputation Presentation: 09/23 03:33 Chief complaint: EMS states: pt had a recent left great toe amputation and pt is as6 picking at stitches. Coronavirus screen: At this time, the client does not indicate any symptoms associated with coronavirus-19. Ebola Screen: No symptoms or risks identified at this time. Initial Sepsis Screen: Does the patient meet any 2 criteria? No. Patient's initial sepsis screen is negative. Does the patient have a suspected source of infection? No. Patient's initial sepsis screen is negative. Risk Assessment: Do you want to hurt yourself or someone else? Unable to obtain. Onset of symptoms was September 23, 2021. 03:33 Method Of Arrival: EMS: [facility] as6 03:33 Acuity: ABBEY 4 as6 Historical: - Allergies: 03:34 No Known Allergies; as6 - PMHx: 03:34 Dementia; DVT; Hypertensive disorder; pulmonary embolis; as6 - PSHx: 03:34 BKA right; left great amputation; as6 - Immunization history:: Adult Immunizations up to date. - Social history:: Smoking status: unknown. Screenin:37 Abuse screen: Denies threats or abuse. Denies injuries from another. Nutritional as6 screening: No deficits noted. Tuberculosis screening: No symptoms or risk factors identified. Fall Risk None identified. Assessment: 03:36 General: Appears in no apparent distress. Behavior is calm, quiet. Pain: Unable to use as6 pain scale. Does not appear to understand pain scale. Neuro: Level of Consciousness is awake, alert. Cardiovascular: JVD is absent Patient's skin is warm and dry. Respiratory: Respiratory effort is even, unlabored, Respiratory pattern is regular, symmetrical. Derm: Wound noted left first toe Wound is amputation, stitches intact. 06:48 Reassessment: Patient appears in no apparent distress at this time. as6 07:33 Reassessment: No changes from previously documented assessment. Patient and/or family ll1 updated on plan of care and expected duration. Pain level reassessed. Vital Signs: 03:33 BP 127 / 68; Pulse 86; Resp 18; Temp 97.3(O); Pulse Ox 100% on R/A; Weight 77.11 kg; as6 Height 5 ft. 8 in. (172.72 cm); 04:39 BP 118 / 51; Pulse 65; Resp 18 S; Pulse Ox 100% on R/A; as6 05:58 BP 101 / 57; Pulse 52 MON; Resp 18 S; Pulse Ox 100% on R/A; as6 06:47 BP 142 / 73; Pulse 60; Resp 18 S; Pulse Ox 100% on R/A; as6 07:33 BP 136 / 71; Pulse 60; Resp 18; Pulse Ox 100% ; ll1 03:33 Body Mass Index 25.85 (77.11 kg, 172.72 cm) as6 ED Course: 03:29 Patient arrived in ED. mw2 03:31 Edilson Lora MD is Attending Physician. mh7 03:33 Christopher Garrison, ALEISHA is Primary Nurse. as6 03:34 Triage completed. as6 03:36 Arm band placed on. as6 03:37 Bed in low position. Call light in reach. Side rails up X2. Pulse ox on. NIBP on. as6 04:30 Inserted saline lock: 20 gauge in right antecubital area, using aseptic technique. as6 Blood collected. 04:36 Foot Left 3 View XRAY In Process Unspecified. EDMS 06:48 No provider procedures requiring assistance completed. as6 07:34 IV discontinued, intact, bleeding controlled, No redness/swelling at site. Pressure ll1 dressing applied. Administered Medications: No medications were administered Medication: 06:48 VIS not applicable for this client. as6 Outcome: 06:13 Discharge ordered by . 7 07:34 Discharged to long term. Transfer form completed. ll1 07:34 Condition: stable 07:34 Discharge instructions given to patient, Instructed on discharge instructions, follow up and referral plans. Demonstrated understanding of instructions, follow-up care. 07:43 Patient left the ED. ll1 Signatures: Dispatcher [employer] EDSD Fatou Rivas mw2 Kimo Hilton RN RN ll1 Edilson Lora MD MD mh7 Christopher Garrison, RN RN as6 Corrections: (The following items were deleted from the chart) 03:36 03:34 PMHx: Angina pectoris; as6 as6
--- NOTE | 2021-09-23 06:13 | EDPHYS ---
Physician Documentation [facility] Name: Tj Redding Age: 80 yrs Sex: Male : 1940 Arrival Date: 09/23/2021 Time: 03:29 Bed 8 Private MD: ED Physician Edilson Lora HPI: 09/23 04:13 This 80 yrs old Male presents to ER via EMS with complaints of Left foot mh7 problem. 04:13 The patient presents with picking at sutures. The complaints affect the left foot. mh7 Context: The problem was sustained at a correction or assisted living facility, resulted from recent toe amputation, Mechanism of Injury: none the patient is not able to bear weight, the patient is not able to ambulate. Onset: The symptoms/episode began/occurred today. Modifying factors: The symptoms are alleviated by nothing, the symptoms are aggravated by nothing. Associated signs and symptoms: The patient has no apparent associated signs or symptoms. Sent from correction due to picking at sutures on left foot. He had recent amputation of his left great toe.. Historical: - Allergies: 03:34 No Known Allergies; as6 - PMHx: 03:34 Dementia; DVT; Hypertensive disorder; pulmonary embolis; as6 - PSHx: 03:34 BKA right; left great amputation; as6 - Immunization history:: Adult Immunizations up to date. - Social history:: Smoking status: unknown. ROS: 04:13 Unable to obtain ROS due to baseline dementia. mh7 Exam: 04:13 Constitutional: This is a well developed, well nourished patient who is awake, alert, mh7 and in no acute distress. Head/Face: Normocephalic, atraumatic. Eyes: Pupils equal round and reactive to light, extra-ocular motions intact. Lids and lashes normal. Conjunctiva and sclera are non-icteric and not injected. Cornea within normal limits. Periorbital areas with no swelling, redness, or edema. Neck: Trachea midline, no thyromegaly or masses palpated, and no cervical lymphadenopathy. Supple, full range of motion without nuchal rigidity, or vertebral point tenderness. No Meningismus. Chest/axilla: Normal chest wall appearance and motion. Nontender with no deformity. No lesions are appreciated. Cardiovascular: Regular rate and rhythm with a normal S1 and S2. No gallops, murmurs, or rubs. Normal PMI, no JVD. No pulse deficits. Respiratory: Lungs have equal breath sounds bilaterally, clear to auscultation and percussion. No rales, rhonchi or wheezes noted. No increased work of breathing, no retractions or nasal flaring. Abdomen/GI: Soft, non-tender, with normal bowel sounds. No distension or tympany. No guarding or rebound. No evidence of tenderness throughout. Back: No spinal tenderness. No costovertebral tenderness. Full range of motion. 04:13 Neuro: Orientation: unable to test, the patient has a history of dementia, Mentation: unable to test, the patient has a history of dementia, Memory: unable to test, the patient has a history of dementia, Cranial nerves: unable to test, the patient has a history of dementia, Cerebellar function: unable to test, the patient has a history of dementia, Motor: unable to test, the patient has a history of dementia, Sensation: unable to test, the patient has a history of dementia, Gait: not tested. seizure activity, is not displayed by the patient, Abnormal movements: there are no abnormal movements. 04:13 Skin: Warm, dry with normal turgor. Normal color with no rashes, no lesions, and no mh7 evidence of cellulitis. 04:13 Musculoskeletal/extremity: Extremities: noted in the left foot: sutures intact s/p mh7 resection of left great toe, no active bleeding, erythema, discharge, left heel ulcer without erythema, tenderness, swelling, right BKA. Vital Signs: 03:33 BP 127 / 68; Pulse 86; Resp 18; Temp 97.3(O); Pulse Ox 100% on R/A; Weight 77.11 kg; as6 Height 5 ft. 8 in. (172.72 cm); 04:39 BP 118 / 51; Pulse 65; Resp 18 S; Pulse Ox 100% on R/A; as6 05:58 BP 101 / 57; Pulse 52 MON; Resp 18 S; Pulse Ox 100% on R/A; as6 06:47 BP 142 / 73; Pulse 60; Resp 18 S; Pulse Ox 100% on R/A; as6 07:33 BP 136 / 71; Pulse 60; Resp 18; Pulse Ox 100% ; ll1 03:33 Body Mass Index 25.85 (77.11 kg, 172.72 cm) as6 MDM: 06:07 Differential diagnosis: fracture, sprain, foreign body, arthritis, gout, cellulitis. [facility] Data reviewed: vital signs, nurses notes, EMS record, correction records. Data interpreted: Pulse oximetry: on room air is 100 %. Interpretation: normal. Counseling: I had a detailed discussion with the patient and/or guardian regarding: the historical points, exam findings, and any diagnostic results supporting the discharge/admit diagnosis, lab results, radiology results, the need for outpatient follow up, to return to the emergency department if symptoms worsen or persist or if there are any questions or concerns that arise at home. Response to treatment: the patient's symptoms have markedly improved after treatment. ED course: Nurse discussed with [facility] staff who state that they sent patient to ER due to concern that he may have removed the sutures.. 06:13 Patient medically screened. [facility] 09/23 04:12 Order name: CBC with Diff; Complete Time: 05:16 [facility] 09/23 04:12 Order name: Basic Metabolic Panel; Complete Time: 05:16 [facility] 09/23 04:12 Order name: Protime (+inr); Complete Time: 05:16 [facility] 09/23 04:12 Order name: Ptt, Activated; Complete Time: 05:16 [facility] 09/23 04:12 Order name: LFT's; Complete Time: 05:16 [facility] 09/23 04:12 Order name: Blood Culture Adult (2) [facility] 09/23 04:12 Order name: Foot Left 3 View XRAY [facility] 09/23 04:12 Order name: Saline Lock; Complete Time: 04:38 [facility] 09/23 04:50 Order name: Manual Differential; Complete Time: 05:16 EDMS Administered Medications: No medications were administered Disposition Summary: 09/23/21 06:13 Discharge Ordered Location: Home [facility] Problem: an ongoing problem [facility] Symptoms: have improved [facility] Condition: Stable [facility] Diagnosis - Wound manipulation s/p left great toe amputation [facility] - Wound self manipulation s/p left great toe amputation [facility] Followup: [facility] - With: Private Physician - When: 1 - 2 days - Reason: Worsening of condition, Recheck today's complaints, Continuance of care, Re-evaluation by your physician Discharge Instructions: - Discharge Summary Sheet mh7 - Wound Care, Adult mh7 - How to Change Your Wound Dressing, [id number] [facility] Forms: - Medication Reconciliation Form 7 - Thank You Letter mh7 - Antibiotic Education 7 - Prescription Opioid Use [facility] Signatures: Dispatcher [employer] Edilson Ayers MD MD mh7 Christopher Garrison RN RN as6 Corrections: (The following items were deleted from the chart) 03:36 03:34 PMHx: Angina pectoris; as6 as6
[2021-09-23 07:53] VITALS: TEMP 97.3; O2SAT 100
[2021-09-23 08:01] VITALS: BP 136/71
--- NOTE | 2021-09-23 16:44 | RAD REPORT ---
EXAM DESCRIPTION: RAD - Foot Left 3 View - 09/23/2021 4:34 am CLINICAL HISTORY: The patient is 80 years old and is Male; PAIN TECHNIQUE: Three views of the left foot. COMPARISON: No relevant prior studies available. FINDINGS: Bones/joints: Previous great toe amputation. No acute fracture. No dislocation. Soft tissues: Unremarkable. No radiopaque foreign body. Vasculature: Atherosclerotic calcification. IMPRESSION: No acute findings. Chronic findings as above. Electronically signed by: Nannette Whittaker MD 09/23/2021 5:12 AM CDT Due to temporary technical issues with the PACS/Fluency reporting system, reports are being signed by the in house radiologists without review as a courtesy to insure prompt reporting. The interpreting radiologist is fully responsible for the content of the report.
== END 2021-09-23 07:43 | disposition home or self-care (01) ==
LOC: ER 03:26
DX: Z48.01 Encounter for change or removal of surgical wound dressing (principal); Z89.412 Acquired absence of left great toe; Z89.511 Acquired absence of right leg below knee; F03.90 Unspecified dementia, unspecified severity, without behavioral disturbance, psychotic disturbance, mood disturbance, and anxiety; I10 Essential (primary) hypertension; Z86.718 Personal history of other venous thrombosis and embolism
CPT/HCPCS: 36415; 80048; 80076; 85025; 85610; 85730; 87040; 99284

== ENCOUNTER 2021-10-12 10:59 | Inpatient (IN) | payer OTHER ==
--- OUTSIDE RECORDS SUMMARY | 2021-10-12 11:02 | XMS REPORT | Continuity of Care Document ---
:1940 Author Organization [facility] t Address [address] [place] [address] Dr. Adair [address] [place] [id number] Care Team Providers Name Role Phone Cristian Condon Attending Clinician Unavailable [id number] Attending Clinician Unavailable Rachel Attending Clinician Unavailable SHENA Taylor Attending Clinician Unavailable Yary Jernigan Attending Clinician Unavailable Jewels Condon Admitting Clinician Unavailable [id number] Admitting Clinician Unavailable SHENA Taylor Admitting Clinician Unavailable Walter Jernigan Admitting Clinician Unavailable Payers Payer Name Policy Type Policy Number Effective Date Expiration Date S [facility] [id number] Problems This patient has no known problems. Allergies, Adverse Reactions, Alerts This patient has no known allergies or adverse reactions. Medications This patient has no known medications. Procedures Procedure Date / Time Performed Performing Clinician [facility] e [id number] 2021-08-19 00:00:00 ENCPL Encounters Start End Encounter Admission Attending Care Care Encounter Source Date/Time Date/Time Type Type Clinicians Facility Department ID 2021-11-06 Inpatient CHERELLE Strong ADITI [id number] [facility] 16:45:00 Cristian 33 [facility] 2021-09-12 Outpatient [id number] ENC[facility] REF [id number] E[facility] 14:44:55 0506 2021-08-14 Outpatient CHERELLE RamosPM [id number] [facility] 15:43:17 Prachi 64 [facility] 2021-08-09 Outpatient CHERELLE Taylor [id number] [facility] 13:20:[address] [facility] 2021-08-02 Outpatient [id number] ENCPL REF [id number] ENC[facility] 10:45:49 0326 2021-09-14 2021-09-22 Inpatient 3 [facility] ENCPL [id number] ENCPL 17:14:00 16:10:00 Rudy ojeda 2021-08-04 2021-08-20 Inpatient 3 [facility] ENCPL AML [id number] ENCPL 18:17:00 22:00:00 lynette 0328 [place] 2021-08-14 2021-08-14 Outpatient Rachel [facility] RADI [id number] [facility] 14:57:00 14:57:[id number] [facility] 2021-08-09 2021-08-09 Outpatient Brandon, [facility] RADI [id number] [facility] 09:35:00 09:35:00 Pietro [id number] [facility] Results Test Description Test Time Test Comments Results Result [facility] e Comments - CT ABD PELVIS 2021-08-14 W/O CONT 15:39:00 [facility] 1940 Sex: M Name: BRIANNE MEJÍA [facility] : 1940 Age/S: 80 / M [id number] Unit #: [id number] Loc: [place] [address] Phys: Prachi Ramos MD Acct: [id number] Dis Date: Status: REG REF PHONE #: [phone] Exam Date: 08/14/2021 1505 FAX #: Reason: R BKA PAD, TO RULE OUT BLEEDING EXAMS: CPT: [id number] CT ABD PELVIS W/O CONT 48320 CT Abdomen and Pelvis without contrast. 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 Spondylosis is [...] (1317) [email or web address] Orig Print D/T: S: 08/09/2021 (7282) PAGE 2 Signed Report
[2021-10-12 11:37] LABS: Absolute Lymphocytes (CBC) 1.3 K/uL (0.7-4.9); Hematocrit 32.3 % (39.6-49.0); Lymphocytes % 11.6 % (15.3-44.8); MCV 75.2 fL (80-100); MPV 6.9 fL (7.6-11.3)
[2021-10-12 11:45] LABS: Protime INR 1.59
[2021-10-12 11:57] LABS: Urine Blood Negative (Negative); Urine Glucose Negative (Negative); Urine Protein 1+ (Negative); Urine Specific Gravity 1.025 (1.005-1.030); Urine pH 5.5 (5.0-7.0)
[2021-10-12 12:00] LABS: Albumin 2.5 g/dL (3.4-5.0); Bilirubin Total 0.9 mg/dL (0.2-1.0); Potassium 3.9 mmol/L (3.5-5.1)
[2021-10-12] MEDS ORDERED: VANCOMYCIN 1 GM/VIAL ONE (12:03)
[2021-10-12] MEDS ORDERED: PIPERACIL/TAZO 3.375 GM VIAL IV ONE (12:04)
[2021-10-12] MEDS ORDERED: NA CHLORIDE 0.9% 250 ML ONE (12:04)
[2021-10-12] MEDS ORDERED: NA CHLORIDE 0.9% 500 ML ONE (12:04)
[2021-10-12] MEDS ORDERED: NA CHLORIDE 0.9% 100 ML ONE (12:04)
--- NOTE | 2021-10-12 12:46 | RAD REPORT ---
EXAM DESCRIPTION: RAD - Chest Single View - 10/12/2021 12:38 pm CLINICAL HISTORY: FEVER Chest pain. COMPARISON: <Comparisons> FINDINGS: Portable technique limits examination quality. The lungs are emphysematous but grossly clear. The heart is normal in size. No displaced fractures. IMPRESSION: No acute intrathoracic process suspected.
--- NOTE | 2021-10-12 12:47 | RAD REPORT ---
EXAM DESCRIPTION: RAD - Forearm Right - 10/12/2021 12:38 pm CLINICAL HISTORY: PAIN COMPARISON: Chest Single View dated 10/12/2021 FINDINGS: Heavy atherosclerosis. No acute fracture or dislocation seen.
--- NOTE | 2021-10-12 12:48 | RAD REPORT ---
EXAM DESCRIPTION: RAD - Humerus Right - 10/12/2021 12:38 pm CLINICAL HISTORY: PAIN COMPARISON: Chest Single View dated 06/18/2021 FINDINGS: Mild to moderate AC joint and glenohumeral joint arthritic changes are present. Area of sc lerosis is seen along the inferior glenoid, nonspecific. No acute fracture evident.
--- NOTE | 2021-10-12 14:04 | EDPHYS ---
Physician Documentation [facility] Name: Tj Redding Age: 80 yrs Sex: Male : 1940 Arrival Date: 10/12/2021 Time: 11:01 Bed 2 Private MD: ED Physician Bismark Dominguez HPI: 10/12 11:54 This 80 yrs old Male presents to ER via EMS with complaints of Fever and en urinary retention. 11:54 80 yo M with HTN, DM, PVD s/p L 1st Toe TMA and wound vac in place to R BKA stump en presents to ED from detention no urine output in 2d and fever Tm 99. Family member reports wound care comes out every 2-3 days. No change in wounds. Decreased po intake over past 2 days. Pt does not communicate other than moaning so hx is limited from the patient. . Historical: - Allergies: 11:02 No Known Allergies; ll1 - PMHx: 11:02 Dementia; DVT; Hypertensive disorder; pulmonary embolis; ll1 - PSHx: 11:02 BKA right; left great amputation; ll1 - Immunization history:: Client reports receiving the 2nd dose of the Covid vaccine. - Social history:: Smoking status: Patient denies any tobacco usage or history of. ROS: 11:54 Constitutional: low grade fever Tm99 at detention en 11:54 Constitutional: Positive for fever, Negative for chills. 11:54 Eyes: Negative for discharge. 11:54 Cardiovascular: Negative for 11:54 Respiratory: Negative for cough, shortness of breath. 11:54 Abdomen/GI: Positive for decreased po intake, Negative for nausea, vomiting, and diarrhea. 11:54 Skin: Positive for wound vac in place to right BKA stump, last changed yesterday. Left foot wound stable, no increase in drainage or redness. 11:54 All other systems are negative. Exam: 11:54 Constitutional: Elderly and chronically ill appearing but nontoxic appearing en 11:54 Constitutional: The patient appears in no acute distress, alert, awake. 11:54 Eyes: Pupils: no acute changes, equal, round, and reactive to light and accomodation, Extraocular movements: no acute changes. 11:54 ENT: Mouth: Lips: dry, Oral mucosa: pink and intact, moist. 11:54 Neck: ROM/movement: is normal. 11:54 Cardiovascular: Rate: tachycardic, actual rate is 100 bpm, Rhythm: regular, Pulses: no pulse deficits are appreciated, Heart sounds: normal, no murmur, no rub, no gallop. 11:54 Sinus tachycardia at 103, RBB, RAFB, J point elevation II, III, RAD. 11:54 Respiratory: the patient does not display signs of respiratory distress, Respirations: normal, Breath sounds: are clear throughout, no decreased breath sounds, no rales, rhonchi, no stridor, no wheezing. 11:54 Abdomen/GI: Inspection: abdomen appears normal, Bowel sounds: normal, Palpation: abdomen is soft and non-tender. 11:54 : nondistended bladder with 155cc on bladder scan. 11:54 Musculoskeletal/extremity: RLE s/p BKA with wound vac in place, surrouding tissue healthy without erythema. No drainage. Wound vac not taken down. LLE s/p 1st and 2nd toe amputations with sutures in place. Eschar in base of wound with yellow exudate on medial aspect. No expressible purulence. Mild skin irritation to dorsum of foot without swelling or induration (?from wound dressing?). Stage III pressure ulcer left heel with fibrinous exudate in base . No surrounding erythema or drainage. 1+ DP and PT pulses. . 11:54 Skin: See extremity exam. 11:54 Neuro: Orientation: unable to test, pt follows commands but unable to communicate well. . Vital Signs: 10:55 BP 140 / 65; Pulse 100; Resp 25 S; Temp 99.4(O); Pulse Ox 100% on R/A; Weight 77.11 kg jg9 (R); Height 5 ft. 10 in. (177.80 cm); 11:15 BP 140 / 67; Pulse 98; Resp 24 S; Pulse Ox 97% on R/A; jg9 12:10 BP 129 / 65; Pulse 96; Resp 17 S; Pulse Ox 98% on R/A; jg9 13:45 BP 120 / 65; Pulse 93; Resp 14 S; Pulse Ox 94% on R/A; jg9 10:55 Body Mass Index 24.39 (77.11 kg, 177.80 cm) j9 MDM: 11:06 Patient medically screened. [facility] 11:54 ED course: Pt with 1 SIRS Criteria on arrival, HR 100, but high risk for sepsis. No en definitive source on arrival but wounds to BLE and urinary retention. Sepsis bundle initiated with 1L NS, blood cultures, and lactic acid. gibran valentine for possible skin source, 1216: Lactic acid 2.4, so now with 2 SIRS criteria. Sepsis without severe sepsis. Will stop IVF after 1L. awaiting remainder of labs. Sepsis re-bonnie complete. . 13:57 ED course: Reviewed imaging and labs with pt and family. Discussed with Dr Dominguez and en reviewed admission with Dr Sherman who accepts for OBS for sepsis without severe sepsis or septic shock. No definitive source. Wounds appear clean. Urine Clean. Will get CXR to complete infectious workup and admit for OBS. 14:53 ED course: Spoke with Dr Price, will see pt. en 10/12 11:22 Order name: Blood Culture Adult (2) en 10/12 11:22 Order name: CBC with Diff; Complete Time: 13:45 en 10/12 11:22 Order name: CMP; Complete Time: 13:45 en 10/12 11:22 Order name: Lactate; Complete Time: 13:45 en 10/12 11:22 Order name: Protime (+inr); Complete Time: 13:45 en 10/12 11:22 Order name: Ptt, Activated; Complete Time: 13:45 en 10/12 11:22 Order name: Urine Culture en 10/12 11:57 Order name: Urine Dipstick-Ancillary; Complete Time: 13:45 EDVT 10/12 12:24 Order name: COVID-19 SARS RT PCR (Document "Date of Onset" if Symptomatic); Complete jg9 Time: 13:45 10/12 14:29 Order name: CBC with Automated Diff EDMS 10/12 14:29 Order name: CBC with Automated Diff EDMS 10/12 14:29 Order name: Comprehensive Metabolic Panel EDMS 10/12 14:29 Order name: Comprehensive Metabolic Panel EDMS 10/12 14:29 Order name: Lactate EDMS 10/12 11:22 Order name: Chest Single View XRAY; Complete Time: 13:45 en 10/12 11:22 Order name: Cardiac monitoring; Complete Time: 11:23 en 10/12 11:22 Order name: EKG - Nurse/Tech; Complete Time: 11:23 en 10/12 11:22 Order name: IV Saline Lock - Large Bore; Complete Time: 11: en 10/12 11:22 Order name: Labs collected and sent; Complete Time: : en 10/12 11:53 Order name: Humerus Right XRAY; Complete Time: 13:45 en 10/12 11:53 Order name: Forearm Right XRAY; Complete Time: 13:45 en 10/12 14:29 Order name: Heart Healthy EDVT 10/12 14:29 Order name: Lactate EDVT 10/12 14:29 Order name: Procalcitonin EDVT 10/12 14:29 Order name: Procalcitonin EDMS 10/12 11:22 Order name: O2 Per Protocol; Complete Time: : en 10/12 11:22 Order name: O2 Sat Monitoring; Complete Time: en 10/12 11:22 Order name: Urine Dipstick-Ancillary (obtain specimen); Complete Time: 11:59 en Administered Medications: 12:17 Drug: Zosyn (piperacillin-tazobactam) 3.375 grams Route: IVPB; Infused Over: 60 mins; jg9 Site: right antecubital; 14:00 Follow up: IV Status: Completed infusion; IV Intake: 100ml jg9 12:17 Drug: Sodium Chloride 0.9% 500 ml Route: IVPB; Site: right antecubital; jg9 15:48 Follow up: IV Status: Completed infusion; IV Intake: 500ml jg9 14:00 Drug: vancoMYCIN 1 grams Route: IVPB; Infused Over: 2 hrs; Site: right antecubital; jg9 15:48 Follow up: IV Status: Completed infusion; IV Intake: 250ml jg9 14:25 Drug: Flomax (tamsulosin) 0.4 mg Route: PO; jg9 15:12 Follow up: Response: No adverse reaction jg9 Disposition Summary: 10/12/21 14:03 Hospitalization Ordered Provider: Cristina Sherman Location: Telemetry/MedSurg (Inpatient) en Condition: Fair en Problem: chronic en Symptoms: have worsened en Bed/Room Type: Standard en Hospitalization Status: Inpatient Admission(10/12/21 14:54) en Room Assignment: [facility](10/12/21 15:12) dw Diagnosis - Other specified sepsis en - Retention of urine, unspecified en - Leg Laceration/ Open wound of lower leg en - Gangrene, not elsewhere classified en Forms: - Medication Reconciliation Form en - SBAR form en Addendum: 10/24/2021 13:18 Co-signature as Attending Physician, Bismark Dominguez MD I agree with the assessment and c santana plan of care. Signatures: Dispatcher [employer] EDEmerald Velez RN Bismark Wall MD MD cha Lewis, Lynsay RN RN ll1 Jennifer Fortune RN RN jg9 July Galvin PA PA en Corrections: (The following items were deleted from the chart) 10/12 12:37 11:22 Accucheck ordered. en jg9 14:54 14:03 Observation en en 15:12 14:03 en dw
--- NOTE | 2021-10-12 14:04 | ER ---
Nurse's Notes [facility] Name: Tj Redding Age: 80 yrs Sex: Male : 1940 Arrival Date: 10/12/2021 Time: 11:01 Bed 2 Private MD: Diagnosis: Other specified sepsis;Retention of urine, unspecified;Leg Laceration/ Open wound of lower leg;Gangrene, not elsewhere classified Presentation: 10/12 10:55 Chief complaint: EMS states: Patient is from a and EMS reports they were told jg9 patient is being sent for evaluation due to low grade fever (100.7 and anuria x 2 days. They also report that the patient had an amputation recently (right BKA) and they facility believes there may be an infection. Patient gets dressing changes 3 times weekly, last change was on Wednesday. Patient grimaces and groans in pain. Coronavirus screen: Vaccine status: Patient reports receiving the 2nd dose of the covid vaccine. Ebola Screen: Patient negative for fever greater than or equal to 101.5 degrees Fahrenheit, and additional compatible Ebola Virus Disease symptoms Patient denies exposure to infectious person. Patient denies travel to an Ebola-affected area in the 21 days before illness onset. Initial Sepsis Screen: Does the patient meet any 2 criteria? RR > 20 per min. HR > 90 bpm. Yes Does the patient have a suspected source of infection? Yes: Bone or joint infection. Risk Assessment: Do you want to hurt yourself or someone else? Patient reports no desire to harm self or others. Onset of symptoms is unknown. 10:55 Method Of Arrival: EMS: [facility] jg9 10:55 Acuity: ABBEY 3 jg9 Triage Assessment: 10:55 General: Appears uncomfortable, slender, Behavior is anxious. Pain: Noted to be jg9 grimacing, guarding, moaning, resistant to movement. EENT: No deficits noted. Neuro: No deficits noted. Cardiovascular: No deficits noted. Respiratory: No deficits noted. GI: No deficits noted. : Parent/caregiver report the patient having inability to void since 10/10/21. Derm: No deficits noted. 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 ulcer to the left heel. Historical: - Allergies: 11:02 No Known Allergies; ll1 - PMHx: 11:02 Dementia; DVT; Hypertensive disorder; pulmonary embolis; ll1 - PSHx: 11:02 BKA right; left great amputation; ll1 - Immunization history:: Client reports receiving the 2nd dose of the Covid vaccine. - Social history:: Smoking status: Patient denies any tobacco usage or history of. Screenin:17 Abuse screen: Denies threats or abuse. Nutritional screening: No deficits noted. ll1 Tuberculosis screening: No symptoms or risk factors identified. Fall Risk Fall in past 12 months (25 points). Secondary diagnosis (15 points) impaired mobility, IV access (20 points). Ambulatory Aid- Crutches/Cane/Walker (15 pts). Gait- Weak (10 pts.). Total Goins Fall Scale indicates High Risk Score (45 or more points). Fall prevention measures have been instituted. Side Rails Up X 2 Placed Close to Nursing Station Frequent Obs/Assessments Occuring Family Present and informed to notify staff if the need to leave the bedside As available patient and family educated on Fall Prevention Program and Strategies. Assessment: 11:18 General: Appears ill, Behavior is calm, cooperative, appropriate for age. Pain: ll1 Complains of pain in legs Quality of pain is described as aching. Neuro: Reports headache weakness. Cardiovascular: Reports fatigue, lightheadedness. GI: Parent/caregiver reports the patient having decreased appetite. : Reports inability to void. Derm: Reports pain. Musculoskeletal: Reports pain in right leg and left leg. 12:00 GI: Patient had large loose bowel movement. jg9 Vital Signs: 10:55 BP 140 / 65; Pulse 100; Resp 25 S; Temp 99.4(O); Pulse Ox 100% on R/A; Weight 77.11 kg jg9 (R); Height 5 ft. 10 in. (177.80 cm); 11:15 BP 140 / 67; Pulse 98; Resp 24 S; Pulse Ox 97% on R/A; jg9 12:10 BP 129 / 65; Pulse 96; Resp 17 S; Pulse Ox 98% on R/A; jg9 13:45 BP 120 / 65; Pulse 93; Resp 14 S; Pulse Ox 94% on R/A; jg9 10:55 Body Mass Index 24.39 (77.11 kg, 177.80 cm) jg9 ED Course: 11:01 Patient arrived in ED. eb 11:01 July Galvin PA is PHCP. en 11:02 Kimo Hilton, ALEISHA is Primary Nurse. ll1 11:02 Arm band placed on Patient placed in an exam room, on a stretcher. ll1 11:06 Bismark Dominguez MD is Attending Physician. rosemarie 11:12 Triage completed. jg9 11:15 EKG done, by ED staff, reviewed by July AVERY. dh3 11:15 Inserted saline lock: 22 gauge in right antecubital area, using aseptic technique. ll1 Blood collected. 11:18 Patient has correct armband on for positive identification. Bed in low position. Call ll1 light in reach. Side rails up X2. Client placed on continuous cardiac and pulse oximetry monitoring. NIBP monitoring applied. 11:25 Jennifer Fortune, ALEISHA is Primary Nurse. jg9 11:40 Bladder scan completed. 155mL of urine noted in bladder. jg9 11:45 Guillory cath inserted, using sterile technique, 16 Fr., by tx, balloon inflated, to jg9 gravity drainage, urine specimen collected. 12:40 Chest Single View XRAY In Process Unspecified. EDMS 12:40 Humerus Right XRAY In Process Unspecified. EDMS 12:40 Forearm Right XRAY In Process Unspecified. EDMS 14:01 No apparent distress. Resting quietly. Pt visited by son. jg9 14:02 Cristina Sherman MD is Hospitalizing Provider. en 15:47 Surgical consent explained by staff, explained by physician, signed by son. jg9 15:48 No provider procedures requiring assistance completed. jg9 15:49 Patient admitted, IV remains in place. jg9 Administered Medications: 12:17 Drug: Zosyn (piperacillin-tazobactam) 3.375 grams Route: IVPB; Infused Over: 60 mins; jg9 Site: right antecubital; 14:00 Follow up: IV Status: Completed infusion; IV Intake: 100ml jg9 12:17 Drug: Sodium Chloride 0.9% 500 ml Route: IVPB; Site: right antecubital; jg9 15:48 Follow up: IV Status: Completed infusion; IV Intake: 500ml jg9 14:00 Drug: vancoMYCIN 1 grams Route: IVPB; Infused Over: 2 hrs; Site: right antecubital; jg9 15:48 Follow up: IV Status: Completed infusion; IV Intake: 250ml jg9 14:25 Drug: Flomax (tamsulosin) 0.4 mg Route: PO; jg9 15:12 Follow up: Response: No adverse reaction jg9 Medication: 11:18 VIS not applicable for this client. ll1 Intake: 14:00 IV: 100ml; Total: 100ml. jg9 15:48 IV: 250ml; Total: 350ml. jg9 15:48 IV: 500ml; Total: 850ml. jg9 Outcome: 14:03 Decision to Hospitalize by Provider. en 15:48 Admitted to Med/surg accompanied by tech, via stretcher, room 401, with chart, Report jg9 called to ALEISHA Case 15:49 Condition: stable jg9 15:49 Patient left the ED. jg9 Signatures: Dispatcher [employer] EDMO Bismark Dominguez MD MD cha Herrera, [facility] July Wahl Lynsay, RN RN ll1 Jennifer Fortune RN RN jg9 July Galvin PA PA en
[2021-10-12] MEDS ORDERED: ONDANSETRON 4 MG/2 ML VIAL IV PRN (14:24)
[2021-10-12] MEDS ORDERED: MORPHINE 2 MG/ML SYR IV PRN (14:24)
[2021-10-12] MEDS ORDERED: TAMSULOSIN 0.4 MG SR CAP ONE (14:25)
[2021-10-12] MEDS ORDERED: NA CHLORIDE 0.9% 1,000 ML IV SCH (15:00)
--- NOTE | 2021-10-12 15:32 | P.HP ---
Certification for Inpatient Patient admitted to: Inpatient With expected LOS: >2 Midnights Practitioner: I am a practitioner with admitting privileges, knowledge of patient current condition, hospital course, and medical plan of care. Services: Services provided to patient in accordance with Admission requirements found in Title 42 Section 412.3 of the Code of Federal Regulations Patient History Date of Service: 10/12/21 Reason for admission: Fever History of Present Illness: 80-year-old gentleman with a history of myasthenia gravis, status post left first and second toe amputation [address] Bautista was transferred from the senior care to the emergency department due to fever, altered mental status and poor urine output for 2 days. His wound was being dressed 3 times a week. Facility was concerned about infected wound and therefore transferred him to the ED for evaluation. Examination of the wound in the ED revealed gangrene in the amputation wound and also in the left heel. Bladder scan revealed 150 mils of urine, Guillory catheter was inserted. Lactic acid elevated. Patient diagnosed with sepsis and given IV fluid and IV vancomycin. General surgery-Dr. Bautista contacted who recommended surgery in a.m. patient is admitted for further management of infected wound with sepsis. Allergies No Known Allergies Allergy (Verified 07/30/21 20:22) Home Medications: Amlodipine [Norvasc*] 10 mg PO DAILY 07/31/21 Apixaban [Eliquis *] 2.5 mg PO BID 07/31/21 Ascorbic Acid [Vitamin C] 500 mg PO BID 07/31/21 Atorvastatin Calcium 10 mg PO BEDTIME 07/31/21 Cyanocobalamin (Vitamin B-12) [Vitamin B-12] 1 tab PO DAILY 07/31/21 Donepezil HCl 10 mg PO DAILY 07/31/21 Furosemide 20 mg PO DAILY 07/31/21 Memantine HCl 10 mg PO BID 07/31/21 Pyridostigmine Elizabeth 60 mg PO TID 07/31/21 Quetiapine Fumarate [Seroquel] 50 mg PO BEDTIME 07/31/21 Trazodone [Desyrel*] 25 mg PO BEDTIME 07/31/21 predniSONE [Deltasone*] 10 mg PO NOON 07/31/21 Jorge Alberto [Jorge Alberto*] 1 pkt PO BID #60 powd.pack 08/04/21 Calcium Carbonate [Calcium] 1,250 mg PO DAILY 09/10/21 Cholecalciferol (Vitamin D3) [Vitamin D 5,000 IU Cap*] 5,000 unit PO DAILY 09/10/21 Diclofenac Sodium 1 candida TD TID 09/10/21 Docusate Sodium 100 mg PO BID 09/10/21 Ferrous Sulfate [Ferrous Sulfate*] 1 tab PO BID 09/10/21 Hydrocodone 5/APAP 325 [[place] 5/325*] 1 tab PO Q8H 09/10/21 Mirtazapine [Remeron*] 15 mg PO BEDTIME 09/10/21 Pantoprazole Sodium [Protonix] 40 mg PO DAILY 09/10/21 Pregabalin [Lyrica*] 50 mg PO BEDTIME 09/10/21 Sennosides/Docusate Sodium [Senexon-S 50-8.6 mg Tablet] 1 each PO BID 09/10/21 Zinc Sulfate [Zinc Sulfate*] 1 cap PO DAILY 09/10/21 Minocycline HCl 100 mg PO BID #20 capsule 09/13/21 - Past Medical/Surgical History Diabetic: No -: HTN -: Myasthenia gravis -: Dementia -: Chronic venous insufficiency -: Myasthenia Gravis -: DVT/PE -: back surgery -: right bka Psychosocial/ Personal History: Patient lives in a senior care. - Family History Family History: Reviewed- Non-Contributory - Social History Alcohol use: No CD- Drugs: No Caffeine use: No Review of Systems is unable to be obtained (Due to lethargy.) Physical Examination - Physical Exam General: In no apparent distress, Other (Somnolent) HEENT: PERRLA, Mucous membr. moist/pink, EOMI, Sclerae nonicteric Neck: Supple, JVD not distended Respiratory: Clear to auscultation bilaterally, Normal air movement Cardiovascular: No edema, Regular rate/rhythm, Normal S1 S2 Musculoskeletal: No swelling Integumentary: Other (Gangrenous ulcer-left heel and left second and third toe amputation wound. Left dorsalis pedis pulse palpated.) Neurological: Other (Somnolent, no focal motor deficit.) Lymphatics: No axilla or inguinal lymphadenopathy - Studies Laboratory Data (last 24 hrs) 10/12/21 11:15: PT 17.7 H, INR 1.59, APTT 41.3 H 10/12/21 11:15: Sodium 137, Potassium 3.9, BUN 17, Creatinine 0.99, Glucose 113 H, Total Bilirubin 0.9, AST 25, ALT 14, Alkaline Phosphatase 88 10/12/21 11:15: WBC 10.9, Hgb 10.3 L, Hct 32.3 L, Plt Count 432 H Assessment and Plan - Problems (Diagnosis) (1) Gangrene of left foot Current Visit: Yes Status: Acute (2) Peripheral vascular disease Current Visit: Yes Status: Acute (3) Sepsis Current Visit: Yes Status: Acute (4) History of DVT (deep vein thrombosis) Current Visit: Yes Status: Acute (5) History of pulmonary embolism Current Visit: Yes Status: Acute (6) Myasthenia gravis Current Visit: No Status: Chronic (7) Acute renal failure Current Visit: Yes Status: Acute - Plan Admit to the medical floor. Sepsis protocol initiated. Aggressive antibiotic therapy with IV cefepime and vancomycin. IV normal saline. Pain management as needed General surgery-Dr. Bautista consulted. Cardiology-Dr. Verma also consulted for peripheral vascular disease. Follow blood cultures. Monitor urine output with IV hydration. Renal function is stable despite anuria Monitor renal function. Continue home medication for myasthenia gravis. - Advance Directives Does patient have a Living Will: No Does patient have a Durable POA for Healthcare: No
[2021-10-12 16:35] VITALS: BMI 24.3
[2021-10-12] MEDS: CEFEPIME 2 GM in NA CHLORIDE 0.9% 100 ML IV SCH (16:50)
[2021-10-12] MEDS: NA CHLORIDE 0.9% 1,000 ML IV SCH (16:52)
[2021-10-12] MEDS: VANCOMYCIN 1.5 GM in NA CHLORIDE 0.9% 500 ML IVPB SCH (16:58)
[2021-10-12] MEDS: ACETAMINOPHEN 500 MG TAB PO PRN (16:58)
--- NOTE | 2021-10-12 20:22 | CON ---
Date of Consultation: 10/12/2021 Brief History Of Present Illness: The patient is an 80-year-old gentleman with a history of myasthen ia gravis, severe peripheral arterial disease, status post first and second toe amputation approximat leandro 1 month ago by myself on the left lower extremity, right BKA before in the past by myself due to severe peripheral vascular disease and inability to revascularize with endovascular attempts, who pre sents to the hospital with more confusion and discoloration to his previous wounds of his left lower extremity at the previous amputation site and heel ulcer/eschar with worsening changes as of the last few days. He lives in a retirement and as such he was transferred from the retirement for the a brooke-stated issue. By report, he was getting dressing changes 3 times a week as opposed to once a da y as recommended. He also did not have an opportunity to go and see an endovascular radiologist as I recommended, who performed his last procedures to attempt to revascularize his left lower extremity. He is currently confused. Family is present at the bedside and he is known to me quite well from p revious visits. Past Medical History: Hypertension, myasthenia gravis, dementia, chronic venous insufficiency, sever e peripheral arterial disease, DVT, PE. Past Surgical History: Includes back surgery, right [id number] amputation on right lower extremi ty, multiple toe amputations of left lower extremity, great toe and second toe amputation and heel de bridement due to pressure ulcers as well as peripheral arterial wounds. Allergies: NO KNOWN DRUG ALLERGIES. Home Medications: Include Norvasc, Eliquis, vitamin C, vitamin B12, donepezil, Lasix, memantine, pyr idostigmine, Seroquel, Desyrel, Deltasone, Jorge Alberto, calcium, diclofenac, ferrous sulfate, Herman, Remero n, Protonix, Lyrica, Senokot, zinc sulfate, minocycline. Social History: By report, there is no alcohol or recreational drug use. He lives in a retirement facility. Review of Systems: A 10-point review of systems unable to obtain due to the patient's preexisting dementia. Physical Examination: General: At the time of my examination; he is awake and alert, but confused. He answers only a few questions appropriately in French. Vital Signs: At time of my examination were blood pressure 123/53, pulse rate was 97, respiratory ra te was 18. His temperature is 100.2. O2 saturation was 99% on room air. HEENT: Normocephalic. Sclerae were anicteric. Mucous membranes moist. Oropharynx clear. He has p oor dentition. Neck: Supple. No JVD. Chest: Expansion and excursion. Cardiovascular: Regular rate and rhythm. Pulmonary: Clear to auscultation bilaterally. Abdomen: Soft. Extremities: Focused examination of the extremities; he has a right BKA with a wound VAC dressing in place. However, the wound VAC is not applied at this point and suction is not properly applied as t he appliance has been partially removed. There is no evidence of cellulitis or infection of this rig ht lower extremity BKA site at this time. Focused examination of left lower extremity; he has gangre nous changes to the left heel consistent with continued pressure ulceration and peripheral arterial d isease as well as gangrenous changes to the anterior amputation sites of the first and second toes co nsistent with peripheral arterial disease as well and ongoing infection. Assessment And Plan: This is an 80-year-old male, who presents with signs and symptoms of worsening wounds of his left lower extremity in conjunction with severe peripheral arterial disease and pressur e affect. 1.IV fluid hydration. 2.Antibiotic coverage. 3.I have explained the risks, benefits, and alternatives of debridement of the left foot, heel and a nterior foot wounds including, but not limited to bleeding, infection, damage to surrounding tissues, need for further operation and procedures. The patient's family agrees to proceed as indicated. I have additionally requested Dr. Maciel Verma be consulted to see the patient for possible endovascul ar assessment and to see if a revascularization and improved vascular status can be attained during h is admission here. If not, perhaps we can see if Dr. Verma recommends an additional procedure elsew here. We will proceed with surgical debridement prior to endovascular assessment given Dr. Verma's . If not, we will discuss case in detail. TREY/CARISAL Voice ID: [id number] Report ID: [id number]
[2021-10-12] MEDS: PYRIDOSTIGMINE 60 MG TABLET PO SCH (21:00)
[2021-10-12] MEDS ORDERED: CEFEPIME 1 GM in NA CHLORIDE 0.9% 100 ML IV SCH (21:00)
[2021-10-13] MEDS: NA CHLORIDE 0.9% 1,000 ML IV SCH ×4 (03:44→21:38)
[2021-10-13] MEDS: CEFEPIME 2 GM in NA CHLORIDE 0.9% 100 ML IV SCH ×2 (04:04→15:22)
[2021-10-13 04:24] LABS: Absolute Lymphocytes (CBC) 0.4 K/uL (0.7-4.9); Hematocrit 28.7 % (39.6-49.0); Lymphocytes % 3.8 % (15.3-44.8); MCV 74.3 fL (80-100); MPV 6.6 fL (7.6-11.3); RBC Red Blood Cell Count 3.87 M/uL (4.33-5.43)
[2021-10-13 04:38] LABS: Bilirubin Total 0.7 mg/dL (0.2-1.0); Magnesium 1.9 mg/dL (1.8-2.4); Phosphorus 3.1 mg/dL (2.5-4.9); Potassium 3.8 mmol/L (3.5-5.1); Protein, Total 6.3 g/dL (6.4-8.2)
[2021-10-13] MEDS ORDERED: ACETAMINOPHEN 650MG/RECT SUPP PR ONE (05:43)
[2021-10-13] MEDS: SODIUM HYPOCHLORITE 0.25% 473 ML TOP SCH (08:15)
[2021-10-13] MEDS: PYRIDOSTIGMINE 60 MG TABLET PO SCH ×3 (08:16→21:53)
[2021-10-13] MEDS ORDERED: SODIUM HYPOCHLORITE 0.25% 473 ML ONE (08:54)
[2021-10-13] MEDS ORDERED: SODIUM HYPOCHLORITE 0.5% 473 ML ONE (08:54)
[2021-10-13] MEDS ORDERED: BUPIVACAINE 0.25% PF 10 ML VIAL ONE (08:54)
[2021-10-13] MEDS ORDERED: KCL 20 MEQ/100 mL IVPB 20 MEQ/100 ML BAG IV SCH (09:00)
[2021-10-13] MEDS ORDERED: D10W 250 ML IV ONE (09:05)
[2021-10-13] MEDS ORDERED: FENTANYL CITR 100 MCG/2 ML ONE (10:22)
[2021-10-13] MEDS ORDERED: propofoL 200 MG/20 ML VIAL IV ONE (10:22)
[2021-10-13] MEDS ORDERED: LIDOCAINE 2% MPF 5 ML VIAL ONE (10:22)
[2021-10-13] MEDS ORDERED: ONDANSETRON 4 MG/2 ML VIAL ONE ×2 (10:25→11:59)
[2021-10-13] MEDS ORDERED: COLLAGENASE 30 GM OINTMENT TOP ONE (10:31)
--- NOTE | 2021-10-13 11:36 | P.OP ---
Preoperative diagnosis: LEFT heel and forefoot infected wound Postoperative diagnosis: LEFT heel and forefoot infected wound Primary procedure: Debridement of LEFT heel and forefoot infected wound Anesthesia: MAC + Local Estimated blood loss: <1cc Specimen: debridement tissue and cultures Findings: severe arterial disease, necrosis Complications: None Transferred to: Recovery Room Condition: Good
[2021-10-13] MEDS: MORPHINE 4 MG/ML SYR ONE ×2 (11:55→12:00)
--- NOTE | 2021-10-13 13:22 | EKG ---
Test Date: 2021-10-12 Test Time: 11:06:36 Liner Checker: DELORES MEASUREMENT RESULTS: Intervals: Rate: 103 ND: 152 QRSD: 144 QT: 382 QTc: 500 [place]: P: 14 ND: 152 QRS: -68 T: 79 INTERPRETIVE STATEMENTS: Sinus tachycardia with occasional premature ventricular complexes Right bundle branch block Left anterior fascicular block Bifascicular block Left ventricular hypertrophy with repolarization abnormality Cannot rule out Septal infarct, age undetermined Abnormal ECG Electronically Signed On 10-13-21 13:19:44 CDT by Maciel Verma
--- NOTE | 2021-10-13 13:22 | CON ---
Date of Consultation: 10/13/[address] patient [address] to Dr. Sherman. Reason For Consultation: Peripheral arterial disease. History Of Present Illness: Mr. Redding is an 80-year-old, status post right BKA with gangrenous st ump, has severe disease on the left side. We were asked to evaluate him for possible harvey ogram. There is a plan for debridement on his right stump by Dr. Bautista in the near future. He him self denied any cardiac symptoms. Past Medical History: He has an extensive past medical history including hypertension, diabetes, his tory of PE and DVT for which he is on Eliquis. He also has a history of significant dementia. Allergies: NONE. Review of Systems: Negative. Social History: Negative. Family History: Negative. Physical Examination: Vital Signs: Stable. He is afebrile. HEENT: Negative. Neck: Supple with no bruit. Chest: Clear. Cardiac: Revealed a regular rhythm and rate with an S4 gallop. Abdomen: Benign. Extremities: Revealed cyanosis in the right stump BKA site. On the left side, he had very poor puls es in the dorsalis pedis, otherwise no pulses anywhere else. Diagnostic Data: He had a negative chest x-ray and negative forearm x-ray. He has a UTI. Impression And Plan: 1.Urinary tract infection, on antibiotics. 2.Peripheral arterial disease. Posterior tibial very distal. I prefer to treat him medically. He is already on Eliquis. Consider adding Trental down the road, maybe even aspirin or Plavix. No need for angiography at this point. I think he is cleared to undergo surgery by Dr. Bautista. 3.His other problems included hypertension, diabetes, history of pulmonary embolism and deep vein th rombosis, on Eliquis and dementia are stable at this point. We will be available for questions if th e need arises. ELLEN/ARMINDA Voice ID: [id number] Report ID: [id number]
--- NOTE | 2021-10-13 14:11 | OP ---
Date of Procedure: 10/13/2021 Surgeon: Clark Bautista MD, Preoperative Diagnosis: Left heel and forefoot infected wounds. Postoperative Diagnosis: Left heel and forefoot infected wounds. Procedure Performed: Excisional debridement of left heel and left forefoot infected wounds. Anesthesia: MAC plus local with 0.25% Marcaine. Estimated Blood Loss: Less than 1 cc. Specimen: Debridement tissue and culture sent for aerobic and anaerobic speciation. Findings: Severe arterial disease remains present with necrosis. Minimal bleeding from cut surfaces . Heel wound consistent with pressure affect and ongoing severe peripheral arterial disease. Complications: None. Disposition: The patient was transferred to recovery room in good condition. Brief Hpi: The patient is an 80-year-old male known to me from previous surgical intervention with h istory of severe peripheral arterial disease. He had had an attempt at a revascularization with endo vascular attempts on the right lower extremity. However, that was unsuccessful at that time and as s uch, he was deemed appropriate for below-knee amputation of the right lower extremity. He subsequent ly developed wounds of his left lower extremity and was noted to have severe peripheral arterial dise ase also corroborated by arterial duplex ultrasound, which showed severe disease. He was instructed to follow up and a referral was sent for Dr. Hilda Greenfield as well as local Dr. Verma and Dr. Jyoti velez or evaluation. The patient was never taken for endovascular evaluation as such. His peripheral shagufta rial disease was not addressed with any intervention at that time. He subsequently developed worseni ng of his postoperative wounds and amputation sites from his previous surgical debridements with necr osis and gangrene of his toes and heel area. As such, he had recurrence of this worsening infection due to severe peripheral arterial disease and diabetes. Therefore, I discussed the risks, benefits, and alternatives of debridement of the above-stated wounds with the patient's family and medical becka r of family law attorney, who agreed to proceed as indicated. Procedure In Detail: After informed consent was obtained, the patient was brought to the operating r oom and prepped and draped in the usual sterile fashion. After adequate anesthesia was achieved, I a ddressed the forefoot first and I found black necrosis. I debrided it sharply with tenotomy scissors circumferentially around with minimal bleeding throughout the procedure. I debrided all necrotic ti ssue and irrigated the area. The exposed metatarsal head was visualized at this point. There was en ough skin to approximate the skin edges overlying this area, but the medial aspect was open without e xposure of the bone on this aspect. After all the tissue was debrided and cleansed, no hemostatic wa s required and there was minimal bleeding from the cut edges concerning for ongoing severe peripheral arterial disease. At this point, the wound was packed with Dakin's solution and a sterile dressing placed over top. I then turned to the heel wound, which is consistent with an ongoing pressure wound to the left heel. This was circumferentially debrided using a combination electrocautery and sharp dissection to remove all necrotic tissue. The exposed bone was evident here as well consistent with a pressure ulceration stage IV to the heel. This was debrided all the way including bone on this are a. The area was then copiously irrigated and packed with a sterile dressing. The patient tolerated the procedure well without evidence of complication, transferred to PACU in good condition. All coun ts were correct at the end of the case. I will make referral for evaluation for endovascular interve ntion while the patient is an inpatient. Should this not be available, we will consider transfer for possible endovascular versus bypass as the patient is a candidate for higher level of care. TREY/ARMINDA Voice ID: [id number] Report ID: [id number]
[2021-10-13] MEDS: VANCOMYCIN 1.5 GM in NA CHLORIDE 0.9% 500 ML IVPB SCH (16:09)
[2021-10-13] MEDS: ACETAMINOPHEN 500 MG TAB PO PRN ×2 (17:13→22:26)
--- NOTE | 2021-10-13 17:42 | P.PN ---
Subjective Date of Service: 10/13/21 Chief Complaint: Fever Patient experiencing intermittent fever. Status post left foot and heel ulcer debridement. Physical Examination - Vital Signs Temperature: 100.3 F Blood Pressure: 147/65 Pulse: 97 Respirations: 18 Pulse Ox (%): 98 - Physical Exam General: In no apparent distress, Other (Awake) HEENT: Mucous membr. moist/pink Neck: JVD not distended Respiratory: Clear to auscultation bilaterally, Normal air movement Cardiovascular: No edema, Regular rate/rhythm, Normal S1 S2 Gastrointestinal: Soft and benign, Non-distended, No tenderness Musculoskeletal: No tenderness Integumentary: No cyanosis Neurological: Normal strength at 5/5 x4 extr - Studies Laboratory Data (last 24 hrs) 10/13/21 04:10: Sodium 140, Potassium 3.8, BUN 13, Creatinine 0.73, Glucose 78, Phosphorus 3.1, Magnesium 1.9, Total Bilirubin 0.7, AST 20, ALT 14, Alkaline Phosphatase 70 10/13/21 04:10: WBC 11.7 H, Hgb 9.2 L, Hct 28.7 L, Plt Count 359 Assessment And Plan - Current Problems (Diagnosis) (1) Gangrene of left foot Current Visit: Yes Status: Acute (2) Peripheral vascular disease Current Visit: Yes Status: Acute (3) Sepsis Current Visit: Yes Status: Acute (4) History of DVT (deep vein thrombosis) Current Visit: Yes Status: Acute (5) History of pulmonary embolism Current Visit: Yes Status: Acute (6) Myasthenia gravis Current Visit: No Status: Chronic (7) Acute renal failure Current Visit: Yes Status: Acute - Plan Continue antibiotics-IV cefepime and vancomycin. Blood cultures: No growth to date. Follow deep tissue wound culture Continue IV fluid. Diet as tolerated Pain management as needed General surgery-Dr. Bautista is following Cardiology-was consulted for peripheral vascular disease. Dr. Montes recommend to continue anticoagulation. No need for angiogram. Urine output has improved. Monitor urine output with IV hydration. Renal function has been stable Continue home medication for myasthenia gravis. Reconcile and continue other home medications.
[2021-10-13] MEDS: JUVEN PACKET PO SCH (21:00)
[2021-10-13] MEDS: APIXABAN 2.5 MG TABLET PO SCH (21:52)
[2021-10-13] MEDS: DONEPEZIL HCL 5 MG TAB PO SCH (21:52)
[2021-10-13] MEDS: PREGABALIN 50 MG CAP PO SCH (21:52)
[2021-10-13] MEDS: QUETIAPINE 25 MG TAB PO SCH (21:53)
[2021-10-13] MEDS: MIRTAZAPINE 15 MG TAB PO SCH (21:53)
[2021-10-14 01:56] LABS: Urine Bilirubin Negative (Negative); Urine Blood Trace-lysed (Negative); Urine Color Yellow (Yellow); Urine Glucose Negative (Negative); Urine Protein Negative (Negative); Urine Urobilinogen 0.2 mg/dL (0.2-1.0); Urine pH 5.5 (5.0-7.0)
[2021-10-14 02:00] LABS: Urine Appearance HAZY (Clear)
[2021-10-14 02:23] LABS: Urine Bacteria <20 /HPF (NONE SEEN)
[2021-10-14] MEDS: CEFEPIME 2 GM in NA CHLORIDE 0.9% 100 ML IV SCH ×2 (03:49→15:10)
[2021-10-14] MEDS: NA CHLORIDE 0.9% 1,000 ML IV SCH ×2 (03:49→14:57)
[2021-10-14 03:52] LABS: Absolute Lymphocytes (CBC) 0.4 K/uL (0.7-4.9); Hematocrit 25.1 % (39.6-49.0); Lymphocytes % 4.5 % (15.3-44.8); MCV 74.1 fL (80-100); MPV 6.9 fL (7.6-11.3); RBC Red Blood Cell Count 3.38 M/uL (4.33-5.43)
[2021-10-14 04:04] LABS: Potassium 3.6 mmol/L (3.5-5.1)
[2021-10-14] MEDS: ACETAMINOPHEN 500 MG TAB PO PRN ×2 (05:53→16:09)
--- NOTE | 2021-10-14 07:05 | P.PN ---
Date of Service: 10/14/21 Subjective: patient somnolent, but arousable son at bedside, states patient is improving - more awake/alert ROS: unable to be obtained due to somnolence Physical exam GEN: Alert, oriented, NAD HEENT: Normal conjunctiva, sclera anicteric CV: Regular rate and rhythm, no edema Pulm: Nonlabored respirations on room air ABD: Soft, nontender, nondistended MSK: No joint tenderness Integumentary: No rashes Neuro: Normal speech, normal affect Problem List sepsis secondary to Left toe gangrene PVD anemia of chronic disease h/o DVT h/o PE h/o M. gravis continue empiric antibiotics - cefepime, vanc ID Consulted blood cultures: negative wound culture sent from OR continue IVF pain meds PRN general surgery following cardiology consulted for PVD renal function stable, UOP improved no bleed, monitor h/h Dispo: back to [facility]/ [facility] Time Spent Managing Pts Care (In Minutes): 35
--- NOTE | 2021-10-14 08:59 | P.PN ---
Subjective Date of Service: 10/14/21 Chief Complaint: Fever Subjective: Improving Physical Examination - Vital Signs Temperature: 101.0 F Blood Pressure: 122/72 Pulse: 91 Respirations: 18 Pulse Ox (%): 94 - Physical Exam General: Alert, In no apparent distress, Demented, Confused Integumentary: Other (wounds stable from post op yesterday) - Studies Microbiology Data (last 24 hrs): 10/12/21 12:15 Catheterized Urine Jean Count - Final No growth. 10/12/21 12:15 Catheterized Urine - Final No growth. Assessment And Plan - Current Problems (Diagnosis) (1) Peripheral vascular disease Current Visit: Yes Status: Acute Plan: - await dinkey operator slag eval to see if patient is candidate for endovascular intervention - wound will likely not heal without improvement of blood flow to foot - continue wound care
[2021-10-14] MEDS: APIXABAN 2.5 MG TABLET PO SCH (09:00)
[2021-10-14] MEDS: SODIUM HYPOCHLORITE 0.25% 473 ML TOP SCH (09:00)
[2021-10-14] MEDS ORDERED: HOME MED 1 EA UNK (Donepezil Hcl [Donepezil Hcl] 10 MG Tablet) PO SCH (09:00)
[2021-10-14] MEDS: POTASSIUM CL SA 10 MEQ TAB PO ONE (10:30)
[2021-10-14] MEDS: PYRIDOSTIGMINE 60 MG TABLET PO SCH ×3 (10:32→20:12)
[2021-10-14] MEDS: JUVEN PACKET PO SCH ×2 (10:34→20:13)
--- NOTE | 2021-10-14 14:07 | P.CNS ---
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 He underwent a left first and second toe amputation [address] Laird at with instructions to change dressing daily. However dressing was only being changed 3 times a week at the longterm. Patient was also scheduled to follow-up with cardiology for vascular intervention which was never done. Patient was found to have gangrene of the left first and second toe amputation site as well as left heel. He underwent surgical debridement of these areas on 10/13. He has dressing for air a wound VAC to be placed on his right BKA however no VAC is attached to it. Patient was empirically placed on vancomycin and cefepime. Recommend continuing these antibiotics at this time. ROS unable to determine as patient is very somnolent/altered at bedside. Allergies No Known Allergies Allergy (Verified 07/30/21 20:22) Home Medications: Amlodipine [Norvasc*] 10 mg PO DAILY 07/31/21 Apixaban [Eliquis *] 2.5 mg PO BID 07/31/21 Ascorbic Acid [Vitamin C] 500 mg PO BID 07/31/21 Atorvastatin Calcium 10 mg PO BEDTIME 07/31/21 Cyanocobalamin (Vitamin B-12) [Vitamin B-12] 1 tab PO DAILY 07/31/21 Donepezil HCl 10 mg PO DAILY 07/31/21 Furosemide 20 mg PO DAILY 07/31/21 Memantine HCl 10 mg PO BID 07/31/21 Pyridostigmine Matthews 60 mg PO TID 07/31/21 Quetiapine Fumarate [Seroquel] 50 mg PO BEDTIME 07/31/21 Trazodone [Desyrel*] 25 mg PO BEDTIME 07/31/21 predniSONE [Deltasone*] 10 mg PO NOON 07/31/21 Jorge Alberto [Jorge Alberto*] 1 pkt PO BID #60 powd.pack 08/04/21 Calcium Carbonate [Calcium] 1,250 mg PO DAILY 09/10/21 Cholecalciferol (Vitamin D3) [Vitamin D 5,000 IU Cap*] 5,000 unit PO DAILY 09/10/21 Diclofenac Sodium 1 candida TD TID 09/10/21 Docusate Sodium 100 mg PO BID 09/10/21 Ferrous Sulfate [Ferrous Sulfate*] 1 tab PO BID 09/10/21 Hydrocodone 5/APAP 325 [[place] 5/325*] 1 tab PO Q8H 09/10/21 Mirtazapine [Remeron*] 15 mg PO BEDTIME 09/10/21 Pantoprazole Sodium [Protonix] 40 mg PO DAILY 09/10/21 Pregabalin [Lyrica*] 50 mg PO BEDTIME 09/10/21 Sennosides/Docusate Sodium [Senexon-S 50-8.6 mg Tablet] 1 each PO BID 09/10/21 Zinc Sulfate [Zinc Sulfate*] 1 cap PO DAILY 09/10/21 Minocycline HCl 100 mg PO BID #20 capsule 09/13/21 - Past Medical/Surgical History Diabetic: No -: HTN -: Myasthenia gravis -: Dementia -: Chronic venous insufficiency -: Myasthenia Gravis -: DVT/PE -: back surgery -: right bka Psychosocial/ Personal History: Patient lives in a longterm. - Family History Father History Unknown: Yes Mother History Unknown: Yes - Social History Smoking Status: Unknown if ever smoked Alcohol use: No CD- Drugs: No Caffeine use: Yes Place of Residence: Care Home Review of Systems 10-point ROS is otherwise unremarkable Physical Examination Temp Pulse Resp BP Pulse Ox 99.2 F 85 18 140/55 L 98 10/14/21 12:00 10/14/21 12:00 10/14/21 12:00 10/14/21 12:00 10/14/21 12:00 General: Cachectic, Confused HEENT: Atraumatic, Normocephalic Neck: Supple, 2+ carotid pulse no bruit Respiratory: Clear to auscultation bilaterally, Normal air movement Cardiovascular: Normal pulses, Regular rate/rhythm Capillary refill: <2 Seconds Gastrointestinal: Hypoactive, Soft and benign Integumentary: Other (Right BKA with wound VAC dressing in place, left foot surgical postop dressing in place) Conclusions/Impression: Antibiotics: Vancomycin: 6/5current Cefepime: 6/5current Gangrenous changes to left first and second toe amputation site and left heel Surgical debridement performed on 10/13 Patient will need vascular intervention Continue wound care per surgical team Recommend continuing empiric vancomycin and cefepime at this time Severe peripheral arterial disease Patient will require vascular intervention Anemia Continue to monitor H&H Plan of care discussed Dr. Gardner Thank for consultation
[2021-10-14] MEDS: VANCOMYCIN 1.5 GM in NA CHLORIDE 0.9% 500 ML IVPB SCH (16:13)
[2021-10-14] MEDS: QUETIAPINE 25 MG TAB PO SCH (20:11)
[2021-10-14] MEDS: PREGABALIN 50 MG CAP PO SCH (20:12)
[2021-10-14] MEDS: DONEPEZIL HCL 5 MG TAB PO SCH (20:12)
[2021-10-14] MEDS: MIRTAZAPINE 15 MG TAB PO SCH (20:12)
[2021-10-15] MEDS: NA CHLORIDE 0.9% 1,000 ML IV SCH ×2 (00:56→13:38)
[2021-10-15] MEDS: CEFEPIME 2 GM in NA CHLORIDE 0.9% 100 ML IV SCH ×2 (03:18→16:18)
[2021-10-15] MEDS: BENZONATATE 100 MG CAP PO PRN ×2 (03:19→20:01)
[2021-10-15] MEDS: ACETAMINOPHEN 500 MG TAB PO PRN ×2 (03:22→17:22)
[2021-10-15 03:52] LABS: Absolute Lymphocytes (CBC) 0.7 K/uL (0.7-4.9); Lymphocytes % 5.9 % (15.3-44.8); MCV 74.3 fL (80-100); MPV 7.1 fL (7.6-11.3); RBC Red Blood Cell Count 3.64 M/uL (4.33-5.43)
[2021-10-15 04:10] LABS: Albumin 1.6 g/dL (3.4-5.0); Bilirubin Total 0.4 mg/dL (0.2-1.0); Potassium 3.8 mmol/L (3.5-5.1); Protein, Total 5.5 g/dL (6.4-8.2)
--- NOTE | 2021-10-15 07:35 | P.PN ---
Date of Service: 10/15/21 Subjective: slight improvement, pt confused/dementia ROS: unable to be obtained due to somnolence/incoherent mumbling Physical exam GEN: Alert, orientedx1, NAD HEENT: Normal conjunctiva, sclera anicteric CV: Regular rate and rhythm, no edema Pulm: Nonlabored respirations on room air MSK: R BKA, L gangrenous toes with dressing in place Neuro: Normal speech, normal affect Problem List sepsis secondary to Left toe gangrene PVD anemia of chronic disease; iron deficiency h/o DVT h/o PE h/o M. gravis continue empiric antibiotics - cefepime, vanc ID Consulted blood cultures: negative wound culture sent from OR - prelim: mixed and GNR continue IVF, patient not eating much pain meds PRN general surgery following cardiology consulted for PVD - aortogram tomorrow anemia studies ordered, severe iron deficiency; will need replacement, theoretical risk of worsening infection renal function stable, UOP improved no bleed, monitor h/h Dispo: back to [facility]/ [facility], ~3 days; may need SNF Time Spent Managing Pts Care (In Minutes): 35
[2021-10-15 08:04] LABS: RBC Red Blood Cell Count 3.49 M/uL (4.33-5.43)
[2021-10-15 08:27] LABS: Ferritin 130.5 ng/mL (26-388)
[2021-10-15] MEDS ORDERED: POTASSIUM CL SA 10 MEQ TAB PO ONE (09:00)
[2021-10-15] MEDS: JUVEN PACKET PO SCH ×2 (09:00→20:03)
[2021-10-15] MEDS: PYRIDOSTIGMINE 60 MG TABLET PO SCH ×3 (09:00→20:01)
[2021-10-15] MEDS: SODIUM HYPOCHLORITE 0.25% 473 ML TOP SCH (09:08)
[2021-10-15] MEDS ORDERED: KCL 20 MEQ/100 mL IVPB 20 MEQ/100 ML BAG IV SCH (16:00)
[2021-10-15] MEDS: VANCOMYCIN 1.5 GM in NA CHLORIDE 0.9% 500 ML IVPB SCH (16:22)
[2021-10-15] MEDS: POTASSIUM CL SA 10 MEQ TAB PO ONE (17:24)
--- NOTE | 2021-10-15 17:37 | P.PN ---
Subjective Date of Service: 10/15/21 Chief Complaint: Fever Patient seen and examined at bedside, family present. Family in agreement with current plan to continue broad-spectrum IV antibiotics. Wound culture obtained from surgery growing mixed skin wilfredo and gram-negative rods. Patient febrile today with a T-max of 100.7. If fever persist we will repeat cultures. Review of Systems 10-point ROS is otherwise unremarkable Physical Examination - Vital Signs Temperature: 99 F Blood Pressure: 140/63 Pulse: 87 Respirations: 20 Pulse Ox (%): 99 - Studies Laboratory Last Values WBC 11.7 K/uL (4.3-10.9) H 10/13/21 04:10 RBC 3.87 M/uL (4.33-5.43) L 10/13/21 04:10 Hgb 9.2 g/dL (13.6-17.9) L 10/13/21 04:10 Hct 28.7 % (39.6-49.0) L 10/13/21 04:10 MCV 74.3 fL (80-100) L 10/13/21 04:10 MCH 23.9 pg (27.0-35.0) L 10/13/21 04:10 MCHC 32.2 g/dL (32.0-36.0) 10/13/21 04:10 RDW 19.7 % (12.1-15.2) H 10/13/21 04:10 Plt Count 359 K/uL (152-406) 10/13/21 04:10 MPV 6.6 fL (7.6-11.3) L 10/13/21 04:10 Neutrophils % 84.9 % (41.7-73.7) H 10/13/21 04:10 Lymphocytes % 3.8 % (15.3-44.8) L 10/13/21 04:10 Monocytes % 8.7 % (3.3-12.3) 10/13/21 04:10 Eosinophils % 1.7 % (0-4.4) 10/13/21 04:10 Basophils % 0.9 % (0-1.3) 10/13/21 04:10 Absolute Neutrophils 9.9 K/uL (1.8-8.0) H 10/13/21 04:10 Absolute Lymphocytes 0.4 K/uL (0.7-4.9) L 10/13/21 04:10 Absolute Monocytes 1.0 K/uL (0.1-1.3) 10/13/21 04:10 Absolute Eosinophils 0.2 K/uL (0-0.5) 10/13/21 04:10 Absolute Basophils 0.1 K/uL (0-0.5) 10/13/21 04:10 PT 17.7 SECONDS (9.5-12.5) H 10/12/21 11:15 INR 1.59 10/12/21 11:15 APTT 41.3 SECONDS (24.3-36.9) H 10/12/21 11:15 Sodium 140 mmol/L (136-145) 10/13/21 04:10 Potassium 3.8 mmol/L (3.5-5.1) 10/13/21 04:10 Chloride 109 mmol/L (98-107) H 10/13/21 04:10 Carbon Dioxide 23 mmol/L (21-32) 10/13/21 04:10 Anion Gap 11.8 mEq/L (5.0-15.0) 10/13/21 04:10 BUN 13 mg/dL (7-18) 10/13/21 04:10 Creatinine 0.73 mg/dL (0.55-1.3) 10/13/21 04:10 Est GFR (CKD-EPI) 91 ml/min (=/>90) 10/13/21 04:10 Glucose 78 mg/dL (74-106) 10/13/21 04:10 POC Glucose 81 mg/dL (65-120) 10/13/21 11:50 Lactic Acid 1.1 mmol/L (0.4-2.0) 10/13/21 04:10 Calcium 8.9 mg/dL (8.5-10.1) 10/13/21 04:10 Phosphorus 3.1 mg/dL (2.5-4.9) 10/13/21 04:10 Magnesium 1.9 mg/dL (1.8-2.4) 10/13/21 04:10 Total Bilirubin 0.7 mg/dL (0.2-1.0) 10/13/21 04:10 AST 20 U/L (15-37) 10/13/21 04:10 ALT 14 U/L (12-78) 10/13/21 04:10 Alkaline Phosphatase 70 U/L (45-117) 10/13/21 04:10 Serum Total Protein 6.3 g/dL (6.4-8.2) L 10/13/21 04:10 Albumin 2.0 g/dL (3.4-5.0) L 10/13/21 04:10 Globulin 4.3 g/dL (2.3-3.5) H 10/13/21 04:10 Albumin/Globulin Ratio 0.5 (1.1-1.8) L 10/13/21 04:10 Procalcitonin 0.69 ng/mL (<0.050) H 10/13/21 04:10 Urine pH 5.5 (5.0-7.0) 10/12/21 11:54 Ur Specific [place] 1.025 (1.005-1.030) 10/12/21 11:54 Glucose (UA)(Auto) Negative (Negative) 10/12/21 11:54 Urine Ketones 1+ (Negative) H 10/12/21 11:54 Urine Blood Negative (Negative) 10/12/21 11:54 Urine Nitrite Negative (Negative) 10/12/21 11:54 Ur Leukocyte Esterase Negative (Negative) 10/12/21 11:54 Urine Total Protein 1+ (Negative) H 10/12/21 11:54 SARS-CoV-2 Rap RNA(RT-PCR) Negative (NEGATIVE) 10/12/21 12:24 Assessment And Plan - Plan Physical exam: General: Cachectic, Confused HEENT: Atraumatic, Normocephalic Neck: Supple, 2+ carotid pulse no bruit Respiratory: Clear to auscultation bilaterally, Normal air movement Cardiovascular: Normal pulses, Regular rate/rhythm Capillary refill: <2 Seconds Gastrointestinal: Hypoactive, Soft and benign Integumentary: Other (Right BKA with wound VAC dressing in place, left foot surgical postop dressing in place) Conclusions/Impression: Antibiotics: Vancomycin: 5current Cefepime: 5current Gangrenous changes to left first and second toe amputation site and left heel Surgical debridement performed on 10/13 Patient will need vascular intervention Continue wound care per surgical team Recommend continuing empiric vancomycin and cefepime at this time -Preliminary wound culture obtained on 10/13 growing mixed skin wilfredo and gram- negative rods. Severe peripheral arterial disease Patient will require vascular intervention Anemia Continue to monitor H&H Plan of care discussed Dr. Gardner Thank for consultation
[2021-10-15] MEDS: MIRTAZAPINE 15 MG TAB PO SCH (20:01)
[2021-10-15] MEDS: PREGABALIN 50 MG CAP PO SCH (20:01)
[2021-10-15] MEDS: QUETIAPINE 25 MG TAB PO SCH (20:02)
[2021-10-15] MEDS: DONEPEZIL HCL 5 MG TAB PO SCH (20:02)
[2021-10-16] MEDS: CEFEPIME 2 GM in NA CHLORIDE 0.9% 100 ML IV SCH ×2 (04:00→14:59)
[2021-10-16 05:47] LABS: Hematocrit 28.2 % (39.6-49.0); MCV 74.5 fL (80-100); MPV 7.1 fL (7.6-11.3); RBC Red Blood Cell Count 3.78 M/uL (4.33-5.43)
[2021-10-16] MEDS: NA CHLORIDE 0.9% 1,000 ML IV SCH ×2 (05:47→14:59)
[2021-10-16 06:06] LABS: Potassium 3.9 mmol/L (3.5-5.1)
--- NOTE | 2021-10-16 06:49 | P.PN ---
Date of Service: 10/16/21 Subjective: more awake/alert denies pain, not hungry confused ROS: unable to be obtained accurately due to confusion Physical exam GEN: Alert, orientedx1, NAD HEENT: Normal conjunctiva, sclera anicteric CV: Regular rate and rhythm, no edema Pulm: Nonlabored respirations on room air MSK: R BKA, L gangrenous toes with dressing in place Neuro: Normal speech, normal affect Problem List sepsis secondary to Left toe gangrene PVD anemia of chronic disease; iron deficiency h/o DVT h/o PE h/o M. gravis continue empiric antibiotics - cefepime, vanc wound culture sent from OR: klebsiella and wagner-resistant acinetobacter ID Consulted blood cultures: negative continue IVF, patient not eating much, outside deliverer consulted pain meds PRN general surgery following cardiology consulted for PVD - aortogram tomorrow anemia studies ordered, severe iron deficiency; will need replacement, theoretical risk of worsening infection renal function stable, UOP improved no bleed, monitor h/h Dispo: back to [facility], ~4 days; may need SNF Time Spent Managing Pts Care (In Minutes): 35
[2021-10-16] MEDS: PYRIDOSTIGMINE 60 MG TABLET PO SCH ×3 (08:38→20:10)
[2021-10-16] MEDS: JUVEN PACKET PO SCH ×2 (08:38→20:11)
[2021-10-16] MEDS: SODIUM HYPOCHLORITE 0.25% 473 ML TOP SCH (08:39)
[2021-10-16] MEDS ORDERED: MIDAZOLAM HCL 2 MG/2 ML INJ ONE (10:49)
[2021-10-16] MEDS ORDERED: FENTANYL CITR 100 MCG/2 ML ONE (10:49)
[2021-10-16] MEDS ORDERED: HEPA 1000U/500MLS 2,000 UNIT/1,000 ML BAG IV ONE (10:49)
[2021-10-16] MEDS ORDERED: HEPARIN 10,000 UNIT/10 ML VIAL IV ONE (10:50)
[2021-10-16] MEDS ORDERED: ATROPINE SULF 1 MG/10 ML SYR IV ONE (10:50)
[2021-10-16] MEDS: VANCOMYCIN 1.5 GM in NA CHLORIDE 0.9% 500 ML IVPB SCH (16:36)
--- NOTE | 2021-10-16 16:47 | P.PN ---
Subjective Date of Service: 10/16/21 Chief Complaint: Fever Patient seen and examined at bedside, placed on contact precautions as left foot wound cultures growing wagner resistant Acetobacter. Review of Systems 10-point ROS is otherwise unremarkable Physical Examination - Vital Signs Temperature: 98.9 F Blood Pressure: 168/63 Pulse: 76 Respirations: 18 Pulse Ox (%): 97 - Studies Laboratory Last Values WBC 11.7 K/uL (4.3-10.9) H 10/13/21 04:10 RBC 3.87 M/uL (4.33-5.43) L 10/13/21 04:10 Hgb 9.2 g/dL (13.6-17.9) L 10/13/21 04:10 Hct 28.7 % (39.6-49.0) L 10/13/21 04:10 MCV 74.3 fL (80-100) L 10/13/21 04:10 MCH 23.9 pg (27.0-35.0) L 10/13/21 04:10 MCHC 32.2 g/dL (32.0-36.0) 10/13/21 04:10 RDW 19.7 % (12.1-15.2) H 10/13/21 04:10 Plt Count 359 K/uL (152-406) 10/13/21 04:10 MPV 6.6 fL (7.6-11.3) L 10/13/21 04:10 Neutrophils % 84.9 % (41.7-73.7) H 10/13/21 04:10 Lymphocytes % 3.8 % (15.3-44.8) L 10/13/21 04:10 Monocytes % 8.7 % (3.3-12.3) 10/13/21 04:10 Eosinophils % 1.7 % (0-4.4) 10/13/21 04:10 Basophils % 0.9 % (0-1.3) 10/13/21 04:10 Absolute Neutrophils 9.9 K/uL (1.8-8.0) H 10/13/21 04:10 Absolute Lymphocytes 0.4 K/uL (0.7-4.9) L 10/13/21 04:10 Absolute Monocytes 1.0 K/uL (0.1-1.3) 10/13/21 04:10 Absolute Eosinophils 0.2 K/uL (0-0.5) 10/13/21 04:10 Absolute Basophils 0.1 K/uL (0-0.5) 10/13/21 04:10 PT 17.7 SECONDS (9.5-12.5) H 10/12/21 11:15 INR 1.59 10/12/21 11:15 APTT 41.3 SECONDS (24.3-36.9) H 10/12/21 11:15 Sodium 140 mmol/L (136-145) 10/13/21 04:10 Potassium 3.8 mmol/L (3.5-5.1) 10/13/21 04:10 Chloride 109 mmol/L (98-107) H 10/13/21 04:10 Carbon Dioxide 23 mmol/L (21-32) 10/13/21 04:10 Anion Gap 11.8 mEq/L (5.0-15.0) 10/13/21 04:10 BUN 13 mg/dL (7-18) 10/13/21 04:10 Creatinine 0.73 mg/dL (0.55-1.3) 10/13/21 04:10 Est GFR (CKD-EPI) 91 ml/min (=/>90) 10/13/21 04:10 Glucose 78 mg/dL (74-106) 10/13/21 04:10 POC Glucose 81 mg/dL (65-120) 10/13/21 11:50 Lactic Acid 1.1 mmol/L (0.4-2.0) 10/13/21 04:10 Calcium 8.9 mg/dL (8.5-10.1) 10/13/21 04:10 Phosphorus 3.1 mg/dL (2.5-4.9) 10/13/21 04:10 Magnesium 1.9 mg/dL (1.8-2.4) 10/13/21 04:10 Total Bilirubin 0.7 mg/dL (0.2-1.0) 10/13/21 04:10 AST 20 U/L (15-37) 10/13/21 04:10 ALT 14 U/L (12-78) 10/13/21 04:10 Alkaline Phosphatase 70 U/L (45-117) 10/13/21 04:10 Serum Total Protein 6.3 g/dL (6.4-8.2) L 10/13/21 04:10 Albumin 2.0 g/dL (3.4-5.0) L 10/13/21 04:10 Globulin 4.3 g/dL (2.3-3.5) H 10/13/21 04:10 Albumin/Globulin Ratio 0.5 (1.1-1.8) L 10/13/21 04:10 Procalcitonin 0.69 ng/mL (<0.050) H 10/13/21 04:10 Urine pH 5.5 (5.0-7.0) 10/12/21 11:54 Ur Specific [place] 1.025 (1.005-1.030) 10/12/21 11:54 Glucose (UA)(Auto) Negative (Negative) 10/12/21 11:54 Urine Ketones 1+ (Negative) H 10/12/21 11:54 Urine Blood Negative (Negative) 10/12/21 11:54 Urine Nitrite Negative (Negative) 10/12/21 11:54 Ur Leukocyte Esterase Negative (Negative) 10/12/21 11:54 Urine Total Protein 1+ (Negative) H 10/12/21 11:54 SARS-CoV-2 Rap RNA(RT-PCR) Negative (NEGATIVE) 10/12/21 12:24 Microbiology Data (last 24 hrs): 10/13/21 11:17 Wound - Left Foot Gram Stain - Final 10/13/21 11:17 Wound - Left Foot Culture & Sensitivity - Final Acinetobacter Darryl/Haem Klebsiella Pneumoniae Assessment And Plan - Plan Physical exam: General: Cachectic, Confused HEENT: Atraumatic, Normocephalic Neck: Supple, 2+ carotid pulse no bruit Respiratory: Clear to auscultation bilaterally, Normal air movement Cardiovascular: Normal pulses, Regular rate/rhythm Capillary refill: <2 Seconds Gastrointestinal: Hypoactive, Soft and benign Integumentary: Other (Right BKA with wound VAC dressing in place, left foot surgical postop dressing in place) Conclusions/Impression: Antibiotics: Vancomycin: /5current Cefepime: 6/5current Gangrenous changes to left first and second toe amputation site and left heel Surgical debridement performed on 10/13 -placed on contact precautions as left foot wound cultures growing wagner resistant Acetobacter. Patient will need vascular intervention Continue wound care per surgical team Recommend continuing empiric vancomycin and cefepime at this time Severe peripheral arterial disease Patient will require vascular intervention Anemia Continue to monitor H&H Plan of care discussed Dr. Gardner Thank for consultation
[2021-10-16] MEDS: QUETIAPINE 25 MG TAB PO SCH (20:10)
[2021-10-16] MEDS: PREGABALIN 50 MG CAP PO SCH (20:10)
[2021-10-16] MEDS: DONEPEZIL HCL 5 MG TAB PO SCH (20:10)
[2021-10-16] MEDS: MIRTAZAPINE 15 MG TAB PO SCH (20:10)
[2021-10-16] MEDS: ENSURE ENLIVE 237 ML CAN PO SCH (20:11)
--- NOTE | 2021-10-16 20:57 | OP ---
Date of Procedure: 10/16/2021 Surgeon: SEVERO SIDDIQUI Procedures Performed: 1.Peripheral angiogram with runoff. 2.Balloon angioplasty of severe diffuse disease of the anterior tibial artery on the left. Indication: Severe peripheral vascular disease with nonhealing wound of the left foot. Access: Right femoral artery 6-Emirati closed with StarClose. Complications: None. Bleeding: Less than 20 mL. Anesthesia: Total sedation time was 60 minutes. Description Of Procedure: After risks, benefits, and alternatives were explained, the patient agreed to the procedure and signed informed consent. The patient was brought into the cardiac catheterizat ion laboratory, prepped and draped in sterile fashion. Then, I accessed right femoral artery using m icropuncture kit and ultrasound guidance and fluoroscopy, placed 6-Emirati Oriental sheath. Then, I t ook a pigtail catheter into distal aorta and did a distal aortogram with runoff all the way to the fe et. Then, I took Flush catheter into the distal aorta with the [place] [employer]age wire across to the ot her side and placed wire into the SFA on the left and then exchanged the catheter and sheath for 16-F rench long destination sheath, placed the stent in the distal SFA on the left. Then, we took a short Run-Through wire all the way into the anterior tibial artery and placed a wire distal in the foot an d then took a 200 x 120 mm noncompliant balloon, performed angioplasty and then took a 3.0 x 120 ball oon and did angioplasty; however, there was no expansion of lesions heavily calcified, so decided to abort the procedure here and then removed the wire and sheath, and placed StarClose for closure with good hemostasis. Findings: 1.Distal aorta is patent. 2.Bilateral iliacs are patent. 3.Bilateral common femoral arteries are patent with no significant disease. 4.Right SFA and right profunda are patent and the patient has acamj-upu-lhhe amputation. 5.On the left side, the left profunda has proximal SSIS ETL DEVELOPER and then the SFA is with mild diffuse 10% to 20% stenosis. 6.The left anterior tibial artery is heavily calcified, severely diseased between 90% to 95% to mult iple areas all the way to the foot, status post balloon angioplasty using 3.0 x 120 mm noncompliant b alloon. 7.The posterior tibial artery and peroneal artery are small arteries and heavily calcified and sever leandro diseased ranging between 90% to 95%. Conclusion: Severe wbjct-bze-ajos peripheral vascular disease on the left and status post balloon an gioplasty of the anterior tibial, however, with no significant expansion. Plan And Recommendations: I recommend prlcr-aid-lmow amputation as the perfusion to the SFA all the way to below the knee level is excellent and he has severe diffuse disease and I do not believe it is amenable to intervention at this point. The benefit would not outweigh the risks. Discussed with P odiatry and recommended xjnht-vlo-pmfm amputation. SR/MODL Voice ID: [id number] Report ID: [id number]
[2021-10-17] MEDS: CEFEPIME 2 GM in NA CHLORIDE 0.9% 100 ML IV SCH ×2 (03:25→15:12)
[2021-10-17] MEDS: NA CHLORIDE 0.9% 1,000 ML IV SCH ×3 (03:28→13:30)
[2021-10-17] MEDS: ACETAMINOPHEN 650MG/RECT SUPP PR PRN (03:45)
[2021-10-17 05:22] LABS: Hematocrit 24.5 % (39.6-49.0); MCV 73.7 fL (80-100); MPV 6.8 fL (7.6-11.3); RBC Red Blood Cell Count 3.32 M/uL (4.33-5.43)
[2021-10-17 06:17] LABS: Potassium 3.5 mmol/L (3.5-5.1)
--- NOTE | 2021-10-17 06:59 | P.PN ---
Date of Service: 10/17/21 Subjective: no significant change intermittent fever ROS: unable to be obtained accurately due to confusion Physical exam GEN: Alert, orientedx1, NAD HEENT: Normal conjunctiva, sclera anicteric CV: Regular rate and rhythm, no edema Pulm: Nonlabored respirations on room air MSK: R BKA, L gangrenous toes with dressing in place Neuro: Normal speech, normal affect Problem List sepsis secondary to Left toe gangrene PVD anemia of chronic disease; iron deficiency h/o DVT h/o PE h/o M. 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
[2021-10-17] MEDS: PYRIDOSTIGMINE 60 MG TABLET PO SCH ×3 (08:51→20:15)
[2021-10-17] MEDS: JUVEN PACKET PO SCH ×2 (08:51→20:17)
[2021-10-17] MEDS: SODIUM HYPOCHLORITE 0.25% 473 ML TOP SCH (08:51)
[2021-10-17] MEDS: ENSURE ENLIVE 237 ML CAN PO SCH ×2 (08:51→20:17)
[2021-10-17] MEDS ORDERED: POTASSIUM CL SA 10 MEQ TAB PO ONE (09:00)
--- NOTE | 2021-10-17 14:31 | PN ---
Date of Progress Note: 10/14/2021 Mr. Redding was admitted with gangrene. He has had a right BKA, had a nonhealing wound on the left foot. Has hypertension and diabetes, history of pulmonary embolus. Has been taking Eliquis. Dr. Timothy miranda is following the patient. He has severe peripheral arterial disease. We will plan for him to have an abdominal angiogram with runoff after holding the Eliquis for 48 hours. The patient understa nds the risk and the benefits of the procedure and he agrees to proceed. ELLEN/ARMINDA Voice ID: [id number] Report ID: [id number]
[2021-10-17] MEDS: VANCOMYCIN 1.5 GM in NA CHLORIDE 0.9% 500 ML IVPB SCH (15:54)
--- NOTE | 2021-10-17 16:55 | PN ---
Subjective: The patient is lying in bed. Family by the bedside, not in any distress. The patient i s responding to verbal stimuli by moaning. The patient has not eaten since morning. Objective: Vital Signs: Temperature 99, T-max of 100.5, pulse 80, respirations 16, blood pressure 1 14/47. Lungs: Basal crackles. Heart: S1, S2. Regular. Abdomen: Soft, nontender. Bowel sounds present. Extremity: Left foot ulcer, and right BKA noted. Laboratory Data: WBC 10.8, hemoglobin 7.8, platelets 359. Chemistry shows sodium 141, potassium 3.5 , chloride 113, bicarb 22, BUN 16, creatinine 0.5, glucose 111. Urine shows 10-20 wbc's. Cultures a re growing from the left foot wound, Acinetobacter and Klebsiella pneumoniae. The patient is current ly on vancomycin and cefepime. Blood cultures are negative. Assessment And Plan: Mr. Redding is currently on vancomycin and cefepime for gangrenous changes to the left first and second toe, status post surgical debridement, severe peripheral arterial disease, right decoo-zlc-qiox amputation, left bvzvw-ape-xwhz amputation. The patient is unresponsive. Poor prognosis. Continue supportive care and antibiotic. Consider comfort care. We will follow the terrance ent closely. NF/MODL Voice ID: [id number] Report ID: [id number]
[2021-10-17] MEDS: PREGABALIN 50 MG CAP PO SCH (20:15)
[2021-10-17] MEDS: DONEPEZIL HCL 5 MG TAB PO SCH (20:15)
[2021-10-17] MEDS: MIRTAZAPINE 15 MG TAB PO SCH (20:16)
[2021-10-17] MEDS: QUETIAPINE 25 MG TAB PO SCH (20:16)
[2021-10-18] MEDS: NA CHLORIDE 0.9% 1,000 ML IV SCH ×2 (01:52→11:18)
[2021-10-18] MEDS: CEFEPIME 2 GM in NA CHLORIDE 0.9% 100 ML IV SCH ×2 (03:22→16:25)
[2021-10-18 04:41] LABS: Hematocrit 25.3 % (39.6-49.0); MPV 7.1 fL (7.6-11.3); RBC Red Blood Cell Count 3.43 M/uL (4.33-5.43)
[2021-10-18 06:15] LABS: Potassium 3.7 mmol/L (3.5-5.1)
[2021-10-18] MEDS: JUVEN PACKET PO SCH ×2 (09:00→23:23)
[2021-10-18] MEDS: ENSURE ENLIVE 237 ML CAN PO SCH ×2 (09:00→23:23)
[2021-10-18] MEDS: POTASSIUM CL SA 10 MEQ TAB PO ONE ×2 (11:19→12:33)
[2021-10-18] MEDS: SODIUM HYPOCHLORITE 0.25% 473 ML TOP SCH (11:19)
[2021-10-18] MEDS: PYRIDOSTIGMINE 60 MG TABLET PO SCH ×4 (11:20→23:16)
--- NOTE | 2021-10-18 12:08 | PN ---
Date of Progress Note: 10/17/2021 Mr. Redding is a patient with severe peripheral arterial disease. Underwent an angioplasty yesterda y of his posterior tibial artery by Dr. Verma using the right femoral artery as an access. Today, t he patient has no complaint in that regard. His right groin is intact without any hematoma. He has good pulses in femoral artery bilaterally. He continues to suffer with significant peripheral arteri al disease and Dr. Bautista is following. We are hoping that the angioplasty will slowly, but surely help his wound in the left leg. Continue present regimen. As far as I am concerned, he can be disch arged whenever it is okay with primary care physician and with Dr. Bautista. We will be happy to see him in the office in the next week or 2. ELLEN/ARMINDA Voice ID: [id number] Report ID: [id number]
[2021-10-18] MEDS: ACETAMINOPHEN 500 MG TAB PO PRN (13:44)
[2021-10-18] MEDS: VANCOMYCIN 1.5 GM in NA CHLORIDE 0.9% 500 ML IVPB SCH (16:08)
--- NOTE | 2021-10-18 17:48 | P.PN ---
Date of Service: 10/18/21 Subjective: no significant change family meeting with hospice team this afternoon ROS: unable to be obtained accurately due to confusion Physical exam GEN: Alert, orientedx1, NAD HEENT: Normal conjunctiva, sclera anicteric CV: Regular rate and rhythm, no edema Pulm: Nonlabored respirations on room air MSK: R BKA, L gangrenous toes, dressing in place Problem List sepsis secondary to Left toe gangrene PVD anemia of chronic disease; iron deficiency h/o DVT h/o PE h/o M. 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
[2021-10-18] MEDS: MIRTAZAPINE 15 MG TAB PO SCH (23:16)
[2021-10-18] MEDS: DONEPEZIL HCL 5 MG TAB PO SCH (23:17)
[2021-10-18] MEDS: QUETIAPINE 25 MG TAB PO SCH (23:17)
[2021-10-18] MEDS: PREGABALIN 50 MG CAP PO SCH (23:17)
[2021-10-19] MEDS: NA CHLORIDE 0.9% 1,000 ML IV SCH ×3 (01:00→22:27)
[2021-10-19 04:41] LABS: Hematocrit 26.2 % (39.6-49.0); MCV 72.7 fL (80-100); RBC Red Blood Cell Count 3.61 M/uL (4.33-5.43)
[2021-10-19 05:04] LABS: Potassium 3.8 mmol/L (3.5-5.1)
[2021-10-19] MEDS: CEFEPIME 2 GM in NA CHLORIDE 0.9% 100 ML IV SCH ×2 (05:30→16:29)
--- NOTE | 2021-10-19 06:56 | P.PN ---
Date of Service: 10/19/21 Subjective: alert, oriented to self pain at foot not eating much intermittent fever diarrhea overnight ROS: unable to be obtained accurately due to confusion Physical exam GEN: Alert, orientedx1, NAD HEENT: Normal conjunctiva, sclera anicteric CV: Regular rate and rhythm, no edema Pulm: Nonlabored respirations on room air MSK: R BKA, L gangrenous toes, dressing in place Problem List sepsis secondary to Left toe gangrene PVD anemia of chronic disease; iron deficiency h/o DVT h/o PE h/o M. 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
[2021-10-19] MEDS ORDERED: POTASSIUM CL SA 10 MEQ TAB PO ONE (08:00)
[2021-10-19] MEDS: ENSURE ENLIVE 237 ML CAN PO SCH ×2 (09:00→22:28)
[2021-10-19] MEDS: JUVEN PACKET PO SCH ×2 (09:00→22:28)
[2021-10-19] MEDS: PYRIDOSTIGMINE 60 MG TABLET PO SCH ×3 (09:02→22:27)
[2021-10-19] MEDS: SODIUM HYPOCHLORITE 0.25% 473 ML TOP SCH (09:03)
[2021-10-19] MEDS: ACETAMINOPHEN 650MG/RECT SUPP PR PRN (09:14)
[2021-10-19] MEDS: MORPHINE 2 MG/ML SYR IV PRN ×2 (12:54→17:24)
[2021-10-19] MEDS ORDERED: NA CHLORIDE 0.9% 0 ML ONE (15:54)
[2021-10-19] MEDS: VANCOMYCIN 1.5 GM in NA CHLORIDE 0.9% 500 ML IVPB SCH (16:29)
[2021-10-19] MEDS: PREGABALIN 50 MG CAP PO SCH (22:27)
[2021-10-19] MEDS: MIRTAZAPINE 15 MG TAB PO SCH (22:27)
[2021-10-19] MEDS: DONEPEZIL HCL 5 MG TAB PO SCH (22:27)
[2021-10-19] MEDS: QUETIAPINE 25 MG TAB PO SCH (22:27)
[2021-10-20] MEDS: ACETAMINOPHEN 500 MG TAB PO PRN ×2 (02:14→18:48)
[2021-10-20] MEDS: ACETAMINOPHEN 650MG/RECT SUPP PR PRN (02:20)
[2021-10-20] MEDS: NA CHLORIDE 0.9% 1,000 ML IV SCH ×3 (03:38→13:38)
[2021-10-20] MEDS: CEFEPIME 2 GM in NA CHLORIDE 0.9% 100 ML IV SCH ×2 (03:55→16:00)
[2021-10-20 07:08] LABS: Potassium 3.7 mmol/L (3.5-5.1)
[2021-10-20] MEDS: SODIUM HYPOCHLORITE 0.25% 473 ML TOP SCH (08:03)
[2021-10-20] MEDS ORDERED: KCL 20 MEQ/100 mL IVPB 20 MEQ/100 ML BAG IV SCH (09:00)
[2021-10-20 09:14] VITALS: O2SAT 99
[2021-10-20] MEDS: ENSURE ENLIVE 237 ML CAN PO SCH (10:01)
[2021-10-20] MEDS: PYRIDOSTIGMINE 60 MG TABLET PO SCH ×2 (10:01→14:20)
[2021-10-20] MEDS: JUVEN PACKET PO SCH (10:01)
[2021-10-20] MEDS: VANCOMYCIN 1.5 GM in NA CHLORIDE 0.9% 500 ML IVPB SCH (16:00)
--- NOTE | 2021-10-20 16:39 | P.PN ---
Subjective Date of Service: 10/20/21 Chief Complaint: Fever Patient seen and examined at bedside, family has decided on hospice. Infectious disease will sign off. Review of Systems 10-point ROS is otherwise unremarkable Physical Examination - Vital Signs Temperature: 98.8 F Blood Pressure: 118/63 Pulse: 77 Respirations: 18 Pulse Ox (%): 98 Assessment And Plan - Plan Physical exam: General: Cachectic, Confused HEENT: Atraumatic, Normocephalic Neck: Supple, 2+ carotid pulse no bruit Respiratory: Clear to auscultation bilaterally, Normal air movement Cardiovascular: Normal pulses, Regular rate/rhythm Capillary refill: <2 Seconds Gastrointestinal: Hypoactive, Soft and benign Integumentary: Other (Right BKA with wound VAC dressing in place, left foot surgical postop dressing in place) Conclusions/Impression: Antibiotics: Vancomycin: /5current Cefepime: 6/5current Gangrenous changes to left first and second toe amputation site and left heel Surgical debridement performed on 10/13 -placed on contact precautions as left foot wound cultures growing wagner resistant Acetobacter. Patient will need vascular intervention Continue wound care per surgical team Recommend continuing empiric vancomycin and cefepime at this time Severe peripheral arterial disease Patient will require vascular intervention Anemia Continue to monitor H&H ~Family has decided on hospice, infectious disease will sign off at this time. Plan of care discussed Dr. Gardner Thank for consultation
--- NOTE | 2021-10-20 17:59 | P.DS ---
Admission Date: 10/13/21 Discharge Date: 10/20/21 Disposition: HOSPICE-MEDICAL FACILITY Reason for Admission: Fever Consultations: General Surgery - Dr. Bautista Infectious Disease - Dr. Gardner Brief History of Present Illness: 80yo M, PMH: M. Gravis, PAD, DM2, s/p toe amputations. Presented to ED from assisted living due to fever, altered mental status, and low urine output. Patient was found to have infected foot wound. Admitted for further management. Hospital Course: Problem List sepsis secondary to Left toe gangrene PVD anemia of chronic disease; iron deficiency h/o DVT h/o PE h/o M. gravis h/o advanced dementia Patient was treated with antibiotics. General surgery was consulted and patient was taken to OR fur debridement. Cultures grew wagner-resistant bacteria. Patient had mild improvement, and continued to have low grade fevers. ID was consulted and assisted with antibiotic management. Patient underwent arteriogram which revealed significant PAD. Lower extremity amputation was recommended. After multiple discussions, family decided against further surgeries and to pursue hospice. Patient was discharged back to [facility] on hospice. Vital Signs/Physical Exam: Temp Pulse Resp BP Pulse Ox 98.8 F 77 18 118/63 98 10/20/21 16:39 10/20/21 16:39 10/20/21 16:39 10/20/21 16:39 10/20/21 16:39 Physical exam GEN: Alert, orientedx1 HEENT: Normal conjunctiva, sclera anicteric CV: Regular rate and rhythm, no edema Pulm: Nonlabored respirations on room air MSK: R BKA, L gangrenous toes, dressing in place Laboratory Data at Discharge: WBC 12.9 K/uL (4.3-10.9) H D 10/19/21 04:19 Hgb 8.4 g/dL (13.6-17.9) L 10/19/21 04:19 Hct 26.2 % (39.6-49.0) L 10/19/21 04:19 Plt Count 434 K/uL (152-406) H 10/19/21 04:19 PT 17.7 SECONDS (9.5-12.5) H 10/12/21 11:15 INR 1.59 10/12/21 11:15 APTT 41.3 SECONDS (24.3-36.9) H 10/12/21 11:15 Sodium 141 mmol/L (136-145) 10/20/21 06:37 Potassium 3.7 mmol/L (3.5-5.1) 10/20/21 06:37 BUN 17 mg/dL (7-18) 10/20/21 06:37 Creatinine 0.48 mg/dL (0.55-1.3) L 10/20/21 06:37 Glucose 91 mg/dL (74-106) 10/20/21 06:37 Phosphorus 3.1 mg/dL (2.5-4.9) 10/13/21 04:10 Magnesium 1.9 mg/dL (1.8-2.4) 10/13/21 04:10 Total Bilirubin 0.4 mg/dL (0.2-1.0) 10/15/21 03:21 AST 15 U/L (15-37) 10/15/21 03:21 ALT 12 U/L (12-78) 10/15/21 03:21 Alkaline Phosphatase 65 U/L (45-117) 10/15/21 03:21 Home Medications: Amlodipine [Norvasc*] 10 mg PO DAILY 07/31/21 Apixaban [Eliquis *] 2.5 mg PO BID 07/31/21 Ascorbic Acid [Vitamin C] 500 mg PO BID 07/31/21 Atorvastatin Calcium 10 mg PO BEDTIME 07/31/21 Cyanocobalamin (Vitamin B-12) [Vitamin B-12] 1 tab PO DAILY 07/31/21 Donepezil HCl 10 mg PO DAILY 07/31/21 Furosemide 20 mg PO DAILY 07/31/21 Memantine HCl 10 mg PO BID 07/31/21 Pyridostigmine [place] 60 mg PO TID 07/31/21 Quetiapine Fumarate [Seroquel] 50 mg PO BEDTIME 07/31/21 Trazodone [Desyrel*] 25 mg PO BEDTIME 07/31/21 predniSONE [Deltasone*] 10 mg PO NOON 07/31/21 Jorge Alberto [Jorge Alberto*] 1 pkt PO BID #60 powd.pack 08/04/21 Calcium Carbonate [Calcium] 1,250 mg PO DAILY 09/10/21 Cholecalciferol (Vitamin D3) [Vitamin D 5,000 IU Cap*] 5,000 unit PO DAILY 09/10/21 Diclofenac Sodium 1 candida TD TID 09/10/21 Docusate Sodium 100 mg PO BID 09/10/21 Ferrous Sulfate [Ferrous Sulfate*] 1 tab PO BID 09/10/21 Hydrocodone 5/APAP 325 [[place] 5/325*] 1 tab PO Q8H 09/10/21 Mirtazapine [Remeron*] 15 mg PO BEDTIME 09/10/21 Pantoprazole Sodium [Protonix] 40 mg PO DAILY 09/10/21 Pregabalin [Lyrica*] 50 mg PO BEDTIME 09/10/21 Sennosides/Docusate Sodium [Senexon-S 50-8.6 mg Tablet] 1 each PO BID 09/10/21 Zinc Sulfate [Zinc Sulfate*] 1 cap PO DAILY 09/10/21 Minocycline HCl 100 mg PO BID #20 capsule 09/13/21 Followup: NONE,NONE [Primary Care Provider] - Time spent managing pt's care (in minutes): 40
[2021-10-20 20:54] VITALS: BP 120/53; TEMP 98.1
== END 2021-10-20 21:00 | disposition hospice, inpatient (51) | DRG 853 ==
LOC: ER 10:59 → ERHOLD 14:24 → 4TH 15:24 → OBSVTOIN 10-13 12:43
PROVIDERS: ADMIT Hospitalist; ATTEND Internal Medicine
PROC: 0JBR0ZZ Excision of Left Foot Subcutaneous Tissue and Fascia, Open Approach (ICD-10-PCS; 2021-10-13)
PROC: 0QBM0ZZ Excision of Left Tarsal, Open Approach (ICD-10-PCS; principal; 2021-10-13 10:45)
PROC: 047Q3ZZ Dilation of Left Anterior Tibial Artery, Percutaneous Approach (ICD-10-PCS; 2021-10-16)
PROC: B41D1ZZ Fluoroscopy of Aorta and Bilateral Lower Extremity Arteries using Low Osmolar Contrast (ICD-10-PCS; 2021-10-16)
DX: A41.9 Sepsis, unspecified organism (principal); L89.624 Pressure ulcer of left heel, stage 4; G93.41 Metabolic encephalopathy; N17.9 Acute kidney failure, unspecified; R64 Cachexia; I70.262 Atherosclerosis of native arteries of extremities with gangrene, left leg; N39.0 Urinary tract infection, site not specified; R65.20 Severe sepsis without septic shock; D63.8 Anemia in other chronic diseases classified elsewhere; G70.00 Myasthenia gravis without (acute) exacerbation; F03.90 Unspecified dementia, unspecified severity, without behavioral disturbance, psychotic disturbance, mood disturbance, and anxiety; B96.1 Klebsiella pneumoniae [K. pneumoniae] as the cause of diseases classified elsewhere; B96.89 Other specified bacterial agents as the cause of diseases classified elsewhere; Z86.711 Personal history of pulmonary embolism; Z86.718 Personal history of other venous thrombosis and embolism; Z68.24 Body mass index [BMI] 24.0-24.9, adult; Z20.822 Contact with and (suspected) exposure to COVID-19; Z89.511 Acquired absence of right leg below knee; Z89.412 Acquired absence of left great toe; Z89.422 Acquired absence of other left toe(s); D50.9 Iron deficiency anemia, unspecified; Z79.01 Long term (current) use of anticoagulants
CPT/HCPCS: 36200; 36245; 36415; 51702; 71045; 75630; 80048; 80053; 80202; 81003; 81015; 82728; 82947; 83540; 83605; 83735; 84100; 84145; 84466; 85025; 85027; 85044; 85347; 85610; 85730; 86140; 87040; 87070; 87075; 87077; 87086; 87088; 87186; 87205; 88304; 93005; 96365; 96366; 96367; 96368; 99285; C1769; C1887; G0378; J0692; J1644; J2250; J2270; J2405; J2543; J2704; J3010; J3370; J3480; J3590; J7030; J7040; J7050; U0003